=== PATIENT | female | born 1935 | race Caucasian/White ===

== ENCOUNTER 2017-01-15 15:54 | Inpatient (IN) | payer MEDICARE ==
[~2017-01-15] VITALS: Ht 152.4 cm; Wt 84.5 kg
[2017-01-15] MEDS: NS 1,000 ML IV SCH ×2 (00:45→21:10)
[~2017-01-15 15:54] MED LIST: /ESOM40CA PO; /MOXI40TA PO; ADV250INH INH; AMLO5TAB2 PO; ANAS1TAB PO; ARTH650T PO; BAYE81TA10 PO; CALC600T7 PO; CRES5TAB PO; DIOV320T PO; FLUO20CA8 PO; LOPR50TA PO; MULTTAB4 PO; PRED10PA PO; SPIRIVA INH; SYNT50TA PO; VENTAER INH; VITA500C24 PO
[2017-01-15] MEDS ORDERED: NS 500 ML IV ONE (16:30)
[2017-01-15] MEDS ORDERED: VALS320T3 PO (16:33)
[2017-01-15] MEDS ORDERED: TUDO1AER2 INH (16:33)
[2017-01-15] MEDS ORDERED: PRAV40TA2 PO (16:33)
[2017-01-15] MEDS ORDERED: LOMO2.5T PO (16:33)
--- NOTE | 2017-01-15 16:57 | REP ---
PORTABLE CHEST: AP portable view of the chest is performed. Patchy infiltrate is seen in the left upper lobe. There is cardiomegaly. Right lung demonstrates fibrotic scarring inferiorly appearing similar to the prior study. There is calcification of the thoracic aorta. There is a left dual lead pacemaker again noted. IMPRESSION: Cardiomegaly. Left upper lobe infiltrate. Signed by Fabian Sherwood MD 01/15/2017 04:58 P
[2017-01-15 17:12] LABS: BASO # 0.1 10^3/uL (0.0-0.2); BASO % 0.2 % (0.0-1.0); IMMATURE GRANULOCYTE % 0.6 % (0-0); LYMPH # 0.9 10^3/uL (1.5-4.5); LYMPH % 3.6 % (24.0-44.0); MEAN CORPUSCULAR HEMOGLOBIN 32.6 pg (27.0-33.0); MEAN CORPUSCULAR HGB CONC 31.9 g/dl (32.0-36.5); MONO # 0.9 10^3/uL (0.0-0.8); MONO % 3.4 % (0.0-5.0); NEUTROPHILS # 23.6 10^3/uL (1.8-7.7); NEUTROPHILS % 92.2 % (36.0-66.0); PLATELET COUNT, AUTOMATED 322 10^3/uL (150-450); RED CELL DISTRIBUTION WIDTH 13.9 % (11.5-14.5); WHITE BLOOD COUNT 25.6 10^3/uL (4.0-10.0)
[2017-01-15 17:17] LABS: INR 1.03
[2017-01-15 17:29] LABS: ANION GAP 8 MEQ/L (8-16); BLOOD UREA NITROGEN 27 MG/DL (7-18); CALCIUM LEVEL 9.3 MG/DL (8.8-10.2); CARBON DIOXIDE LEVEL 28 MEQ/L (21-32); CHLORIDE LEVEL 103 MEQ/L (98-107); CREATININE FOR GFR 1.66 MG/DL (0.55-1.02); GLOMERULAR FILTRATION RATE 31.7 (>39); GLUCOSE, FASTING 157 MG/DL (83-110); POTASSIUM SERUM 4.2 MEQ/L (3.5-5.1); SODIUM LEVEL 139 MEQ/L (136-145)
[2017-01-15] MEDS ORDERED: CEFEPIME HCL 2 GM in APPROPRIATE DILUENT 1 EA IV ONE (17:30)
[2017-01-15] MEDS ORDERED: LevoFLOXacin IV 750 MG in APPROPRIATE DILUENT 1 EA IV ONE (17:30)
[2017-01-15] MEDS ORDERED: NS 2,520 ML in APPROPRIATE DILUENT 1 EA IV ONE (17:30)
[2017-01-15 17:38] LABS: ALBUMIN 2.7 GM/DL (3.2-5.2); ALBUMIN/GLOBULIN RATIO 0.68 (1.00-1.93); BILIRUBIN,DIRECT 0.2 MG/DL (0.0-0.2); BILIRUBIN,TOTAL 0.6 MG/DL (0.2-1.0); TOTAL PROTEIN 6.7 GM/DL (6.4-8.2)
[2017-01-15] MEDS ORDERED: OMEP20CA3 PO (18:08)
[2017-01-15] MEDS ORDERED: AMLO10TA2 PO (18:08)
[2017-01-15] MEDS ORDERED: VITMTA PO (18:08)
[2017-01-15] MEDS ORDERED: LOMOTIL 2.5MG/0.025MG TABLET PO PRN (18:45)
--- NOTE | 2017-01-15 19:04 | HPE ---
DATE OF ADMISSION: 01/15/2017 PRIMARY CARE PROVIDER: None in [place]. HISTORY OF PRESENT ILLNESS The patient is a 81-year-old female with past medical history significant for chronic obstructive pulmonary disease, hypothyroidism, hyperlipidemia, hypertension, depression presented to [facility] on 01/15/2017 for generalized discomfort. Patient moved from [place] to [place]. She is looking at permanent residency in [place]. Per patient, patient was busy moving her belongings from [place] to [place] when she had extreme significant physical distress in the last few days and patient had progressive weakness and patient also noted to have increasing lightheadedness. Therefore, patient came to [facility] for further evaluation. During imaging study patient was found to have left upper lobe infiltrate. Denies any fever, chills. Denies any worsening cough. Denies any increased phlegm. Denied chest pain. Denies any recent sick contact. Denied any recent hospitalization. Presented due to hyper increased requirement of oxygen. PAST MEDICAL HISTORY: Chronic obstructive pulmonary disease. Hypothyroidism. Hyperlipidemia. Hypertension. History of breast cancer status post surgical repair. Depression. Pacemaker placement. PAST SURGICAL HISTORY: Abdominal aortic aneurysm repair in Summer 2015. Appendectomy. Cholecystectomy. Back surgery Tubal ligation. Patient had bilateral mastectomy in 2009 with breast augmentation and implant. SOCIAL HISTORY: Former smoker. Denied alcohol use. Denied recreational drug use. ALLERGIES: VICODIN (hallucination and confusion). REVIEW OF SYSTEMS: GENERAL: Denies any fever or chills. HEENT: Denied any vision change or auditory changes. CARDIOVASCULAR: Has a pacemaker placement. Denied any chest pain or palpitations. RESPIRATORY: Having increased oxygen requirements. No increased wheeze. No increased cough. No increased sputum production. GI: No nausea, no vomiting, no abdominal pain. MUSCULOSKELETAL: Denied any joint pain or muscle pain. OBJECTIVE: Vital signs temperature 97.4, pulse 85, respiration 20, blood pressure 102/53, pulse ox 94% with 2 liter nasal cannula. GENERAL: Fatigue. No sign of acute distress. Awake, alert, and oriented times three. HEENT: Normocephalic, atraumatic. Extraocular motor grossly intact. CARDIOVASCULAR: Positive S1, S2, regular rate. LUNGS: Some mild expiratory wheezes, decreased breath sound on the left upper lobe. ABDOMEN: Soft, non-tender, non-distended. Bowel sounds present. No rebound. No guarding. EXTREMITIES: No edema. No cyanosis. NEUROLOGIC: Sensation to fine touch grossly intact. Muscle strength 5/5. LABORATORY DATA: WBC 25.6, hemoglobin 14.4, hematocrit 45.1, platelet count is 322. Sodium 139, potassium 4.2, chloride 103, carbon dioxide 29, BUN 27, creatinine 1.66, Glomerular filtration rate (GFR) is 31.7, fasting glucose 157, lactic acid 2.3, calcium 9.3, total bilirubin 0.6, direct bilirubin is 0.2. AST 26, ALT 25, Alkaline phosphatase 60, troponin I is less than 0.02, total protein 6.9, albumin 2.7. PT is 13.6, INR is 1.03. Microbiology: Blood culture is pending. IMAGING STUDY: Chest x-ray shows left upper lobe infiltrate. ASSESSMENT AND PLAN: 1. Community acquired pneumonia. Patient admitted to progressive care unit (PCU) in inpatient status. Started on Rocephin and azithromycin. Initially patient systolic blood pressure maintained with IV fluid. Sputum culture ordered. Follow with respiratory panel. 2. Hypertension. Currently patient has sub blood pressure, blood pressure medication will be on hold. 3. Chronic obstructive pulmonary disease. Patient will maintain Oxygen sat between 88% to 92%. Patient will having breathing treatment as needed. 4. Hypothyroidism. Continue Synthroid. 5. Acute kidney injury. Will continue patient on gentle hydration. Cfhzdjqntdm-vmeepsfg-sievvqc (ARB) and diuretic will be on hold. 6. History of pacemaker placement. 7. Dyslipidemia. 8. Depression. Continue with fluoxetine. 9. History of breast cancer status post bilateral mastectomy in 2009 with breast augmentation and implants. 10. Abdominal aortic aneurysm repair in 2016. 11. Deep vein thrombosis prophylaxis on Heparin.
[2017-01-15 20:55] VITALS: BP 102/57
[2017-01-15] MEDS ORDERED: amLODIPine 10 MG TAB PO SCH (21:00)
[2017-01-15] MEDS: HEPARIN SOD (PORCINE) 5000 UNITS/ML VIAL SC SCH (21:10)
[2017-01-15] MEDS: ACETAMINOPHEN TAB 650MG DOSE (2X325MG) PO PRN (22:07)
[2017-01-16] VITALS (7 sets, daily range): BP systolic 124–159; BP diastolic 58–73
[2017-01-16] MEDS ORDERED: SLF 3 ML SYR IV PRN (02:15)
[2017-01-16] MEDS: ACETAMINOPHEN TAB 650MG DOSE (2X325MG) PO PRN ×3 (04:00→21:17)
[2017-01-16 05:29] LABS: MEAN CORPUSCULAR HGB CONC 31.7 g/dl (32.0-36.5); MEAN CORPUSCULAR VOLUME 103.9 fl (80.0-96.0); PLATELET COUNT, AUTOMATED 223 10^3/uL (150-450); RED CELL DISTRIBUTION WIDTH 13.9 % (11.5-14.5); WHITE BLOOD COUNT 18.2 10^3/uL (4.0-10.0)
[2017-01-16] MEDS: LEVOTHYROXINE 50MCG TABLET (0.05MG) PO SCH (05:49)
[2017-01-16] MEDS: SLF 3 ML SYR IV SCH ×3 (05:50→21:15)
[2017-01-16] MEDS: HEPARIN SOD (PORCINE) 5000 UNITS/ML VIAL SC SCH ×3 (05:50→21:11)
[2017-01-16 06:06] LABS: CREATININE FOR GFR 1.24 MG/DL (0.55-1.02); GLOMERULAR FILTRATION RATE 44.4 (>39); MAGNESIUM LEVEL 1.4 MG/DL (1.8-2.4); POTASSIUM SERUM 4.1 MEQ/L (3.5-5.1)
[2017-01-16] MEDS: ALBUTEROL SULFATE 2.5 MG/0.5 ML INH NEB SOLN NEB PRN ×3 (07:04→19:50)
--- NOTE | 2017-01-16 07:33 | ECGEPIP ---
Stationary ECG Study [facility] - ED Test Date: 2017-01-15 Pat Name: JONATHAN LIU Department: Room: - Gender: F Ssis Developer: sb : [id number] Requested By: Rivka Robert Order Number: [id number] Reading MD: Jono Garcia Measurements Intervals [place] Rate: 75 P: 97 UT: 193 QRS: -7 QRSD: 97 T: 79 QT: 422 QTc: 471 Interpretive Statements ELECTRONIC ATRIAL PACEMAKER INCOMPLETE RIGHT BUNDLE BRANCH BLOCK NSTTW ABNORMALITIES SIMILAR TO 10/15/12 Electronically Signed On 01-16-2017 7:33:25 EST by Jono Garcia
[2017-01-16] MEDS ORDERED: AZITHROMYCIN INJ 500 MG, VIAL MATE ADAPTER 1 EACH in D5W 250 ML IV SCH (08:00)
[2017-01-16] MEDS: ASPIRIN 81 MG ENTERIC TAB PO SCH (08:17)
[2017-01-16] MEDS: FLUoxetine 20 MG CAP PO SCH (08:18)
[2017-01-16] MEDS: PRAVASTATIN 20 MG TAB PO SCH (08:18)
[2017-01-16] MEDS: MULTIVITAMINS/MINERALS THERAP 1 TAB PO SCH (08:18)
[2017-01-16] MEDS: OMEPRAZOLE 20 MG CAP PO SCH (08:18)
[2017-01-16] MEDS: CEFTRIAXONE SOD 1 GM in APPROPRIATE DILUENT 1 EA IV SCH ×2 (09:37→21:14)
--- NOTE | 2017-01-16 10:06 | IPNPDOC ---
Subjective Date Seen The patient was seen on 01/16/17. Subjective Chief Complaint/HPI The patient is a 81-year-old female admitted with a reason for visit of Pneumonia. Events since last encounter patient feels better this morning. Less tired and feels stronger, denies any fever or chills, denies any chest pain or sob , says uses oxygen as required at home but does not have oxygen here. Objective Physical Examination General Exam: Positive: Alert, Cooperative, No Acute Distress Eye Exam: Positive: PERRLA, Conjunctiva & lids normal, EOMI, Negative: Sclera icteric ENT Exam: Positive: Atraumatic, Mucous membr. moist/pink, Pharynx Normal Neck Exam: Positive: Supple, Negative: JVD, thyromegaly Chest Exam: Positive: Clear to auscultation, Diminished Heart Exam: Positive: Rate Normal, Regular Rhythm, Normal S1, Normal S2, Negative: Murmurs, Rubs Abdomen Exam: Positive: Normal bowel sounds, Soft, Negative: Tenderness, Hepatospenomegaly Extremity Exam: Positive: Normal pulses, Negative: Clubbing, Cyanosis, Edema Assessment /Plan Problems (1) Pneumonia Status: Acute Problem Text: will continue with ceftriaxone and azithromycin. (2) DANIEL (acute kidney injury) Status: Acute Response to Treatment: Improving Problem Text: possibly prerenal . will continue to monitor. (3) Rhinovirus infection Status: Acute Problem Text: Human rhino/enterovirus infection. (4) COPD (chronic obstructive pulmonary disease) Status: Chronic Problem Text: uses oxygen prn at home will get nocturnal pulse oximetry and also resting and ambulatory pulse oximetry to see if she qualifies for home oxygen or not. (5) Hypothyroid Status: Chronic (6) Hyperlipidemia Status: Chronic (7) Hypertension Status: Chronic (8) Pacemaker Status: Chronic (9) CAD (coronary artery disease) Status: Chronic (10) CHF (congestive heart failure) Status: Chronic Problem Text: diastolic chf (11) GERD (gastroesophageal reflux disease) Status: Chronic (12) History of breast cancer Status: Chronic Problem Text: in 2010 treated (13) Depression Status: Chronic (14) Vertebral compression fracture Status: Chronic Problem Text: in the thoracic spine. (15) Degenerative disc disease Status: Chronic Problem Text: had lumber spinal surgery in the past Plan/VTE VTE Prophylaxis Ordered?: Yes VS, I&O, 24H, Fishbone Vital Signs/I&O Vital Signs Date Time Temp Pulse Resp B/P (MAP) Pulse Ox O2 Delivery O2 Flow Rate FiO2 01/16/17 04:00 98.6 69 20 132/63 (86) 88 Nasal Cannula 2.0 Laboratory Data 24H LABS Laboratory Tests 2 01/15/17 16:47: Immature Granulocyte % (Auto) 0.6H, White Blood Count 25.6H, Red Blood Count 4.42, Hemoglobin 14.4, Hematocrit 45.1, Mean Corpuscular Volume 102.0H, Mean Corpuscular Hemoglobin 32.6, Mean Corpuscular Hemoglobin Concent 31.9L, Red Cell Distribution Width 13.9, Platelet Count 322, Neutrophils (%) (Auto) 92.2H, Lymphocytes (%) (Auto) 3.6L, Monocytes (%) (Auto) 3.4, Eosinophils (%) (Auto) 0.0, Basophils (%) (Auto) 0.2, Neutrophils # (Auto) 23.6H, Lymphocytes # (Auto) 0.9L, Monocytes # (Auto) 0.9H, Eosinophils # (Auto) 0.0, Basophils # (Auto) 0.1 , Immature Granulocyte # (Auto) 0.2H, Nucleated Red Blood Cells % (auto) 0.0, Prothrombin Time 13.6, Prothromb Time International Ratio 1.03, Anion Gap 8, Glomerular Filtration Rate 31.7L, Lactic Acid Level 2.3*H, Blood Urea Nitrogen 27H, Creatinine 1.66H, Sodium Level 139, Potassium Level 4.2, Chloride Level 103 , Carbon Dioxide Level 28, Calcium Level 9.3, Total Creatine Kinase 65, Aspartate Amino Transf (AST/SGOT) 26, Alanine Aminotransferase (ALT/SGPT) 25, Alkaline Phosphatase 68, Total Bilirubin 0.6, Direct Bilirubin 0.2, Creatine Kinase MB 1.1, Creatine Kinase MB Relative Index 1.69, Troponin I < 0.02, Total Protein 6.7, Albumin 2.7L, Albumin/Globulin Ratio 0.68L, Thyroid Stimulating Hormone (TSH) 1.620 01/15/17 21:02: Lactic Acid Followup at 4 Hours 1.6 01/16/17 05:13: Nucleated Red Blood Cells % (auto) 0.0, Anion Gap 9, Glomerular Filtration Rate 44.4, Blood Urea Nitrogen 30H, Creatinine 1.24H, Sodium Level 144, Potassium Level 4.1, Chloride Level 111H, Carbon Dioxide Level 24, Calcium Level 8.0L, Thyroid Stimulating Hormone (TSH) 1.560, Magnesium Level 1.4L, C-Reactive Protein, Quantitative 13.90H CBC/BMP Laboratory Tests 01/15/17 16:47 Red Blood Count 4.42, Mean Corpuscular Volume 102.0 H, Mean Corpuscular Hemoglobin 32.6, Mean Corpuscular Hemoglobin Concent 31.9 L, Red Cell Distribution Width 13.9, Neutrophils (%) (Auto) 92.2 H, Lymphocytes (%) (Auto) 3.6 L, Monocytes (%) (Auto) 3.4, Eosinophils (%) (Auto) 0.0, Basophils (%) (Auto ) 0.2, Neutrophils # (Auto) 23.6 H, Lymphocytes # (Auto) 0.9 L, Monocytes # ( Auto) 0.9 H, Eosinophils # (Auto) 0.0, Basophils # (Auto) 0.1, Calcium Level 9.3 , Total Creatine Kinase 65 01/16/17 05:13 Red Blood Count 3.61 L, Mean Corpuscular Volume 103.9 H, Mean Corpuscular Hemoglobin 33.0, Mean Corpuscular Hemoglobin Concent 31.7 L, Red Cell Distribution Width 13.9, Calcium Level 8.0 L Microbiology Microbiology 01/15/17 Blood Culture, Received Pending 01/15/17 Blood Culture, Received Pending 01/16/17 Gram Stain, Received Pending 01/16/17 Sputum Culture, Received Pending 01/15/17 Respiratory Virus Panel (PCR) (IZABELA) - Final, Complete Human Rhinovirus/Enterovirus 01/15/17 Influenza Virus Type A Antigen - Final, Complete 01/15/17 Influenza Virus Type B Antigen - Final, Complete RICO DUMONT MD Jan 16, 2017 08:57
[2017-01-17 05:25] VITALS: BP 164/69
[2017-01-17] MEDS: HEPARIN SOD (PORCINE) 5000 UNITS/ML VIAL SC SCH ×3 (05:51→21:14)
[2017-01-17] MEDS: SLF 3 ML SYR IV SCH ×3 (05:51→21:15)
[2017-01-17] MEDS: LEVOTHYROXINE 50MCG TABLET (0.05MG) PO SCH (05:51)
[2017-01-17 05:52] LABS: MEAN CORPUSCULAR HEMOGLOBIN 32.8 pg (27.0-33.0); MEAN CORPUSCULAR HGB CONC 31.1 g/dl (32.0-36.5); MEAN CORPUSCULAR VOLUME 105.2 fl (80.0-96.0); PLATELET COUNT, AUTOMATED 219 10^3/uL (150-450); RED CELL DISTRIBUTION WIDTH 14.1 % (11.5-14.5); WHITE BLOOD COUNT 12.7 10^3/uL (4.0-10.0)
[2017-01-17] MEDS: ACETAMINOPHEN TAB 650MG DOSE (2X325MG) PO PRN ×2 (05:53→21:13)
[2017-01-17 06:07] LABS: ANION GAP 7 MEQ/L (8-16); BLOOD UREA NITROGEN 15 MG/DL (7-18); CALCIUM LEVEL 8.8 MG/DL (8.8-10.2); CARBON DIOXIDE LEVEL 27 MEQ/L (21-32); CHLORIDE LEVEL 105 MEQ/L (98-107); CREATININE FOR GFR 0.95 MG/DL (0.55-1.02); GLOMERULAR FILTRATION RATE > 60.0 (>39); GLUCOSE, FASTING 104 MG/DL (83-110); MAGNESIUM LEVEL 1.4 MG/DL (1.8-2.4); POTASSIUM SERUM 3.7 MEQ/L (3.5-5.1); SODIUM LEVEL 139 MEQ/L (136-145)
[2017-01-17] MEDS ORDERED: MAGNESIUM SULFATE 1 GM/100 ML D5W BAG (10MG/ML) (J3475) As Ordered ONE (06:36)
[2017-01-17] MEDS: MAG SULF 1GM/100ML (MAG RUN) 1 GM in APPROPRIATE DILUENT 1 EA IV SCH ×2 (07:06→09:20)
[2017-01-17] MEDS: hydroCHLOROthiazide 25 MG TAB PO SCH (09:00)
--- NOTE | 2017-01-17 09:14 | IPNPDOC ---
Subjective Date Seen The patient was seen on 01/17/17. Subjective Chief Complaint/HPI The patient is a 81-year-old female admitted with a reason for visit of Pneumonia. Events since last encounter feeling a little better this am , no fever or chills, no chest pain or sob . Objective Physical Examination General Exam: Positive: Alert, Cooperative, No Acute Distress Eye Exam: Positive: PERRLA, Conjunctiva & lids normal, EOMI, Negative: Sclera icteric ENT Exam: Positive: Atraumatic, Mucous membr. moist/pink, Pharynx Normal Neck Exam: Positive: Supple, Negative: JVD, thyromegaly Chest Exam: Positive: Clear to auscultation, Diminished Heart Exam: Positive: Rate Normal, Regular Rhythm, Normal S1, Normal S2, Negative: Murmurs, Rubs Abdomen Exam: Positive: Normal bowel sounds, Soft, Negative: Tenderness, Hepatospenomegaly Extremity Exam: Positive: Normal pulses, Negative: Clubbing, Cyanosis, Edema Assessment /Plan Problems (1) Pneumonia Status: Acute Problem Text: will continue with ceftriaxone and azithromycin. (2) DANIEL (acute kidney injury) Status: Acute Response to Treatment: Improving Problem Text: possibly prerenal . will continue to monitor. (3) Rhinovirus infection Status: Acute Problem Text: Human rhino/enterovirus infection. (4) COPD (chronic obstructive pulmonary disease) Status: Chronic Problem Text: uses oxygen prn at home will get nocturnal pulse oximetry and also resting and ambulatory pulse oximetry to see if she qualifies for home oxygen or not. (5) Hypothyroid Status: Chronic (6) Hyperlipidemia Status: Chronic (7) Hypertension Status: Chronic (8) Pacemaker Status: Chronic (9) CAD (coronary artery disease) Status: Chronic (10) CHF (congestive heart failure) Status: Chronic Problem Text: diastolic chf (11) GERD (gastroesophageal reflux disease) Status: Chronic (12) History of breast cancer Status: Chronic Problem Text: in 2010 treated (13) Depression Status: Chronic (14) Vertebral compression fracture Status: Chronic Problem Text: in the thoracic spine. (15) Degenerative disc disease Status: Chronic Problem Text: had lumber spinal surgery in the past Plan/VTE VTE Prophylaxis Ordered?: Yes VS, I&O, 24H, Fishbone Vital Signs/I&O Vital Signs Date Time Temp Pulse Resp B/P (MAP) Pulse Ox O2 Delivery O2 Flow Rate FiO2 01/17/17 05:25 97.4 69 20 164/69 (100) 69 Nasal Cannula 2.0 Laboratory Data 24H LABS Laboratory Tests 2 01/17/17 05:20: Nucleated Red Blood Cells % (auto) 0.0, Anion Gap 7L, Glomerular Filtration Rate > 60.0, Blood Urea Nitrogen 15, Creatinine 0.95, Sodium Level 139, Potassium Level 3.7, Chloride Level 105, Carbon Dioxide Level 27, Calcium Level 8.8, Magnesium Level 1.4L CBC/BMP Laboratory Tests 01/17/17 05:20 Red Blood Count 3.48 L, Mean Corpuscular Volume 105.2 H, Mean Corpuscular Hemoglobin 32.8, Mean Corpuscular Hemoglobin Concent 31.1 L, Red Cell Distribution Width 14.1, Calcium Level 8.8 Microbiology Microbiology 01/15/17 Blood Culture - Preliminary, Resulted No growth after 24 hours . All specim... 01/15/17 Blood Culture - Preliminary, Resulted No growth after 24 hours . All specim... 01/16/17 Gram Stain - Final, Resulted 01/16/17 Sputum Culture - Preliminary, Resulted Yeast Like Organism 01/15/17 Respiratory Virus Panel (PCR) (IZABELA) - Final, Complete Human Rhinovirus/Enterovirus 01/15/17 Influenza Virus Type A Antigen - Final, Complete 01/15/17 Influenza Virus Type B Antigen - Final, Complete RICO DUMONT MD Jan 17, 2017 09:14
[2017-01-17] MEDS: PRAVASTATIN 20 MG TAB PO SCH (09:19)
[2017-01-17] MEDS: AZITHROMYCIN 250 MG TAB PO SCH (09:19)
[2017-01-17] MEDS: OMEPRAZOLE 20 MG CAP PO SCH (09:19)
[2017-01-17] MEDS: ASPIRIN 81 MG ENTERIC TAB PO SCH (09:20)
[2017-01-17] MEDS: MULTIVITAMINS/MINERALS THERAP 1 TAB PO SCH (09:20)
[2017-01-17] MEDS: FLUoxetine 20 MG CAP PO SCH (09:21)
[2017-01-17] MEDS: MAGNESIUM OXIDE 400 MG TAB (MAG-OX) PO SCH ×2 (09:21→21:14)
[2017-01-17] MEDS: ALBUTEROL SULFATE 2.5 MG/0.5 ML INH NEB SOLN NEB PRN ×3 (09:30→21:13)
[2017-01-17] MEDS: CEFTRIAXONE SOD 1 GM in APPROPRIATE DILUENT 1 EA IV SCH ×2 (12:34→21:13)
[2017-01-17 14:00] VITALS: BP 146/67
[2017-01-17 22:00] VITALS: BP 166/67
[2017-01-18] MEDS: ALBUTEROL SULFATE 2.5 MG/0.5 ML INH NEB SOLN NEB PRN (05:38)
[2017-01-18 06:00] VITALS: BP 143/72
[2017-01-18] MEDS: LEVOTHYROXINE 50MCG TABLET (0.05MG) PO SCH (06:12)
[2017-01-18] MEDS: SLF 3 ML SYR IV SCH ×3 (06:13→21:24)
[2017-01-18] MEDS: HEPARIN SOD (PORCINE) 5000 UNITS/ML VIAL SC SCH ×3 (06:13→21:23)
[2017-01-18 06:56] LABS: MEAN CORPUSCULAR HEMOGLOBIN 32.8 pg (27.0-33.0); MEAN CORPUSCULAR HGB CONC 31.8 g/dl (32.0-36.5); MEAN CORPUSCULAR VOLUME 103.1 fl (80.0-96.0); PLATELET COUNT, AUTOMATED 247 10^3/uL (150-450); WHITE BLOOD COUNT 9.5 10^3/uL (4.0-10.0)
[2017-01-18 07:15] LABS: ANION GAP 6 MEQ/L (8-16); BLOOD UREA NITROGEN 12 MG/DL (7-18); CALCIUM LEVEL 9.3 MG/DL (8.8-10.2); CARBON DIOXIDE LEVEL 29 MEQ/L (21-32); CHLORIDE LEVEL 106 MEQ/L (98-107); CREATININE FOR GFR 0.81 MG/DL (0.55-1.02); GLOMERULAR FILTRATION RATE > 60.0 (>39); GLUCOSE, FASTING 102 MG/DL (83-110); MAGNESIUM LEVEL 1.9 MG/DL (1.8-2.4); POTASSIUM SERUM 3.9 MEQ/L (3.5-5.1); SODIUM LEVEL 141 MEQ/L (136-145)
[2017-01-18] MEDS: BUDESONIDE 0.5 MG/2 ML INHALATION SUSPENSION INH SCH ×2 (09:20→20:00)
[2017-01-18] MEDS: IPRATROPIUM 0.5MG/ALBUTEROL 2.5MG INH SOL UD 3ML (DUONEB)(J7620) NEB SCH ×4 (09:20→23:38)
[2017-01-18] MEDS: ASPIRIN 81 MG ENTERIC TAB PO SCH (09:50)
[2017-01-18] MEDS: PRAVASTATIN 20 MG TAB PO SCH (09:51)
[2017-01-18] MEDS: FLUoxetine 20 MG CAP PO SCH (09:52)
[2017-01-18] MEDS: OMEPRAZOLE 20 MG CAP PO SCH (09:52)
[2017-01-18] MEDS: MULTIVITAMINS/MINERALS THERAP 1 TAB PO SCH (09:52)
[2017-01-18] MEDS: AZITHROMYCIN 250 MG TAB PO SCH (09:52)
[2017-01-18] MEDS: MAGNESIUM OXIDE 400 MG TAB (MAG-OX) PO SCH ×2 (09:52→21:23)
[2017-01-18] MEDS: CEFTRIAXONE SOD 1 GM in APPROPRIATE DILUENT 1 EA IV SCH ×2 (09:53→21:24)
[2017-01-18] MEDS: hydroCHLOROthiazide 25 MG TAB PO SCH (09:53)
[2017-01-18] MEDS: methylPREDNISolone INJ 40 MG/1 ML VIAL (J2920) IV SCH ×2 (09:53→17:49)
--- NOTE | 2017-01-18 10:27 | IPNPDOC ---
Subjective Date Seen The patient was seen on 01/18/17. Subjective Chief Complaint/HPI The patient is a 81-year-old female admitted with a reason for visit of Pneumonia. Events since last encounter feels unwell today , continues to be very short of breath , continues to have some dry cough , generalized malaise. no vomiting or diarrhea. Denies any chest pain or abdominal pain. no leg swelling. Objective Physical Examination General Exam: Positive: Alert, Cooperative, No Acute Distress Eye Exam: Positive: PERRLA, Conjunctiva & lids normal, EOMI, Negative: Sclera icteric ENT Exam: Positive: Atraumatic, Mucous membr. moist/pink, Pharynx Normal Neck Exam: Positive: Supple, Negative: JVD, thyromegaly Chest Exam: Positive: Wheezing, Diminished Heart Exam: Positive: Rate Normal, Regular Rhythm, Normal S1, Normal S2, Negative: Murmurs, Rubs Abdomen Exam: Positive: Normal bowel sounds, Soft, Negative: Tenderness, Hepatospenomegaly Extremity Exam: Positive: Normal pulses, Negative: Clubbing, Cyanosis, Edema Assessment /Plan Problems (1) Pneumonia Status: Acute Problem Text: will continue with ceftriaxone and azithromycin. (2) DANIEL (acute kidney injury) Status: Resolved Response to Treatment: Improving Problem Text: possibly prerenal . will continue to monitor. (3) Rhinovirus infection Status: Acute Problem Text: Human rhino/enterovirus infection. (4) COPD (chronic obstructive pulmonary disease) Status: Chronic Response to Treatment: Worse Problem Text: seems to have some exacerbation going on possibly due to the pneumonia and viral respiratory infection will give duonebs, budesonide and formoterol . will also stat on methyl prednisone. used to use oxygen prn at home in [place]. will get nocturnal pulse oximetry and also resting and ambulatory pulse oximetry to see if she qualifies for home oxygen or not. (5) Hypothyroid Status: Chronic (6) Hyperlipidemia Status: Chronic (7) Hypertension Status: Chronic (8) Pacemaker Status: Chronic (9) CAD (coronary artery disease) Status: Chronic (10) CHF (congestive heart failure) Status: Chronic Problem Text: diastolic chf (11) GERD (gastroesophageal reflux disease) Status: Chronic (12) History of breast cancer Status: Chronic Problem Text: in 2010 treated (13) Depression Status: Chronic (14) Vertebral compression fracture Status: Chronic Problem Text: in the thoracic spine. (15) Degenerative disc disease Status: Chronic Problem Text: had lumber spinal surgery in the past Plan/VTE VTE Prophylaxis Ordered?: Yes VS, I&O, 24H, Fishbone Vital Signs/I&O Vital Signs Date Time Temp Pulse Resp B/P (MAP) Pulse Ox O2 Delivery O2 Flow Rate FiO2 01/18/17 06:00 97.4 68 18 143/72 (95) 90 Room Air 01/17/17 21:30 2.0 I&O- Last 24 Hours up to 6 AM 01/19/17 06:00 Intake Total 360 ml Balance 360 ml Laboratory Data 24H LABS Laboratory Tests 2 01/18/17 05:20: Nucleated Red Blood Cells % (auto) 0.0, Anion Gap 6L, Glomerular Filtration Rate > 60.0, Blood Urea Nitrogen 12, Creatinine 0.81, Sodium Level 141, Potassium Level 3.9, Chloride Level 106, Carbon Dioxide Level 29, Calcium Level 9.3, Magnesium Level 1.9 CBC/BMP Laboratory Tests 01/18/17 05:20 Red Blood Count 3.57 L, Mean Corpuscular Volume 103.1 H, Mean Corpuscular Hemoglobin 32.8, Mean Corpuscular Hemoglobin Concent 31.8 L, Red Cell Distribution Width 14.0, Calcium Level 9.3 Microbiology Microbiology 01/15/17 Blood Culture - Preliminary, Resulted No Growth after 48 hours. All Specime... 01/15/17 Blood Culture - Preliminary, Resulted No Growth after 48 hours. All Specime... 01/16/17 Gram Stain - Final, Resulted 01/16/17 Sputum Culture - Preliminary, Resulted Yeast Like Organism 01/15/17 Respiratory Virus Panel (PCR) (IZABELA) - Final, Complete Human Rhinovirus/Enterovirus 01/15/17 Influenza Virus Type A Antigen - Final, Complete 01/15/17 Influenza Virus Type B Antigen - Final, Complete RICO DUMONT MD Jan 18, 2017 10:27
[2017-01-18] MEDS: FORMOTEROL FUMARATE 20 MCG/2 ML INHALATION SOLUTION (PERFOROMIST) INH SCH ×2 (11:08→20:00)
[2017-01-18 14:00] VITALS: BP 151/66
[2017-01-18 22:00] VITALS: BP 134/65
[2017-01-19] MEDS: methylPREDNISolone INJ 40 MG/1 ML VIAL (J2920) IV SCH ×2 (00:54→08:34)
[2017-01-19] MEDS: HEPARIN SOD (PORCINE) 5000 UNITS/ML VIAL SC SCH ×3 (05:35→21:13)
[2017-01-19] MEDS: LEVOTHYROXINE 50MCG TABLET (0.05MG) PO SCH (05:35)
[2017-01-19] MEDS: SLF 3 ML SYR IV SCH ×3 (05:36→21:13)
[2017-01-19 06:00] VITALS: BP 152/72
[2017-01-19 06:01] LABS: MEAN CORPUSCULAR HEMOGLOBIN 32.8 pg (27.0-33.0); MEAN CORPUSCULAR HGB CONC 32.3 g/dl (32.0-36.5); MEAN CORPUSCULAR VOLUME 101.7 fl (80.0-96.0); PLATELET COUNT, AUTOMATED 253 10^3/uL (150-450); RED CELL DISTRIBUTION WIDTH 13.6 % (11.5-14.5); WHITE BLOOD COUNT 8.9 10^3/uL (4.0-10.0)
[2017-01-19 06:23] LABS: ANION GAP 5 MEQ/L (8-16); BLOOD UREA NITROGEN 14 MG/DL (7-18); CALCIUM LEVEL 9.4 MG/DL (8.8-10.2); CARBON DIOXIDE LEVEL 31 MEQ/L (21-32); CHLORIDE LEVEL 101 MEQ/L (98-107); CREATININE FOR GFR 0.82 MG/DL (0.55-1.02); GLOMERULAR FILTRATION RATE > 60.0 (>39); GLUCOSE, FASTING 175 MG/DL (83-110); MAGNESIUM LEVEL 1.8 MG/DL (1.8-2.4); POTASSIUM SERUM 3.9 MEQ/L (3.5-5.1); SODIUM LEVEL 137 MEQ/L (136-145)
--- NOTE | 2017-01-19 06:48 | NOCOX ---
DATE OF STUDY: 01/16/2017 TO 01/17/2017 ORDERED BY: Selene Marquez MD The study was performed on room air. Study of excellent technical quality. Mean oxygen saturation for the study 86.8% with the lowest reliable saturation of 49%. Areas of progressive desaturation suggesting primary alveolar hypoventilation are noted, but cyclic patterns of desaturation that certainly could be consistent obstructive sleep apnea (BARBIE) are noted. IMPRESSION: Abnormal nocturnal oximetry. Clinical correlation with the above will be necessary.
[2017-01-19] MEDS: IPRATROPIUM 0.5MG/ALBUTEROL 2.5MG INH SOL UD 3ML (DUONEB)(J7620) NEB SCH ×3 (08:00→19:51)
[2017-01-19] MEDS: BUDESONIDE 0.5 MG/2 ML INHALATION SUSPENSION INH SCH ×2 (08:02→19:51)
[2017-01-19] MEDS: FORMOTEROL FUMARATE 20 MCG/2 ML INHALATION SOLUTION (PERFOROMIST) INH SCH ×2 (08:02→19:51)
[2017-01-19 08:03] VITALS: O2SAT 90
[2017-01-19] MEDS: MAGNESIUM OXIDE 400 MG TAB (MAG-OX) PO SCH ×2 (08:34→21:13)
[2017-01-19] MEDS: OMEPRAZOLE 20 MG CAP PO SCH (08:34)
[2017-01-19] MEDS: ASPIRIN 81 MG ENTERIC TAB PO SCH (08:34)
[2017-01-19] MEDS: AZITHROMYCIN 250 MG TAB PO SCH (08:34)
[2017-01-19] MEDS: hydroCHLOROthiazide 25 MG TAB PO SCH (08:34)
[2017-01-19] MEDS: PRAVASTATIN 20 MG TAB PO SCH (08:35)
[2017-01-19] MEDS: MULTIVITAMINS/MINERALS THERAP 1 TAB PO SCH (08:35)
[2017-01-19] MEDS: FLUoxetine 20 MG CAP PO SCH (08:35)
[2017-01-19] MEDS: CEFTRIAXONE SOD 1 GM in APPROPRIATE DILUENT 1 EA IV SCH (08:35)
[2017-01-19] MEDS ORDERED: LevoFLOXacin 500 MG TABLET PO ONE (10:00)
--- NOTE | 2017-01-19 10:10 | IPNPDOC ---
Subjective Date Seen The patient was seen on 01/19/17. Subjective Chief Complaint/HPI The patient is a 81-year-old female admitted with a reason for visit of Pneumonia. Events since last encounter feeling much better today, sob better, denies any cough, no fever or chills Objective Physical Examination General Exam: Positive: Alert, Cooperative, No Acute Distress Eye Exam: Positive: PERRLA, Conjunctiva & lids normal, EOMI, Negative: Sclera icteric ENT Exam: Positive: Atraumatic, Mucous membr. moist/pink, Pharynx Normal Neck Exam: Positive: Supple, Negative: JVD, thyromegaly Chest Exam: Positive: Clear to auscultation, Diminished Heart Exam: Positive: Rate Normal, Regular Rhythm, Normal S1, Normal S2, Negative: Murmurs, Rubs Abdomen Exam: Positive: Normal bowel sounds, Soft, Negative: Tenderness, Hepatospenomegaly Extremity Exam: Positive: Normal pulses, Negative: Clubbing, Cyanosis, Edema Assessment /Plan Problems (1) Pneumonia Status: Acute Problem Text: will change to levofloxacin based on sputum culture. (2) DANIEL (acute kidney injury) Status: Resolved Problem Text: prerenal . (3) Rhinovirus infection Status: Acute Problem Text: Human rhino/enterovirus infection. (4) COPD (chronic obstructive pulmonary disease) Status: Chronic Response to Treatment: Worse Problem Text: seems to have some exacerbation going on possibly due to the pneumonia and viral respiratory infection will give duonebs, budesonide and formoterol . will also stat on methyl prednisone. used to use oxygen prn at home in [place]. will get nocturnal pulse oximetry and also resting and ambulatory pulse oximetry to see if she qualifies for home oxygen or not. (5) Hypothyroid Status: Chronic (6) Hyperlipidemia Status: Chronic (7) Hypertension Status: Chronic (8) Pacemaker Status: Chronic (9) CAD (coronary artery disease) Status: Chronic (10) CHF (congestive heart failure) Status: Chronic Problem Text: diastolic chf (11) GERD (gastroesophageal reflux disease) Status: Chronic (12) History of breast cancer Status: Chronic Problem Text: in 2010 treated (13) Depression Status: Chronic (14) Vertebral compression fracture Status: Chronic Problem Text: in the thoracic spine. (15) Degenerative disc disease Status: Chronic Problem Text: had lumber spinal surgery in the past Plan/VTE VTE Prophylaxis Ordered?: Yes VS, I&O, 24H, Fishbone Vital Signs/I&O Vital Signs Date Time Temp Pulse Resp B/P (MAP) Pulse Ox O2 Delivery O2 Flow Rate FiO2 01/19/17 08:03 90 Nasal Cannula 2.0 01/19/17 06:00 97.2 69 18 152/72 (98) I&O- Last 24 Hours up to 6 AM 01/20/17 06:00 Intake Total 60 ml Output Total 450 ml Balance -390 ml Laboratory Data 24H LABS Laboratory Tests 2 01/19/17 05:28: Nucleated Red Blood Cells % (auto) 0.0, Anion Gap 5L, Glomerular Filtration Rate > 60.0, Blood Urea Nitrogen 14, Creatinine 0.82, Sodium Level 137, Potassium Level 3.9, Chloride Level 101, Carbon Dioxide Level 31, Calcium Level 9.4, Magnesium Level 1.8 CBC/BMP Laboratory Tests 01/19/17 05:28 Red Blood Count 3.44 L, Mean Corpuscular Volume 101.7 H, Mean Corpuscular Hemoglobin 32.8, Mean Corpuscular Hemoglobin Concent 32.3, Red Cell Distribution Width 13.6, Calcium Level 9.4 Microbiology Microbiology 01/15/17 Blood Culture - Preliminary, Resulted No Growth after 72 hours. All specime... 01/15/17 Blood Culture - Preliminary, Resulted No Growth after 72 hours. All specime... 01/16/17 Gram Stain - Final, Complete 01/16/17 Sputum Culture - Final, Complete Yeast Like Organism Stenotrophomonas Maltophilia 01/15/17 Respiratory Virus Panel (PCR) (IZABELA) - Final, Complete Human Rhinovirus/Enterovirus 01/15/17 Influenza Virus Type A Antigen - Final, Complete 01/15/17 Influenza Virus Type B Antigen - Final, Complete RICO DUMONT MD Jan 19, 2017 10:10
[2017-01-19 14:00] VITALS: BP 177/74
[2017-01-19] MEDS ORDERED: methylPREDNISolone INJ 40 MG/1 ML VIAL (J2920) IV SCH (21:00)
[2017-01-19 22:00] VITALS: BP 158/69
[2017-01-20] MEDS: IPRATROPIUM 0.5MG/ALBUTEROL 2.5MG INH SOL UD 3ML (DUONEB)(J7620) NEB SCH ×2 (01:20→07:53)
[2017-01-20] MEDS: HEPARIN SOD (PORCINE) 5000 UNITS/ML VIAL SC SCH (05:35)
[2017-01-20] MEDS: SLF 3 ML SYR IV SCH (05:35)
[2017-01-20] MEDS: LEVOTHYROXINE 50MCG TABLET (0.05MG) PO SCH (05:35)
[2017-01-20 06:00] VITALS: BP 159/71
[2017-01-20] MEDS ORDERED: LevoFLOXacin 250 MG TABLET PO SCH (06:00)
[2017-01-20 06:38] LABS: MEAN CORPUSCULAR HEMOGLOBIN 32.4 pg (27.0-33.0); MEAN CORPUSCULAR HGB CONC 32.2 g/dl (32.0-36.5); MEAN CORPUSCULAR VOLUME 100.5 fl (80.0-96.0); PLATELET COUNT, AUTOMATED 297 10^3/uL (150-450); RED CELL DISTRIBUTION WIDTH 13.3 % (11.5-14.5); WHITE BLOOD COUNT 11.4 10^3/uL (4.0-10.0)
[2017-01-20 06:46] LABS: ANION GAP 4 MEQ/L (8-16); BLOOD UREA NITROGEN 19 MG/DL (7-18); CALCIUM LEVEL 9.6 MG/DL (8.8-10.2); CARBON DIOXIDE LEVEL 35 MEQ/L (21-32); CHLORIDE LEVEL 98 MEQ/L (98-107); CREATININE FOR GFR 0.87 MG/DL (0.55-1.02); GLOMERULAR FILTRATION RATE > 60.0 (>39); GLUCOSE, FASTING 146 MG/DL (83-110); MAGNESIUM LEVEL 1.9 MG/DL (1.8-2.4); POTASSIUM SERUM 3.9 MEQ/L (3.5-5.1); SODIUM LEVEL 137 MEQ/L (136-145)
[2017-01-20] MEDS ORDERED: PRED10TA2 PO (07:38)
[2017-01-20] MEDS ORDERED: LEVA1TAB PO (07:38)
[2017-01-20] MEDS ORDERED: IPRASOL4 NEB (07:38)
[2017-01-20] MEDS: BUDESONIDE 0.5 MG/2 ML INHALATION SUSPENSION INH SCH (07:53)
[2017-01-20] MEDS: FORMOTEROL FUMARATE 20 MCG/2 ML INHALATION SOLUTION (PERFOROMIST) INH SCH (07:53)
[2017-01-20] MEDS: FLUoxetine 20 MG CAP PO SCH (08:48)
[2017-01-20] MEDS: PRAVASTATIN 20 MG TAB PO SCH (08:48)
[2017-01-20] MEDS: OMEPRAZOLE 20 MG CAP PO SCH (08:48)
[2017-01-20] MEDS: ASPIRIN 81 MG ENTERIC TAB PO SCH (08:49)
[2017-01-20] MEDS: MAGNESIUM OXIDE 400 MG TAB (MAG-OX) PO SCH (08:49)
[2017-01-20] MEDS: hydroCHLOROthiazide 25 MG TAB PO SCH (08:49)
[2017-01-20] MEDS: MULTIVITAMINS/MINERALS THERAP 1 TAB PO SCH (08:49)
[2017-01-20] MEDS ORDERED: predniSONE 20 MG TAB PO SCH (09:00)
--- NOTE | 2017-01-20 12:41 | DSES ---
DATE OF ADMISSION: 01/15/2017 DATE OF DISCHARGE: PRIMARY CARE PROVIDER: Kaylene Alvarez MD DISCHARGE DIAGNOSES: 1. Chronic obstructive pulmonary disease (COPD) exacerbation. 2. Chronic hypoxic respiratory failure. 3. Upper respiratory tract viral infection with human rhino enterovirus. 4. Gram negative Pneumonia 5. Acute kidney injury. 6. Hypothyroidism. 7. Hyperlipidemia. 8. Hypertension. 9. Diastolic congestive heart failure. 10. Coronary artery disease. 11. Gastroesophageal reflux disease (GERD). 12. Chronic degenerative disc disease and chronic thoracic spinal vertebral compression fracture. 13. History of breast cancer treated in 2009. 14. Obesity. 15. Possible obstructive sleep apnea, needs to get a sleep study as an outpatient. 16. Pacemaker in place. 17. History of abdominal aortic aneurysm repair in 2016. DISCHARGE MEDICATIONS: - DuoNeb nebulizer solution one every 8 hours as needed for shortness of breath - Levofloxacin 250 mg by mouth daily - prednisone 10 mg tablet tapering course - Tylenol 650 mg by mouth daily - albuterol sulfate MDI two puff inhalation every 4 hours as needed for shortness of breath - amlodipine 10 mg by mouth twice a day - aspirin 81 mg by mouth daily - Lomotil one tablet every 8 hours as needed for diarrhea - duloxetine 20 mg by mouth daily - Synthroid 50 mcg by mouth daily - multivitamin one tablet by mouth daily - omeprazole 20 mg by mouth daily - Pravastatin 40 mg by mouth daily - Advair Diskus 250/50 one puff inhalation twice a day - Tudorza 400 mcg inhalation twice a day - valsartan/hydrochlorothiazide 320/25 one tablet by mouth daily HOSPITAL COURSE: This is a 81-year-old female who is in the process of moving from [place] to [place] and 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 Just moved to [place] 5 days ago and since then she has been feeling sick. She came to the emergency room complaining of increased shortness of breath, generalized weakness, malaise, lightheadedness. The patient was found to have chronic obstructive pulmonary disease (COPD) exacerbation, as well as upper respiratory tract viral infection and pneumonia, possibly post viral or community acquired pneumonia and was admitted for such. The patient responded well to treatment with steroids, nebulizers and antibiotics with improvement of her symptoms; however, the patient continued to be hypoxic on room air down to 87% at rest, so the patient was prescribed oxygen for home use with portability. The patient also had a nocturnal pulse oximetry done, which was suggestive of alveolar hypoventilation, as well as possible obstructive sleep apnea. The patient would benefit from a formal sleep study as an outpatient for evaluation of obstructive sleep apnea. On the day of discharge, the patient's symptoms are improved. The patient's vitals are stable. Functionally, the patient is close to baseline. The patient is going to be discharged home in stable condition. PHYSICAL EXAMINATION: VITAL SIGNS: Temperature 97.4, pulse 70, respiratory rate 18, blood pressure 159/71, pulse oximetry 87% on room air, 93% with 2 liters nasal cannula. GENERAL: The patient is awake, alert and oriented times three. Sitting up in bed and in no acute distress. HEENT: Normocephalic, atraumatic. Moist mucous membranes. Anicteric eyes. CHEST: Mostly clear to auscultation. There are a few scattered wheezes. CARDIOVASCULAR: S1, S2. Regular. No rub, murmur or gallop. ABDOMEN: Obese, soft, nontender. Bowel sounds present. EXTREMITIES: No edema. LABORATORY DATA: WBC 11.4, hemoglobin 11.8, platelets 297. Sodium 137, potassium 3.9, chloride 98, bicarbonate 35, BUN 19, creatinine 0.8, glucose 146, calcium 9.6, magnesium 1.9. Respiratory viral panel: Human rhinovirus and enterovirus. Gram sputum stain shows a few yeast-like organisms and Stenotrophomonas maltophilia few. Chest x-ray showed left upper lobe infiltrate and cardiomegaly. DISPOSITION: The patient is discharged home in stable condition. DISCHARGE INSTRUCTIONS: The patient is to followup with primary care provider in 1 week. Activity as tolerated. 2-gram sodium diet. The patient should be referred to teletype or varitype keyboard operator for outpatient sleep study for possible underlying obstructive sleep apnea. MTDD
== END 2017-01-20 14:42 | disposition home or self-care (01) | DRG 178 ==
LOC: M ED 15:54 → EDBD 15:54 → M ED INP 18:21 → M PCU 20:38 → M MSPAV 01-16 20:22
PROVIDERS: ADMIT Internal Medicine; ATTEND Internal Medicine Nephrology
DX: J15.6 Pneumonia due to other Gram-negative bacteria (principal); J44.0 Chronic obstructive pulmonary disease with (acute) lower respiratory infection; N17.9 Acute kidney failure, unspecified; I50.32 Chronic diastolic (congestive) heart failure; J96.11 Chronic respiratory failure with hypoxia; J44.1 Chronic obstructive pulmonary disease with (acute) exacerbation; I11.0 Hypertensive heart disease with heart failure; E03.9 Hypothyroidism, unspecified; F32.9 Major depressive disorder, single episode, unspecified; E78.5 Hyperlipidemia, unspecified; B97.89 Other viral agents as the cause of diseases classified elsewhere; M51.36 Other intervertebral disc degeneration, lumbar region; I25.10 Atherosclerotic heart disease of native coronary artery without angina pectoris; E66.9 Obesity, unspecified; G47.33 Obstructive sleep apnea (adult) (pediatric); K21.9 Gastro-esophageal reflux disease without esophagitis; Z95.0 Presence of cardiac pacemaker; Z68.36 Body mass index [BMI] 36.0-36.9, adult; Z85.3 Personal history of malignant neoplasm of breast; Z90.13 Acquired absence of bilateral breasts and nipples; Z87.891 Personal history of nicotine dependence; Z88.5 Allergy status to narcotic agent; Z99.81 Dependence on supplemental oxygen

== ENCOUNTER 2017-02-16 12:24 | Emergency (ER) | payer MEDICARE ==
[~2017-02-16] VITALS: Ht 152.4 cm; Wt 82.7 kg
[~2017-02-16 12:24] MED LIST changes: +AMLO10TA2 PO; +IPRASOL4 NEB; +LEVA1TAB PO; +LOMO2.5T PO; +OMEP20CA3 PO; +PRAV40TA2 PO; +PRED10TA2 PO; +TUDO1AER2 INH; +VALS320T3 PO; +VITMTA PO
--- NOTE | 2017-02-16 14:38 | REP ---
RIGHT SHOULDER: Four views of the right shoulder are performed. There is no acute fracture or dislocation. There is mild narrowing and spurring of at the acromioclavicular and glenohumeral joints. IMPRESSION: Mild degenerative changes. No fracture or dislocation. Signed by Fabian Sherwood MD 02/16/2017 05:58 P
[2017-02-16 15:01] VITALS: BP 151/67
== END 2017-02-16 15:35 | disposition home or self-care (01) ==
LOC: M ED 12:24
DX: M19.011 Primary osteoarthritis, right shoulder (principal); J44.9 Chronic obstructive pulmonary disease, unspecified; J45.909 Unspecified asthma, uncomplicated; G47.30 Sleep apnea, unspecified; F33.9 Major depressive disorder, recurrent, unspecified; Z79.51 Long term (current) use of inhaled steroids; Z79.899 Other long term (current) drug therapy; Z87.891 Personal history of nicotine dependence; J30.89 Other allergic rhinitis; Z88.5 Allergy status to narcotic agent; Z95.0 Presence of cardiac pacemaker; Z98.890 Other specified postprocedural states; I25.2 Old myocardial infarction

== ENCOUNTER → 2017-03-09 | Outpatient (CLI) | payer MEDICARE ==
[2017-03-09 12:06] LABS: BASO # 0.1 10^3/uL (0.0-0.2); BASO % 0.7 % (0.0-1.0); EOS # 0.3 10^3/uL (0.0-0.50); EOS % 3.9 % (0.0-3.0); HEMATOCRIT 36.4 % (36.0-47.0); HEMOGLOBIN 11.3 g/dl (12.0-16.0); IMMATURE GRANULOCYTE % 0.5 % (0-0); LYMPH # 1.7 10^3/uL (1.5-4.5); LYMPH % 20.2 % (24.0-44.0); MEAN CORPUSCULAR HEMOGLOBIN 32.1 pg (27.0-33.0); MEAN CORPUSCULAR VOLUME 103.4 fl (80.0-96.0); MONO # 0.8 10^3/uL (0.0-0.8); MONO % 8.9 % (0.0-5.0); NEUTROPHILS # 5.6 10^3/uL (1.8-7.7); NEUTROPHILS % 65.8 % (36.0-66.0); PLATELET COUNT, AUTOMATED 305 10^3/uL (150-450); RED BLOOD COUNT 3.52 10^6/uL (4.00-5.40); RED CELL DISTRIBUTION WIDTH 14.7 % (11.5-14.5); WHITE BLOOD COUNT 8.5 10^3/uL (4.0-10.0)
[2017-03-09 13:00] LABS: FOLATE 12.1 NG/ML; VITAMIN B12 LEVEL 363 PG/ML
== END ==
LOC: M LAB 11:29
DX: D75.89 Other specified diseases of blood and blood-forming organs (principal)
CPT/HCPCS: 82746

== ENCOUNTER 2017-04-04 02:39 | Inpatient (IN) | payer MEDICARE ==
[2017-04-04 03:20] LABS: BASO # 0.1 10^3/uL (0.0-0.2); BASO % 0.6 % (0.0-1.0); EOS # 0.2 10^3/uL (0.0-0.50); EOS % 2.6 % (0.0-3.0); HEMATOCRIT 35.7 % (36.0-47.0); HEMOGLOBIN 11.6 g/dl (12.0-16.0); IMMATURE GRANULOCYTE % 0.2 % (0-0); LYMPH # 1.6 10^3/uL (1.5-4.5); LYMPH % 18.1 % (24.0-44.0); MEAN CORPUSCULAR HEMOGLOBIN 33.5 pg (27.0-33.0); MEAN CORPUSCULAR HGB CONC 32.5 g/dl (32.0-36.5); MEAN CORPUSCULAR VOLUME 103.2 fl (80.0-96.0); MONO # 0.9 10^3/uL (0.0-0.8); MONO % 9.6 % (0.0-5.0); NEUTROPHILS # 6.1 10^3/uL (1.8-7.7); NEUTROPHILS % 68.9 % (36.0-66.0); PLATELET COUNT, AUTOMATED 264 10^3/uL (150-450); RED BLOOD COUNT 3.46 10^6/uL (4.00-5.40); RED CELL DISTRIBUTION WIDTH 14.4 % (11.5-14.5); WHITE BLOOD COUNT 8.8 10^3/uL (4.0-10.0)
[2017-04-04 03:41] LABS: INR 0.99; PROTHROMBIN TIME 13.2 SECONDS (12.4-14.5)
[2017-04-04 03:42] LABS: PARTIAL THROMBOPLASTIN TIME 32.6 SECONDS (26.8-37.9)
[2017-04-04 03:48] LABS: ALBUMIN 3.2 GM/DL (3.2-5.2); ALBUMIN/GLOBULIN RATIO 0.82 (1.00-1.93); ALKALINE PHOSPHATASE 86 U/L (45-117); ALT/SGPT 13 U/L (12-78); ANION GAP 9 MEQ/L (8-16); AST/SGOT 17 U/L (7-37); BILIRUBIN,DIRECT < 0.1 MG/DL (0.0-0.2); BILIRUBIN,TOTAL 0.3 MG/DL (0.2-1.0); BLOOD UREA NITROGEN 37 MG/DL (7-18); CALCIUM LEVEL 8.5 MG/DL (8.8-10.2); CARBON DIOXIDE LEVEL 31 MEQ/L (21-32); CHLORIDE LEVEL 101 MEQ/L (98-107); CK-MB VALUE MASS 1.8 NG/ML (0.0-3.6); CPK CREATINE PHOSPHOKINASE 82 U/L (26-192); CREATININE FOR GFR 1.73 MG/DL (0.55-1.30); GLOMERULAR FILTRATION RATE 30.2 (>32); GLUCOSE, FASTING 159 MG/DL (70-100); MB/CK RELATIVE INDEX 2.19 (< OR =4); POTASSIUM SERUM 3.9 MEQ/L (3.5-5.1); SODIUM LEVEL 141 MEQ/L (136-145); TOTAL PROTEIN 7.1 GM/DL (6.4-8.2); TROPONIN I < 0.02 NG/ML (< 0.10)
[2017-04-04] MEDS: GI COCKTAIL 50ML BTL(HYOSCYAMINE/MAALOX/LIDOCAINE VISCOUS)(1:3:1) PO ×3 (04:39→16:11)
[2017-04-04] MEDS ORDERED: ALBUTEROL 90 MCG/ACT 8GM HFA INHALER INH (06:30)
[2017-04-04] MEDS ORDERED: ACETAMINOPHEN TAB 650MG DOSE (2X325MG) PO (06:30)
[2017-04-04] MEDS ORDERED: IPRATROPIUM 0.5MG/ALBUTEROL 2.5MG INH SOL UD 3ML (DUONEB)(J7620) NEB (06:30)
[2017-04-04] MEDS ORDERED: ALBUTEROL SULFATE 2.5 MG/0.5 ML INH NEB SOLN NEB (06:45)
[2017-04-04] MEDS: NS 500 ML IV (06:47)
[2017-04-04] MEDS: HEPARIN SOD (PORCINE) 5000 UNITS/ML VIAL SC ×3 (06:47→21:20)
[2017-04-04 06:48] LABS: TROPONIN I < 0.02 NG/ML (< 0.10)
[2017-04-04] MEDS: IPRATROPIUM 0.5MG/ALBUTEROL 2.5MG INH SOL UD 3ML (DUONEB)(J7620) NEB ×3 (07:00→23:47)
[2017-04-04] MEDS: NS 1,000 ML IV ×2 (07:51→23:31)
[2017-04-04] MEDS: ASPIRIN 81 MG ENTERIC TAB PO (07:51)
[2017-04-04] MEDS: PRAVASTATIN 20 MG TAB PO (07:51)
[2017-04-04] MEDS: FLUoxetine 20 MG CAP PO (07:52)
[2017-04-04] MEDS: LEVOTHYROXINE 50MCG TABLET (0.05MG) PO (07:52)
[2017-04-04] MEDS: MULTIVITAMINS/MINERALS THERAP 1 TAB PO (07:52)
[2017-04-04] MEDS: FAMOTIDINE 20 MG TAB PO ×2 (07:52→21:19)
[2017-04-04] MEDS: SYMBICORT 160/4.5MCG INHALER 6GM INH ×2 (08:41→20:55)
[2017-04-04] MEDS: TIOTROPIUM INHALER/CAPSULE (SPIRIVA) INH (08:41)
[2017-04-04] MEDS ORDERED: SYMBICORT 160/4.5MCG INHALER 6GM INH (09:00)
[2017-04-04 12:25] LABS: CPK CREATINE PHOSPHOKINASE 72 U/L (26-192); TROPONIN I < 0.02 NG/ML (< 0.10)
[2017-04-04 12:26] LABS: CK-MB VALUE MASS 2.3 NG/ML (0.0-3.6); MB/CK RELATIVE INDEX 3.19 (< OR =4)
[2017-04-05 04:13] LABS: BASO % 0.3 % (0.0-1.0); EOS # 0.2 10^3/uL (0.0-0.50); EOS % 2.2 % (0.0-3.0); HEMATOCRIT 34.6 % (36.0-47.0); HEMOGLOBIN 10.8 g/dl (12.0-16.0); IMMATURE GRANULOCYTE % 0.4 % (0-0); LYMPH # 1.7 10^3/uL (1.5-4.5); LYMPH % 24.5 % (24.0-44.0); MEAN CORPUSCULAR HEMOGLOBIN 32.3 pg (27.0-33.0); MEAN CORPUSCULAR HGB CONC 31.2 g/dl (32.0-36.5); MEAN CORPUSCULAR VOLUME 103.6 fl (80.0-96.0); MONO # 0.6 10^3/uL (0.0-0.8); MONO % 8.2 % (0.0-5.0); NEUTROPHILS # 4.3 10^3/uL (1.8-7.7); NEUTROPHILS % 64.4 % (36.0-66.0); PLATELET COUNT, AUTOMATED 219 10^3/uL (150-450); RED BLOOD COUNT 3.34 10^6/uL (4.00-5.40); RED CELL DISTRIBUTION WIDTH 14.3 % (11.5-14.5); WHITE BLOOD COUNT 6.7 10^3/uL (4.0-10.0)
[2017-04-05 04:34] LABS: ANION GAP 6 MEQ/L (8-16); BLOOD UREA NITROGEN 19 MG/DL (7-18); CALCIUM LEVEL 8.5 MG/DL (8.8-10.2); CARBON DIOXIDE LEVEL 29 MEQ/L (21-32); CHLORIDE LEVEL 105 MEQ/L (98-107); GLOMERULAR FILTRATION RATE 56.8 (>32); GLUCOSE, FASTING 87 MG/DL (70-100); SODIUM LEVEL 140 MEQ/L (136-145)
[2017-04-05] MEDS: HEPARIN SOD (PORCINE) 5000 UNITS/ML VIAL SC ×3 (05:43→22:20)
[2017-04-05] MEDS: IPRATROPIUM 0.5MG/ALBUTEROL 2.5MG INH SOL UD 3ML (DUONEB)(J7620) NEB ×4 (07:00→23:00)
[2017-04-05] MEDS: SYMBICORT 160/4.5MCG INHALER 6GM INH ×2 (07:39→20:48)
[2017-04-05] MEDS: TIOTROPIUM INHALER/CAPSULE (SPIRIVA) INH (07:39)
[2017-04-05] MEDS: LEVOTHYROXINE 50MCG TABLET (0.05MG) PO (08:40)
[2017-04-05] MEDS: FLUoxetine 20 MG CAP PO (08:40)
[2017-04-05] MEDS: MULTIVITAMINS/MINERALS THERAP 1 TAB PO (08:40)
[2017-04-05] MEDS: ASPIRIN 81 MG ENTERIC TAB PO (08:40)
[2017-04-05] MEDS: PRAVASTATIN 20 MG TAB PO (08:41)
[2017-04-05] MEDS: FAMOTIDINE 20 MG TAB PO ×2 (08:41→20:55)
[2017-04-05] MEDS: NS 1,000 ML IV (16:17)
[2017-04-06] MEDS: HEPARIN SOD (PORCINE) 5000 UNITS/ML VIAL SC ×2 (05:19→14:00)
[2017-04-06] MEDS: IPRATROPIUM 0.5MG/ALBUTEROL 2.5MG INH SOL UD 3ML (DUONEB)(J7620) NEB (07:00)
[2017-04-06 07:58] LABS: BASO % 0.4 % (0.0-1.0); EOS # 0.2 10^3/uL (0.0-0.50); EOS % 3.7 % (0.0-3.0); HEMOGLOBIN 10.5 g/dl (12.0-16.0); IMMATURE GRANULOCYTE % 0.5 % (0-0); LYMPH # 1.3 10^3/uL (1.5-4.5); LYMPH % 23.8 % (24.0-44.0); MEAN CORPUSCULAR HEMOGLOBIN 33.1 pg (27.0-33.0); MEAN CORPUSCULAR HGB CONC 31.8 g/dl (32.0-36.5); MEAN CORPUSCULAR VOLUME 104.1 fl (80.0-96.0); MONO # 0.5 10^3/uL (0.0-0.8); MONO % 8.7 % (0.0-5.0); NEUTROPHILS # 3.5 10^3/uL (1.8-7.7); NEUTROPHILS % 62.9 % (36.0-66.0); PLATELET COUNT, AUTOMATED 193 10^3/uL (150-450); RED BLOOD COUNT 3.17 10^6/uL (4.00-5.40); WHITE BLOOD COUNT 5.6 10^3/uL (4.0-10.0)
[2017-04-06] MEDS: ASPIRIN 81 MG ENTERIC TAB PO (08:07)
[2017-04-06] MEDS: NS 1,000 ML IV (08:07)
[2017-04-06] MEDS: FAMOTIDINE 20 MG TAB PO (08:07)
[2017-04-06] MEDS: MULTIVITAMINS/MINERALS THERAP 1 TAB PO (08:07)
[2017-04-06] MEDS: FLUoxetine 20 MG CAP PO (08:07)
[2017-04-06] MEDS: LEVOTHYROXINE 50MCG TABLET (0.05MG) PO (08:07)
[2017-04-06] MEDS: PRAVASTATIN 20 MG TAB PO (08:07)
[2017-04-06] MEDS: TIOTROPIUM INHALER/CAPSULE (SPIRIVA) INH (08:14)
[2017-04-06] MEDS: SYMBICORT 160/4.5MCG INHALER 6GM INH (08:14)
[2017-04-06 08:38] LABS: ANION GAP 5 MEQ/L (8-16); BLOOD UREA NITROGEN 14 MG/DL (7-18); CALCIUM LEVEL 8.6 MG/DL (8.8-10.2); CARBON DIOXIDE LEVEL 30 MEQ/L (21-32); CHLORIDE LEVEL 108 MEQ/L (98-107); CREATININE FOR GFR 0.92 MG/DL (0.55-1.30); GLOMERULAR FILTRATION RATE > 60.0 (>32); GLUCOSE, FASTING 71 MG/DL (70-100); SODIUM LEVEL 143 MEQ/L (136-145)
== END 2017-04-06 14:00 | disposition home or self-care (01) | DRG 313 ==
LOC: M MS5PR 04-05 22:02 → M ED 02:39 → M ED INP 05:47 → M PCU 07:05
DX: R07.89 Other chest pain (principal); N17.9 Acute kidney failure, unspecified; J96.10 Chronic respiratory failure, unspecified whether with hypoxia or hypercapnia; J44.9 Chronic obstructive pulmonary disease, unspecified; J45.909 Unspecified asthma, uncomplicated; I10 Essential (primary) hypertension; F32.9 Major depressive disorder, single episode, unspecified; E03.9 Hypothyroidism, unspecified; E78.5 Hyperlipidemia, unspecified; I25.10 Atherosclerotic heart disease of native coronary artery without angina pectoris; E86.0 Dehydration; K21.9 Gastro-esophageal reflux disease without esophagitis; Z66 Do not resuscitate; Z85.3 Personal history of malignant neoplasm of breast; D53.9 Nutritional anemia, unspecified; Z95.0 Presence of cardiac pacemaker; Z79.82 Long term (current) use of aspirin; Z79.899 Other long term (current) drug therapy; Z90.13 Acquired absence of bilateral breasts and nipples; Z88.5 Allergy status to narcotic agent; Z87.891 Personal history of nicotine dependence; Z99.81 Dependence on supplemental oxygen

== ENCOUNTER → 2017-05-20 | Outpatient (CLI) | payer MEDICARE | LOC: M RAD 08:54 | DX: I71.4 Abdominal aortic aneurysm, without rupture (principal); Z95.9 Presence of cardiac and vascular implant and graft, unspecified | CPT/HCPCS: 76775 ==

== ENCOUNTER → 2017-05-26 | Outpatient (CLI) | payer MEDICARE ==
[2017-05-26 13:18] LABS: BASO % 0.6 % (0.0-1.0); EOS # 0.2 10^3/uL (0.0-0.50); EOS % 2.4 % (0.0-3.0); HEMATOCRIT 37.2 % (36.0-47.0); HEMOGLOBIN 11.8 g/dl (12.0-16.0); IMMATURE GRANULOCYTE % 0.4 % (0-3.0); LYMPH # 1.3 10^3/uL (1.5-4.5); LYMPH % 18.8 % (24.0-44.0); MEAN CORPUSCULAR HGB CONC 31.7 g/dl (32.0-36.5); MEAN CORPUSCULAR VOLUME 103.9 fl (80.0-96.0); MONO # 0.5 10^3/uL (0.0-0.8); MONO % 7.2 % (0.0-5.0); NEUTROPHILS % 70.6 % (36.0-66.0); PLATELET COUNT, AUTOMATED 247 10^3/uL (150-450); RED BLOOD COUNT 3.58 10^6/uL (4.00-5.40); RED CELL DISTRIBUTION WIDTH 13.2 % (11.5-14.5); WHITE BLOOD COUNT 7.1 10^3/uL (4.0-10.0)
[2017-05-26 13:37] LABS: ALBUMIN 3.1 GM/DL (3.2-5.2); ALBUMIN/GLOBULIN RATIO 0.82 (1.00-1.93); ALKALINE PHOSPHATASE 81 U/L (45-117); ALT/SGPT 12 U/L (12-78); ANION GAP 6 MEQ/L (8-16); AST/SGOT 16 U/L (7-37); BILIRUBIN,TOTAL 0.3 MG/DL (0.2-1.0); BLOOD UREA NITROGEN 16 MG/DL (7-18); CALCIUM LEVEL 8.5 MG/DL (8.8-10.2); CARBON DIOXIDE LEVEL 27 MEQ/L (21-32); CHLORIDE LEVEL 105 MEQ/L (98-107); CREATININE FOR GFR 1.09 MG/DL (0.55-1.30); GLOMERULAR FILTRATION RATE 51.4 (>32); GLUCOSE, FASTING 110 MG/DL (70-100); POTASSIUM SERUM 4.8 MEQ/L (3.5-5.1); SODIUM LEVEL 138 MEQ/L (136-145); TOTAL PROTEIN 6.9 GM/DL (6.4-8.2)
== END ==
LOC: M LAB 12:22
DX: R07.89 Other chest pain (principal); I11.9 Hypertensive heart disease without heart failure

== ENCOUNTER → 2017-05-26 | Outpatient (CLI) | payer MEDICARE ==
[2017-05-26 13:17] LABS: BASO % 0.6 % (0.0-1.0); EOS # 0.2 10^3/uL (0.0-0.50); EOS % 2.4 % (0.0-3.0); HEMATOCRIT 36.7 % (36.0-47.0); HEMOGLOBIN 11.7 g/dl (12.0-16.0); IMMATURE GRANULOCYTE % 0.3 % (0-3.0); LYMPH # 1.3 10^3/uL (1.5-4.5); LYMPH % 19.2 % (24.0-44.0); MEAN CORPUSCULAR HEMOGLOBIN 32.7 pg (27.0-33.0); MEAN CORPUSCULAR HGB CONC 31.9 g/dl (32.0-36.5); MEAN CORPUSCULAR VOLUME 102.5 fl (80.0-96.0); MONO # 0.5 10^3/uL (0.0-0.8); MONO % 7.9 % (0.0-5.0); NEUTROPHILS # 4.7 10^3/uL (1.8-7.7); NEUTROPHILS % 69.6 % (36.0-66.0); PLATELET COUNT, AUTOMATED 261 10^3/uL (150-450); RED BLOOD COUNT 3.58 10^6/uL (4.00-5.40); RED CELL DISTRIBUTION WIDTH 13.2 % (11.5-14.5); WHITE BLOOD COUNT 6.7 10^3/uL (4.0-10.0)
[2017-05-26 13:36] LABS: ALBUMIN 3.2 GM/DL (3.2-5.2); ALBUMIN/GLOBULIN RATIO 0.84 (1.00-1.93); ALKALINE PHOSPHATASE 88 U/L (45-117); ALT/SGPT 15 U/L (12-78); ANION GAP 6 MEQ/L (8-16); AST/SGOT 18 U/L (7-37); BILIRUBIN,TOTAL 0.3 MG/DL (0.2-1.0); BLOOD UREA NITROGEN 17 MG/DL (7-18); CALCIUM LEVEL 8.8 MG/DL (8.8-10.2); CARBON DIOXIDE LEVEL 28 MEQ/L (21-32); CHLORIDE LEVEL 106 MEQ/L (98-107); CREATININE FOR GFR 1.09 MG/DL (0.55-1.30); GLOMERULAR FILTRATION RATE 51.4 (>32); GLUCOSE, FASTING 87 MG/DL (70-100); SODIUM LEVEL 140 MEQ/L (136-145)
== END ==
LOC: M LAB 12:19
DX: D75.89 Other specified diseases of blood and blood-forming organs (principal); N28.9 Disorder of kidney and ureter, unspecified; R07.89 Other chest pain; I11.9 Hypertensive heart disease without heart failure
CPT/HCPCS: 80053

== ENCOUNTER → 2017-05-28 | Outpatient (REF) | payer MEDICARE | LOC: M SFHCLERA 14:35 | DX: E03.9 Hypothyroidism, unspecified (principal) | CPT/HCPCS: 84443 ==

== ENCOUNTER 2017-08-15 13:19 | Inpatient (IN) | payer MEDICARE, MEDICAID ==
[2017-08-15 14:41] LABS: BASO % 0.4 % (0.0-1.0); EOS # 0.1 10^3/uL (0.0-0.50); EOS % 1.4 % (0.0-3.0); HEMATOCRIT 37.6 % (36.0-47.0); HEMOGLOBIN 12.6 g/dl (12.0-15.5); IMMATURE GRANULOCYTE % 0.3 % (0-3.0); LYMPH # 1.6 10^3/uL (1.5-4.5); MEAN CORPUSCULAR HEMOGLOBIN 33.2 pg (27.0-33.0); MEAN CORPUSCULAR HGB CONC 33.5 g/dl (32.0-36.5); MEAN CORPUSCULAR VOLUME 99.2 fl (80.0-96.0); MONO # 0.7 10^3/uL (0.0-0.8); MONO % 8.4 % (0.0-5.0); NEUTROPHILS # 5.4 10^3/uL (1.8-7.7); NEUTROPHILS % 68.5 % (36.0-66.0); PLATELET COUNT, AUTOMATED 238 10^3/uL (150-450); RED BLOOD COUNT 3.79 10^6/uL (4.00-5.40); RED CELL DISTRIBUTION WIDTH 13.6 % (11.5-14.5); WHITE BLOOD COUNT 7.8 10^3/uL (4.0-10.0)
[2017-08-15 14:50] LABS: BEDSIDE GLUCOSE 117 MG/DL (83-110)
[2017-08-15 14:57] LABS: INR 1.05; PROTHROMBIN TIME 13.8 SECONDS (12.4-14.5)
[2017-08-15 14:58] LABS: PARTIAL THROMBOPLASTIN TIME 29.8 SECONDS (26.8-37.9)
[2017-08-15 15:08] LABS: ALBUMIN 2.9 GM/DL (3.2-5.2); ALBUMIN/GLOBULIN RATIO 0.71 (1.00-1.93); ALKALINE PHOSPHATASE 69 U/L (45-117); ALT/SGPT 14 U/L (12-78); ANION GAP 8 MEQ/L (8-16); AST/SGOT 16 U/L (7-37); BILIRUBIN,DIRECT 0.1 MG/DL (0.0-0.2); BILIRUBIN,TOTAL 0.5 MG/DL (0.2-1.0); BLOOD UREA NITROGEN 19 MG/DL (7-18); CALCIUM LEVEL 10.4 MG/DL (8.8-10.2); CARBON DIOXIDE LEVEL 35 MEQ/L (21-32); CHLORIDE LEVEL 96 MEQ/L (98-107); CPK CREATINE PHOSPHOKINASE 49 U/L (26-192); GLOMERULAR FILTRATION RATE 50.9 (>32); GLUCOSE, FASTING 126 MG/DL (70-100); MAGNESIUM LEVEL 1.3 MG/DL (1.8-2.4); POTASSIUM SERUM 3.3 MEQ/L (3.5-5.1); SODIUM LEVEL 139 MEQ/L (136-145); TROPONIN I < 0.02 NG/ML (< 0.10)
[2017-08-15 15:13] LABS: CK-MB VALUE MASS < 1.0 NG/ML (<3.6); MB/CK RELATIVE INDEX 2.04 (< OR =4)
[2017-08-15 15:17] LABS: LACTIC ACID SEPSIS PROTOCOL 1.3 MMOL/L (0.4-2.0)
[2017-08-15] MEDS: MAALOX 30 ML SUSP *UDC PO (15:47)
[2017-08-15] MEDS: ONDANSETRON 4MG/2ML VIAL (J2405) IV (15:47)
[2017-08-15] MEDS: PANTOPRAZOLE 40MG INJ (PROTONIX) (C9113) IV (15:47)
[2017-08-15] MEDS: MAG SULF 1GM/100ML (MAG RUN) 1 GM in APPROPRIATE DILUENT 1 EA IV (15:47)
[2017-08-15] MEDS: NS 1,000 ML IV (15:47)
[2017-08-15] MEDS: POTASSIUM CHLORIDE 10 MEQ SR TABLET PO (16:13)
[2017-08-15] MEDS ORDERED: ISOVUE-370 76% 100ML VIAL (Q9967) As Ordered (16:58)
[2017-08-15 17:08] LABS: LIPASE 75 U/L (73-393)
[2017-08-15] MEDS ORDERED: ONDANSETRON 4MG/2ML VIAL (J2405) IV (21:00)
[2017-08-15] MEDS ORDERED: ACETAMINOPHEN TAB 650MG DOSE (2X325MG) PO (21:00)
[2017-08-15] MEDS: KCL 20MEQ IN D5/0.45NS 1000ML 1,000 ML IV (21:00)
[2017-08-15] MEDS ORDERED: IPRATROPIUM 0.5MG/ALBUTEROL 2.5MG INH SOL UD 3ML (DUONEB)(J7620) NEB (21:45)
[2017-08-16] MEDS: MAG SULF 1GM/100ML (MAG RUN) 1 GM in APPROPRIATE DILUENT 1 EA IV
[2017-08-16] MEDS: PANTOPRAZOLE 40MG INJ (PROTONIX) (C9113) IV (01:00)
[2017-08-16] MEDS: LEVOTHYROXINE 50MCG TABLET (0.05MG) PO (06:05)
[2017-08-16 07:09] LABS: BASO % 0.3 % (0.0-1.0); EOS # 0.3 10^3/uL (0.0-0.50); EOS % 4.2 % (0.0-3.0); HEMATOCRIT 33.7 % (36.0-47.0); HEMOGLOBIN 10.7 g/dl (12.0-15.5); IMMATURE GRANULOCYTE % 0.3 % (0-3.0); LYMPH # 1.4 10^3/uL (1.5-4.5); LYMPH % 22.6 % (24.0-44.0); MEAN CORPUSCULAR HEMOGLOBIN 32.4 pg (27.0-33.0); MEAN CORPUSCULAR HGB CONC 31.8 g/dl (32.0-36.5); MEAN CORPUSCULAR VOLUME 102.1 fl (80.0-96.0); MONO # 0.6 10^3/uL (0.0-0.8); MONO % 9.9 % (0.0-5.0); NEUTROPHILS # 3.9 10^3/uL (1.8-7.7); NEUTROPHILS % 62.7 % (36.0-66.0); PLATELET COUNT, AUTOMATED 195 10^3/uL (150-450); RED CELL DISTRIBUTION WIDTH 13.7 % (11.5-14.5); WHITE BLOOD COUNT 6.3 10^3/uL (4.0-10.0)
[2017-08-16 07:32] LABS: ANION GAP 5 MEQ/L (8-16); BLOOD UREA NITROGEN 17 MG/DL (7-18); CALCIUM LEVEL 9.1 MG/DL (8.8-10.2); CARBON DIOXIDE LEVEL 34 MEQ/L (21-32); CHLORIDE LEVEL 102 MEQ/L (98-107); CREATININE FOR GFR 1.18 MG/DL (0.55-1.30); GLOMERULAR FILTRATION RATE 46.9 (>32); GLUCOSE, FASTING 104 MG/DL (70-100); MAGNESIUM LEVEL 2.1 MG/DL (1.8-2.4); SODIUM LEVEL 141 MEQ/L (136-145)
[2017-08-16] MEDS: TIOTROPIUM INHALER/CAPSULE (SPIRIVA) INH (07:36)
[2017-08-16] MEDS: FLUoxetine 20 MG CAP PO (08:08)
[2017-08-16] MEDS: ASPIRIN 81 MG ENTERIC TAB PO (08:08)
[2017-08-16] MEDS: POTASSIUM CHLORIDE 10 MEQ SR TABLET PO (08:09)
[2017-08-16] MEDS: ENOXAPARIN 40 MG/0.4 ML SYRINGE (J1650) SC (08:09)
[2017-08-16] MEDS: NS 1,000 ML IV (08:11)
[2017-08-16] MEDS: PRAVASTATIN 20 MG TAB PO (11:29)
== END 2017-08-16 15:39 | disposition home or self-care (01) | DRG 392 ==
LOC: M ED 13:19 → M ED INP 20:55
PROVIDERS: Internal Medicine
DX: K58.9 Irritable bowel syndrome, unspecified (principal); I50.32 Chronic diastolic (congestive) heart failure; E87.3 Alkalosis; K21.9 Gastro-esophageal reflux disease without esophagitis; I11.0 Hypertensive heart disease with heart failure; E78.5 Hyperlipidemia, unspecified; I25.10 Atherosclerotic heart disease of native coronary artery without angina pectoris; J45.909 Unspecified asthma, uncomplicated; E83.42 Hypomagnesemia; Z66 Do not resuscitate; J44.9 Chronic obstructive pulmonary disease, unspecified; E87.6 Hypokalemia; E03.9 Hypothyroidism, unspecified; E86.0 Dehydration; F32.9 Major depressive disorder, single episode, unspecified; Z79.82 Long term (current) use of aspirin; Z79.899 Other long term (current) drug therapy; Z88.5 Allergy status to narcotic agent; Z95.0 Presence of cardiac pacemaker; Z87.891 Personal history of nicotine dependence

== ENCOUNTER → 2017-08-20 | Outpatient (REF) | payer MEDICARE, MEDICAID ==
[2017-08-20 16:46] LABS: ANION GAP 8 MEQ/L (8-16); BLOOD UREA NITROGEN 17 MG/DL (7-18); CALCIUM LEVEL 8.3 MG/DL (8.8-10.2); CARBON DIOXIDE LEVEL 31 MEQ/L (21-32); CHLORIDE LEVEL 102 MEQ/L (98-107); CREATININE FOR GFR 1.09 MG/DL (0.55-1.30); GLOMERULAR FILTRATION RATE 51.4 (>32); GLUCOSE, FASTING 81 MG/DL (70-100); MAGNESIUM LEVEL 2.2 MG/DL (1.8-2.4); POTASSIUM SERUM 4.6 MEQ/L (3.5-5.1); SODIUM LEVEL 141 MEQ/L (136-145)
== END ==
LOC: M SFHCLERA 11:06
DX: E83.42 Hypomagnesemia (principal)
CPT/HCPCS: 83735

== ENCOUNTER → 2017-08-26 | Outpatient (REF) | payer MEDICARE, MEDICAID ==
[2017-08-29 00:07] LABS: H PYLORI STOOL ANTIGEN Negative (Negative)
== END ==
LOC: M SFHCLERA 17:05
DX: K21.9 Gastro-esophageal reflux disease without esophagitis (principal)
CPT/HCPCS: 87338

== ENCOUNTER → 2017-09-23 | Outpatient (CLI) | payer MEDICARE, MEDICAID ==
[~2017-09-23] MED LIST changes: -/ESOM40CA PO; -/MOXI40TA PO; -ADV250INH INH; -AMLO10TA2 PO; -AMLO5TAB2 PO; -ANAS1TAB PO; -ARTH650T PO; -BAYE81TA10 PO; -CALC600T7 PO; -CRES5TAB PO; -DIOV320T PO; +E-Z-GAS II EFFERVESCENT PACKET (SODIUM BICARB./CITRIC ACID/SIMETHICONE) As Ordered; +E-Z-HD 98% w/w 340GM SUSP BTL As Ordered; +E-Z-PAQUE 96% w/w SUSP 176GM BTL As Ordered; -FLUO20CA8 PO; -IPRASOL4 NEB; -LEVA1TAB PO; -LOMO2.5T PO; -LOPR50TA PO; -MULTTAB4 PO; -OMEP20CA3 PO; -PRAV40TA2 PO; -PRED10PA PO; -PRED10TA2 PO; -SPIRIVA INH; -SYNT50TA PO; -TUDO1AER2 INH; -VALS320T3 PO; -VENTAER INH; -VITA500C24 PO; -VITMTA PO
== END ==
LOC: M RAD 07:47
DX: K21.9 Gastro-esophageal reflux disease without esophagitis (principal)

== ENCOUNTER → 2017-09-25 | Outpatient (CLI) | payer MEDICARE, MEDICAID | LOC: M RAD 09:07 | DX: K21.9 Gastro-esophageal reflux disease without esophagitis (principal); K44.9 Diaphragmatic hernia without obstruction or gangrene | CPT/HCPCS: 74241 ==

== ENCOUNTER 2017-09-30 11:03 | Day surgery (SDC) | payer MEDICARE, MEDICAID ==
[~2017-09-30 11:03] MED LIST changes: -E-Z-GAS II EFFERVESCENT PACKET (SODIUM BICARB./CITRIC ACID/SIMETHICONE) As Ordered; -E-Z-HD 98% w/w 340GM SUSP BTL As Ordered; -E-Z-PAQUE 96% w/w SUSP 176GM BTL As Ordered; +LIDOCAINE 2% INJ 100 MG/5 ML SDV (FOR ANES.) As Ordered; +PROPOFOL 200 MG/20 ML VIAL As Ordered
[2017-09-30] MEDS ORDERED: NS 1,000 ML IV (11:15)
== END 2017-09-30 14:43 | disposition home or self-care (01) ==
LOC: M OPP 14:43
DX: K21.9 Gastro-esophageal reflux disease without esophagitis (principal); R12 Heartburn; R10.13 Epigastric pain; K22.8 Other specified diseases of esophagus; K44.9 Diaphragmatic hernia without obstruction or gangrene; K25.9 Gastric ulcer, unspecified as acute or chronic, without hemorrhage or perforation; R00.8 Other abnormalities of heart beat; I25.10 Atherosclerotic heart disease of native coronary artery without angina pectoris; I25.2 Old myocardial infarction; I10 Essential (primary) hypertension; E78.5 Hyperlipidemia, unspecified; Z95.0 Presence of cardiac pacemaker; E03.9 Hypothyroidism, unspecified; N28.1 Cyst of kidney, acquired; M19.90 Unspecified osteoarthritis, unspecified site; M51.9 Unspecified thoracic, thoracolumbar and lumbosacral intervertebral disc disorder; F32.9 Major depressive disorder, single episode, unspecified; F41.9 Anxiety disorder, unspecified; J45.909 Unspecified asthma, uncomplicated; J44.9 Chronic obstructive pulmonary disease, unspecified; Z99.81 Dependence on supplemental oxygen; G47.30 Sleep apnea, unspecified; Z85.3 Personal history of malignant neoplasm of breast; Z92.3 Personal history of irradiation; Z90.13 Acquired absence of bilateral breasts and nipples; Z87.891 Personal history of nicotine dependence; Z88.5 Allergy status to narcotic agent; Z79.82 Long term (current) use of aspirin; Z79.899 Other long term (current) drug therapy; Z80.3 Family history of malignant neoplasm of breast
CPT/HCPCS: 43239

== ENCOUNTER 2017-11-02 13:32 | Emergency (ER) | payer MEDICARE, MEDICAID ==
[2017-11-02] MEDS: MECLIZINE 25 MG TABLET PO (15:31)
[2017-11-02 15:41] LABS: ANION GAP 9 MEQ/L (8-16); BLOOD UREA NITROGEN 23 MG/DL (7-18); CALCIUM LEVEL 9.1 MG/DL (8.8-10.2); CARBON DIOXIDE LEVEL 25 MEQ/L (21-32); CHLORIDE LEVEL 107 MEQ/L (98-107); CREATININE FOR GFR 1.14 MG/DL (0.55-1.30); GLOMERULAR FILTRATION RATE 48.8 (>32); GLUCOSE, FASTING 82 MG/DL (70-100); MAGNESIUM LEVEL 1.7 MG/DL (1.8-2.4); POTASSIUM SERUM 3.8 MEQ/L (3.5-5.1); SODIUM LEVEL 141 MEQ/L (136-145)
== END 2017-11-02 18:06 | disposition home or self-care (01) ==
LOC: M ED 13:32
DX: H83.09 Labyrinthitis, unspecified ear (principal); R53.1 Weakness; R19.7 Diarrhea, unspecified; I11.0 Hypertensive heart disease with heart failure; I50.9 Heart failure, unspecified; I25.2 Old myocardial infarction; J45.909 Unspecified asthma, uncomplicated; J44.9 Chronic obstructive pulmonary disease, unspecified; Z99.81 Dependence on supplemental oxygen; E78.5 Hyperlipidemia, unspecified; K58.9 Irritable bowel syndrome, unspecified; E03.9 Hypothyroidism, unspecified; M19.90 Unspecified osteoarthritis, unspecified site; Z85.3 Personal history of malignant neoplasm of breast; Z90.11 Acquired absence of right breast and nipple; Z90.12 Acquired absence of left breast and nipple; Z95.0 Presence of cardiac pacemaker; Z82.49 Family history of ischemic heart disease and other diseases of the circulatory system; Z88.5 Allergy status to narcotic agent; Z79.899 Other long term (current) drug therapy; Z79.51 Long term (current) use of inhaled steroids
CPT/HCPCS: 83735

== ENCOUNTER → 2017-11-16 | Outpatient (REF) | payer MEDICARE, MEDICAID ==
[2017-11-16 17:03] LABS: BASO % 0.4 % (0.0-1.0); EOS # 0.2 10^3/uL (0.0-0.50); EOS % 3.1 % (0.0-3.0); HEMATOCRIT 37.6 % (36.0-47.0); HEMOGLOBIN 11.9 g/dl (12.0-15.5); IMMATURE GRANULOCYTE % 0.3 % (0-3.0); LYMPH # 1.2 10^3/uL (1.5-4.5); LYMPH % 16.5 % (24.0-44.0); MEAN CORPUSCULAR HGB CONC 31.6 g/dl (32.0-36.5); MEAN CORPUSCULAR VOLUME 104.2 fl (80.0-96.0); MONO # 0.6 10^3/uL (0.0-0.8); MONO % 8.8 % (0.0-5.0); NEUTROPHILS # 5.1 10^3/uL (1.8-7.7); NEUTROPHILS % 70.9 % (36.0-66.0); PLATELET COUNT, AUTOMATED 247 10^3/uL (150-450); RED BLOOD COUNT 3.61 10^6/uL (4.00-5.40); WHITE BLOOD COUNT 7.1 10^3/uL (4.0-10.0)
[2017-11-16 17:51] LABS: ALBUMIN 3.1 GM/DL (3.2-5.2); ALBUMIN/GLOBULIN RATIO 0.84 (1.00-1.93); ALKALINE PHOSPHATASE 69 U/L (45-117); ALT/SGPT 18 U/L (12-78); ANION GAP 10 MEQ/L (8-16); AST/SGOT 19 U/L (7-37); BILIRUBIN,TOTAL 0.5 MG/DL (0.2-1.0); BLOOD UREA NITROGEN 13 MG/DL (7-18); CALCIUM LEVEL 9.3 MG/DL (8.8-10.2); CARBON DIOXIDE LEVEL 28 MEQ/L (21-32); CHLORIDE LEVEL 105 MEQ/L (98-107); CREATININE FOR GFR 0.84 MG/DL (0.55-1.30); GLOMERULAR FILTRATION RATE > 60.0 (>32); GLUCOSE, FASTING 92 MG/DL (70-100); MAGNESIUM LEVEL 2.1 MG/DL (1.8-2.4); POTASSIUM SERUM 4.3 MEQ/L (3.5-5.1); SODIUM LEVEL 143 MEQ/L (136-145); TOTAL PROTEIN 6.8 GM/DL (6.4-8.2)
== END ==
LOC: M SFHCLERA 09:47
DX: R60.9 Edema, unspecified (principal)
CPT/HCPCS: 83735

== ENCOUNTER 2017-11-23 08:01 | Inpatient (IN) | payer MEDICARE, MEDICAID ==
[2017-11-23] MEDS: ALBUTEROL SULFATE 2.5 MG/0.5 ML INH NEB SOLN INH (08:42)
[2017-11-23] MEDS: IPRATROPIUM 0.5MG/ALBUTEROL 2.5MG INH SOL UD 3ML (DUONEB)(J7620) NEB ×3 (08:42→20:00)
[2017-11-23 09:04] LABS: ABG BASE EXCESS 8.2 (-2.0-2.0); ABG HCO3 34.2 MEQ/L (22.0-26.0); ABG O2 SATURATION 94.5 % (95.0-99.0); ABG PARTIAL PRESSURE CO2 53.9 mmHg (35.0-45.0); ABG PARTIAL PRESSURE O2 71.5 mmHg (75.0-100.0); ABG STANDARD HCO3 31.9 MEQ/L (22.0-26.0); ABG TOTAL CO2 35.8 MEQ/L (23.0-31.0)
[2017-11-23] MEDS: methylPREDNISolone INJ 125 MG/2 ML VIAL (J2930) IV (09:07)
[2017-11-23 09:11] LABS: BASO % 0.4 % (0.0-1.0); EOS # 0.2 10^3/uL (0.0-0.50); EOS % 2.5 % (0.0-3.0); HEMATOCRIT 35.8 % (36.0-47.0); HEMOGLOBIN 11.2 g/dl (12.0-15.5); IMMATURE GRANULOCYTE % 0.4 % (0-3.0); LYMPH # 1.2 10^3/uL (1.5-4.5); LYMPH % 18.4 % (24.0-44.0); MEAN CORPUSCULAR HEMOGLOBIN 33.2 pg (27.0-33.0); MEAN CORPUSCULAR HGB CONC 31.3 g/dl (32.0-36.5); MEAN CORPUSCULAR VOLUME 106.2 fl (80.0-96.0); MONO # 0.6 10^3/uL (0.0-0.8); MONO % 9.1 % (0.0-5.0); NEUTROPHILS # 4.7 10^3/uL (1.8-7.7); NEUTROPHILS % 69.2 % (36.0-66.0); PLATELET COUNT, AUTOMATED 225 10^3/uL (150-450); RED BLOOD COUNT 3.37 10^6/uL (4.00-5.40); RED CELL DISTRIBUTION WIDTH 14.1 % (11.5-14.5); WHITE BLOOD COUNT 6.7 10^3/uL (4.0-10.0)
[2017-11-23 09:39] LABS: LACTIC ACID SEPSIS PROTOCOL 0.7 MMOL/L (0.4-2.0)
[2017-11-23 09:55] LABS: ALBUMIN 2.7 GM/DL (3.2-5.2); ALBUMIN/GLOBULIN RATIO 0.69 (1.00-1.93); ALKALINE PHOSPHATASE 70 U/L (45-117); ALT/SGPT 17 U/L (12-78); ANION GAP 9 MEQ/L (8-16); AST/SGOT 24 U/L (7-37); BILIRUBIN,DIRECT 0.1 MG/DL (0.0-0.2); BILIRUBIN,TOTAL 0.4 MG/DL (0.2-1.0); BLOOD UREA NITROGEN 17 MG/DL (7-18); CALCIUM LEVEL 9.1 MG/DL (8.8-10.2); CARBON DIOXIDE LEVEL 29 MEQ/L (21-32); CHLORIDE LEVEL 105 MEQ/L (98-107); CPK CREATINE PHOSPHOKINASE 84 U/L (26-192); CREATININE FOR GFR 0.81 MG/DL (0.55-1.30); GLOMERULAR FILTRATION RATE > 60.0 (>32); GLUCOSE, FASTING 85 MG/DL (70-100); MB/CK RELATIVE INDEX 1.43 (< OR =4); NT-PRO BNP 3224 PG/ML (<450); POTASSIUM SERUM 4.2 MEQ/L (3.5-5.1); SODIUM LEVEL 143 MEQ/L (136-145); THYROXINE (T4) 7.5 UG/DL (4.5-12.0); TOTAL PROTEIN 6.6 GM/DL (6.4-8.2); TROPONIN I 0.02 NG/ML (< 0.10)
[2017-11-23] MEDS: FUROSEMIDE 100 MG/10 ML VIAL (J1940) IV (10:09)
[2017-11-23 10:18] LABS: INR 0.96; PROTHROMBIN TIME 12.9 SECONDS (12.1-14.4)
[2017-11-23] MEDS ORDERED: IPRATROPIUM 0.5MG/ALBUTEROL 2.5MG INH SOL UD 3ML (DUONEB)(J7620) NEB (12:00)
[2017-11-23] MEDS ORDERED: ONDANSETRON 4MG/2ML VIAL (J2405) IV (12:00)
[2017-11-23] MEDS ORDERED: ONDANSETRON 4 MG TAB (S0181) PO (12:00)
[2017-11-23] MEDS: ADVAIR HFA 230/21MCG INHALER INH ×2 (12:46→20:27)
[2017-11-23] MEDS: TIOTROPIUM INHALER/CAPSULE (SPIRIVA) INH (12:46)
[2017-11-23] MEDS: MULTIVITAMINS/MINERALS THERAP 1 TAB PO (13:33)
[2017-11-23] MEDS: ASPIRIN 81 MG ENTERIC TAB PO (13:33)
[2017-11-23] MEDS: MAGNESIUM OXIDE 400 MG TAB (MAG-OX) PO (13:33)
[2017-11-23] MEDS: PANTOPRAZOLE 40MG TAB (PROTONIX) PO (13:33)
[2017-11-23] MEDS: POTASSIUM CHL PWD 20 MEQ PACKET PO (13:34)
[2017-11-23] MEDS: PRAVASTATIN 20 MG TAB PO (13:34)
[2017-11-23] MEDS: ENOXAPARIN 40 MG/0.4 ML SYRINGE (J1650) SC (13:34)
[2017-11-23] MEDS: ACETAMINOPHEN TAB 650MG DOSE (2X325MG) PO ×2 (14:40→18:53)
[2017-11-23] MEDS: FUROSEMIDE 40 MG/4 ML VIAL (J1940) IV (18:04)
[2017-11-24] MEDS: IPRATROPIUM 0.5MG/ALBUTEROL 2.5MG INH SOL UD 3ML (DUONEB)(J7620) NEB ×4 (02:00→20:00)
[2017-11-24 05:56] LABS: BASO % 0.2 % (0.0-1.0); EOS % 0.1 % (0.0-3.0); HEMATOCRIT 36.7 % (36.0-47.0); HEMOGLOBIN 11.5 g/dl (12.0-15.5); IMMATURE GRANULOCYTE % 0.7 % (0-3.0); LYMPH # 0.9 10^3/uL (1.5-4.5); LYMPH % 10.7 % (24.0-44.0); MEAN CORPUSCULAR HEMOGLOBIN 32.8 pg (27.0-33.0); MEAN CORPUSCULAR HGB CONC 31.3 g/dl (32.0-36.5); MEAN CORPUSCULAR VOLUME 104.6 fl (80.0-96.0); MONO # 0.6 10^3/uL (0.0-0.8); NEUTROPHILS % 81.3 % (36.0-66.0); PLATELET COUNT, AUTOMATED 234 10^3/uL (150-450); RED BLOOD COUNT 3.51 10^6/uL (4.00-5.40); RED CELL DISTRIBUTION WIDTH 13.7 % (11.5-14.5); WHITE BLOOD COUNT 8.6 10^3/uL (4.0-10.0)
[2017-11-24 06:23] LABS: ANION GAP 5 MEQ/L (8-16); BLOOD UREA NITROGEN 24 MG/DL (7-18); CALCIUM LEVEL 8.8 MG/DL (8.8-10.2); CARBON DIOXIDE LEVEL 37 MEQ/L (21-32); CHLORIDE LEVEL 95 MEQ/L (98-107); CREATININE FOR GFR 1.08 MG/DL (0.55-1.30); GLUCOSE, FASTING 109 MG/DL (70-100); MAGNESIUM LEVEL 1.6 MG/DL (1.8-2.4); POTASSIUM SERUM 3.9 MEQ/L (3.5-5.1); SODIUM LEVEL 137 MEQ/L (136-145)
[2017-11-24] MEDS: MAG SULF 1GM/100ML (MAG RUN) 1 GM in APPROPRIATE DILUENT 1 EA IV (06:48)
[2017-11-24] MEDS: ACETAMINOPHEN TAB 650MG DOSE (2X325MG) PO ×3 (06:58→20:10)
[2017-11-24] MEDS: TIOTROPIUM INHALER/CAPSULE (SPIRIVA) INH (07:47)
[2017-11-24] MEDS: ADVAIR HFA 230/21MCG INHALER INH ×2 (07:48→20:20)
[2017-11-24] MEDS: MAGNESIUM OXIDE 400 MG TAB (MAG-OX) PO (08:36)
[2017-11-24] MEDS: MULTIVITAMINS/MINERALS THERAP 1 TAB PO (08:36)
[2017-11-24] MEDS: PANTOPRAZOLE 40MG TAB (PROTONIX) PO (08:36)
[2017-11-24] MEDS: ASPIRIN 81 MG ENTERIC TAB PO (08:36)
[2017-11-24] MEDS: PRAVASTATIN 20 MG TAB PO (08:36)
[2017-11-24] MEDS: POTASSIUM CHL PWD 20 MEQ PACKET PO (08:37)
[2017-11-24] MEDS: ENOXAPARIN 40 MG/0.4 ML SYRINGE (J1650) SC (08:37)
[2017-11-24] MEDS: VALSARTAN 80 MG TAB (DIOVAN) PO (08:37)
[2017-11-25] MEDS: IPRATROPIUM 0.5MG/ALBUTEROL 2.5MG INH SOL UD 3ML (DUONEB)(J7620) NEB ×2 (01:02→07:41)
[2017-11-25 05:57] LABS: BASO % 0.3 % (0.0-1.0); EOS # 0.1 10^3/uL (0.0-0.50); EOS % 1.3 % (0.0-3.0); HEMATOCRIT 36.9 % (36.0-47.0); HEMOGLOBIN 11.6 g/dl (12.0-15.5); IMMATURE GRANULOCYTE % 0.5 % (0-3.0); LYMPH # 1.6 10^3/uL (1.5-4.5); LYMPH % 20.3 % (24.0-44.0); MEAN CORPUSCULAR HGB CONC 31.4 g/dl (32.0-36.5); MEAN CORPUSCULAR VOLUME 104.8 fl (80.0-96.0); MONO # 0.6 10^3/uL (0.0-0.8); MONO % 8.3 % (0.0-5.0); NEUTROPHILS # 5.4 10^3/uL (1.8-7.7); NEUTROPHILS % 69.3 % (36.0-66.0); PLATELET COUNT, AUTOMATED 243 10^3/uL (150-450); RED BLOOD COUNT 3.52 10^6/uL (4.00-5.40); RED CELL DISTRIBUTION WIDTH 14.1 % (11.5-14.5); WHITE BLOOD COUNT 7.7 10^3/uL (4.0-10.0)
[2017-11-25 06:29] LABS: ANION GAP 10 MEQ/L (8-16); BLOOD UREA NITROGEN 32 MG/DL (7-18); CALCIUM LEVEL 8.6 MG/DL (8.8-10.2); CARBON DIOXIDE LEVEL 31 MEQ/L (21-32); CHLORIDE LEVEL 99 MEQ/L (98-107); CREATININE FOR GFR 0.99 MG/DL (0.55-1.30); GLOMERULAR FILTRATION RATE 57.5 (>32); GLUCOSE, FASTING 87 MG/DL (70-100); POTASSIUM SERUM 3.7 MEQ/L (3.5-5.1); SODIUM LEVEL 140 MEQ/L (136-145)
[2017-11-25] MEDS: TIOTROPIUM INHALER/CAPSULE (SPIRIVA) INH (07:40)
[2017-11-25] MEDS: ADVAIR HFA 230/21MCG INHALER INH (07:41)
[2017-11-25] MEDS ORDERED: SLF 3 ML SYR IV ×2 (09:00→14:00)
[2017-11-25] MEDS: INFLUENZA VIRUS VACCINE HIGH DOSE 0.5 ML SYRINGE (90662) IM (09:06)
[2017-11-25] MEDS: ENOXAPARIN 40 MG/0.4 ML SYRINGE (J1650) SC (09:07)
[2017-11-25] MEDS: PREVNAR 13 VACCINE SYRINGE (CPT CODE:90670) IM (09:07)
[2017-11-25] MEDS: MULTIVITAMINS/MINERALS THERAP 1 TAB PO (09:08)
[2017-11-25] MEDS: PANTOPRAZOLE 40MG TAB (PROTONIX) PO (09:08)
[2017-11-25] MEDS: FUROSEMIDE 20 MG TAB PO (09:08)
[2017-11-25] MEDS: ASPIRIN 81 MG ENTERIC TAB PO (09:08)
[2017-11-25] MEDS: POTASSIUM CHL PWD 20 MEQ PACKET PO (09:08)
[2017-11-25] MEDS: MAGNESIUM OXIDE 400 MG TAB (MAG-OX) PO (09:09)
[2017-11-25] MEDS: VALSARTAN 80 MG TAB (DIOVAN) PO (09:09)
[2017-11-25] MEDS: PRAVASTATIN 20 MG TAB PO (09:09)
[2017-11-25] MEDS: ACETAMINOPHEN TAB 650MG DOSE (2X325MG) PO (09:20)
[2017-11-26] MEDS ORDERED: CONRAY-60 60% 50ML VIAL (Q9961) As Ordered (08:21)
== END 2017-11-25 15:00 | disposition home or self-care (01) | DRG 293 ==
LOC: M ED 08:01 → M ED INP 11:55 → M PCU 14:50
DX: I11.0 Hypertensive heart disease with heart failure (principal); I50.33 Acute on chronic diastolic (congestive) heart failure; E78.5 Hyperlipidemia, unspecified; I25.10 Atherosclerotic heart disease of native coronary artery without angina pectoris; J44.9 Chronic obstructive pulmonary disease, unspecified; E03.9 Hypothyroidism, unspecified; F32.9 Major depressive disorder, single episode, unspecified; Z66 Do not resuscitate; Z95.0 Presence of cardiac pacemaker; Z85.3 Personal history of malignant neoplasm of breast; Z90.13 Acquired absence of bilateral breasts and nipples; Z87.891 Personal history of nicotine dependence; Z79.82 Long term (current) use of aspirin; Z88.5 Allergy status to narcotic agent; Z95.5 Presence of coronary angioplasty implant and graft

== ENCOUNTER 2017-12-23 17:59 | Emergency (ER) | payer MEDICARE, MEDICAID ==
[2017-12-23] MEDS: ASPIRIN 81 MG CHEW TABLET PO (19:15)
[2017-12-23 19:40] LABS: BASO % 0.5 % (0.0-1.0); EOS # 0.2 10^3/uL (0.0-0.50); EOS % 2.3 % (0.0-3.0); HEMATOCRIT 37.6 % (36.0-47.0); IMMATURE GRANULOCYTE % 0.3 % (0-3.0); LYMPH # 1.6 10^3/uL (1.5-4.5); MEAN CORPUSCULAR HEMOGLOBIN 33.9 pg (27.0-33.0); MEAN CORPUSCULAR HGB CONC 31.9 g/dl (32.0-36.5); MEAN CORPUSCULAR VOLUME 106.2 fl (80.0-96.0); MONO # 0.6 10^3/uL (0.0-0.8); MONO % 9.7 % (0.0-5.0); NEUTROPHILS # 4.2 10^3/uL (1.8-7.7); NEUTROPHILS % 63.2 % (36.0-66.0); PLATELET COUNT, AUTOMATED 205 10^3/uL (150-450); RED BLOOD COUNT 3.54 10^6/uL (4.00-5.40); RED CELL DISTRIBUTION WIDTH 13.4 % (11.5-14.5); WHITE BLOOD COUNT 6.6 10^3/uL (4.0-10.0)
[2017-12-23 20:06] LABS: INR 0.95; PROTHROMBIN TIME 12.7 SECONDS (12.1-14.4)
[2017-12-23 20:07] LABS: PARTIAL THROMBOPLASTIN TIME 28.1 SECONDS (25.4-37.6)
[2017-12-23 20:12] LABS: ANION GAP 7 MEQ/L (8-16); BLOOD UREA NITROGEN 23 MG/DL (7-18); CALCIUM LEVEL 8.6 MG/DL (8.8-10.2); CARBON DIOXIDE LEVEL 30 MEQ/L (21-32); CHLORIDE LEVEL 104 MEQ/L (98-107); CK-MB VALUE MASS < 1.0 NG/ML (<3.6); CPK CREATINE PHOSPHOKINASE 116 U/L (26-192); CREATININE FOR GFR 1.16 MG/DL (0.55-1.30); GLOMERULAR FILTRATION RATE 47.9 (>32); GLUCOSE, FASTING 107 MG/DL (70-100); MAGNESIUM LEVEL 1.7 MG/DL (1.8-2.4); MB/CK RELATIVE INDEX 0.86 (< OR =4); NT-PRO BNP 819 PG/ML (<450); POTASSIUM SERUM 4.6 MEQ/L (3.5-5.1); SODIUM LEVEL 141 MEQ/L (136-145); TROPONIN I < 0.02 NG/ML (< 0.10)
[2017-12-23] MEDS: MAG SULF 1GM/100ML (MAG RUN) 1 GM in APPROPRIATE DILUENT 1 EA IV (20:21)
[2017-12-23 23:42] LABS: CPK CREATINE PHOSPHOKINASE 104 U/L (26-192); MB/CK RELATIVE INDEX 1.15 (< OR =4); TROPONIN I < 0.02 NG/ML (< 0.10)
[2017-12-24 01:39] LABS: CPK CREATINE PHOSPHOKINASE 113 U/L (26-192); MB/CK RELATIVE INDEX 1.24 (< OR =4); TROPONIN I < 0.02 NG/ML (< 0.10)
== END 2017-12-24 02:07 | disposition home or self-care (01) ==
LOC: M ED 12-24 02:07
DX: R07.89 Other chest pain (principal); E83.42 Hypomagnesemia; Z95.0 Presence of cardiac pacemaker; I45.19 Other right bundle-branch block; I51.7 Cardiomegaly; I25.10 Atherosclerotic heart disease of native coronary artery without angina pectoris; I50.9 Heart failure, unspecified; I10 Essential (primary) hypertension; E78.5 Hyperlipidemia, unspecified; J44.9 Chronic obstructive pulmonary disease, unspecified; F32.9 Major depressive disorder, single episode, unspecified; J30.2 Other seasonal allergic rhinitis; Z98.61 Coronary angioplasty status; Z86.79 Personal history of other diseases of the circulatory system; Z85.3 Personal history of malignant neoplasm of breast; Z87.891 Personal history of nicotine dependence; Z79.82 Long term (current) use of aspirin; Z79.899 Other long term (current) drug therapy; Z88.5 Allergy status to narcotic agent
CPT/HCPCS: J3475

== ENCOUNTER 2018-02-04 00:49 | Inpatient (IN) | payer MEDICARE, MEDICAID ==
[2018-02-04] MEDS: ACETAMINOPHEN 325 MG TAB PO (01:30)
[2018-02-04 01:42] LABS: BASO % 0.3 % (0.0-1.0); EOS % 0.2 % (0.0-3.0); HEMATOCRIT 33.3 % (36.0-47.0); HEMOGLOBIN 10.6 g/dl (12.0-15.5); IMMATURE GRANULOCYTE % 0.6 % (0-3.0); LYMPH # 1.1 10^3/uL (1.5-4.5); LYMPH % 9.1 % (24.0-44.0); MEAN CORPUSCULAR HEMOGLOBIN 33.1 pg (27.0-33.0); MEAN CORPUSCULAR HGB CONC 31.8 g/dl (32.0-36.5); MEAN CORPUSCULAR VOLUME 104.1 fl (80.0-96.0); MONO # 1.2 10^3/uL (0.0-0.8); MONO % 10.3 % (0.0-5.0); NEUTROPHILS # 9.6 10^3/uL (1.8-7.7); NEUTROPHILS % 79.5 % (36.0-66.0); PLATELET COUNT, AUTOMATED 284 10^3/uL (150-450); RED CELL DISTRIBUTION WIDTH 13.4 % (11.5-14.5)
[2018-02-04] MEDS: cefTRIAXone SOD 1 GM in D5W MINI-BAG PLUS 50 ML IV (01:45)
[2018-02-04] MEDS: AZITHROMYCIN INJ 500 MG, VIAL MATE ADAPTER 1 EACH in D5W 250 ML IV (01:45)
[2018-02-04 01:53] LABS: ANION GAP 9 MEQ/L (8-16); BLOOD UREA NITROGEN 15 MG/DL (7-18); CALCIUM LEVEL 8.5 MG/DL (8.8-10.2); CARBON DIOXIDE LEVEL 28 MEQ/L (21-32); CHLORIDE LEVEL 100 MEQ/L (98-107); CREATININE FOR GFR 0.98 MG/DL (0.55-1.30); GLOMERULAR FILTRATION RATE 58.1 (>32); GLUCOSE, FASTING 106 MG/DL (70-100); POTASSIUM SERUM 3.8 MEQ/L (3.5-5.1); SODIUM LEVEL 137 MEQ/L (136-145)
[2018-02-04] MEDS: IPRATROPIUM 0.5MG/ALBUTEROL 2.5MG INH SOL UD 3ML (DUONEB)(J7620) NEB (01:55)
[2018-02-04 02:00] LABS: LACTIC ACID SEPSIS PROTOCOL 0.7 MMOL/L (0.4-2.0)
[2018-02-04 02:12] LABS: INFLUENZA A AMPLIFICATION NEGATIVE (NEGATIVE); INFLUENZA B AMPLIFICATION NEGATIVE (NEGATIVE)
[2018-02-04] MEDS ORDERED: IPRATROPIUM 0.5MG/ALBUTEROL 2.5MG INH SOL UD 3ML (DUONEB)(J7620) NEB (03:45)
[2018-02-04] MEDS ORDERED: ONDANSETRON 4 MG TAB (S0181) PO (03:45)
[2018-02-04] MEDS: LEVOTHYROXINE 50MCG TABLET (0.05MG) PO (06:09)
[2018-02-04] MEDS: ADVAIR HFA 230/21MCG INHALER INH (07:42)
[2018-02-04] MEDS: TIOTROPIUM INHALER/CAPSULE (SPIRIVA) INH (07:42)
[2018-02-04] MEDS: PRAVASTATIN 20 MG TAB PO (08:39)
[2018-02-04] MEDS: VALSARTAN 80 MG TAB (DIOVAN) PO (08:40)
[2018-02-04] MEDS: FUROSEMIDE 20 MG TAB PO (08:40)
[2018-02-04] MEDS: POTASSIUM CHL PWD 20 MEQ PACKET PO (08:41)
[2018-02-04] MEDS: ASPIRIN 81 MG ENTERIC TAB PO (08:42)
[2018-02-04] MEDS: PANTOPRAZOLE 40MG TAB (PROTONIX) PO (08:42)
[2018-02-04] MEDS: LOPERAMIDE 2 MG CAP PO (08:43)
[2018-02-04] MEDS: FLUoxetine 20 MG CAP PO (08:43)
[2018-02-04] MEDS: amLODIPine 5 MG TAB PO (08:43)
[2018-02-04] MEDS: ENOXAPARIN 40 MG/0.4 ML SYRINGE (J1650) SC (08:44)
[2018-02-04] MEDS: ACETAMINOPHEN TAB 650MG DOSE (2X325MG) PO ×2 (14:19→21:58)
[2018-02-05] MEDS: cefTRIAXone SOD 2 GM in D5W 50 ML IV (01:35)
[2018-02-05] MEDS: AZITHROMYCIN INJ 500 MG, VIAL MATE ADAPTER 1 EACH in D5W 250 ML IV (03:09)
[2018-02-05] MEDS: LEVOTHYROXINE 50MCG TABLET (0.05MG) PO (04:58)
[2018-02-05 06:33] LABS: HEMATOCRIT 30.4 % (36.0-47.0); HEMOGLOBIN 9.8 g/dl (12.0-15.5); MEAN CORPUSCULAR HEMOGLOBIN 33.2 pg (27.0-33.0); MEAN CORPUSCULAR HGB CONC 32.2 g/dl (32.0-36.5); MEAN CORPUSCULAR VOLUME 103.1 fl (80.0-96.0); PLATELET COUNT, AUTOMATED 260 10^3/uL (150-450); RED BLOOD COUNT 2.95 10^6/uL (4.00-5.40); RED CELL DISTRIBUTION WIDTH 13.2 % (11.5-14.5); WHITE BLOOD COUNT 9.5 10^3/uL (4.0-10.0)
[2018-02-05 07:13] LABS: ANION GAP 7 MEQ/L (8-16); BLOOD UREA NITROGEN 15 MG/DL (7-18); CALCIUM LEVEL 8.5 MG/DL (8.8-10.2); CARBON DIOXIDE LEVEL 31 MEQ/L (21-32); CHLORIDE LEVEL 100 MEQ/L (98-107); CREATININE FOR GFR 0.86 MG/DL (0.55-1.30); GLOMERULAR FILTRATION RATE > 60.0 (>32); GLUCOSE, FASTING 110 MG/DL (70-100); MAGNESIUM LEVEL 1.6 MG/DL (1.8-2.4); POTASSIUM SERUM 3.6 MEQ/L (3.5-5.1); SODIUM LEVEL 138 MEQ/L (136-145)
[2018-02-05] MEDS: ADVAIR HFA 230/21MCG INHALER INH ×2 (07:46→19:53)
[2018-02-05] MEDS: TIOTROPIUM INHALER/CAPSULE (SPIRIVA) INH (07:46)
[2018-02-05] MEDS: IPRATROPIUM 0.5MG/ALBUTEROL 2.5MG INH SOL UD 3ML (DUONEB)(J7620) NEB ×3 (08:00→19:53)
[2018-02-05] MEDS: ENOXAPARIN 40 MG/0.4 ML SYRINGE (J1650) SC (09:16)
[2018-02-05] MEDS: amLODIPine 5 MG TAB PO (09:17)
[2018-02-05] MEDS: POTASSIUM CHL PWD 20 MEQ PACKET PO (09:17)
[2018-02-05] MEDS: ASPIRIN 81 MG ENTERIC TAB PO (09:18)
[2018-02-05] MEDS: MAGNESIUM OXIDE 400 MG TAB (MAG-OX) PO ×2 (09:18→20:38)
[2018-02-05] MEDS: VALSARTAN 80 MG TAB (DIOVAN) PO (09:19)
[2018-02-05] MEDS: PRAVASTATIN 20 MG TAB PO (09:19)
[2018-02-05] MEDS: FUROSEMIDE 20 MG TAB PO (09:20)
[2018-02-05] MEDS: PANTOPRAZOLE 40MG TAB (PROTONIX) PO (09:20)
[2018-02-05] MEDS: FLUoxetine 20 MG CAP PO (09:20)
[2018-02-05] MEDS: LOPERAMIDE 2 MG CAP PO (09:20)
[2018-02-05] MEDS: ACETAMINOPHEN TAB 650MG DOSE (2X325MG) PO (20:38)
[2018-02-06] MEDS: cefTRIAXone SOD 2 GM in D5W 50 ML IV (01:08)
[2018-02-06] MEDS: IPRATROPIUM 0.5MG/ALBUTEROL 2.5MG INH SOL UD 3ML (DUONEB)(J7620) NEB ×4 (02:00→20:32)
[2018-02-06] MEDS: AZITHROMYCIN INJ 500 MG, VIAL MATE ADAPTER 1 EACH in D5W 250 ML IV (03:46)
[2018-02-06] MEDS: LEVOTHYROXINE 50MCG TABLET (0.05MG) PO (05:47)
[2018-02-06 06:16] LABS: HEMATOCRIT 31.2 % (36.0-47.0); HEMOGLOBIN 9.8 g/dl (12.0-15.5); MEAN CORPUSCULAR HEMOGLOBIN 32.2 pg (27.0-33.0); MEAN CORPUSCULAR HGB CONC 31.4 g/dl (32.0-36.5); MEAN CORPUSCULAR VOLUME 102.6 fl (80.0-96.0); PLATELET COUNT, AUTOMATED 303 10^3/uL (150-450); RED BLOOD COUNT 3.04 10^6/uL (4.00-5.40); RED CELL DISTRIBUTION WIDTH 13.3 % (11.5-14.5); WHITE BLOOD COUNT 7.4 10^3/uL (4.0-10.0)
[2018-02-06 06:40] LABS: ANION GAP 8 MEQ/L (8-16); BLOOD UREA NITROGEN 14 MG/DL (7-18); CALCIUM LEVEL 8.7 MG/DL (8.8-10.2); CARBON DIOXIDE LEVEL 32 MEQ/L (21-32); CHLORIDE LEVEL 99 MEQ/L (98-107); GLOMERULAR FILTRATION RATE > 60.0 (>32); GLUCOSE, FASTING 102 MG/DL (70-100); MAGNESIUM LEVEL 1.8 MG/DL (1.8-2.4); POTASSIUM SERUM 3.5 MEQ/L (3.5-5.1); SODIUM LEVEL 139 MEQ/L (136-145)
[2018-02-06] MEDS: TIOTROPIUM INHALER/CAPSULE (SPIRIVA) INH (08:56)
[2018-02-06] MEDS: FLUoxetine 20 MG CAP PO (09:03)
[2018-02-06] MEDS: LOPERAMIDE 2 MG CAP PO (09:03)
[2018-02-06] MEDS: PANTOPRAZOLE 40MG TAB (PROTONIX) PO (09:03)
[2018-02-06] MEDS: ENOXAPARIN 40 MG/0.4 ML SYRINGE (J1650) SC (09:03)
[2018-02-06] MEDS: FUROSEMIDE 20 MG TAB PO (09:04)
[2018-02-06] MEDS: POTASSIUM CHL PWD 20 MEQ PACKET PO (09:04)
[2018-02-06] MEDS: PRAVASTATIN 20 MG TAB PO (09:04)
[2018-02-06] MEDS: amLODIPine 5 MG TAB PO (09:04)
[2018-02-06] MEDS: ASPIRIN 81 MG ENTERIC TAB PO (09:04)
[2018-02-06] MEDS: MAGNESIUM OXIDE 400 MG TAB (MAG-OX) PO ×2 (09:05→20:33)
[2018-02-06] MEDS: VALSARTAN 80 MG TAB (DIOVAN) PO (09:06)
[2018-02-06] MEDS: CEFDINIR 300 MG CAP (OMNICEF) PO ×2 (10:25→20:33)
[2018-02-06] MEDS: CALCIUM CARBONATE 500 MG CHEW U/D PO (16:00)
[2018-02-06] MEDS: ACETAMINOPHEN TAB 650MG DOSE (2X325MG) PO (20:33)
[2018-02-07] MEDS: IPRATROPIUM 0.5MG/ALBUTEROL 2.5MG INH SOL UD 3ML (DUONEB)(J7620) NEB ×2 (01:53→08:00)
[2018-02-07] MEDS: LEVOTHYROXINE 50MCG TABLET (0.05MG) PO (05:29)
[2018-02-07 06:02] LABS: HEMATOCRIT 31.4 % (36.0-47.0); HEMOGLOBIN 9.8 g/dl (12.0-15.5); MEAN CORPUSCULAR HEMOGLOBIN 32.6 pg (27.0-33.0); MEAN CORPUSCULAR HGB CONC 31.2 g/dl (32.0-36.5); MEAN CORPUSCULAR VOLUME 104.3 fl (80.0-96.0); PLATELET COUNT, AUTOMATED 330 10^3/uL (150-450); RED BLOOD COUNT 3.01 10^6/uL (4.00-5.40); RED CELL DISTRIBUTION WIDTH 13.3 % (11.5-14.5); WHITE BLOOD COUNT 6.3 10^3/uL (4.0-10.0)
[2018-02-07 06:15] LABS: ANION GAP 5 MEQ/L (8-16); BLOOD UREA NITROGEN 16 MG/DL (7-18); CALCIUM LEVEL 9.2 MG/DL (8.8-10.2); CARBON DIOXIDE LEVEL 34 MEQ/L (21-32); CHLORIDE LEVEL 100 MEQ/L (98-107); CREATININE FOR GFR 0.89 MG/DL (0.55-1.30); GLOMERULAR FILTRATION RATE > 60.0 (>32); GLUCOSE, FASTING 96 MG/DL (70-100); MAGNESIUM LEVEL 1.9 MG/DL (1.8-2.4); POTASSIUM SERUM 3.8 MEQ/L (3.5-5.1); SODIUM LEVEL 139 MEQ/L (136-145)
[2018-02-07] MEDS: POTASSIUM CHL PWD 20 MEQ PACKET PO (08:59)
[2018-02-07] MEDS: FLUoxetine 20 MG CAP PO (08:59)
[2018-02-07] MEDS: LOPERAMIDE 2 MG CAP PO (09:00)
[2018-02-07] MEDS: PANTOPRAZOLE 40MG TAB (PROTONIX) PO (09:00)
[2018-02-07] MEDS: ASPIRIN 81 MG ENTERIC TAB PO (09:00)
[2018-02-07] MEDS: FUROSEMIDE 20 MG TAB PO (09:00)
[2018-02-07] MEDS: PRAVASTATIN 20 MG TAB PO (09:00)
[2018-02-07] MEDS: amLODIPine 5 MG TAB PO (09:00)
[2018-02-07] MEDS: CEFDINIR 300 MG CAP (OMNICEF) PO (09:00)
[2018-02-07] MEDS: ENOXAPARIN 40 MG/0.4 ML SYRINGE (J1650) SC (09:01)
[2018-02-07] MEDS: VALSARTAN 80 MG TAB (DIOVAN) PO (09:01)
[2018-02-07] MEDS: TIOTROPIUM INHALER/CAPSULE (SPIRIVA) INH (09:08)
[2018-02-07] MEDS: ADVAIR HFA 230/21MCG INHALER INH (09:08)
== END 2018-02-07 11:35 | disposition home or self-care (01) | DRG 190 ==
LOC: M ED 00:49 → M ED INP 03:54 → M MS5PR 05:42
PROVIDERS: Internal Medicine Nephrology
DX: J44.0 Chronic obstructive pulmonary disease with (acute) lower respiratory infection (principal); J18.9 Pneumonia, unspecified organism; I50.32 Chronic diastolic (congestive) heart failure; J96.11 Chronic respiratory failure with hypoxia; I11.0 Hypertensive heart disease with heart failure; R19.7 Diarrhea, unspecified; I25.10 Atherosclerotic heart disease of native coronary artery without angina pectoris; E03.9 Hypothyroidism, unspecified; J45.909 Unspecified asthma, uncomplicated; K21.9 Gastro-esophageal reflux disease without esophagitis; E78.5 Hyperlipidemia, unspecified; Z79.899 Other long term (current) drug therapy; Z90.13 Acquired absence of bilateral breasts and nipples; Z95.0 Presence of cardiac pacemaker; Z98.41 Cataract extraction status, right eye; Z98.42 Cataract extraction status, left eye; Z90.49 Acquired absence of other specified parts of digestive tract; Z85.3 Personal history of malignant neoplasm of breast; Z88.5 Allergy status to narcotic agent; Z87.891 Personal history of nicotine dependence; Z79.82 Long term (current) use of aspirin; Z99.81 Dependence on supplemental oxygen

== ENCOUNTER → 2018-02-18 | Outpatient (REF) | payer MEDICARE, MEDICAID ==
[2018-02-18 16:42] LABS: REASON FOR REVIEW RBC MORPHOLOGY; SLIDE REVIEW Report; SOURCE PERIPHERAL SMEAR
== END ==
LOC: M SFHCLERA 13:42
DX: D53.9 Nutritional anemia, unspecified (principal)

== ENCOUNTER → 2018-02-18 | Outpatient (CLI) | payer MEDICARE, MEDICAID ==
[~2018-02-18] MED LIST changes: +/ESOM40CA PO; +/MOXI40TA PO; +ADV250INH INH; +AMLO10TA5 PO; +AMLO5TAB2 PO; +AMLO5TAB6 PO; +ANAS1TAB PO; +ARTH650T PO; +ASPI1TAB15 PO; +ASPI81TAEC PO; +BAYE81TA10 PO; +BIOT50004 PO; +BREO1INH3 INH; +CALC600T7 PO; +CEFD300CAP PO; +CHLO125TA; +CRES5TAB PO; +DIOV320T PO; +FLUO20CA19 PO; +FLUO20CA8 PO; +FURO20TA2 PO; +IPRA0.00 INH; +IPRA0.00 NEB; +K-TA1TAB PO; +KLOR1CAP2 PO; +LEVA250T13 PO; +LEVO50TA5 PO; -LIDOCAINE 2% INJ 100 MG/5 ML SDV (FOR ANES.) As Ordered; +LOMO2.5T PO; +LOPE2CAP PO; +LOPE2TAB3 PO; +LOPR50TA PO; +MAGN1TAB25 PO; +MAGN200T PO; +MAGN400T5 PO; +MAGO400T PO; +MECL-68 PO; +MULTTAB4 PO; +OMEP20CA3 PO; +PANT40TA3 PO; +POTA10PO PO; +PRAV40TA2 PO; +PRED10PA PO; +PRED10TA2 PO; -PROPOFOL 200 MG/20 ML VIAL As Ordered; +RANI150T PO; +SPIR1CAP INH; +SPIRIVA INH; +SYNT50TA PO; +TUDO1AER2 INH; +TYLE650T35 PO; +VALS1TAB48 PO; +VALS320T3 PO; +VENTAER INH; +VITA500C24 PO; +VITMTA PO; +ZOFR4TAB16 PO
--- NOTE | 2018-02-19 02:00 | REP ---
Clinical: COPD . Comparison: 02/04/2018, 10/07/2017 . Technique: PA and lateral. Findings: Cardiac silhouette is within normal limits. Dual lead pacemaker in stable satisfactory position. Lung caldera demonstrate chronic interstitial changes similar to prior examinations. Superimposed elements of atelectasis cannot be excluded. No effusion. No pneumothorax. Skeletal structures demonstrate stable degenerative changes. Impression: Chronic stable changes. Cannot exclude subtle superimposed atelectasis. Electronically Signed by Demond Workman MD 02/19/2018 01:52 A
== END ==
LOC: M LRY 12:33
PROVIDERS: ATTEND Internal Medicine Pulmonary Disease
DX: J44.9 Chronic obstructive pulmonary disease, unspecified (principal); Z95.0 Presence of cardiac pacemaker
CPT/HCPCS: 71046; G0463

== ENCOUNTER → 2018-02-25 | Outpatient (CLI) | payer MEDICARE, MEDICAID ==
--- NOTE | 2018-02-25 10:07 | REP ---
Clinical: History of abdominal aortic aneurysm with endovascular repair. Technique: Real time epperson scale and color evaluation using curved array transducer. Comparison: 05/20/2017. Findings: As previously noted, examination is significantly limited due to interposed bowel gas and suspected scattered partially calcified atherosclerotic changes. Visualized portions of the aorta demonstrate no periaortic fluid to suggest leakage. Proximal aorta 2.6 x 2.4 cm. Mid aorta (renal artery level) 1.8 x 1.8 cm. Mid aorta 1.5 x 1.5 cm. Distal aorta limited (possibly 3.3 x 3.9 cm) Right common iliac artery 1.4 x 1.3 cm maximal diameter. Left common iliac artery 1.4 x 1.3 cm maximal diameter. Impression: Significantly limited examination due to interposed bowel gas and scattered calcifications. No obvious periaortic fluid to suggest leakage. Prior ultrasound demonstrated similar limitations and contrast enhanced CT using angiographic technique may be of value for more complete, definitive evaluation. Electronically Signed by Demond Workman MD 02/25/2018 09:59 A
== END ==
LOC: M RAD 09:11
PROVIDERS: ATTEND Surgery Vascular Surgery
DX: I71.4 Abdominal aortic aneurysm, without rupture (principal)

== ENCOUNTER → 2018-02-26 | Outpatient (CLI) | payer MEDICARE, MEDICAID ==
--- NOTE | 2018-02-26 16:29 | REP ---
Clinical: Night sweats with breast cancer. Technique: Axial noncontrast images from the thoracic inlet to the upper abdomen with coronal and sagittal re-formations. Comparison: 10/14/2012 Findings: Advanced COPD/emphysematous changes are appreciated throughout the bilateral lung caldera. There are ill-defined areas of nodular opacity in the left lower lobe with distinct areas measuring up to approximately 3.8 x 1.8 cm and 3.5 x 1.7 cm along with smaller similar areas of opacity. Few scattered bilateral soft tissue nodules are also appreciated which represent a change from prior examination. No effusion. No pneumothorax. Tracheobronchial tree is patent. Mediastinal lymph nodes measure up to 11 mm short axis diameter and are nonspecific. Atherosclerotic changes to the thoracic aorta and coronary arteries noted without aortic aneurysm. No pericardial effusion. Pacemaker identified. Evidence for bilateral mammoplasty. Surrounding musculoskeletal structures demonstrate degenerative changes without focal osseous abnormality. Low density right adrenal lesion measuring 1.6 cm unchanged compared to 2013 and consistent with adenoma. Impression: 1. Advanced COPD/emphysematous changes with scattered scarring and bronchiectasis. Few scattered calcified nodules consistent with prior granulomas disease. 2. New ill-defined areas of opacity in the left lower lobe with two discrete areas measuring approximately 3.8 x 1.8 cm and 3.5 x 1.7 cm along with smaller similar areas of opacity. Differential diagnosis includes pneumonia and metastasis. Reactive mediastinal lymph nodes measure up to 11 mm short axis diameter. Short-term follow-up warranted. 3. Further chronic changes as described above including stable right adrenal adenoma and extensive atherosclerotic disease. Electronically Signed by Demond Workman MD 02/26/2018 04:20 P
== END ==
LOC: M RAD 14:40
PROVIDERS: ATTEND Family Medicine
DX: R61 Generalized hyperhidrosis (principal); J44.9 Chronic obstructive pulmonary disease, unspecified; R92.8 Other abnormal and inconclusive findings on diagnostic imaging of breast

== ENCOUNTER 2018-04-02 16:16 | Emergency (ER) | payer MEDICARE, MEDICAID ==
[~2018-04-02] VITALS: Ht 152.4 cm; Wt 78.0 kg
--- NOTE | 2018-04-02 17:06 | REP ---
Clinical: Chest pain. Technique: AP and cross-table lateral views. Comparison: 02/18/2018. Findings: Mediastinum and cardiac silhouette are stable with mild cardiomegaly again suggested. The lung caldera demonstrate diffuse chronic interstitial changes. Superimposed bibasilar atelectasis/subtle infiltrates cannot be excluded. No effusion. No pneumothorax. Skeletal structures stable. Impression: Diffuse chronic interstitial changes. Cannot exclude superimposed basilar atelectasis/infiltrate. Electronically Signed by Demond Workman MD 04/02/2018 04:59 P
[2018-04-02 17:15] LABS: BASO % 0.6 % (0.0-1.0); EOS # 0.2 10^3/uL (0.0-0.50); EOS % 2.4 % (0.0-3.0); HEMATOCRIT 37.2 % (36.0-47.0); HEMOGLOBIN 11.7 g/dl (12.0-15.5); LYMPH # 1.2 10^3/uL (1.5-4.5); LYMPH % 19.7 % (24.0-44.0); MEAN CORPUSCULAR HEMOGLOBIN 33.1 pg (27.0-33.0); MEAN CORPUSCULAR HGB CONC 31.5 g/dl (32.0-36.5); MEAN CORPUSCULAR VOLUME 105.4 fl (80.0-96.0); MONO # 0.6 10^3/uL (0.0-0.8); MONO % 9.1 % (0.0-5.0); NEUTROPHILS # 4.3 10^3/uL (1.8-7.7); NEUTROPHILS % 67.7 % (36.0-66.0); PLATELET COUNT, AUTOMATED 206 10^3/uL (150-450); RED BLOOD COUNT 3.53 10^6/uL (4.00-5.40); WHITE BLOOD COUNT 6.3 10^3/uL (4.0-10.0)
[2018-04-02 17:27] LABS: INR 0.99; PROTHROMBIN TIME 13.2 SECONDS (12.1-14.4)
[2018-04-02 17:30] LABS: D-DIMER QUANT 1675.31 ng/ml (<500)
[2018-04-02 17:45] LABS: ALBUMIN 3.1 GM/DL (3.2-5.2); ALT/SGPT 16 U/L (12-78); BILIRUBIN,DIRECT 0.1 MG/DL (0.0-0.2); BILIRUBIN,TOTAL 0.4 MG/DL (0.2-1.0); BLOOD UREA NITROGEN 25 MG/DL (7-18); CALCIUM LEVEL 8.6 MG/DL (8.8-10.2); CARBON DIOXIDE LEVEL 28 MEQ/L (21-32); CHLORIDE LEVEL 106 MEQ/L (98-107); CPK CREATINE PHOSPHOKINASE 64 U/L (26-192); CREATININE FOR GFR 1.21 MG/DL (0.55-1.30); GLOMERULAR FILTRATION RATE 45.5 (>32); GLUCOSE, FASTING 147 MG/DL (70-100); LIPASE 73 U/L (73-393); MB/CK RELATIVE INDEX 2.03 (< OR =4); NT-PRO BNP 141 PG/ML (<450); POTASSIUM SERUM 3.9 MEQ/L (3.5-5.1); SODIUM LEVEL 141 MEQ/L (136-145); TOTAL PROTEIN 6.6 GM/DL (6.4-8.2); TROPONIN I < 0.02 NG/ML (< 0.10)
[2018-04-02] MEDS ORDERED: ISOVUE-370 76% 100ML VIAL (Q9967) As Ordered ONE (17:54)
[2018-04-02] MEDS ORDERED: ACETAMINOPHEN TAB 650MG DOSE (2X325MG) PO ONE (18:15)
--- NOTE | 2018-04-02 18:19 | REP ---
Clinical: Acute chest pain with elevated D-dimer levels. Technique: Axial contrast enhanced images from the lung bases to the pubic symphysis using pulmonary embolus technique. 100 ml Isovue 370 intravenous contrast material administered without complication. Comparison: 02/18/2018. Findings: Satisfactory enhancement of the pulmonary vasculature is achieved and no filling defects are identified to suggest pulmonary embolus. The lung caldera demonstrate chronic COPD and emphysematous changes with scattered scarring. Acute bibasilar atelectasis is appreciated (left greater than right). The previously identified area of consolidation in the left lower lobe has essentially resolved. No effusion. No pneumothorax. Tracheobronchial tree is patent. Mediastinal lymph nodes suggest reactive adenopathy. Atherosclerotic changes to the thoracic aorta and coronary arteries noted without aortic aneurysm, dissection or cardiomegaly. No pericardial effusion. Musculoskeletal structures demonstrate age-related changes without focal osseous abnormality. Dual lead pacemaker with tips in the right atrium and right ventricle. Prior bilateral mammoplasty. Impression: 1. No evidence for pulmonary embolus. 2. Acute bibasilar atelectasis (left greater than right). Previously noted left lower lobe consolidation has essentially resolved. Electronically Signed by Demond Workman MD 04/02/2018 06:10 P
[2018-04-02 18:46] VITALS: BP 127/59
--- NOTE | 2018-04-03 08:45 | ECGEPIP ---
Stationary ECG Study [facility] - ED Test Date: 2018-04-02 Pat Name: JONATHAN LIU Department: Room: - Gender: F Licensed Esthetician: sonali : 1935 Requested By: Rivka Robert Order Number: [id number] Reading MD: Rivka Robert Measurements Intervals [place] Rate: 69 P: 242 ID: [id number] QRS: 20 QRSD: 114 T: 93 QT: 425 QTc: 458 Interpretive Statements ELECTRONIC ATRIAL PACEMAKER INCOMPLETE RIGHT BUNDLE BRANCH BLOCK INFERIOR MYOCARDIAL INFARCTION, PROBABLY OLD SIMILAR 12/24/17 Electronically Signed On 04-03-2018 8:45:03 EST by Rivka Robert
== END 2018-04-02 19:16 | disposition home or self-care (01) ==
LOC: M ED 16:16
DX: R07.89 Other chest pain (principal); I50.9 Heart failure, unspecified; I25.10 Atherosclerotic heart disease of native coronary artery without angina pectoris; K21.9 Gastro-esophageal reflux disease without esophagitis; E78.5 Hyperlipidemia, unspecified; J44.9 Chronic obstructive pulmonary disease, unspecified; Z99.81 Dependence on supplemental oxygen; E07.9 Disorder of thyroid, unspecified; Z85.3 Personal history of malignant neoplasm of breast; Z90.13 Acquired absence of bilateral breasts and nipples; Z95.0 Presence of cardiac pacemaker; Z87.19 Personal history of other diseases of the digestive system; Z87.891 Personal history of nicotine dependence; Z88.5 Allergy status to narcotic agent; J30.1 Allergic rhinitis due to pollen; Z79.899 Other long term (current) drug therapy; Z79.82 Long term (current) use of aspirin
CPT/HCPCS: 71046; 71275; 80048; 80076; 82550; 82553; 83690; 83880; 84443; 84484; 85025; 85379; 85610; 87040; 93005; 93041; 94760; 99285; Q9967

== ENCOUNTER → 2018-04-09 | Outpatient (REF) | payer MEDICARE, MEDICAID ==
[2018-04-09 16:41] LABS: BASO % 0.5 % (0.0-1.0); EOS # 0.4 10^3/uL (0.0-0.50); HEMATOCRIT 39.9 % (36.0-47.0); HEMOGLOBIN 12.8 g/dl (12.0-15.5); LYMPH # 1.7 10^3/uL (1.5-4.5); MEAN CORPUSCULAR HEMOGLOBIN 33.2 pg (27.0-33.0); MEAN CORPUSCULAR HGB CONC 32.1 g/dl (32.0-36.5); MEAN CORPUSCULAR VOLUME 103.4 fl (80.0-96.0); MONO # 0.5 10^3/uL (0.0-0.8); MONO % 6.7 % (0.0-5.0); NEUTROPHILS % 65.4 % (36.0-66.0); PLATELET COUNT, AUTOMATED 240 10^3/uL (150-450); RED BLOOD COUNT 3.86 10^6/uL (4.00-5.40); WHITE BLOOD COUNT 7.6 10^3/uL (4.0-10.0)
[2018-04-09 16:59] LABS: PERCENT SATURATION 39.3 % (13.2-45.0)
== END ==
LOC: M SFHCLERA 12:09
PROVIDERS: ATTEND Family Medicine
DX: D75.89 Other specified diseases of blood and blood-forming organs (principal); R15.9 Full incontinence of feces

== ENCOUNTER → 2018-04-09 | Outpatient (CLI) | payer MEDICARE, MEDICAID ==
--- NOTE | 2018-04-09 15:08 | REP ---
Abdomen series: Four views. History: Incontinence of feces. Comparison chest x-ray is from April 02, 2018. Findings: A bipolar pacemaker is seen in the right heart. Mild cardiomegaly is observed. There is no evidence of infiltrate or free subdiaphragmatic air. Supine and erect views of the abdomen demonstrate a mild dextroconvex lumbar curvature. An aortobi-iliac stent graft is seen in place. Calcification in the central pelvis is seen consistent with calcified uterine leiomyoma. There is formed stool in the right colon. No large or small bowel dilation is seen. There are degenerative disc changes at L3-4 and L4-5. Impression: Uterine calcified leiomyoma. Status post aortobi-iliac stent graft. Unremarkable bowel gas pattern. No evidence of year or significant air fluid level. Mild cardiomegaly with pacemaker. Electronically Signed by Taurus Silveira MD 04/09/2018 03:47 P
== END ==
LOC: M LRY 12:28
PROVIDERS: ATTEND Family Medicine
DX: I51.7 Cardiomegaly (principal); R15.9 Full incontinence of feces; Z95.820 Peripheral vascular angioplasty status with implants and grafts; Z95.0 Presence of cardiac pacemaker
CPT/HCPCS: 74021; 82728; 83550; 85025; 85046; G0463

== ENCOUNTER 2018-05-08 22:40 | Emergency (ER) | payer MEDICARE, MEDICAID ==
[~2018-05-08] VITALS: Ht 157.5 cm; Wt 80.0 kg
[2018-05-08] MEDS ORDERED: ASPIRIN 81 MG CHEW TABLET PO ONE (23:15)
[2018-05-08 23:29] LABS: BASO % 0.4 % (0.0-1.0); EOS # 0.2 10^3/uL (0.0-0.50); EOS % 3.1 % (0.0-3.0); HEMOGLOBIN 12.1 g/dl (12.0-15.5); LYMPH # 1.5 10^3/uL (1.5-4.5); MEAN CORPUSCULAR HEMOGLOBIN 32.8 pg (27.0-33.0); MEAN CORPUSCULAR HGB CONC 31.8 g/dl (32.0-36.5); MONO # 0.6 10^3/uL (0.0-0.8); MONO % 8.2 % (0.0-5.0); NEUTROPHILS # 4.3 10^3/uL (1.8-7.7); PLATELET COUNT, AUTOMATED 227 10^3/uL (150-450); RED BLOOD COUNT 3.69 10^6/uL (4.00-5.40); WHITE BLOOD COUNT 6.7 10^3/uL (4.0-10.0)
[2018-05-08 23:58] LABS: ALBUMIN 3.1 GM/DL (3.2-5.2); ALT/SGPT 16 U/L (12-78); BILIRUBIN,DIRECT < 0.1 MG/DL (0.0-0.2); BILIRUBIN,TOTAL 0.2 MG/DL (0.2-1.0); BLOOD UREA NITROGEN 21 MG/DL (7-18); CALCIUM LEVEL 8.1 MG/DL (8.8-10.2); CARBON DIOXIDE LEVEL 28 MEQ/L (21-32); CHLORIDE LEVEL 106 MEQ/L (98-107); CPK CREATINE PHOSPHOKINASE 101 U/L (26-192); CREATININE FOR GFR 1.21 MG/DL (0.55-1.30); GLOMERULAR FILTRATION RATE 45.5 (>32); GLUCOSE, FASTING 105 MG/DL (70-100); MB/CK RELATIVE INDEX 1.09 (< OR =4); NT-PRO BNP 315 PG/ML (<450); POTASSIUM SERUM 3.6 MEQ/L (3.5-5.1); SODIUM LEVEL 141 MEQ/L (136-145); TOTAL PROTEIN 7.2 GM/DL (6.4-8.2); TROPONIN I < 0.02 NG/ML (< 0.10)
[2018-05-09 00:06] LABS: INFLUENZA A AMPLIFICATION NEGATIVE (NEGATIVE); INFLUENZA B AMPLIFICATION NEGATIVE (NEGATIVE)
[2018-05-09 03:30] VITALS: BP 134/75
--- NOTE | 2018-05-09 09:30 | REP ---
Portable chest, single AP sitting view, 11:17 p.m.: Comparison is 04/02/2018. The lung caldera are hyperinflated with crowding of the lung markings in the lower lung zones, unchanged, compatible COPD. There are no acute infiltrates or pleural effusions. There is a dual-chamber pacemaker, unchanged. Cardiac size is enlarged, unchanged. Impression: Chronic changes. No acute cardiopulmonary findings. Electronically Signed by Fabian Menjivar MD 05/09/2018 09:22 A
--- NOTE | 2018-05-09 21:02 | ECGEPIP ---
Stationary ECG Study [facility] - ED Test Date: 2018-05-08 Pat Name: JONATHAN LIU Department: Room: - Gender: F Baker Bread: gt : 1935 Requested By: OPAL URENA Order Number: [id number] Reading MD: Rivka Robert Measurements Intervals [place] Rate: 69 P: 118 UT: 261 QRS: 54 QRSD: 114 T: -16 QT: 384 QTc: 414 Interpretive Statements ELECTRONIC ATRIAL PACEMAKER INCOMPLETE RIGHT BUNDLE BRANCH BLOCK NSTTW ABNORMALITY BASELINE ARTIFACT LIMITS INTERPRETATION SIMILAR 04/02/18 Electronically Signed On 05-09-2018 21:02:36 EDT by Rivka Robert
[2018-05-20] MEDS ORDERED: CIPR-250 PO (21:12)
== END 2018-05-09 04:00 | disposition home or self-care (01) ==
LOC: M ED 22:40
DX: R06.00 Dyspnea, unspecified (principal); I12.9 Hypertensive chronic kidney disease with stage 1 through stage 4 chronic kidney disease, or unspecified chronic kidney disease; E03.9 Hypothyroidism, unspecified; Z79.890 Hormone replacement therapy; Z79.899 Other long term (current) drug therapy; Z79.82 Long term (current) use of aspirin; Z91.048 Other nonmedicinal substance allergy status; Z88.5 Allergy status to narcotic agent; Z95.0 Presence of cardiac pacemaker

== ENCOUNTER → 2018-06-02 | Outpatient (CLI) | payer MEDICARE, MEDICAID ==
[~2018-06-02] MED LIST changes: -/ESOM40CA PO; -/MOXI40TA PO; +AVEL1TAB2 PO; +CIPR-250 PO; -MAGN1TAB25 PO; +MAGN1TAB26 PO; +NEXI1CAP3 PO; -VALS1TAB48 PO; +VALS1TAB68 PO
--- NOTE | 2018-06-08 10:32 | REP ---
Clinical: Fecal incontinence. Technique: Single supine view of the abdomen and pelvis. Findings: Bowel gas pattern is nonspecific although mild fecal stasis cannot be excluded. A single residual Sitz marker is identified within the right sami pelvis overlying the sacrum. No organomegaly. Aorto-iliac stent graft identified. Calcifications in the pelvis suggest partially calcified fibroids as well as scattered phleboliths/vascular calcifications. Impression: 1. A single residual sitz marker identified. 2. Bowel gas pattern is nonspecific although mild fecal stasis cannot be excluded. Electronically Signed by Demond Workman MD 06/08/2018 10:23 A
== END ==
LOC: M RAD 11:57
PROVIDERS: ATTEND Internal Medicine Gastroenterology
DX: R93.5 Abnormal findings on diagnostic imaging of other abdominal regions, including retroperitoneum (principal); Z95.828 Presence of other vascular implants and grafts; R19.07 Generalized intra-abdominal and pelvic swelling, mass and lump

== ENCOUNTER → 2018-06-16 | Outpatient (CLI) | payer MEDICARE, MEDICAID ==
[~2018-06-16] MED LIST changes: +ISOVUE-370 76% 100ML VIAL (Q9967) As Ordered ONE
--- NOTE | 2018-06-16 12:25 | REP ---
CT ANGIOGRAPHY OF THE ABDOMINAL AORTA WITH IV CONTRAST: HISTORY: Abdominal aortic aneurysm without rupture. Comparison CT study is from August 15, 2017. CT CONTRAST DOSE: 100 mL of intravenous Isovue 370. CT FINDINGS: The patient is status post aortobi-iliac stent graft repair for abdominal aortic aneurysm. The aneurysm is unchanged in size from the prior study measuring 3.3 cm in greatest oblique transverse dimension, previously 3.4 cm by my measurement. There is no CT angiographic evidence of an Endoleak. The a right iliac graft limb is compressed slightly crossing under the left as before. No significant stenosis is seen. The external and internal iliac arteries are both patent and calcific bilaterally. No flow is visible in the inferior mesenteric artery but superior mesenteric and celiac axes origins above the aneurysm are patent although calcific. There is calcification at the origins of both renal arteries without high-grade stenosis. IMPRESSION: Abdominal aortic aneurysm of infrarenal status post aortobi-iliac stent graft repair as above. Electronically Signed by Taurus Silveira MD 06/16/2018 08:24 P
== END ==
LOC: M RAD 08:54
PROVIDERS: ATTEND Surgery Vascular Surgery
DX: I71.4 Abdominal aortic aneurysm, without rupture (principal)
CPT/HCPCS: 74175; Q9967

== ENCOUNTER 2018-07-03 12:00 | Emergency (ER) | payer MEDICARE, MEDICAID ==
[~2018-07-03] VITALS: Ht 152.4 cm; Wt 77.7 kg
[~2018-07-03 12:00] MED LIST changes: -ISOVUE-370 76% 100ML VIAL (Q9967) As Ordered ONE
[2018-07-03] MEDS ORDERED: NS 1,000 ML IV SCH (12:45)
[2018-07-03 12:52] LABS: BASO % 0.4 % (0.0-1.0); EOS # 0.1 10^3/uL (0.0-0.50); EOS % 1.7 % (0.0-3.0); HEMATOCRIT 36.6 % (36.0-47.0); LYMPH # 1.2 10^3/uL (1.5-4.5); LYMPH % 15.3 % (24.0-44.0); MEAN CORPUSCULAR HEMOGLOBIN 33.1 pg (27.0-33.0); MEAN CORPUSCULAR HGB CONC 32.8 g/dl (32.0-36.5); MEAN CORPUSCULAR VOLUME 101.1 fl (80.0-96.0); MONO # 0.6 10^3/uL (0.0-0.8); MONO % 7.3 % (0.0-5.0); NEUTROPHILS % 74.8 % (36.0-66.0); PLATELET COUNT, AUTOMATED 229 10^3/uL (150-450); RED BLOOD COUNT 3.62 10^6/uL (4.00-5.40)
[2018-07-03 13:20] LABS: ALBUMIN 3.1 GM/DL (3.2-5.2); ALT/SGPT 16 U/L (12-78); BILIRUBIN,DIRECT 0.1 MG/DL (0.0-0.2); BILIRUBIN,TOTAL 0.4 MG/DL (0.2-1.0); BLOOD UREA NITROGEN 32 MG/DL (7-18); CALCIUM LEVEL 8.3 MG/DL (8.8-10.2); CARBON DIOXIDE LEVEL 24 MEQ/L (21-32); CHLORIDE LEVEL 106 MEQ/L (98-107); CPK CREATINE PHOSPHOKINASE 72 U/L (26-192); CREATININE FOR GFR 1.44 MG/DL (0.55-1.30); GLOMERULAR FILTRATION RATE 37.2 (>32); GLUCOSE, FASTING 162 MG/DL (70-100); LIPASE 130 U/L (73-393); MB/CK RELATIVE INDEX 1.53 (< OR =4); POTASSIUM SERUM 4.4 MEQ/L (3.5-5.1); SODIUM LEVEL 137 MEQ/L (136-145); TOTAL PROTEIN 6.7 GM/DL (6.4-8.2); TROPONIN I < 0.02 NG/ML (< 0.10)
--- NOTE | 2018-07-03 14:36 | REP ---
ABDOMINAL SERIES: Supine and erect views of the abdomen demonstrate no evidence of free intraperitoneal air and no evidence of obstruction. No dilated small bowel loops are seen. Aortobiiliac stent is noted. There are degenerative changes of the spine. An accompanying view of the chest demonstrates bibasilar fibroatelectatic change without evidence of acute infiltrate. There is mild cardiomegaly and calcification of the thoracic aorta. Left dual lead pacemaker is noted. IMPRESSION: No evidence of free air or obstruction. Cardiomegaly without evidence of acute infiltrate in either lung. Electronically Signed by Fabian Sherwood MD 07/03/2018 03:57 P
[2018-07-03 17:08] VITALS: BP 144/63
--- NOTE | 2018-07-04 21:01 | ECGEPIP ---
Stationary ECG Study [facility] - ED Test Date: 2018-07-03 Pat Name: JONATHAN LIU Department: Room: - Gender: F Personal Banking Representative: JElliott : 1935 Requested By: ZAIRE Galvan Order Number: [id number] Reading MD: Rivka Robert Measurements Intervals [place] Rate: 69 P: -74 MO: 253 QRS: 28 QRSD: 113 T: 84 QT: 417 QTc: 450 Interpretive Statements ELECTRONIC ATRIAL PACEMAKER INCOMPLETE RIGHT BUNDLE BRANCH BLOCK INFERIOR MYOCARDIAL INFARCTION, OF INDETERMINATE AGE SIMILAR 05/08/18 Electronically Signed On 07-04-2018 21:01:03 EDT by Rivka Robert
== END 2018-07-03 17:10 | disposition home or self-care (01) ==
LOC: M ED 12:00
DX: N17.9 Acute kidney failure, unspecified (principal); E86.0 Dehydration; Z95.0 Presence of cardiac pacemaker; I45.10 Unspecified right bundle-branch block; I51.7 Cardiomegaly; G89.29 Other chronic pain; M54.5 Low back pain; I10 Essential (primary) hypertension; E78.5 Hyperlipidemia, unspecified; J44.9 Chronic obstructive pulmonary disease, unspecified; J30.9 Allergic rhinitis, unspecified; I25.10 Atherosclerotic heart disease of native coronary artery without angina pectoris; Z85.3 Personal history of malignant neoplasm of breast; Z87.891 Personal history of nicotine dependence; Z79.82 Long term (current) use of aspirin; Z79.899 Other long term (current) drug therapy; Z88.5 Allergy status to narcotic agent

== ENCOUNTER 2018-07-09 06:27 | Inpatient (IN) | payer MEDICARE, MEDICAID ==
[~2018-07-09] VITALS: Ht 152.4 cm; Wt 82.3 kg
[2018-07-09 07:00] LABS: BASO % 0.3 % (0.0-1.0); EOS # 0.2 10^3/uL (0.0-0.50); EOS % 2.3 % (0.0-3.0); HEMATOCRIT 37.6 % (36.0-47.0); HEMOGLOBIN 12.1 g/dl (12.0-15.5); LYMPH # 1.1 10^3/uL (1.5-4.5); LYMPH % 16.3 % (24.0-44.0); MEAN CORPUSCULAR HEMOGLOBIN 33.6 pg (27.0-33.0); MEAN CORPUSCULAR HGB CONC 32.2 g/dl (32.0-36.5); MEAN CORPUSCULAR VOLUME 104.4 fl (80.0-96.0); MONO # 0.7 10^3/uL (0.0-0.8); MONO % 10.4 % (0.0-5.0); NEUTROPHILS # 4.5 10^3/uL (1.8-7.7); NEUTROPHILS % 70.2 % (36.0-66.0); PLATELET COUNT, AUTOMATED 218 10^3/uL (150-450); WHITE BLOOD COUNT 6.4 10^3/uL (4.0-10.0)
[2018-07-09] MEDS ORDERED: methylPREDNISolone INJ 125 MG/2 ML VIAL (J2930) IV ONE (07:15)
[2018-07-09] MEDS: IPRATROPIUM 0.5MG/ALBUTEROL 2.5MG INH SOL UD 3ML (DUONEB)(J7620) NEB SCH ×3 (07:23→08:19)
[2018-07-09 07:27] LABS: BLOOD UREA NITROGEN 15 MG/DL (7-18); CALCIUM LEVEL 8.7 MG/DL (8.8-10.2); CARBON DIOXIDE LEVEL 28 MEQ/L (21-32); CHLORIDE LEVEL 104 MEQ/L (98-107); CK-MB VALUE MASS < 1.0 NG/ML (<3.6); CPK CREATINE PHOSPHOKINASE 60 U/L (26-192); CREATININE FOR GFR 1.08 MG/DL (0.55-1.30); GLOMERULAR FILTRATION RATE 51.8 (>32); GLUCOSE, FASTING 110 MG/DL (70-100); MB/CK RELATIVE INDEX 1.67 (< OR =4); NT-PRO BNP 296 PG/ML (<450); POTASSIUM SERUM 4.1 MEQ/L (3.5-5.1); SODIUM LEVEL 139 MEQ/L (136-145); TROPONIN I < 0.02 NG/ML (< 0.10)
--- NOTE | 2018-07-09 07:54 | REP ---
Clinical: Cough. Dyspnea. Comparison: 07/03/2018. Findings: Mediastinum and cardiac silhouette are within normal limits for portable technique. Dual lead pacemaker in satisfactory position. Lung caldera demonstrate chronic-appearing interstitial changes. No obvious focal consolidation, effusion, or pneumothorax. Skeletal structures intact. Impression: Chronic-appearing changes. If the patient remains symptomatic consider chest CT for further investigation. Electronically Signed by Demond Workman MD 07/09/2018 07:45 A
--- NOTE | 2018-07-09 07:57 | ECGEPIP ---
Stationary ECG Study [facility] - ED Test Date: 2018-07-09 Pat Name: JONATHAN LIU Department: Room: - Gender: F Unload Associate: : 1935 Requested By: TONIA Del Angel Order Number: [id number] Reading MD: Jono Garcia Measurements Intervals [place] Rate: 79 P: 58 CO: 194 QRS: 72 QRSD: 110 T: 94 QT: 394 QTc: 454 Interpretive Statements SINUS RHYTHM INCOMPLETE RIGHT BUNDLE BRANCH BLOCK INFERIOR MYOCARDIAL INFARCTION, OF INDETERMINATE AGE SIMILAR TO 07/03/18 Electronically Signed On 07-09-2018 7:57:31 EDT by Jono Garcia
[2018-07-09] MEDS: TIOTROPIUM INHALER/CAPSULE (SPIRIVA) INH SCH (08:00)
[2018-07-09] MEDS ORDERED: MAG-TAB PO (11:30)
--- NOTE | 2018-07-09 14:31 | HPE ---
DATE OF ADMISSION: 07/09/2018 PRIMARY CARE PROVIDER: Kaylene Alvarez HISTORY OF PRESENT ILLNESS: The patient is an 83-year-old female with a past medical history significant for chronic obstructive pulmonary disease (COPD), hypertension, diastolic dysfunction, breast cancer, status post mastectomy, who came to [facility] on 07/09/2018 with complaint of worsening shortness of breath. The patient stated that she is still having cough and sneezing since yesterday. The patient had an episode of shivering chills. This morning, the patient woke up with severe shortness of breath and she could not talk because of the respiratory distress. The patient was also noted to have greenish sputum production intermittently, which is not usual for her. The patient stated that she was in the doctor's office recently and the patient had a recent emergency department visit, those are the two possible sick contacts that she can recall. She denies any fever. Denies any chest pain. Denies any nausea or vomiting. According to the patient, the patient is being followed with Dr. Levin for some kind of abdominal obstruction, but she cannot recall exactly the type of obstruction. The patient was given Dulcolax for almost three weeks and last dose was 4 days ago. The patient does complain of frequent loose stools. ALLERGIES/ADVERSE REACTIONS: VICODIN (paranoid). PAST MEDICAL HISTORY: 1. Hypertension. 2. Dyslipidemia. 3. Coronary artery disease status post PCI and pacemaker. 4. Abdominal aortic aneurysm, status post repair. 5. Chronic obstructive pulmonary disease (COPD) on chronic 2 liters of oxygen. 6. Diastolic dysfunction. 7. Hypothyroidism. 8. Depression. 9. History of breast cancer, status post double mastectomy. PAST SURGICAL HISTORY: 1. Cardiac PCI. 2. Pacemaker placement. 3. Right total knee arthroplasty. 4. Back surgery. 5. Elbow surgery. 6. Double mastectomy. 7. Cholecystectomy. 8. Abdominal aortic aneurysm repair. 9. Fallopian tube removal. 10. Bilateral cataract surgery. 11. Bilateral eyelid surgery. SOCIAL HISTORY: The patient used to smoke one pack daily for more than 50 years. She quit in 2005. Denies alcohol use. Denied recreational drug use. REVIEW OF SYSTEMS: GENERAL: The patient had a brief episode of shivering chills. Denies any fevers. HEENT: Denies any vision changes or auditory changes. CARDIOVASCULAR: No chest pain. No palpitations. RESPIRATORY: Complains about increased shortness of breath. The patient is also noted to have increased cough with yellowish sputum. The patient has complaining about frequent loose stools. The patient was on Dulcolax for the past 3 weeks. MUSCULOSKELETAL: Denies any muscle pain or joint pain. GENITOURINARY: Denies any dysuria, frequency or urgency. NEUROLOGIC: Denies any numbness or tingling. PHYSICAL EXAMINATION: VITAL SIGNS: Temperature is 99.5, pulse is 78, respirations 18, blood pressure 129/85, pulse oximetry is 92% with 2 liters nasal cannula. GENERAL: Fatigued. No sign of acute distress. The patient is alert and awake. HEENT: Normocephalic, atraumatic. Extraocular motors are grossly intact. CARDIOVASCULAR: Distant heart sounds. Positive S1, S2. Regular rate. LUNGS: Positive expiratory wheezes bilaterally. No crackles. ABDOMEN: Soft, nontender. Bowel sounds present. EXTREMITIES: No edema. NEUROLOGIC: Sensation to fine touch is grossly intact. Muscle strength is 5/5. LABORATORY DATA: WBC 6.4, hemoglobin 12.1, hematocrit 37.6, platelet count is 218. Sodium is 139, potassium 4.1, chloride 104, carbon dioxide 28, BUN 15, creatinine is 1.08. GFR is 51.8, calcium 8.7, total CK is 16, troponin I is less than 0.02. BNP is 296. Microbiology: Blood culture is pending. Respiratory panel shows positive for parainfluenza. Chest x-ray demonstrates chronic appearing changes. ASSESSMENT AND PLAN: 1. Chronic obstructive pulmonary disease (COPD) exacerbation. The patient is admitted on the med/surg floor under inpatient status. Respiratory panel came back positive for parainfluenza. Chest x-ray only demonstrates chronic changes. We will maintain oxygen saturation between 88 to 92%. 2. Parainfluenza infection, possible cause for the patient's COPD exacerbation. Continue conservative medical management. 3. Diastolic dysfunction. No sign of fluid overload at this time. Continue Lasix home dose. 4. Hypothyroidism. On Synthroid. 5. Hypertension. On Norvasc, Lasix, and valsartan. 6. Depression. On Prozac. 7. Coronary artery disease, status post PCI and pacemaker. On aspirin, pravastatin. 8. Abdominal aneurysm. Status post repair. Continue to monitor. 9. History of breast cancer, status post double mastectomy. 10. Deep vein thrombosis (DVT) prophylaxis. The patient will be on heparin.
[2018-07-09 16:00] VITALS: BP 146/63
[2018-07-09] MEDS: IPRATROPIUM 0.5MG/ALBUTEROL 2.5MG INH SOL UD 3ML (DUONEB)(J7620) NEB PRN (16:02)
[2018-07-09] MEDS: PANTOPRAZOLE 40MG TAB (PROTONIX) PO SCH (16:06)
[2018-07-09] MEDS: LEVOTHYROXINE 50MCG TABLET (0.05MG) PO SCH (16:06)
[2018-07-09] MEDS: FUROSEMIDE 20 MG TAB PO SCH (16:06)
[2018-07-09] MEDS: VALSARTAN 80 MG TAB (DIOVAN) PO SCH (16:07)
[2018-07-09] MEDS: AZITHROMYCIN 250 MG TAB PO SCH (16:08)
[2018-07-09] MEDS: MULTIVITAMINS/MINERALS THERAP 1 TAB PO SCH (16:08)
[2018-07-09] MEDS: PRAVASTATIN 20 MG TAB PO SCH (16:08)
[2018-07-09] MEDS: amLODIPine 5 MG TAB PO SCH (16:08)
[2018-07-09] MEDS: FLUoxetine 20 MG CAP PO SCH (16:08)
[2018-07-09] MEDS: HEPARIN SOD (PORCINE) 5000 UNITS/ML VIAL SQ SCH ×2 (16:09→21:05)
[2018-07-09] MEDS: methylPREDNISolone INJ 125 MG/2 ML VIAL (J2930) IV SCH (16:09)
[2018-07-09] MEDS: ASPIRIN 81 MG ENTERIC TAB PO SCH (16:09)
[2018-07-09] MEDS: ONDANSETRON 4MG/2ML VIAL (J2405) IV PRN (18:42)
[2018-07-09] MEDS: POTASSIUM CHL PWD 20 MEQ PACKET PO SCH (18:42)
[2018-07-09] MEDS: ACETAMINOPHEN 650MG ER TAB (TYLENOL ARTHRITIS) PO SCH (18:42)
[2018-07-09 22:00] VITALS: BP 128/58
[2018-07-09] MEDS: BREO ELIPTA INH SCH (23:17)
[2018-07-10] MEDS: ONDANSETRON 4MG/2ML VIAL (J2405) IV PRN (00:55)
[2018-07-10] MEDS: methylPREDNISolone INJ 125 MG/2 ML VIAL (J2930) IV SCH ×4 (00:56→23:36)
[2018-07-10] MEDS: HEPARIN SOD (PORCINE) 5000 UNITS/ML VIAL SQ SCH ×3 (05:47→20:56)
[2018-07-10] MEDS: LEVOTHYROXINE 50MCG TABLET (0.05MG) PO SCH (05:47)
[2018-07-10 06:00] VITALS: BP 154/64
[2018-07-10] MEDS: TIOTROPIUM INHALER/CAPSULE (SPIRIVA) INH SCH (07:37)
[2018-07-10] MEDS: BREO ELIPTA INH SCH (07:38)
[2018-07-10] MEDS: IPRATROPIUM 0.5MG/ALBUTEROL 2.5MG INH SOL UD 3ML (DUONEB)(J7620) NEB PRN ×3 (07:38→21:31)
[2018-07-10] MEDS: AZITHROMYCIN 250 MG TAB PO SCH (08:09)
[2018-07-10] MEDS: MULTIVITAMINS/MINERALS THERAP 1 TAB PO SCH (08:09)
[2018-07-10] MEDS: amLODIPine 5 MG TAB PO SCH (08:09)
[2018-07-10] MEDS: FLUoxetine 20 MG CAP PO SCH (08:09)
[2018-07-10] MEDS: FUROSEMIDE 20 MG TAB PO SCH (08:09)
[2018-07-10] MEDS: ASPIRIN 81 MG ENTERIC TAB PO SCH (08:09)
[2018-07-10] MEDS: POTASSIUM CHL PWD 20 MEQ PACKET PO SCH (08:09)
[2018-07-10] MEDS: ACETAMINOPHEN 650MG ER TAB (TYLENOL ARTHRITIS) PO SCH (08:09)
[2018-07-10] MEDS: PRAVASTATIN 20 MG TAB PO SCH (08:09)
[2018-07-10] MEDS: PANTOPRAZOLE 40MG TAB (PROTONIX) PO SCH (08:10)
[2018-07-10] MEDS: VALSARTAN 80 MG TAB (DIOVAN) PO SCH (08:10)
[2018-07-10 09:05] LABS: HEMATOCRIT 39.8 % (36.0-47.0); HEMOGLOBIN 12.5 g/dl (12.0-15.5); MEAN CORPUSCULAR HEMOGLOBIN 33.2 pg (27.0-33.0); MEAN CORPUSCULAR HGB CONC 31.4 g/dl (32.0-36.5); MEAN CORPUSCULAR VOLUME 105.6 fl (80.0-96.0); PLATELET COUNT, AUTOMATED 210 10^3/uL (150-450); RED BLOOD COUNT 3.77 10^6/uL (4.00-5.40); WHITE BLOOD COUNT 14.1 10^3/uL (4.0-10.0)
[2018-07-10 09:23] LABS: ERYTHROCYTE SEDIMENTATION RATE 51 mm/hr (0-30)
[2018-07-10 09:31] LABS: C REACTIVE PROTEIN QUANTITATIV 1.48 MG/DL (0.00-0.30); CALCIUM LEVEL 8.6 MG/DL (8.8-10.2); CREATININE FOR GFR 1.32 MG/DL (0.55-1.30); GLOMERULAR FILTRATION RATE 41.1 (>32); MAGNESIUM LEVEL 1.7 MG/DL (1.8-2.4); POTASSIUM SERUM 4.6 MEQ/L (3.5-5.1)
[2018-07-10 14:00] VITALS: BP 105/52
--- NOTE | 2018-07-10 20:03 | IPN ---
DATE: 07/10/2018 SUBJECTIVE: Patient seen and examined in the room today. Patient stated her breathing continues to improve. Denied any fevers or chills. OBJECTIVE: VITAL SIGNS: Temperature is 97.7, pulse is 72, respirations 18, blood pressure 154/64, pulse oximetry 92% with 2 liters oxygen. GENERAL: No sign of acute distress. Alert and awake. HEENT: Normocephalic, atraumatic. Extraocular motor grossly intact. CARDIOVASCULAR: Positive S1, S2, regular rate. Distant heart sounds. LUNGS: Positive expiratory wheezes. No crackles. ABDOMEN: Soft, nontender, nondistended. Bowel sounds present. EXTREMITIES: No edema. LABORATORY DATA: WBC 14.1, hemoglobin 12.5, hematocrit 39.8, platelet count 210. Sodium 138, potassium 4.6, chloride 103, carbon dioxide 28, BUN 23, creatinine 1.32, GFR is 41.1, fasting glucose 159, calcium 8.6, and magnesium 1.7. C-reactive protein is 1.48. ASSESSMENT AND PLAN: 1. Parainfluenza infection. Continue conservative medical management. Patient is currently being treated for chronic obstructive pulmonary disease (COPD) exacerbation. 2. COPD exacerbation. Continue nebulizer treatment as needed. Patient is on steroids. Continue to maintain oxygen saturation between 88-92%. 3. Diastolic dysfunction. No sign of fluid overload. Continue on Lasix home dosage. 4. Hypothyroidism, on Synthroid. 5. Hypertension. Continue Norvasc, Lasix, and losartan. 6. Depression, on Prozac. 7. Coronary artery disease, status post percutaneous coronary intervention (PCI) and pacemaker, on aspirin and pravastatin. 8. Abdominal aortic aneurysm, status post surgical repair. Continue to monitor. 9. History of breast cancer, status post double mastectomy. 10. Deep vein thrombosis (DVT) prophylaxis, on heparin.
[2018-07-10 22:00] VITALS: BP 138/64
[2018-07-10] MEDS: MIRALAX *UNIT DOSE* 17GM PACKET PO PRN (23:41)
[2018-07-11 06:00] VITALS: BP 124/60
[2018-07-11] MEDS: HEPARIN SOD (PORCINE) 5000 UNITS/ML VIAL SQ SCH ×3 (06:07→21:15)
[2018-07-11] MEDS: LEVOTHYROXINE 50MCG TABLET (0.05MG) PO SCH (06:07)
[2018-07-11 06:25] LABS: HEMATOCRIT 35.7 % (36.0-47.0); HEMOGLOBIN 11.2 g/dl (12.0-15.5); MEAN CORPUSCULAR HEMOGLOBIN 33.1 pg (27.0-33.0); MEAN CORPUSCULAR HGB CONC 31.4 g/dl (32.0-36.5); MEAN CORPUSCULAR VOLUME 105.6 fl (80.0-96.0); PLATELET COUNT, AUTOMATED 221 10^3/uL (150-450); RED BLOOD COUNT 3.38 10^6/uL (4.00-5.40); WHITE BLOOD COUNT 17.9 10^3/uL (4.0-10.0)
[2018-07-11 06:48] LABS: CALCIUM LEVEL 8.7 MG/DL (8.8-10.2); CREATININE FOR GFR 1.29 MG/DL (0.55-1.30); GLOMERULAR FILTRATION RATE 42.2 (>32); MAGNESIUM LEVEL 1.7 MG/DL (1.8-2.4); POTASSIUM SERUM 5.1 MEQ/L (3.5-5.1)
[2018-07-11] MEDS: VALSARTAN 80 MG TAB (DIOVAN) PO SCH (08:34)
[2018-07-11] MEDS: ACETAMINOPHEN 650MG ER TAB (TYLENOL ARTHRITIS) PO SCH (08:34)
[2018-07-11] MEDS: PRAVASTATIN 20 MG TAB PO SCH (08:34)
[2018-07-11] MEDS: methylPREDNISolone INJ 125 MG/2 ML VIAL (J2930) IV SCH ×3 (08:34→23:07)
[2018-07-11] MEDS: PANTOPRAZOLE 40MG TAB (PROTONIX) PO SCH (08:35)
[2018-07-11] MEDS: AZITHROMYCIN 250 MG TAB PO SCH (08:35)
[2018-07-11] MEDS: amLODIPine 5 MG TAB PO SCH (08:35)
[2018-07-11] MEDS: FUROSEMIDE 20 MG TAB PO SCH (08:35)
[2018-07-11] MEDS: ASPIRIN 81 MG ENTERIC TAB PO SCH (08:35)
[2018-07-11] MEDS: MULTIVITAMINS/MINERALS THERAP 1 TAB PO SCH (08:35)
[2018-07-11] MEDS: FLUoxetine 20 MG CAP PO SCH (08:35)
[2018-07-11] MEDS: POTASSIUM CHL PWD 20 MEQ PACKET PO SCH (08:35)
[2018-07-11] MEDS: TIOTROPIUM INHALER/CAPSULE (SPIRIVA) INH SCH (08:42)
[2018-07-11] MEDS: BREO ELIPTA INH SCH (08:42)
[2018-07-11 14:00] VITALS: BP 145/65
--- NOTE | 2018-07-11 18:30 | IPNPDOC ---
Text Note Date of Service The patient was seen on 07/11/18. NOTE SUBJECTIVE: Patient is seen and examined in the room today. Patient states she can breath better now. Still has oxygen desaturation after ambulation. Denied any fevers or chills. OBJECTIVE: VITAL SIGNS: Listed below. GENERAL: No sign of acute distress. Alert and awake. HEENT: Normocephalic, atraumatic. Extraocular motor grossly intact. CARDIOVASCULAR: Positive S1, S2, regular rate. Distant heart sounds. LUNGS: Positive expiratory wheezes. No crackles. ABDOMEN: Soft, nontender, nondistended. Bowel sounds present. EXTREMITIES: No edema. LABORATORY DATA: Listed below. ASSESSMENT AND PLAN: #. Parainfluenza infection. - Continues conservative medical management. #. COPD exacerbation. - Secondary to parainfluenza infection. - Continue nebulizer treatment as needed. Patient is on steroids. Continue to maintain oxygen saturation between 88-92%. #. Diastolic dysfunction. - No sign of fluid overload. Continue on Lasix home dosage. #. Hypothyroidism, on Synthroid. #. Hypertension. Continue Norvasc, Lasix, and losartan. #. Depression, on Prozac. #. Coronary artery disease - status post percutaneous coronary intervention (PCI) and pacemaker, on aspirin and pravastatin. #. Abdominal aortic aneurysm, status post surgical repair. Continue to monitor. #. History of breast cancer, status post double mastectomy. # DVT prophylaxis. On heparin. A-FIB/CHADSVASC A-FIB History Current/History of A-Fib/PAF?: No VS,Fishbone, I+O VS, Fishbone, I+O Laboratory Tests 07/11/18 05:56 Red Blood Count 3.38 L, Mean Corpuscular Volume 105.6 H, Mean Corpuscular Hemoglobin 33.1 H, Mean Corpuscular Hemoglobin Concent 31.4 L, Red Cell Distribution Width 13.6, Calcium Level 8.7 L Vital Signs Date Time Temp Pulse Resp B/P (MAP) Pulse Ox O2 Delivery O2 Flow Rate FiO2 07/11/18 14:00 97.0 80 18 145/65 (91) 91 2.0 07/09/18 13:16 Nasal Cannula 07/09/18 10:52 100 I&O- Last 24 Hours up to 6 AM 07/11/18 06:00 Intake Total 600 ml Output Total 600 ml Balance 0 ml GREGORY MATA DO July 11, 2018 18:30
[2018-07-11] MEDS: MIRALAX *UNIT DOSE* 17GM PACKET PO PRN (21:15)
[2018-07-11 22:00] VITALS: BP 127/50
[2018-07-12] MEDS: LEVOTHYROXINE 50MCG TABLET (0.05MG) PO SCH (05:48)
[2018-07-12] MEDS: HEPARIN SOD (PORCINE) 5000 UNITS/ML VIAL SQ SCH (05:48)
[2018-07-12 06:00] VITALS: BP 125/63
[2018-07-12 06:00] LABS: HEMATOCRIT 35.9 % (36.0-47.0); HEMOGLOBIN 11.5 g/dl (12.0-15.5); MEAN CORPUSCULAR HEMOGLOBIN 32.9 pg (27.0-33.0); MEAN CORPUSCULAR VOLUME 102.6 fl (80.0-96.0); PLATELET COUNT, AUTOMATED 240 10^3/uL (150-450); WHITE BLOOD COUNT 13.8 10^3/uL (4.0-10.0)
[2018-07-12 06:25] LABS: CALCIUM LEVEL 8.8 MG/DL (8.8-10.2); CREATININE FOR GFR 1.3 MG/DL (0.55-1.30); GLOMERULAR FILTRATION RATE 41.9 (>32); MAGNESIUM LEVEL 1.8 MG/DL (1.8-2.4); POTASSIUM SERUM 4.5 MEQ/L (3.5-5.1)
[2018-07-12 08:59] VITALS: BP 142/71
[2018-07-12] MEDS: methylPREDNISolone INJ 125 MG/2 ML VIAL (J2930) IV SCH (09:00)
[2018-07-12] MEDS: ACETAMINOPHEN 650MG ER TAB (TYLENOL ARTHRITIS) PO SCH (09:00)
[2018-07-12] MEDS: FUROSEMIDE 20 MG TAB PO SCH (09:01)
[2018-07-12] MEDS: MULTIVITAMINS/MINERALS THERAP 1 TAB PO SCH (09:01)
[2018-07-12] MEDS: ASPIRIN 81 MG ENTERIC TAB PO SCH (09:01)
[2018-07-12] MEDS: AZITHROMYCIN 250 MG TAB PO SCH (09:01)
[2018-07-12] MEDS: FLUoxetine 20 MG CAP PO SCH (09:01)
[2018-07-12] MEDS: PANTOPRAZOLE 40MG TAB (PROTONIX) PO SCH (09:01)
[2018-07-12] MEDS: POTASSIUM CHL PWD 20 MEQ PACKET PO SCH (09:02)
[2018-07-12] MEDS: amLODIPine 5 MG TAB PO SCH (09:02)
[2018-07-12] MEDS: PRAVASTATIN 20 MG TAB PO SCH (09:02)
[2018-07-12 09:03] VITALS: BP 142/71
[2018-07-12] MEDS: VALSARTAN 80 MG TAB (DIOVAN) PO SCH (09:03)
[2018-07-12] MEDS: BREO ELIPTA INH SCH (09:11)
[2018-07-12] MEDS: TIOTROPIUM INHALER/CAPSULE (SPIRIVA) INH SCH (09:59)
[2018-07-12] MEDS: IPRATROPIUM 0.5MG/ALBUTEROL 2.5MG INH SOL UD 3ML (DUONEB)(J7620) NEB PRN (10:01)
[2018-07-12] MEDS ORDERED: SENOKOT S TAB PO PRN (11:30)
--- NOTE | 2018-07-12 12:59 | IPNPDOC ---
Subjective Date Seen The patient was seen on 07/12/18. Subjective Chief Complaint/HPI Pt is examined at bedside; denies any dyspnea, fever, chills. She reported productive cough with green sputum which she reported to be at baseline. Pt's ox sat recorded has been about 93-94% on 2L NC. Denies fever or chills. Patient reported constipation and reported no bowel movement since admission; denies abd pain General: Denies: Chills Constitutional: Denies: Chills, Fever Pulmonary: Reports: Cough; Denies: Dyspnea Cardiovascular: Denies: Chest Pain, Palpitations Gastrointestinal: Reports: Constipation; Denies: Nausea, Vomiting, Abdominal Pain Objective Physical Examination General Exam: Positive: Alert, Cooperative, No Acute Distress Eye Exam: Positive: Conjunctiva & lids normal; Negative: Sclera icteric ENT Exam: Positive: Atraumatic, Mucous membr. moist/pink Neck Exam: Positive: Supple Chest Exam: Positive: Normal air movement, Wheezing (pos mild expiratory wheezing aus b/l), Other (no accessory muscle use); Negative: Rales, Rhonchi, Diminished Heart Exam: Positive: Rate Normal, Regular Rhythm, Normal S1, Normal S2, Murmurs Abdomen Exam: Positive: BS Hypoactive, Soft Skin Exam: Positive: Nl turgor and temperature Neuro Exam: Positive: Normal Speech, Normal Tone Psych Exam: Positive: Mental status NL, Memory Intact, Oriented x 3 A-FIB/CHADSVASC A-FIB History Current/History of A-Fib/PAF?: No Assessment /Plan Problems (1) COPD exacerbation Problem Text: 2/2 to parainfluenza. Patient denies any dyspnea and reported green sputum which she has at baseline. Cont neb as needed. PMH of COPD on chronic 2L NC at home. Change IV solumedrol to PO prednisone 40mg QD. Cont PO Azithromycin. Goal to titrate O2 sat 88-92% as pt has COPD (2) Parainfluenza Problem Text: continues conservative medical management. Pt denies any dyspnea, fever, or chills. Reported green color sputum at baseline (3) Diastolic dysfunction Problem Text: PMH of diastolic dysfunction. No signs of fluid overload with no dyspnea or lung crackles. Cont home med Lasix (4) Constipation Problem Text: Patient reported PMH of stool incontinence requiring imodium at home. Reported no bowel movement since admission. Denies abd pain. KUB 07/03/18 showed no free air or signs of obstruction. On miralax as needed. Senokot S ordered (5) Hypertension Status: Chronic Problem Text: Pt's BP appears to be roughly stable. Cont home med Norvasc, Lasix, and Losartan. Cont to monitor the pt. (6) Depression Status: Chronic Problem Text: Pt's mood appeared to be stable. Cont home med Prozac. (7) Coronary artery disease Problem Text: s/p PCI and pacemaker. Cont home medication Aspirin and Pravastatin (8) Abdominal aortic aneurysm Problem Text: s/p surgical repair. Cont to monitor the pt (9) History of breast cancer Status: Chronic Problem Text: Hx of breast cancer, s/p double mastectomy Plan/VTE VTE Prophylaxis Ordered?: Yes (heparin sc) VS, I&O, 24H, Fishbone Vital Signs/I&O Vital Signs Date Time Temp Pulse Resp B/P (MAP) Pulse Ox O2 Delivery O2 Flow Rate FiO2 07/12/18 09:03 142/71 07/12/18 09:02 71 07/12/18 06:00 96.8 18 93 2.0 07/09/18 13:16 Nasal Cannula 07/09/18 10:52 100 I&O- Last 24 Hours up to 6 AM 07/12/18 06:00 Intake Total 1050 ml Output Total 1400 ml Balance -350 ml Laboratory Data 24H LABS Laboratory Tests 2 07/12/18 05:45: Nucleated Red Blood Cells % (auto) 0.0, Anion Gap 3L, Glomerular Filtration Rate 41.9, Blood Urea Nitrogen 38H, Creatinine 1.30, Sodium Level 138, Potassium Lev el 4.5, Chloride Level 101, Carbon Dioxide Level 34H, Calcium Level 8.8, Magnesium Level 1.8 CBC/BMP Laboratory Tests 07/12/18 05:45 Red Blood Count 3.50 L, Mean Corpuscular Volume 102.6 H, Mean Corpuscular Hemoglobin 32.9, Mean Corpuscular Hemoglobin Concent 32.0, Red Cell Distribution Width 13.5, Calcium Level 8.8 Microbiology Microbiology 07/09/18 Blood Culture - Preliminary, Resulted No Growth after 72 hours. All specime... 07/09/18 Respiratory Virus Panel (PCR) ([facility]) - Final, Complete Parainfluenza 3 (Piv3) GME ATTESTATION GME ATTESTATION My faculty preceptor for this patient encounter was physically present during the encounter and was fully available. All aspects of the patient interview, examination, medical decision making process, and medical care plan development were reviewed and approved by the faculty preceptor. The faculty preceptor is aware and concurs with the plan as stated in the body of this note and will attest to such by his/her cosignature. URIEL GONZALEZ DO July 12, 2018 12:59
[2018-07-12 14:00] VITALS: BP 140/71
[2018-07-12] MEDS ORDERED: PRED10TA2 PO (14:10)
--- NOTE | 2018-07-12 14:13 | DS.PDOC ---
Discharge Summary General Date of Admission July 09, 2018 at 12:34 Date of Discharge 07/12/18 Discharge Summary PROCEDURES PERFORMED DURING STAY: [None]. ADMITTING DIAGNOSES: 1. COPD exacerbation 2. Parainfluenza infection 3. Diastolic heart failure 4. Hypothyroidism 5. Hypertension 6. Depression 7. Coronary artery disease, s/p PCI and pacemaker 8. Abdominal aneurysm, s/p repair 9. History of breast cancer, s/p double mastectomy DISCHARGE DIAGNOSES: 1. COPD exacerbation 2. Parainfluenza infection 3. Diastolic heart failure 4. Hypothyroidism 5. Hypertension 6. Depression 7. Coronary artery disease, s/p PCI and pacemaker 8. Abdominal aneurysm, s/p repair 9. History of breast cancer, s/p double mastectomy 10. Constipation COMPLICATIONS/CHIEF COMPLAINT: COPD. HISTORY OF PRESENT ILLNESS: Pt is a 83 yo female with PMH of COPD, HTN, CAD, and diastolic dysfunction presented to [facility] with worsening shortness of breath. Also reported coughing with green sputum and sneezing starting 1 day prior to admission with an episode of shivering chills. On the day of admission, pt woke up with severe SOB and she could not talk because of the respiratory distress.Denies fever, chills, nausea or vomiting. Pt reported that she sees Dr. Levin outpt for some kind of abdominal obstruction, but she cannot recall exactly the type of obstruction. She reported that she usually takes imodium d/t stool leaking/diarrhea, but she had been given Dulcolax for almost three weeks prior to admission and still reported frequent loose stools at the time of the admission. HOSPITAL COURSE: Pt was given 1 dose of IV solumedrol with neb treatment in ER and was admitted to the hospital. She was also noted tested pos for parainfluenza. She received IV solumedrol, duoneb, and IV Azithromycin. Her home med Spiriva was continued. Pt's dyspnea gradually improve over time, and she reported no dyspnea 07/12/18 morning. She reported that she still has green-color sputum at this time, but denies any fever/chills. She reported that has not had any BM since admission, and was started on Senokot S. Pt was determined to be safe to d/c home 07/12/18, and was subsequently d/c home. DISCHARGE MEDICATIONS: Please see below. ALLERGIES: Please see below. PHYSICAL EXAMINATION ON DISCHARGE: VITAL SIGNS: Please see below. GENERAL: A&OX3, not in acute distress HEENT: Head normocephalic, atrumatic,conjunctiva and lids normals. Ears well set and formed NECK: Supple CARDIOVASCULAR EXAMINATION: RRR, no murmur, normal S1 and S2 RESPIRATORY EXAMINATION: CTA b/l, mild expiratory wheezing aus b/l; no rales, wheezing, or rhonchi ABDOMINAL EXAMINATION: Mild hypoactive bowel sound in all 4 quadratn, no guarding or tenderness to plapation. Non-distended EXTREMITIES: Radial pulse+2 b/l NEUROLOGICAL EXAMINATION: A&OX3, no obvious memory or cognitive fxn deficit LABORATORY DATA: Please see below. IMAGING: CXR Chronic appearing interstitial changes PROGNOSIS: Fair ACTIVITY: [As tolerated]. DIET: 2g Na diet DISCHARGE PLAN AND INSTRUCTIONS: 1. Complete steroid taper as instructed 2. F/u with PCP in 7 days ITEMS TO FOLLOWUP ON ON OUTPATIENT: 1. COPD exacerbation DISCHARGE CONDITION: [fair]. TIME SPENT ON DISCHARGE: Greater than 30 minutes. Vital Signs/I&Os Vital Signs Date Time Temp Pulse Resp B/P (MAP) Pulse Ox O2 Delivery O2 Flow Rate FiO2 07/12/18 09:03 142/71 07/12/18 09:02 71 07/12/18 06:00 96.8 18 93 2.0 07/09/18 13:16 Nasal Cannula 07/09/18 10:52 100 I&O- Last 24 Hours up to 6 AM 07/12/18 06:00 Intake Total 1050 ml Output Total 1400 ml Balance -350 ml Laboratory Data Labs 24H Laboratory Tests 2 07/12/18 05:45: Nucleated Red Blood Cells % (auto) 0.0, Anion Gap 3L, Glomerular Filtration Rate 41.9, Blood Urea Nitrogen 38H, Creatinine 1.30, Sodium Level 138, Potassium Level 4.5, Chloride Level 101, Carbon Dioxide Level 34H, Calcium Level 8.8, Magnesium Level 1.8 CBC/BMP Laboratory Tests 07/12/18 05:45 Red Blood Count 3.50 L, Mean Corpuscular Volume 102.6 H, Mean Corpuscular Hemoglobin 32.9, Mean Corpuscular Hemoglobin Concent 32.0, Red Cell Distribution Width 13.5, Calcium Level 8.8 Microbiology Microbiology 07/09/18 Blood Culture - Preliminary, Resulted No Growth after 72 hours. All specime... 07/09/18 Respiratory Virus Panel (PCR) (IZABELA) - Final, Complete Parainfluenza 3 (Piv3) Discharge Medications Scheduled Acetaminophen (Tylenol Arthritis) 650 Mg Tab, 650 MG PO DAILY, (Reported) Amlodipine Besylate (Amlodipine Besylate) 5 Mg Tab, 5 MG PO DAILY, (Reported) Aspirin (Aspirin EC) 81 Mg Tabec, 81 MG PO DAILY, (Reported) Fluoxetine Hcl (Fluoxetine HCl) 20 Mg Cap, 20 MG PO DAILY, (Reported) Fluticasone/Vilanterol (Breo Ellipta 200-25 Mcg INH) 1 Inh Inh, 1 PUFF INH DAILY, (Reported) Furosemide (Furosemide) 20 Mg Tab, 20 MG PO DAILY, (Reported) Furosemide (Furosemide) 20 Mg Tab, 40 MG PO DAILY, (Reported) TAKE ADDITIONAL DOSE IF WEIGHT GAIN IS GREATER THAN 2 LBS; USE SAME SCALE MEASUREMENTS ON AN EMPTY BLADDER. Levothyroxine Sodium (Levothyroxine Sodium) 50 Mcg Tab, 50 MCG PO DAILY, (Reported) Magnesium Chloride (Mag Delay) 70 Mg Tablet.dr, 70 MG PO DAILY, (Reported) Multivitamins (Thera M Plus Tablet) 1 Tab Tab, 1 TAB PO DAILY, (Reported) Pantoprazole Sodium (Pantoprazole Sodium) 40 Mg Tab, 40 MG PO DAILY, (Reported) Potassium Chloride (Potassium Chloride Powder) 20 Meq Pow, 20 MEQ PO DAILY, (Re ported) Pravastatin Sodium (Pravastatin Sodium) 40 Mg Tab, 40 MG PO DAILY, (Reported) Prednisone (Prednisone) 10 Mg Tablet, 10 MG PO TAPER Take 4 tabs daily x 3 days, then 3 tabs daily x 3 days, then 2 tabs daily x 3 days, then 1 tab daily x 3 days and stop Tiotropium Hudson (Spiriva) 18 Mcg Cap, 1 INHALATION INH DAILY, (Reported) Valsartan (Valsartan) 320 Mg Tab, 320 MG PO DAILY, (Reported) Scheduled PRN Albuterol Sulfate (Ventolin Hfa) 108 Mcg/Act Aer, 2 PUFFS INH Q4H PRN for SHORTNESS OF BREATH, (Reported) Ipratropium/Albuterol Sulfate (Iprat-Albut 0.5-3(2.5) mg/3 ml) 1 Mary Mary, 1 DOSE INH Q8H PRN for SHORTNESS OF BREATH, (Reported) Allergies Coded Allergies: ENVIROMENTAL (Verified Allergy, Unknown, 07/09/18) hydrocodone (Verified Adverse Reaction, Intermediate, hallucinations, confusion while on Vicodin, 07/09/18) GME ATTESTATION GME ATTESTATION My faculty preceptor for this patient encounter was physically present during the encounter and was fully available. All aspects of the patient interview, examination, medical decision making process, and medical care plan development were reviewed and approved by the faculty preceptor. The faculty preceptor is aware and concurs with the plan as stated in the body of this note and will attest to such by his/her cosignature. URIEL GONZALEZ DO July 12, 2018 14:13 GREGORY MATA DO July 12, 2018 22:13
[2018-07-13] MEDS ORDERED: predniSONE 20 MG TAB PO SCH (09:00)
== END 2018-07-12 15:18 | disposition home or self-care (01) | DRG 191 ==
LOC: M ED 06:27 → M ED INP 12:34 → M MSPAV 15:21
PROVIDERS: ADMIT Internal Medicine; ATTEND Internal Medicine
DX: J44.1 Chronic obstructive pulmonary disease with (acute) exacerbation (principal); I50.32 Chronic diastolic (congestive) heart failure; B97.89 Other viral agents as the cause of diseases classified elsewhere; K59.00 Constipation, unspecified; I11.0 Hypertensive heart disease with heart failure; F32.9 Major depressive disorder, single episode, unspecified; E03.9 Hypothyroidism, unspecified; I25.10 Atherosclerotic heart disease of native coronary artery without angina pectoris; Z95.0 Presence of cardiac pacemaker; Z85.3 Personal history of malignant neoplasm of breast; Z90.11 Acquired absence of right breast and nipple; Z90.12 Acquired absence of left breast and nipple; Z79.899 Other long term (current) drug therapy; Z88.5 Allergy status to narcotic agent; E78.5 Hyperlipidemia, unspecified; Z96.651 Presence of right artificial knee joint; Z87.891 Personal history of nicotine dependence

== ENCOUNTER 2018-07-14 09:41 | Inpatient (IN) | payer MEDICARE, MEDICAID ==
[~2018-07-14] VITALS: Ht 162.6 cm; Wt 81.4 kg
[~2018-07-14 09:41] MED LIST changes: +MAG-TAB PO
[2018-07-14] MEDS ORDERED: IPRATROPIUM 0.5MG/ALBUTEROL 2.5MG INH SOL UD 3ML (DUONEB)(J7620) NEB PRN ×2 (10:15→12:30)
[2018-07-14] MEDS ORDERED: dexameTHASONE 20 MG/5 ML VIAL (J1100) IV ONE (10:15)
[2018-07-14 10:30] LABS: BASO % 0.2 % (0.0-1.0); EOS % 0.1 % (0.0-3.0); HEMATOCRIT 38.6 % (36.0-47.0); HEMOGLOBIN 12.6 g/dl (12.0-15.5); LYMPH # 2.6 10^3/uL (1.5-4.5); MEAN CORPUSCULAR HEMOGLOBIN 33.1 pg (27.0-33.0); MEAN CORPUSCULAR HGB CONC 32.6 g/dl (32.0-36.5); MEAN CORPUSCULAR VOLUME 101.3 fl (80.0-96.0); MONO # 1.2 10^3/uL (0.0-0.8); MONO % 7.6 % (0.0-5.0); NEUTROPHILS # 12.1 10^3/uL (1.8-7.7); NEUTROPHILS % 74.3 % (36.0-66.0); PLATELET COUNT, AUTOMATED 292 10^3/uL (150-450); RED BLOOD COUNT 3.81 10^6/uL (4.00-5.40); WHITE BLOOD COUNT 16.3 10^3/uL (4.0-10.0)
[2018-07-14 10:31] LABS: ABG BASE EXCESS 6.8 (-2.0-2.0); ABG HCO3 31.6 MEQ/L (22.0-26.0); ABG O2 SATURATION 93.6 % (95.0-99.0); ABG PARTIAL PRESSURE CO2 45.5 mmHg (35.0-45.0); ABG STANDARD HCO3 30.5 MEQ/L (22.0-26.0); ABG pH (ARTERIAL) 7.459 UNITS (7.350-7.450)
[2018-07-14 10:55] LABS: BLOOD UREA NITROGEN 33 MG/DL (7-18); CALCIUM LEVEL 8.6 MG/DL (8.8-10.2); CARBON DIOXIDE LEVEL 33 MEQ/L (21-32); CHLORIDE LEVEL 99 MEQ/L (98-107); CK-MB VALUE MASS < 1.0 NG/ML (<3.6); CPK CREATINE PHOSPHOKINASE 38 U/L (26-192); CREATININE FOR GFR 1.25 MG/DL (0.55-1.30); GLOMERULAR FILTRATION RATE 43.8 (>32); GLUCOSE, FASTING 174 MG/DL (70-100); MB/CK RELATIVE INDEX 2.63 (< OR =4); POTASSIUM SERUM 4.1 MEQ/L (3.5-5.1); SODIUM LEVEL 137 MEQ/L (136-145); TROPONIN I < 0.02 NG/ML (< 0.10)
--- NOTE | 2018-07-14 11:35 | REP ---
Portable chest x-ray: Single view. History: Dyspnea and cough. Comparison study: July 09, 2018. Findings: EKG monitoring electrodes overlie the chest. A bipolar pacemaker is seen in the right heart via the left side. Oxygen delivery tubing is noted. The lungs are well inflated. There is increased density at the right base consistent with atelectasis and/or infiltrate. This is more prominent than the opacity seen in the right base on prior radiographs. No other new pulmonary parenchymal opacity is seen. No bony abnormality is seen. Impression: Increased density in the right base consistent with atelectasis and/or infiltrate. This is more prominent than on comparison radiographs. Pacemaker. Otherwise no acute disease. Electronically Signed by Taurus Silveira MD 07/14/2018 01:41 P
--- NOTE | 2018-07-14 12:42 | REP ---
CT of the chest without IV contrast: The study is correlated with the plain film portable chest performed earlier today. Comparison CT studies of the chest are dated 10/14/2012, 02/26/2018 and 04/02/2018. There is a focal parenchymal scar in the right middle lobe that is present on all prior studies. It have increased in size on 2018, but is unchanged in size from 04/02/2018. On the study today. There was a left lower lobe infiltrate and 02/26/2089 has resolved. There is a new focal ground-glass density in the right lower lobe measuring 9 mm on image 63. There is a new focal ground-glass density in the right lower lobe on image 72 measuring 10 mm. There is a stable nodule at the dome of the liver posteriorly on image 78 measuring 10 mm, unchanged from 10/14/2012. There are no pleural effusions. There is no mediastinal or axillary lymph node enlargement. The study is insensitive for hilar lymph node enlargement in the absence of IV contrast. Thoracic aorta is unremarkable except for calcified atheroma. Cardiac size is normal. There is no pericardial effusion. The visualized upper abdomen demonstrates a right renal upper pole cyst, not significantly changed. There is an abdominal aortic endovascular stent, unchanged from 02/26/2018. There is a dual-chamber pacemaker entering from left. There are bilateral breast implants, unchanged. Impression: There are two new focal ground-glass densities in the right lower lobe as described. There is chronic parenchymal scarring in the right middle lobe as described. There are a dual-chamber pacemaker entering from the right, bilateral breast implants, right renal cyst, and abdominal aortic endovascular stent. Electronically Signed by Fabian Menjivar MD 07/14/2018 12:33 P
[2018-07-14] MEDS ORDERED: POTA20PW PO (13:09)
[2018-07-14] MEDS ORDERED: MAGN1TAB39 PO (13:09)
[2018-07-14] MEDS ORDERED: PRED10TA2 PO (13:10)
[2018-07-14] MEDS ORDERED: BIOT1CAP2 PO (13:12)
[2018-07-14] MEDS ORDERED: MIRA3350 PO (13:12)
[2018-07-14] MEDS ORDERED: MIRALAX *UNIT DOSE* 17GM PACKET PO PRN (13:30)
--- NOTE | 2018-07-14 13:38 | ECGEPIP ---
Stationary ECG Study [facility] - ED Test Date: 2018-07-14 Pat Name: JONATHAN LIU Department: Room: - Gender: F Wire Strander: JElliott : 1935 Requested By: Jono Perales Order Number: [id number] Reading MD: Rivka Robert Measurements Intervals Labelle Rate: 77 P: 88 OK: 190 QRS: 62 QRSD: 105 T: 82 QT: 368 QTc: 418 Interpretive Statements ELECTRONIC ATRIAL PACEMAKER ABNORMAL RHYTHM ECG RIGHT VENTRICULAR CONDUCTION DELAY INFERIOR INFARCT, INDETERMINATE AGE SIMILAR 07/09/18 Electronically Signed On 07-14-2018 13:37:30 EDT by Rivka Robetr
[2018-07-14] MEDS: IPRATROPIUM 0.5MG/ALBUTEROL 2.5MG INH SOL UD 3ML (DUONEB)(J7620) NEB SCH ×2 (14:11→19:33)
--- NOTE | 2018-07-14 14:28 | HPE ---
DATE OF ADMISSION: 07/14/2018 CHIEF COMPLAINT: Chest heaviness. HISTORY OF PRESENT ILLNESS: This is an 83-year-old female with Gold Stage IV chronic obstructive pulmonary disease (COPD), chronic hypoxic respiratory failure on 2 liters home oxygen, congestive heart failure with preserved ejection fraction, hypertension, and breast cancer status post mastectomy, who was recently admitted to [facility] ([facility]) from 07/09/2018 to 07/12/2018 for COPD exacerbation secondary to parainfluenza infection who has been in her usual state of health until a day after she had been home when she started developing increasing chest heaviness, especially with ambulation. The patient denies any fever or chills, cough or sputum production. She denies any diaphoresis, palpitations, or lightheadedness, but did complain of some dizziness when she walks from bedroom to bathroom. At baseline, the patient is able to get her mail from her house to the mailbox twice to three times a week, but currently has been having increasing difficulty even going from bedroom to bathroom. She usually follows with jewel blocker and sawyer, Dr. Carson, as an outpatient. She has previously seen her about three months ago. She has had no recent PFTs. The patient has been having constipation treated with some MiraLAX which improved. Currently denies any nausea, vomiting, dysuria, urgency, frequency. No chills. No fever. The patient lives alone and has not been able to ambulate, prompting her daughter to bring her to the emergency room. Despite nebulizer treatment twice on Thursday and once this morning, the patient has had increasing shortness of breath prompting her to come to the emergency room (ER). In the ER, the white count was slightly increased at 16.3. She has been continually taking her prednisone. Lactic acid was 2.2. CT of the chest shows right lower lobe new focal ground glass densities. The hospitalist was called to admit. PAST MEDICAL HISTORY: 1. COPD. 2. Parainfluenza infection. 3. Congestive heart failure (CHF) with preserved ejection fraction. 4. Hypothyroidism. 5. Hypertension. 6. Depression. 7. Coronary artery disease (CAD), pacer and pecutaneous coronary intervention (PCI). 8. Abdominal aortic aneurysm status post repair. 9. History of breast cancer and double mastectomy. PAST SURGICAL HISTORY: 1. Cardiac PCI and pacer. 2. Right total knee arthroplasty. 3. Back surgery. 4. Elbow surgery. 5. Double mastectomy. 6. Cholecystectomy. 7. Abdominal aortic aneurysm repair. 8. Fallopian tube removal. 9. Bilateral cataract surgery. 10. Bilateral eyelid surgery. SOCIAL HISTORY: Smoked a pack a day for over 50 years, quit in 2005. No recreational drug use. Lives alone. Has chronic 2 liters of oxygen. Has a daughter that checks up on her and a son-in-law. FAMILY HISTORY: Noncontributory due to age. REVIEW OF SYSTEMS: Denies any chills, fevers, visual changes, auditory changes, rhinorrhea, diplopia, blurred vision, ear pain. No palpitations. Some lightheadedness, a little bit of dizziness. Complains of chest heaviness without pain. Shortness of breath not alleviated by nebulizers. No cough. No sputum production. The patient has chronic constipation, recently improved with MiraLAX, and has one to two bowel movements which are peanut butter in consistency. Musculoskeletal with no muscle or joint pains. : Denies dysuria, urgency or frequency. Denies fever, chills, or flank pain. Neurologic: Denies bilateral upper or lower extremity numbness or tingling, difficulty ambulating due to shortness of breath. All other systems are essentially negative. PHYSICAL EXAMINATION: Vital signs with temperature 98.1, pulse 79, respiratory rate 20, blood pressure 127/73, and 91% on 2 liters nasal cannula. General: The patient is awake, alert, oriented times three, able to speak in full sentences. She has no use of accessory respiratory muscles. Trachea is midline. Pupils are round and reactive. Extraocular muscles are intact. No jugular venous distention (JVD). No pharyngeal erythema nor tonsillar exudate. No thyromegaly. No cervical lymphadenopathy. Lungs are diminished. Prolonged expirations with faint expiratory wheezing bilaterally. Heart: S1 and S2. Sinus rhythm. Pacer in the anterior chest. Abdomen: Soft. Nontender. Nondistended. Positive bowel sounds. Extremities: No cyanosis, clubbing or pitting edema. EKG: Paced rhythm, ventricular rate 77. LABORATORY DATA: White count 16.3, hemoglobin 12, hematocrit 38, platelet count 292. Sodium 137, potassium 4.1, chloride 99, bicarbonate 33, BUN 33, creatinine 1.25, glucose 174, lactic acid 2.2, calcium 8.6. Blood cultures pending. Troponin less than 0.02. MB fraction less than 1. Total CK of 38. CHEST CT on 07/14/2018: Right middle lobe focal parenchymal scar present on all prior studies, increased in size on 04/02/2018, but is unchanged from 04/02/2018. Left lower lobe infiltrate on 02/26/2018 had resolved. New focal ground glass in the right lower lobe measuring 10 mm. Stable nodule in the liver measuring 10 mm. No pleural effusions, mediastinal or axillary lymphadenopathy. Study is insensitive for hilar lymphadenopathy enlargement in the absence of IV contrast. Right renal upper pole cyst not changed. Abdominal aortic endovascular stent not changed from 02/26/2018, though chamber pacer from the left. Bilateral breast implants which are unchanged. ASSESSMENT AND PLAN: This is an 83-year-old female who was recently discharged on Thursday after a three day stay at [facility] for COPD exacerbation who was brought home by her daughter's and was saturating at 89% on the day of discharge on her chronic 2 liters of oxygen. Since being home, the patient has been needing to use her nebulizers twice yesterday and once this morning due to increasing shortness of breath and dizziness which has worsened today, and unable to go to the bathroom. All of this started worsening last evening at 9:30 with complaints of chest heaviness, without any diaphoresis, accompanied with some lightheadedness. She has a followup appointment with her primary care physician this coming Thursday, but is unable to wait that long due to worsening distress. She is still currently on her tapering dose of prednisone and has had increased weight from 173 to 178 during the previous admission and currently back to her baseline of 173 pounds. She normally is able to get her mail, about 50-75 feet from her house to her mailbox every other day, but currently is unable to ambulate from her bedroom to the bathroom. The patient has been found to have new infiltrates on CT of the chest and worsening shortness of breath and wheezing on exam. She will be admitted as an inpatient for two midnights for the following acute issues. 1. Right lower lobe pneumonia. The patient denies any fever, chills or cough. Will check a methicillin-resistant Staphylococcus aureus (MRSA) screen, sputum and blood cultures. Empirically cover with Avelox for now until cultures return. The patient has not had any sputum production or worsening hypoxia, although according to her when she ambulates she complains of some shortness of breath. 2. Chronic hypoxic respiratory failure, usually on 2 liters of home oxygen. Will keep saturations at goal of 88-92% due to COPD and treatment for pneumonia with antibiotics and nebulizer treatments. May resume patient's Breo Ellipta. 3. Chronic obstructive pulmonary disease exacerbation. She continues to have mild wheezing on examination. Air entry is equal. She denies any fever, chills, or increasing cough production. We will continue on rapid tapering of steroids. Continue with antibiotics, nebulizers and supplemental oxygen. 4. History of congestive heart failure with preserved ejection fraction. Currently at her dry weight of 173 pounds. Monitor clinically. Continue on home dose of Lasix. 5. History of coronary artery disease. Continue on aspirin. 6. Hypothyroidism. Continue on Synthroid 50 mcg daily. 7. Electrolyte abnormalities and hypomagnesemia. Continue on magnesium chloride. 8. Chronic constipation. Continue on MiraLAX. 9. Hyperlipidemia. Continue on pravastatin. 10. Hypertension. Continue on Valsartan. 11. Deep vein thrombosis (DVT) prophylaxis. On Lovenox renally dosed.
[2018-07-14 15:03] LABS: CK-MB VALUE MASS < 1.0 NG/ML (<3.6); CPK CREATINE PHOSPHOKINASE 33 U/L (26-192); MB/CK RELATIVE INDEX 3.03 (< OR =4); TROPONIN I < 0.02 NG/ML (< 0.10)
[2018-07-14 15:44] VITALS: BP 145/65
[2018-07-14] MEDS: methylPREDNISolone INJ 125 MG/2 ML VIAL (J2930) IV SCH (18:07)
[2018-07-14] MEDS: ENOXAPARIN 40 MG/0.4 ML SYRINGE (J1650) SC SCH (20:05)
[2018-07-14 22:00] VITALS: BP 116/57
[2018-07-15] MEDS: IPRATROPIUM 0.5MG/ALBUTEROL 2.5MG INH SOL UD 3ML (DUONEB)(J7620) NEB SCH ×5 (01:10→20:07)
[2018-07-15] MEDS: methylPREDNISolone INJ 125 MG/2 ML VIAL (J2930) IV SCH ×3 (02:44→18:17)
[2018-07-15] MEDS: LEVOTHYROXINE 50MCG TABLET (0.05MG) PO SCH (05:53)
[2018-07-15] MEDS: MOXIFLOXACIN 400 MG TAB PO SCH (05:54)
[2018-07-15 06:00] VITALS: BP 161/76
[2018-07-15 06:32] LABS: HEMATOCRIT 37.6 % (36.0-47.0); HEMOGLOBIN 12.3 g/dl (12.0-15.5); MEAN CORPUSCULAR HEMOGLOBIN 33.7 pg (27.0-33.0); MEAN CORPUSCULAR HGB CONC 32.7 g/dl (32.0-36.5); PLATELET COUNT, AUTOMATED 250 10^3/uL (150-450); RED BLOOD COUNT 3.65 10^6/uL (4.00-5.40); WHITE BLOOD COUNT 15.5 10^3/uL (4.0-10.0)
[2018-07-15 07:01] LABS: CALCIUM LEVEL 9.1 MG/DL (8.8-10.2); CREATININE FOR GFR 1.24 MG/DL (0.55-1.30); GLOMERULAR FILTRATION RATE 44.2 (>32); POTASSIUM SERUM 4.3 MEQ/L (3.5-5.1)
[2018-07-15] MEDS: BREO ELLIPTA INH SCH (07:49)
[2018-07-15] MEDS: TIOTROPIUM INHALER/CAPSULE (SPIRIVA) INH SCH (07:49)
[2018-07-15] MEDS: PANTOPRAZOLE 40MG TAB (PROTONIX) PO SCH (09:38)
[2018-07-15] MEDS: ACETAMINOPHEN 650MG ER TAB (TYLENOL ARTHRITIS) PO SCH (09:39)
[2018-07-15] MEDS: PRAVASTATIN 20 MG TAB PO SCH (09:39)
[2018-07-15] MEDS: FUROSEMIDE 20 MG TAB PO SCH (09:39)
[2018-07-15] MEDS: amLODIPine 5 MG TAB PO SCH (09:40)
[2018-07-15] MEDS: MULTIVITAMINS/MINERALS THERAP 1 TAB PO SCH (09:40)
[2018-07-15] MEDS: FLUoxetine 20 MG CAP PO SCH (09:41)
[2018-07-15] MEDS: VALSARTAN 80 MG TAB (DIOVAN) PO SCH (09:41)
[2018-07-15] MEDS: ASPIRIN 81 MG ENTERIC TAB PO SCH (09:41)
[2018-07-15] MEDS: MAGNESIUM CHLORIDE 64 MG TABCR (SLO MAG) PO SCH (11:00)
[2018-07-15] MEDS: POTASSIUM CHL PWD 20 MEQ PACKET PO SCH (11:00)
--- NOTE | 2018-07-15 11:49 | IPNPDOC ---
Date Seen The patient was seen on 07/15/18. Progress Note SUBJECTIVE: overnight, pt's sob has improved. She still c/o GARCIA which is new for her in the past week. no fever or chills overnight. chest tightness still present but card sam negative. no productive cough or sputum production. c/o weakness when she ambulates. PHYSICAL EXAMINATION: PLS SEE BELOW General: The patient is awake, alert, oriented times three, able to speak in full sentences. She has no use of accessory respiratory muscles. Trachea is midline. Pupils are round and reactive. Extraocular muscles are intact. No jugular venous distention (JVD). No pharyngeal erythema nor tonsillar exudate. No thyromegaly. No cervical lymphadenopathy. Lungs are diminished. Prolonged expirations with faint expiratory wheezing bilaterally. Heart: S1 and S2. Sinus rhythm. Pacer in the anterior chest. Abdomen: Soft. Nontender. Nondistended. Positive bowel sounds. Extremities: No cyanosis, clubbing or pitting edema. EKG: Paced rhythm, ventricular rate 77. LABORATORY DATA: White count 16.3, hemoglobin 12, hematocrit 38, platelet count 292. Sodium 137, potassium 4.1, chloride 99, bicarbonate 33, BUN 33, creatinine 1.25, glucose 174, lactic acid 2.2, calcium 8.6. Blood cultures pending. Troponin less than 0.02. MB fraction less than 1. Total CK of 38. CHEST CT on 07/14/2018: Right middle lobe focal parenchymal scar present on all prior studies, increased in size on 04/02/2018, but is unchanged from 04/02/2018. Left lower lobe infiltrate on 02/26/2018 had resolved. New focal ground glass in the right lower lobe measuring 10 mm. Stable nodule in the liver measuring 10 mm. No pleural effusions, mediastinal or axillary lymphadenopathy. Study is insensitive for hilar lymphadenopathy enlargement in the absence of IV contrast. Right renal upper pole cyst not changed. Abdominal aortic endovascular stent not changed from 02/26/2018, though chamber pacer from the left. Bilateral breast implants which are unchanged. ASSESSMENT AND PLAN: This is an 83-year-old female who was recently discharged on Thursday after a three day stay at [facility] for COPD exacerbation who was brought home by her daughter's and was saturating at 89% on the day of discharge on her chronic 2 liters of oxygen. Since being home, the patient has been needing to use her nebulizers twice yesterday and once this morning due to increasing shortness of breath and dizziness which has worsened today, and unable to go to the bathroom. All of this started worsening last evening at 9:30 with complaints of chest heaviness, without any diaphoresis, accompanied with some lightheadedness. She has a followup appointment with her primary care physician this coming Thursday, but is unable to wait that long due to worsening distress. She is still currently on her tapering dose of prednisone and has had increased weight from 173 to 178 during the previous admission and currently back to her baseline of 173 pounds. She normally is able to get her mail, about 50-75 feet from her house to her mailbox every other day, but currently is unable to ambulate from her bedroom to the bathroom. The patient has been found to have new infiltrates on CT of the chest and worsening shortness of breath and wheezing on exam. She will be admitted as an inpatient for two midnights for the following acute issues. 1. Right lower lobe pneumonia. The patient denies any fever, chills or cough. Will check a methicillin-resistant Staphylococcus aureus (MRSA) screen, sputum and blood cultures. Empirically cover with Avelox for now until cultures return. The patient has not had any sputum production or worsening hypoxia, although according to her when she ambulates she complains of some shortness of breath. 2. Chronic hypoxic respiratory failure, usually on 2 liters of home oxygen. Will keep saturations at goal of 88-92% due to COPD and treatment for pneumonia with antibiotics and nebulizer treatments. May resume patient's Breo Ellipta. 3. Chronic obstructive pulmonary disease exacerbation. She continues to have mild wheezing on examination. Air entry is equal. She denies any fever, chills, or increasing cough production. We will continue on rapid tapering of steroids. Continue with antibiotics, nebulizers and supplemental oxygen. 4. History of congestive heart failure with preserved ejection fraction. Currently at her dry weight of 173 pounds. Monitor clinically. Continue on home dose of Lasix. 5. History of coronary artery disease. Continue on aspirin. 6. Hypothyroidism. Continue on Synthroid 50 mcg daily. 7. Electrolyte abnormalities and hypomagnesemia. Continue on magnesium chloride. 8. Chronic constipation. Continue on MiraLAX. 9. Hyperlipidemia. Continue on pravastatin. 10. Hypertension. Continue on Valsartan. 11. Deep vein thrombosis (DVT) prophylaxis. On Lovenox renally dosed. A-FIB/CHADSVASC A-FIB History Current/History of A-Fib/PAF?: No Current Oral Anticoagulant The: No VS, I&O, 24H, Fishbone Vital Signs/I&O Vital Signs Date Time Temp Pulse Resp B/P (MAP) Pulse Ox O2 Delivery O2 Flow Rate FiO2 07/15/18 09:41 124/64 07/15/18 09:40 78 07/15/18 06:00 98.1 18 92 2.0 07/14/18 15:24 Nasal Cannula I&O- Last 24 Hours up to 6 AM 07/15/18 06:00 Intake Total 1140 ml Output Total 675 ml Balance 465 ml Laboratory Data 24H LABS Laboratory Tests 2 07/14/18 14:14: Lactic Acid Level 1.4, Total Creatine Kinase 33, Creatine Kinase MB < 1.0, Creatine Kinase MB Relative Index 3.03, Troponin I < 0.02 07/14/18 16:10: 07/15/18 06:14: Nucleated Red Blood Cells % (auto) 0.1H, Anion Gap 7L, Glomerular Filtration Rate 44.2, Blood Urea Nitrogen 27H, Creatinine 1.24, Sodium Level 135L, Potassium Level 4.3, Chloride Level 97L, Carbon Dioxide Level 31, Calcium Level 9.1, Magnesium Level 2.0 CBC/BMP Laboratory Tests 07/15/18 06:14 Red Blood Count 3.65 L, Mean Corpuscular Volume 103.0 H, Mean Corpuscular Hemoglobin 33.7 H, Mean Corpuscular Hemoglobin Concent 32.7, Red Cell Distribution Width 13.3, Calcium Level 9.1 Microbiology Microbiology 07/14/18 Blood Culture, Received Pending 07/14/18 Blood Culture - Preliminary, Resulted No growth after 24 hours . All specim... 07/14/18 Blood Culture - Preliminary, Resulted No growth after 24 hours . All specim... LOUIS MENENDEZ MD July 15, 2018 11:49
[2018-07-15 14:00] VITALS: BP 140/58
[2018-07-15] MEDS: ENOXAPARIN 40 MG/0.4 ML SYRINGE (J1650) SC SCH (20:32)
[2018-07-15 22:00] VITALS: BP 160/73
[2018-07-16] MEDS: methylPREDNISolone INJ 125 MG/2 ML VIAL (J2930) IV SCH ×3 (01:45→18:32)
[2018-07-16] MEDS: IPRATROPIUM 0.5MG/ALBUTEROL 2.5MG INH SOL UD 3ML (DUONEB)(J7620) NEB SCH ×4 (02:49→20:03)
[2018-07-16] MEDS: MOXIFLOXACIN 400 MG TAB PO SCH (05:34)
[2018-07-16] MEDS: LEVOTHYROXINE 50MCG TABLET (0.05MG) PO SCH (05:34)
[2018-07-16 06:00] VITALS: BP 146/65
[2018-07-16] MEDS: BREO ELLIPTA INH SCH (08:16)
[2018-07-16] MEDS: TIOTROPIUM INHALER/CAPSULE (SPIRIVA) INH SCH (08:16)
[2018-07-16] MEDS: MAGNESIUM CHLORIDE 64 MG TABCR (SLO MAG) PO SCH (09:47)
[2018-07-16] MEDS: PRAVASTATIN 20 MG TAB PO SCH (09:47)
[2018-07-16] MEDS: PANTOPRAZOLE 40MG TAB (PROTONIX) PO SCH (09:47)
[2018-07-16] MEDS: ACETAMINOPHEN 650MG ER TAB (TYLENOL ARTHRITIS) PO SCH (09:47)
[2018-07-16] MEDS: FUROSEMIDE 20 MG TAB PO SCH (09:47)
[2018-07-16] MEDS: FLUoxetine 20 MG CAP PO SCH (09:47)
[2018-07-16] MEDS: MULTIVITAMINS/MINERALS THERAP 1 TAB PO SCH (09:47)
[2018-07-16] MEDS: POTASSIUM CHL PWD 20 MEQ PACKET PO SCH (09:47)
[2018-07-16] MEDS: ASPIRIN 81 MG ENTERIC TAB PO SCH (09:47)
[2018-07-16] MEDS: VALSARTAN 80 MG TAB (DIOVAN) PO SCH (09:48)
[2018-07-16] MEDS: amLODIPine 5 MG TAB PO SCH (09:49)
--- NOTE | 2018-07-16 13:51 | IPNPDOC ---
Date Seen The patient was seen on 07/16/18. Progress Note SUBJECTIVE: Pt appears to be much more jovial and conversant this morning. She says that her daughter is sick with bronchitis at home, and her son had to be in [place] because her granddaughter was transported to [facility] due to extensive blood clots. She appeared to be comfortable relating these events without conversational dyspnea. overnight, pt's sob has improved. She still c/o GARCIA which is new for her in the past week. no fever or chills overnight. chest tightness still present but card sam negative. no productive cough or sputum production. c/o weakness when she ambulates. PHYSICAL EXAMINATION: PLS SEE BELOW General: The patient is awake, alert, oriented times three, able to speak in full sentences. She has no use of accessory respiratory muscles. Trachea is midline. Pupils are round and reactive. Extraocular muscles are intact. No jugular venous distention (JVD). No pharyngeal erythema nor tonsillar exudate. No thyromegaly. No cervical lymphadenopathy. Lungs are diminished. Prolonged expirations with faint expiratory wheezing bilaterally. Heart: S1 and S2. Sinus rhythm. Pacer in the anterior chest. Abdomen: Soft. Nontender. Nondistended. Positive bowel sounds. Extremities: No cyanosis, clubbing or pitting edema. EKG: Paced rhythm, ventricular rate 77. LABORATORY DATA: White count 16.3, hemoglobin 12, hematocrit 38, platelet count 292. Sodium 137, potassium 4.1, chloride 99, bicarbonate 33, BUN 33, creatinine 1.25, glucose 174, lactic acid 2.2, calcium 8.6. Blood cultures pending. Troponin less than 0.02. MB fraction less than 1. Total CK of 38. CHEST CT on 07/14/2018: Right middle lobe focal parenchymal scar present on all prior studies, increased in size on 04/02/2018, but is unchanged from 04/02/2018. Left lower lobe infiltrate on 02/26/2018 had resolved. New focal ground glass in the right lower lobe measuring 10 mm. Stable nodule in the liver measuring 10 mm. No pleural effusions, mediastinal or axillary lymphadenopathy. Study is insensitive for hilar lymphadenopathy enlargement in the absence of IV contrast. Right renal upper pole cyst not changed. Abdominal aortic endovascular stent not changed from 02/26/2018, though chamber pacer from the left. Bilateral breast implants which are unchanged. ASSESSMENT AND PLAN: This is an 83-year-old female who was recently discharged on Thursday after a three day stay at [facility] for COPD exacerbation who was brought home by her daughter's and was saturating at 89% on the day of discharge on her chronic 2 liters of oxygen. Since being home, the patient has been needing to use her nebulizers twice yesterday and once this morning due to increasing shortness of breath and dizziness which has worsened today, and unable to go to the bathroom. All of this started worsening last evening at 9:30 with complaints of chest heaviness, without any diaphoresis, accompanied with some lightheadedness. She has a followup appointment with her primary care physician this coming Thursday, but is unable to wait that long due to worsening distress. She is still currently on her tapering dose of prednisone and has had increased weight from 173 to 178 during the previous admission and currently back to her baseline of 173 pounds. She normally is able to get her mail, about 50-75 feet from her house to her mailbox every other day, but currently is unable to ambulate from her bedroom to the bathroom. The patient has been found to have new infiltrates on CT of the chest and worsening shortness of breath and wheezing on exam. She will be admitted as an inpatient for two midnights for the following acute issues. 1. Right lower lobe pneumonia. The patient denies any fever, chills or cough. Will check a methicillin-resistant Staphylococcus aureus (MRSA) screen, sputum and blood cultures. Empirically cover with Avelox for now until cultures return. The patient has not had any sputum production or worsening hypoxia, although according to her when she ambulates she complains of some shortness of breath. 2. Chronic hypoxic respiratory failure, usually on 2 liters of home oxygen. Will keep saturations at goal of 88-92% due to COPD and treatment for pneumonia with antibiotics and nebulizer treatments. May resume patient's Breo Ellipta. 3. Chronic obstructive pulmonary disease exacerbation. She continues to have mild wheezing on examination. Air entry is equal. She denies any fever, chills, or increasing cough production. We will continue on rapid tapering of steroids. Continue with antibiotics, nebulizers and supplemental oxygen. 4. History of congestive heart failure with preserved ejection fraction. Currently at her dry weight of 173 pounds. Monitor clinically. Continue on home dose of Lasix. 5. History of coronary artery disease. Continue on aspirin. 6. Hypothyroidism. Continue on Synthroid 50 mcg daily. 7. Electrolyte abnormalities and hypomagnesemia. Continue on magnesium chloride. 8. Chronic constipation. Continue on MiraLAX. 9. Hyperlipidemia. Continue on pravastatin. 10. Hypertension. Continue on Valsartan. 11. Deep vein thrombosis (DVT) prophylaxis. On Lovenox renally dosed. A-FIB/CHADSVASC A-FIB History Current/History of A-Fib/PAF?: No Current Oral Anticoagulant The: No VS, I&O, 24H, Fishbone Vital Signs/I&O Vital Signs Date Time Temp Pulse Resp B/P (MAP) Pulse Ox O2 Delivery O2 Flow Rate FiO2 07/16/18 09:49 72 146/65 07/16/18 09:00 1.0 07/16/18 06:00 98.4 18 94 07/15/18 20:08 Nasal Cannula I&O- Last 24 Hours up to 6 AM 07/16/18 06:00 Intake Total 2040 ml Output Total 1500 ml Balance 540 ml Laboratory Data Microbiology Microbiology 07/14/18 Blood Culture - Preliminary, Resulted No growth after 24 hours . All specim... 07/14/18 Blood Culture - Preliminary, Resulted No Growth after 48 hours. All Specime... 07/14/18 Blood Culture - Preliminary, Resulted No Growth after 48 hours. All Specime... 07/14/18 Gram Stain - Final, Resulted 07/14/18 Sputum Culture, Resulted Pending LOUIS MENENDEZ MD July 16, 2018 13:51
[2018-07-16 14:00] VITALS: BP 142/68
[2018-07-16] MEDS: ENOXAPARIN 40 MG/0.4 ML SYRINGE (J1650) SC SCH (19:57)
[2018-07-16 22:00] VITALS: BP_SYST 127; BP_SYST 132; BP_DIAS 78; BP_DIAS 87
[2018-07-17] MEDS: methylPREDNISolone INJ 125 MG/2 ML VIAL (J2930) IV SCH ×3 (01:22→17:38)
[2018-07-17] MEDS: IPRATROPIUM 0.5MG/ALBUTEROL 2.5MG INH SOL UD 3ML (DUONEB)(J7620) NEB SCH ×4 (02:00→21:52)
[2018-07-17] MEDS: LEVOTHYROXINE 50MCG TABLET (0.05MG) PO SCH (05:14)
[2018-07-17] MEDS: MOXIFLOXACIN 400 MG TAB PO SCH (05:14)
[2018-07-17 06:00] VITALS: BP 158/86
[2018-07-17 06:01] LABS: HEMATOCRIT 35.6 % (36.0-47.0); HEMOGLOBIN 11.4 g/dl (12.0-15.5); MEAN CORPUSCULAR HEMOGLOBIN 32.7 pg (27.0-33.0); PLATELET COUNT, AUTOMATED 252 10^3/uL (150-450); RED BLOOD COUNT 3.49 10^6/uL (4.00-5.40); WHITE BLOOD COUNT 14.7 10^3/uL (4.0-10.0)
[2018-07-17] MEDS ORDERED: amLODIPine 10 MG TAB PO ONE (07:15)
[2018-07-17] MEDS: TIOTROPIUM INHALER/CAPSULE (SPIRIVA) INH SCH (07:54)
[2018-07-17] MEDS ORDERED: LOPERAMIDE 2 MG CAP PO ONE (08:00)
[2018-07-17] MEDS: BREO ELLIPTA INH SCH (08:04)
--- NOTE | 2018-07-17 08:17 | IPNPDOC ---
Date Seen The patient was seen on 07/17/18. Progress Note SUBJECTIVE: Pt is cooperative with PT, but still pursing her lips. Pt appears to be much more jovial and conversant this morning without conversational dyspnea. overnight, pt's sob has improved. She still c/o GARCIA which is new for her in the past week. no fever or chills overnight. chest tightness still present but card sam negative. no productive cough or sputum production. c/o weakness when she ambulates. She also c/o loose stools and had to change her diaper 3x yesterday, and requesting imodium which she takes at home. PHYSICAL EXAMINATION: PLS SEE BELOW General: The patient is awake, alert, oriented times three, able to speak in full sentences. She has no use of accessory respiratory muscles. Trachea is midline. Pupils are round and reactive. Extraocular muscles are intact. No jugular venous distention (JVD). No pharyngeal erythema nor tonsillar exudate. No thyromegaly. No cervical lymphadenopathy. Lungs are diminished. Prolonged expirations with faint expiratory wheezing bilaterally. Heart: S1 and S2. Sinus rhythm. Pacer in the anterior chest. Abdomen: Soft. Nontender. Nondistended. Positive bowel sounds. Extremities: No cyanosis, clubbing or pitting edema. EKG: Paced rhythm, ventricular rate 77. LABORATORY DATA: White count 16.3, hemoglobin 12, hematocrit 38, platelet count 292. Sodium 137, potassium 4.1, chloride 99, bicarbonate 33, BUN 33, creatinine 1.25, glucose 174, lactic acid 2.2, calcium 8.6. Blood cultures pending. Troponin less than 0.02. MB fraction less than 1. Total CK of 38. CHEST CT on 07/14/2018: Right middle lobe focal parenchymal scar present on all prior studies, increased in size on 04/02/2018, but is unchanged from 04/02/2018. Left lower lobe infiltrate on 02/26/2018 had resolved. New focal ground glass in the right lower lobe measuring 10 mm. Stable nodule in the liver measuring 10 mm. No pleural effusions, mediastinal or axillary lymphadenopathy. Study is insensitive for hilar lymphadenopathy enlargement in the absence of IV contrast. Right renal upper pole cyst not changed. Abdominal aortic endovascular stent not changed from 02/26/2018, though chamber pacer from the left. Bilateral breast implants which are unchanged. ASSESSMENT AND PLAN: This is an 83-year-old female who was recently discharged on Thursday after a three day stay at [facility] for COPD exacerbation who was brought home by her daughter's and was saturating at 89% on the day of discharge on her chronic 2 liters of oxygen. Since being home, the patient has been needing to use her nebulizers twice yesterday and once this morning due to increasing shortness of breath and dizziness which has worsened today, and unable to go to the bathroom. All of this started worsening last evening at 9:30 with complaints of chest heaviness, without any diaphoresis, accompanied with some lightheadedness. She has a followup appointment with her primary care physician this coming Thursday, but is unable to wait that long due to worsening distress. She is still currently on her tapering dose of prednisone and has had increased weight from 173 to 178 during the previous admission and currently back to her baseline of 173 pounds. She normally is able to get her mail, about 50-75 feet from her house to her mailbox every other day, but currently is unable to ambulate from her bedroom to the bathroom. The patient has been found to have new infiltrates on CT of the chest and worsening shortness of breath and wheezin g on exam. She will be admitted as an inpatient for two midnights for the following acute issues. 1. Right lower lobe pneumonia. The patient denies any fever, chills or cough. Will check a methicillin-resistant Staphylococcus aureus (MRSA) screen, sputum and blood cultures. Empirically cover with Avelox for now until cultures return. The patient has not had any sputum production or worsening hypoxia, although according to her when she ambulates she complains of some shortness of breath. 2. Chronic hypoxic respiratory failure, usually on 2 liters of home oxygen. Will keep saturations at goal of 88-92% due to COPD and treatment for pneumonia with antibiotics and nebulizer treatments. May resume patient's Breo Ellipta. 3. Chronic obstructive pulmonary disease exacerbation. She continues to have mild wheezing on examination. Air entry is equal. She denies any fever, chills, or increasing cough production. We will continue on rapid tapering of steroids. Continue with antibiotics, nebulizers and supplemental oxygen. 4. History of congestive heart failure with preserved ejection fraction. Currently at her dry weight of 173 pounds. Monitor clinically. Continue on home dose of Lasix. 5. History of coronary artery disease. Continue on aspirin. 6. Hypothyroidism. Continue on Synthroid 50 mcg daily. 7. Electrolyte abnormalities and hypomagnesemia. Continue on magnesium chloride. 8. Chronic constipation now with diarrhea. dc miralax. prn imodium 9. Hyperlipidemia. Continue on pravastatin. 10. Hypertension. Continue on Valsartan. 11. Deep vein thrombosis (DVT) prophylaxis. On Lovenox renally dosed. A-FIB/CHADSVASC A-FIB History Current/History of A-Fib/PAF?: No Current Oral Anticoagulant The: No VS, I&O, 24H, Fishbone Vital Signs/I&O Vital Signs Date Time Temp Pulse Resp B/P (MAP) Pulse Ox O2 Delivery O2 Flow Rate FiO2 07/17/18 06:00 97.6 70 18 158/86 (110) 94 2.0 07/15/18 20:08 Nasal Cannula I&O- Last 24 Hours up to 6 AM 07/17/18 06:00 Intake Total 1140 ml Output Total 2400 ml Balance -1260 ml Laboratory Data 24H LABS Laboratory Tests 2 07/17/18 05:27: Nucleated Red Blood Cells % (auto) 0.1H CBC/BMP Laboratory Tests 07/17/18 05:27 Red Blood Count 3.49 L, Mean Corpuscular Volume 102.0 H, Mean Corpuscular Hemoglobin 32.7, Mean Corpuscular Hemoglobin Concent 32.0, Red Cell Distribution Width 13.5 Microbiology Microbiology 07/14/18 Blood Culture - Preliminary, Resulted No Growth after 48 hours. All Specime... 07/14/18 Blood Culture - Preliminary, Resulted No Growth after 48 hours. All Specime... 07/14/18 Blood Culture - Preliminary, Resulted No Growth after 48 hours. All Specime... 07/16/18 Respiratory Virus Panel (PCR) (IZABELA) - Final, Complete 07/14/18 Gram Stain - Final, Resulted 07/14/18 Sputum Culture - Preliminary, Resulted Corynebacterium Species LOUIS MENENDEZ MD July 17, 2018 08:17
[2018-07-17] MEDS: MAGNESIUM CHLORIDE 64 MG TABCR (SLO MAG) PO SCH (10:11)
[2018-07-17] MEDS: VALSARTAN 80 MG TAB (DIOVAN) PO SCH (10:12)
[2018-07-17] MEDS: ACETAMINOPHEN 650MG ER TAB (TYLENOL ARTHRITIS) PO SCH (10:13)
[2018-07-17] MEDS: PANTOPRAZOLE 40MG TAB (PROTONIX) PO SCH (10:13)
[2018-07-17] MEDS: PRAVASTATIN 20 MG TAB PO SCH (10:13)
[2018-07-17] MEDS: FLUoxetine 20 MG CAP PO SCH (10:14)
[2018-07-17] MEDS: POTASSIUM CHL PWD 20 MEQ PACKET PO SCH (10:14)
[2018-07-17] MEDS: MULTIVITAMINS/MINERALS THERAP 1 TAB PO SCH (10:14)
[2018-07-17] MEDS: FUROSEMIDE 20 MG TAB PO SCH (10:15)
[2018-07-17] MEDS: ASPIRIN 81 MG ENTERIC TAB PO SCH (10:15)
[2018-07-17 14:00] VITALS: BP 136/68
[2018-07-17 14:30] LABS: BODY FLUID CULTURE Not Indicated (.); LEGIONELLA ANTIGEN URINE Negative (Negative); ORGANISM ID Not indicated. (.); SPECIMEN SOURCE Urine (.)
[2018-07-17] MEDS: ENOXAPARIN 40 MG/0.4 ML SYRINGE (J1650) SC SCH (20:45)
[2018-07-17 22:00] VITALS: BP 152/65
[2018-07-18] MEDS: methylPREDNISolone INJ 125 MG/2 ML VIAL (J2930) IV SCH ×3 (01:25→17:19)
[2018-07-18] MEDS: IPRATROPIUM 0.5MG/ALBUTEROL 2.5MG INH SOL UD 3ML (DUONEB)(J7620) NEB SCH ×4 (02:00→20:04)
[2018-07-18] MEDS: LEVOTHYROXINE 50MCG TABLET (0.05MG) PO SCH (05:20)
[2018-07-18] MEDS: MOXIFLOXACIN 400 MG TAB PO SCH (05:20)
[2018-07-18 06:00] VITALS: BP 154/72
[2018-07-18] MEDS: TIOTROPIUM INHALER/CAPSULE (SPIRIVA) INH SCH (07:25)
[2018-07-18] MEDS: BREO ELLIPTA INH SCH (07:25)
[2018-07-18] MEDS: PANTOPRAZOLE 40MG TAB (PROTONIX) PO SCH (08:18)
[2018-07-18] MEDS: POTASSIUM CHL PWD 20 MEQ PACKET PO SCH (08:18)
[2018-07-18] MEDS: ACETAMINOPHEN 650MG ER TAB (TYLENOL ARTHRITIS) PO SCH (08:18)
[2018-07-18] MEDS: VALSARTAN 80 MG TAB (DIOVAN) PO SCH (08:18)
[2018-07-18] MEDS: FUROSEMIDE 20 MG TAB PO SCH (08:18)
[2018-07-18] MEDS: FLUoxetine 20 MG CAP PO SCH (08:18)
[2018-07-18] MEDS: amLODIPine 10 MG TAB PO SCH (08:19)
[2018-07-18] MEDS: MAGNESIUM CHLORIDE 64 MG TABCR (SLO MAG) PO SCH (08:19)
[2018-07-18] MEDS: MULTIVITAMINS/MINERALS THERAP 1 TAB PO SCH (08:19)
[2018-07-18] MEDS: PRAVASTATIN 20 MG TAB PO SCH (08:19)
[2018-07-18] MEDS: ASPIRIN 81 MG ENTERIC TAB PO SCH (08:19)
--- NOTE | 2018-07-18 10:27 | IPNPDOC ---
Date Seen The patient was seen on 07/18/18. Progress Note SUBJECTIVE: Pt is veryconcerned about being discharged too soon. Her daughter is recuperating from URI symptoms this weekend. No new c/o and no significant improvement in her GARCIA. Pt is cooperative with PT, but still pursing her lips. Pt appears to be much more jovial and conversant this morning without conversational dyspnea. overnight, pt's sob has improved. She still c/o GARCIA which is new for her in the past week. no fever or chills overnight. chest tightness still present but card sam negative. no productive cough or sputum production. c/o weakness when she ambulates. She also c/o loose stools and had to change her diaper 3x yesterday, and requesting imodium which she takes at home. PHYSICAL EXAMINATION: PLS SEE BELOW General: The patient is awake, alert, oriented times three, able to speak in full sentences. She has no use of accessory respiratory muscles. Trachea is midline. Pupils are round and reactive. Extraocular muscles are intact. No jugular venous distention (JVD). No pharyngeal erythema nor tonsillar exudate. No thyromegaly. No cervical lymphadenopathy. Lungs are diminished. Prolonged expirations with faint expiratory wheezing bilaterally. Heart: S1 and S2. Sinus rhythm. Pacer in the anterior chest. Abdomen: Soft. Nontender. Nondistended. Positive bowel sounds. Extremities: No cyanosis, clubbing or pitting edema. EKG: Paced rhythm, ventricular rate 77. LABORATORY DATA: White count 16.3, hemoglobin 12, hematocrit 38, platelet count 292. Sodium 137, potassium 4.1, chloride 99, bicarbonate 33, BUN 33, creatinine 1.25, glucose 174, lactic acid 2.2, calcium 8.6. Blood cultures pending. Troponin less than 0.02. MB fraction less than 1. Total CK of 38. CHEST CT on 07/14/2018: Right middle lobe focal parenchymal scar present on all prior studies, increased in size on 04/02/2018, but is unchanged from 04/02/2018. Left lower lobe infiltrate on 02/26/2018 had resolved. New focal ground glass in the right lower lobe measuring 10 mm. Stable nodule in the liver measuring 10 mm. No pleural effusions, mediastinal or axillary lymphadenopathy. Study is insensitive for hilar lymphadenopathy enlargement in the absence of IV contrast. Right renal upper pole cyst not changed. Abdominal aortic endovascular stent not changed from 02/26/2018, though chamber pacer from the left. Bilateral breast implants which are unchanged. ASSESSMENT AND PLAN: This is an 83-year-old female who was recently discharged on Thursday after a three day stay at [facility] for COPD exacerbation who was brought home by her daughter's and was saturating at 89% on the day of discharge on her chronic 2 liters of oxygen. Since being home, the patient has been needing to use her nebulizers twice yesterday and once this morning due to increasing shortness of breath and dizziness which has worsened today, and unable to go to the bathroom. All of this started worsening last evening at 9:30 with complaints of chest heaviness, without any diaphoresis, accompanied with some lightheadedness. She has a followup appointment with her primary care physician this coming Thursday, but is unable to wait that long due to worsening distress. She is still currently on her tapering dose of prednisone and has had increased weight from 173 to 178 during the previous admission and currently back to her baseline of 173 pounds. She normally is able to get her mail, about 50-75 feet from her house to her mailbox every other day, but currently is unable to ambulate from her bedroom to the bathroom. The patient has been found to have new infiltrates on CT of the chest and worsening shortness of breath and wheezing on exam. She will be admitted as an inpatient for two midnights for the following acute issues. 1. Right lower lobe pneumonia. The patient denies any fever, chills or cough. Will check a methicillin-resistant Staphylococcus aureus (MRSA) screen, sputum and blood cultures. Empirically cover with Avelox for now until cultures return. The patient has not had any sputum production or worsening hypoxia, although according to her when she ambulates she complains of some shortness of breath. 2. Chronic hypoxic respiratory failure, usually on 2 liters of home oxygen. Will keep saturations at goal of 88-92% due to COPD and treatment for pneumonia with antibiotics and nebulizer treatments. May resume patient's Breo Ellipta. 3. Chronic obstructive pulmonary disease exacerbation. She continues to have mild wheezing on examination. Air entry is equal. She denies any fever, chills, or increasing cough production. We will continue on rapid tapering of steroids. Continue with antibiotics, nebulizers and supplemental oxygen. 4. History of congestive heart failure with preserved ejection fraction. Currently at her dry weight of 173 pounds. Monitor clinically. Continue on home dose of Lasix. 5. History of coronary artery disease. Continue on aspirin. 6. Hypothyroidism. Continue on Synthroid 50 mcg daily. 7. Electrolyte abnormalities and hypomagnesemia. Continue on magnesium chloride. 8. Chronic constipation now with diarrhea. dc miralax. prn imodium 9. Hyperlipidemia. Continue on pravastatin. 10. Hypertension. Continue on Valsartan. 11. Deep vein thrombosis (DVT) prophylaxis. On Lovenox renally dosed. A-FIB/CHADSVASC A-FIB History Current/History of A-Fib/PAF?: No Current Oral Anticoagulant The: No VS, I&O, 24H, Fishbone Vital Signs/I&O Vital Signs Date Time Temp Pulse Resp B/P (MAP) Pulse Ox O2 Delivery O2 Flow Rate FiO2 07/18/18 09:00 2.0 07/18/18 08:19 75 119/57 07/18/18 07:29 20 07/18/18 06:00 97.9 94 07/15/18 20:08 Nasal Cannula I&O- Last 24 Hours up to 6 AM 07/18/18 06:00 Intake Total 2220 ml Output Total 1600 ml Balance 620 ml Laboratory Data Microbiology Microbiology 07/14/18 Blood Culture - Preliminary, Resulted No Growth after 72 hours. All specime... 07/14/18 Blood Culture - Preliminary, Resulted No Growth after 72 hours. All specime... 07/14/18 Blood Culture - Preliminary, Resulted No Growth after 72 hours. All specime... 07/16/18 Respiratory Virus Panel (PCR) (IZABELA) - Final, Complete 07/14/18 Gram Stain - Final, Complete 07/14/18 Sputum Culture - Final, Complete Corynebacterium Species Yeast Like Org W/ LOUIS Child MD July 18, 2018 10:27
[2018-07-18] MEDS: LOPERAMIDE 2 MG CAP PO PRN ×2 (10:40→17:58)
[2018-07-18 14:00] VITALS: BP 120/58
[2018-07-18] MEDS: ENOXAPARIN 40 MG/0.4 ML SYRINGE (J1650) SC SCH (21:06)
[2018-07-18 22:00] VITALS: BP 146/89
[2018-07-19] MEDS: IPRATROPIUM 0.5MG/ALBUTEROL 2.5MG INH SOL UD 3ML (DUONEB)(J7620) NEB SCH ×4 (01:13→19:48)
[2018-07-19] MEDS: methylPREDNISolone INJ 125 MG/2 ML VIAL (J2930) IV SCH (02:08)
[2018-07-19 06:00] VITALS: BP 148/76
--- NOTE | 2018-07-19 06:47 | IPNPDOC ---
Date Seen The patient was seen on 07/19/18. Progress Note SUBJECTIVE:Pt was seen and examined at the bedside. She is still concerned about being discharged too soon. Her daughter is recuperating from URI symptoms this past weekend. No new c/o and no significant improvement in her GARCIA. Pt is cooperative with PT, but still pursing her lips. Pt appears to be much more jovial and conversant this morning without conversational dyspnea. over the past few days, pt's sob has improved. She still c/o GARCIA which is new for her in the past week. no fever or chills overnight. chest tightness still present but card sam negative. no productive cough or sputum production. c/o weakness when she ambulates. She also c/o loose stools and had to change her diaper frequently and has prn imodium which she takes at home. She agrees to slow tapering of steroids, due to concerns that she may rebound again. still awaiting physical therapy clearance for hospital discharge, and waiting to hear if her only caregiver, her daughter, is ready to take her once she clears physical therapy. PHYSICAL EXAMINATION: PLS SEE BELOW General: The patient is awake, alert, oriented times three, able to speak in full sentences. She has no use of accessory respiratory muscles. Trachea is midline. Pupils are round and reactive. Extraocular muscles are intact. No jugular venous distention (JVD). No pharyngeal erythema nor tonsillar exudate. No thyromegaly. No cervical lymphadenopathy. Lungs are diminished. Prolonged expirations with faint expiratory wheezing bilaterally. Heart: S1 and S2. Sinus rhythm. Pacer in the anterior chest. Abdomen: Soft. Nontender. Nondistended. Positive bowel sounds. Extremities: No cyanosis, clubbing or pitting edema. EKG: Paced rhythm, ventricular rate 77. LABORATORY DATA: White count 16.3, hemoglobin 12, hematocrit 38, platelet count 292. Sodium 137, potassium 4.1, chloride 99, bicarbonate 33, BUN 33, creatinine 1.25, glucose 174, lactic acid 2.2, calcium 8.6. Blood cultures pending. Troponin less than 0.02. MB fraction less than 1. Total CK of 38. CHEST CT on 07/14/2018: Right middle lobe focal parenchymal scar present on all prior studies, increased in size on 04/02/2018, but is unchanged from 04/02/2018. Left lower lobe infiltrate on 02/26/2018 had resolved. New focal ground glass in the right lower lobe measuring 10 mm. Stable nodule in the liver measuring 10 mm. No pleural effusions, mediastinal or axillary lymphadenopathy. Study is insensitive for hilar lymphadenopathy enlargement in the absence of IV contrast. Right renal upper pole cyst not changed. Abdominal aortic endovascular stent not changed from 02/26/2018, though chamber pacer from the left. Bilateral breast implants which are unchanged. ASSESSMENT AND PLAN: This is an 83-year-old female who was recently discharged on Thursday after a three day stay at [facility] for COPD exacerbation who was brought home by her daughter's and was saturating at 89% on the day of discharge on her chronic 2 liters of oxygen. Since being home, the patient has been needing to use her nebulizers twice yesterday and once this morning due to increasing shortness of breath and dizziness which has worsened today, and unable to go to the bathroom. All of this started worsening last evening at 9:30 with complaints of chest heaviness, without any diaphoresis, accompanied with some lightheadedness. She has a followup appointment with her primary care physician this coming Thursday, but is unable to wait that long due to worsening distress. She is still currently on her tapering dose of prednisone and has had increased weight from 173 to 178 during the previous admission and currently back to her baseline of 173 pounds. She normally is able to get her mail, about 50-75 feet from her house to her mailbox every other day, but currently is unable to ambulate from her bedroom to the bathroom. The patient has been found to have new infiltrates on CT of the chest and worsening shortness of breath and wheezing on exam. She will be admitted as an inpatient for two midnights for the following acute issues. 1. Right lower lobe pneumonia. The patient denies any fever, chills or cough. Will check a methicillin-resistant Staphylococcus aureus (MRSA) screen, sputum and blood cultures. Empirically cover with Avelox for now until cultures return. The patient has not had any sputum production or worsening hypoxia, although according to her when she ambulates she complains of some shortness of breath. 2. Chronic hypoxic respiratory failure, usually on 2 liters of home oxygen. Will keep saturations at goal of 88-92% due to COPD and treatment for pneumonia with antibiotics and nebulizer treatments. May resume patient's Breo Ellipta. 3. Chronic obstructive pulmonary disease exacerbation. She continues to have mild wheezing on examination. Air entry is equal. She denies any fever, chills, or increasing cough production. We will continue on rapid tapering of steroids. Continue with antibiotics, nebulizers and supplemental oxygen. 4. History of congestive heart failure with preserved ejection fraction. Currently at her dry weight of 173 pounds. Monitor clinically. Continue on home dose of Lasix. 5. History of coronary artery disease. Continue on aspirin. 6. Hypothyroidism. Continue on Synthroid 50 mcg daily. 7. Electrolyte abnormalities and hypomagnesemia. Continue on magnesium chloride. 8. Chronic constipation now with diarrhea. dc miralax. prn imodium 9. Hyperlipidemia. Continue on pravastatin. 10. Hypertension. Continue on Valsartan. 11. Deep vein thrombosis (DVT) prophylaxis. On Lovenox renally dosed. A-FIB/CHADSVASC SCREEN A-FIB/CHADSVASC A-FIB History Current/History of A-Fib/PAF?: No Current Oral Anticoagulant The: No VS, I&O, 24H, Fishbone A-FIB/CHADSVASC A-FIB History Current/History of A-Fib/PAF?: No Current Oral Anticoagulant The: No VS, I&O, 24H, Fishbone Vital Signs/I&O Vital Signs Date Time Temp Pulse Resp B/P (MAP) Pulse Ox O2 Delivery O2 Flow Rate FiO2 07/19/18 06:00 97.4 78 20 148/76 (100) 88 1.0 07/15/18 20:08 Nasal Cannula I&O- Last 24 Hours up to 6 AM 07/19/18 06:00 Intake Total 2110 ml Output Total 1700 ml Balance 410 ml Laboratory Data Microbiology Microbiology 07/14/18 Blood Culture - Preliminary, Resulted No Growth after 72 hours. All specime... 07/14/18 Blood Culture - Preliminary, Resulted No Growth after 72 hours. All specime... 07/14/18 Blood Culture - Preliminary, Resulted No Growth after 72 hours. All specime... 07/16/18 Respiratory Virus Panel (PCR) (IZABELA) - Final, Complete 07/14/18 Gram Stain - Final, Complete 07/14/18 Sputum Culture - Final, Complete Corynebacterium Species Yeast Like Org W/ LOUIS Child MD July 19, 2018 06:46
[2018-07-19] MEDS: TIOTROPIUM INHALER/CAPSULE (SPIRIVA) INH SCH (07:30)
[2018-07-19] MEDS: MOXIFLOXACIN 400 MG TAB PO SCH (07:31)
[2018-07-19] MEDS: LEVOTHYROXINE 50MCG TABLET (0.05MG) PO SCH (07:32)
[2018-07-19] MEDS: BREO ELLIPTA INH SCH (07:35)
[2018-07-19] MEDS ORDERED: predniSONE 20 MG TAB PO ONE (08:00)
[2018-07-19] MEDS: POTASSIUM CHL PWD 20 MEQ PACKET PO SCH (09:04)
[2018-07-19] MEDS: FLUoxetine 20 MG CAP PO SCH (09:04)
[2018-07-19] MEDS: MULTIVITAMINS/MINERALS THERAP 1 TAB PO SCH (09:04)
[2018-07-19] MEDS: PRAVASTATIN 20 MG TAB PO SCH (09:04)
[2018-07-19] MEDS: FUROSEMIDE 20 MG TAB PO SCH (09:05)
[2018-07-19] MEDS: VALSARTAN 80 MG TAB (DIOVAN) PO SCH (09:05)
[2018-07-19] MEDS: PANTOPRAZOLE 40MG TAB (PROTONIX) PO SCH (09:05)
[2018-07-19] MEDS: LOPERAMIDE 2 MG CAP PO PRN ×2 (09:06→13:58)
[2018-07-19] MEDS: MAGNESIUM CHLORIDE 64 MG TABCR (SLO MAG) PO SCH (09:06)
[2018-07-19] MEDS: amLODIPine 10 MG TAB PO SCH (09:06)
[2018-07-19] MEDS: ACETAMINOPHEN 650MG ER TAB (TYLENOL ARTHRITIS) PO SCH (09:06)
[2018-07-19] MEDS: ASPIRIN 81 MG ENTERIC TAB PO SCH (09:06)
[2018-07-19 14:00] VITALS: BP 127/53
[2018-07-19] MEDS: ENOXAPARIN 40 MG/0.4 ML SYRINGE (J1650) SC SCH (20:14)
[2018-07-19 22:00] VITALS: BP 130/58
[2018-07-20 00:06] LABS: URINE STREP PNEUMONIAE ANTIGEN Positive (Negative)
[2018-07-20] MEDS: IPRATROPIUM 0.5MG/ALBUTEROL 2.5MG INH SOL UD 3ML (DUONEB)(J7620) NEB SCH ×4 (01:22→19:53)
[2018-07-20 02:00] VITALS: BP 138/58
[2018-07-20 05:50] LABS: HEMATOCRIT 35.6 % (36.0-47.0); HEMOGLOBIN 11.4 g/dl (12.0-15.5); MEAN CORPUSCULAR HEMOGLOBIN 32.9 pg (27.0-33.0); MEAN CORPUSCULAR VOLUME 102.9 fl (80.0-96.0); PLATELET COUNT, AUTOMATED 227 10^3/uL (150-450); RED BLOOD COUNT 3.46 10^6/uL (4.00-5.40); WHITE BLOOD COUNT 16.2 10^3/uL (4.0-10.0)
[2018-07-20] MEDS: MOXIFLOXACIN 400 MG TAB PO SCH (05:54)
[2018-07-20] MEDS: LEVOTHYROXINE 50MCG TABLET (0.05MG) PO SCH (05:54)
[2018-07-20 06:00] VITALS: BP 124/60
[2018-07-20] MEDS: BREO ELLIPTA INH SCH (07:38)
[2018-07-20] MEDS: TIOTROPIUM INHALER/CAPSULE (SPIRIVA) INH SCH (07:39)
[2018-07-20] MEDS: ACETAMINOPHEN 650MG ER TAB (TYLENOL ARTHRITIS) PO SCH (07:43)
[2018-07-20] MEDS: predniSONE 20 MG TAB PO SCH (09:25)
[2018-07-20] MEDS: PRAVASTATIN 20 MG TAB PO SCH (09:25)
[2018-07-20] MEDS: FLUoxetine 20 MG CAP PO SCH (09:26)
[2018-07-20] MEDS: FUROSEMIDE 20 MG TAB PO SCH (09:27)
[2018-07-20] MEDS: VALSARTAN 80 MG TAB (DIOVAN) PO SCH (09:27)
[2018-07-20] MEDS: PANTOPRAZOLE 40MG TAB (PROTONIX) PO SCH (09:27)
[2018-07-20] MEDS: MULTIVITAMINS/MINERALS THERAP 1 TAB PO SCH (09:27)
[2018-07-20] MEDS: ASPIRIN 81 MG ENTERIC TAB PO SCH (09:27)
[2018-07-20] MEDS: amLODIPine 10 MG TAB PO SCH (09:27)
[2018-07-20] MEDS: POTASSIUM CHL PWD 20 MEQ PACKET PO SCH (09:28)
[2018-07-20] MEDS: MAGNESIUM CHLORIDE 64 MG TABCR (SLO MAG) PO SCH (09:28)
--- NOTE | 2018-07-20 11:47 | IPN ---
DATE: 07/20/2018 Candi is on the hospitalist service, apparently plans were for discharge today but she does not feel ready. She says that she is wheezy and feels she needs another day in the hospital. She was admitted with a right lower lobe pneumonia, chronic hypoxic respiratory failure, exacerbation of chronic obstructive pulmonary disease (COPD) secondary to pneumonia, and history of heart failure with preserved ejection fraction. Denies hemoptysis or sputum production. Says, "I am just not over my pneumonia yet." PHYSICAL EXAMINATION: 124/60, pulse 60, respiratory rate 18, 92% oxygen saturation on 1 liter. GENERAL APPEARANCE: She is resting comfortably in no distress. HEENT: Unremarkable. LUNGS: Few scattered wheezes, good air movement. HEART: Regular rhythm. ABDOMEN: Soft, nontender. EXTREMITIES: No peripheral edema. LABORATORIES: White count 6.2, which is stable, hemoglobin 11, platelets 227. Sodium 135, potassium 4.3, BUN 27, creatinine 1.2, glucose 197. IMPRESSION: 1. Hospital associated pneumonia. She has Streptococcus pneumoniae on her urine screen. She is on Avelox, which should cover this. We will continue this for now. 2. Chronic respiratory failure. Continue nebulized bronchodilator. She is on oxygen at 2 liters nasal cannula at home. On prednisone 40 mg daily, which she will be discharged on for a 5 day course. 3. Hypertensive heart disease. Blood pressure is well controlled on her current regimen. 4. History of heart failure with preserved ejection fraction. Compensated on current dose of furosemide. 5. Chronic anxiety/depression. Stable on her current dose of fluoxetine. 6. Hypothyroidism. Stable on current dose of levothyroxine. The patient agrees to work towards discharge tomorrow.
[2018-07-20 14:00] VITALS: BP 138/53
[2018-07-20] MEDS: LOPERAMIDE 2 MG CAP PO PRN (16:16)
[2018-07-20] MEDS: ENOXAPARIN 40 MG/0.4 ML SYRINGE (J1650) SC SCH (20:12)
[2018-07-20 22:00] VITALS: BP 140/64
[2018-07-21] MEDS: IPRATROPIUM 0.5MG/ALBUTEROL 2.5MG INH SOL UD 3ML (DUONEB)(J7620) NEB SCH ×3 (01:18→13:14)
[2018-07-21] MEDS: MOXIFLOXACIN 400 MG TAB PO SCH (05:32)
[2018-07-21] MEDS: LEVOTHYROXINE 50MCG TABLET (0.05MG) PO SCH (05:32)
[2018-07-21 06:00] VITALS: BP 138/69
[2018-07-21] MEDS: BREO ELLIPTA INH SCH (07:42)
[2018-07-21] MEDS: TIOTROPIUM INHALER/CAPSULE (SPIRIVA) INH SCH (07:42)
[2018-07-21] MEDS: POTASSIUM CHL PWD 20 MEQ PACKET PO SCH (09:54)
[2018-07-21] MEDS: FLUoxetine 20 MG CAP PO SCH (09:54)
[2018-07-21] MEDS: MAGNESIUM CHLORIDE 64 MG TABCR (SLO MAG) PO SCH (09:54)
[2018-07-21] MEDS: ACETAMINOPHEN 650MG ER TAB (TYLENOL ARTHRITIS) PO SCH (09:54)
[2018-07-21] MEDS: predniSONE 20 MG TAB PO SCH (09:54)
[2018-07-21] MEDS: FUROSEMIDE 20 MG TAB PO SCH (09:55)
[2018-07-21] MEDS: PANTOPRAZOLE 40MG TAB (PROTONIX) PO SCH (09:56)
[2018-07-21] MEDS: MULTIVITAMINS/MINERALS THERAP 1 TAB PO SCH (09:56)
[2018-07-21] MEDS: ASPIRIN 81 MG ENTERIC TAB PO SCH (09:56)
[2018-07-21] MEDS: PRAVASTATIN 20 MG TAB PO SCH (09:56)
[2018-07-21 09:58] VITALS: BP 121/59
[2018-07-21] MEDS: amLODIPine 10 MG TAB PO SCH (09:58)
[2018-07-21] MEDS: VALSARTAN 80 MG TAB (DIOVAN) PO SCH (09:58)
[2018-07-21] MEDS ORDERED: MOXI400T11 PO (11:52)
[2018-07-21] MEDS ORDERED: methylPREDNISolone 80MG/ML SUSP 1ML VIAL (J1040) IM ONE (12:00)
--- NOTE | 2018-07-21 12:21 | DSES ---
DATE OF ADMISSION: 07/14/2018 DATE OF DISCHARGE: PRIMARY CARE PROVIDER: Dr. Kaylene Bennett at the [facility]. DISCHARGE DIAGNOSES: 1. Hospital associated pneumonia with Streptococcus pneumococcus suggested based on urine screen. 2. Chronic respiratory failure. 3. Chronic obstructive pulmonary disease (COPD). 4. History of heart failure with preserved ejection fraction. 5. Hypertensive heart disease. 6. Anxiety and depression. 7. History of hypothyroidism. HISTORY: Candi Wu was admitted with pneumonia. She has a history of severe COPD, GOLD stage IV, on chronic supplemental oxygen of 2 liters at home. She was hospitalized on 07/09/2018 to 07/12/2018 at [facility] for COPD exacerbation for parainfluenza infection and returned with shortness of breath. CT scan of the chest showed right lower lobe pneumonia. She was admitted for further treatment. HOSPITAL COURSE: The patient was admitted to a medical bed. She was treated with Avelox. She responded well to this. She was on intravenous and oral steroids, as well as nebulized bronchodilators. She had good response to this. On the day of discharge, she feels that she is ready to go home. She is afebrile. Vital signs are stable. Oxygen saturation is between 91 and 98% on 2 liters. LABORATORIES: Today, white count is 16.2 on steroids, hemoglobin 11.4, platelets 277. Sodium 135, potassium 4.3, BUN 27, creatinine 1.2, glucose 127. Urine screen was positive for Streptococcus pneumo antigen. CT of the chest is summarized above. DISPOSITION: The patient is discharged home in improved and stable condition. She will followup with Dr. Bennett. MEDICATIONS: On discharge: - moxifloxacin 400 mg daily for 5 more days - prednisone taper at home that she did not really understand. I will give her Depo Medrol 80 mg intramuscular before discharge, which will provide a taper of steroids over the next 5 to 7 days Otherwise, her medications are unchanged from admission. - albuterol inhaler every 4 hours as needed - amlodipine 5 mg daily - aspirin 81 mg daily - fluoxetine 20 mg daily - Breo Ellipta one inhalation daily - furosemide 20 to 40 mg daily - DuoNeb as needed - Levothyroxine 50 mcg daily - magnesium chloride 64 mg daily - Protonix 40 mg daily - MiraLAX as needed - potassium chloride 20 mEq daily - pravastatin 40 mg daily - Spiriva one inhalation daily - valsartan 320 mg daily Activity as tolerated. No added salt diet. Continue oxygen 2 liters nasal cannula.
[2018-07-21] MEDS ORDERED: methylPREDNISolone SUSP 40 MG/ML (DEPO-medrol) VIAL (J1030) IM ONE (13:00)
== END 2018-07-21 13:58 | disposition home health service (06) | DRG 194 ==
LOC: M ED 09:41 → M ED INP 14:14 → M MSPAV 15:29
PROVIDERS: ADMIT General Practice; ATTEND Family Medicine
DX: J13 Pneumonia due to Streptococcus pneumoniae (principal); J96.11 Chronic respiratory failure with hypoxia; J44.1 Chronic obstructive pulmonary disease with (acute) exacerbation; I50.32 Chronic diastolic (congestive) heart failure; E03.9 Hypothyroidism, unspecified; F41.9 Anxiety disorder, unspecified; F32.9 Major depressive disorder, single episode, unspecified; I11.0 Hypertensive heart disease with heart failure; Z79.899 Other long term (current) drug therapy; Z79.82 Long term (current) use of aspirin; I25.10 Atherosclerotic heart disease of native coronary artery without angina pectoris; Z95.0 Presence of cardiac pacemaker; Z85.3 Personal history of malignant neoplasm of breast; Z90.11 Acquired absence of right breast and nipple; Z90.12 Acquired absence of left breast and nipple; Z96.651 Presence of right artificial knee joint; Z87.891 Personal history of nicotine dependence; E83.42 Hypomagnesemia; K59.00 Constipation, unspecified; E78.5 Hyperlipidemia, unspecified

== ENCOUNTER → 2018-07-21 | Outpatient (REF) | payer MEDICARE, MEDICAID ==
[~2018-07-21] MED LIST changes: +BIOT1CAP2 PO; +MAGN1TAB39 PO; +MIRA3350 PO; +MOXI400T11 PO; +POTA20PW PO; +SLOW160T12 PO; +VITA-113 SL
[2018-07-21 16:23] LABS: CLOSTRIDIUM DIFFICILE PCR NEGATIVE (NEGATIVE)
== END ==
LOC: M LAB REF 14:37
PROVIDERS: ATTEND Internal Medicine Gastroenterology
DX: R15.9 Full incontinence of feces (principal)

== ENCOUNTER → 2018-07-27 | Outpatient (CLI) | payer MEDICARE, MEDICAID ==
--- NOTE | 2018-07-27 12:05 | REP ---
Chest two views HISTORY: Right lower lobe pneumonia Comparison: 07/14/2018 Patchy density is present in the right lower lobe consistent with an infiltrate that is slightly decreased compared to the previous study. The left lung is clear. The cardiac silhouette is enlarged. The pulmonary vasculature is normal in appearance. The bony structure is intact. A cardiac pacemaker is present. IMPRESSION: 1. Right lower lobe infiltrate decreased compared to the study. 2. Cardiomegaly. Electronically Signed by Philipp Kincaid MD 07/27/2018 11:57 A
== END ==
LOC: M LRY 11:30
PROVIDERS: ATTEND Family Medicine
DX: R91.8 Other nonspecific abnormal finding of lung field (principal); I51.7 Cardiomegaly; J18.1 Lobar pneumonia, unspecified organism; Z95.0 Presence of cardiac pacemaker
CPT/HCPCS: 36415; 71046; 86256; 86340; G0463

== ENCOUNTER → 2018-07-30 | Outpatient (REF) | payer MEDICARE, MEDICAID ==
[2018-07-30 14:33] LABS: TOTAL PROTEIN,RANDOM URINE 12.3 MG/DL (0.0-12.0); URINE TOTAL PROTEIN 12.3 MG/DL (0-12)
[2018-08-05 10:33] LABS: UPEP INTERPRETATION NO M-SPIKE NOTED; URINE VOLUME 925 ML
== END ==
LOC: M LAB REF 12:49
PROVIDERS: ATTEND Internal Medicine Hematology & Oncology
DX: D51.9 Vitamin B12 deficiency anemia, unspecified (principal)

== ENCOUNTER 2018-09-23 09:23 | Day surgery (SDC) | payer MEDICARE, MEDICAID ==
[~2018-09-23] VITALS: Ht 152.4 cm; Wt 80.6 kg
[~2018-09-23 09:23] MED LIST changes: +NS 1,000 ML IV ONE; -OMEP20CA3 PO; +OMEP20CA4 PO; +PURE500C5 PO; -TUDO1AER2 INH; +TUDO1AER3 INH
--- NOTE | 2018-09-23 11:12 | ROOR ---
Patient Name: Candi Wu Procedure Date: 09/23/2018 10:26 AM Date of : 1935 Age: 83 Room: [facility] Gender: Female Note Status: Finalized Procedure: Colonoscopy Indications: Clinically significant diarrhea of unexplained origin, Fecal incontinence Providers: Thuan LEVIN MD Referring MD: Kaylene Bennett Md Requesting Provider: Medicines: Monitored Anesthesia Care Complications: No immediate complications. Procedure: Pre-Anesthesia Assessment: - The heart rate, respiratory rate, oxygen saturations, blood pressure, adequacy of pulmonary ventilation, and response to care were monitored throughout the procedure. The Colonoscope was introduced through the anus and advanced to the terminal ileum, with identification of the appendiceal orifice and IC valve. The colonoscopy was performed without difficulty. The patient tolerated the procedure well. The quality of the bowel preparation was adequate. Findings: The digital rectal exam findings include decreased sphincter tone. Two sessile polyps were found in the ascending colon. The polyps were 3 to 5 mm in size. These polyps were removed with a cold snare. Resection and retrieval were complete. Three sessile polyps were found in the splenic flexure. The polyps were 5 to 10 mm in size. These polyps were removed with a piecemeal technique using a cold snare. Resection and retrieval were complete. Multiple medium-mouthed diverticula were found in the sigmoid colon and descending colon. The colon (entire examined portion) revealed mildly excessive looping. The exam was otherwise without abnormality on direct and retroflexion views. Biopsies for histology were taken with a cold forceps from the entire colon for evaluation of microscopic colitis. Impression: - Decreased sphincter tone found on digital rectal exam. - Two 3 to 5 mm polyps in the ascending colon, removed with a cold snare. Resected and retrieved. - Three 5 to 10 mm polyps at the splenic flexure, removed piecemeal using a cold snare. Resected and retrieved. - Moderate diverticulosis in the sigmoid colon and in the descending colon. - There was significant looping of the colon. - The examination was otherwise normal on direct and retroflexion views. - Biopsies were taken with a cold forceps from the entire colon for evaluation of microscopic colitis. Recommendation: - Imodium 1 tablet twice a day. (May increase to 2 tablets twice a day if necessary) - Telephone endoscopist for pathology results in 2 weeks. Thuan Levin MD Thuan LEVIN MD 09/23/2018 11:12:07 AM Electronically signed by Thuan LEVIN MD Number of Addenda: 0 Note Initiated On: 09/23/2018 10:26 AM Estimated Blood Loss: Estimated blood loss: none.
[2018-09-23 11:31] VITALS: BP 179/81
== END 2018-09-23 11:49 | disposition home or self-care (01) ==
LOC: M OPP 09:23
PROVIDERS: ATTEND Internal Medicine Gastroenterology
DX: K62.89 Other specified diseases of anus and rectum (principal); D12.2 Benign neoplasm of ascending colon; D12.3 Benign neoplasm of transverse colon; K57.30 Diverticulosis of large intestine without perforation or abscess without bleeding; R19.7 Diarrhea, unspecified; R15.9 Full incontinence of feces; Z79.899 Other long term (current) drug therapy; Z88.5 Allergy status to narcotic agent

== ENCOUNTER 2018-09-25 17:41 | Emergency (ER) | payer MEDICARE, MEDICAID ==
[~2018-09-25] VITALS: Ht 152.4 cm; Wt 81.6 kg
[~2018-09-25 17:41] MED LIST changes: -MECL-68 PO; +MECL1TAB31 PO; -NS 1,000 ML IV ONE; +OMEP1CAP73 PO; -OMEP20CA4 PO
[2018-09-25 19:07] LABS: VENOUS HCO3 31.7 MEQ/L (23.0-27.0); VENOUS O2 SATURATION 94.5 % (60.0-80.0); VENOUS PARTIAL PRESSURE CO2 57.1 mmHg (38.0-50.0); VENOUS PARTIAL PRESSURE O2 76.7 mmHg (30.0-50.0); VENOUS PH 7.362 UNITS (7.330-7.430); VENOUS STANDARD HCO3 28.9 MEQ/L; VENOUS TOTAL CO2 33.4 MEQ/L (24.0-28.0)
[2018-09-25 19:10] LABS: BASO # 0.1 10^3/uL (0.0-0.2); BASO % 0.7 % (0.0-1.0); EOS # 0.2 10^3/uL (0.0-0.50); EOS % 2.5 % (0.0-3.0); HEMATOCRIT 33.8 % (36.0-47.0); HEMOGLOBIN 10.7 g/dl (12.0-15.5); LYMPH # 1.6 10^3/uL (1.5-4.5); LYMPH % 22.4 % (24.0-44.0); MEAN CORPUSCULAR HEMOGLOBIN 34.5 pg (27.0-33.0); MEAN CORPUSCULAR HGB CONC 31.7 g/dl (32.0-36.5); MONO # 0.6 10^3/uL (0.0-0.8); MONO % 8.4 % (0.0-5.0); NEUTROPHILS # 4.6 10^3/uL (1.8-7.7); NEUTROPHILS % 65.6 % (36.0-66.0); PLATELET COUNT, AUTOMATED 234 10^3/uL (150-450); WHITE BLOOD COUNT 6.9 10^3/uL (4.0-10.0)
[2018-09-25 19:32] LABS: ALBUMIN 2.8 GM/DL (3.2-5.2); ALT/SGPT 16 U/L (12-78); BILIRUBIN,DIRECT < 0.1 MG/DL (0.0-0.2); BILIRUBIN,TOTAL 0.2 MG/DL (0.2-1.0); BLOOD UREA NITROGEN 13 MG/DL (7-18); CALCIUM LEVEL 8.3 MG/DL (8.8-10.2); CARBON DIOXIDE LEVEL 31 MEQ/L (21-32); CHLORIDE LEVEL 105 MEQ/L (98-107); CK-MB VALUE MASS < 1.0 NG/ML (<3.6); CPK CREATINE PHOSPHOKINASE 55 U/L (26-192); CREATININE FOR GFR 1.08 MG/DL (0.55-1.30); GLOMERULAR FILTRATION RATE 51.8 (>32); GLUCOSE, FASTING 129 MG/DL (70-100); MB/CK RELATIVE INDEX 1.82 (< OR =4); NT-PRO BNP 888 PG/ML (<450); POTASSIUM SERUM 3.8 MEQ/L (3.5-5.1); SODIUM LEVEL 143 MEQ/L (136-145); TOTAL PROTEIN 6.3 GM/DL (6.4-8.2); TROPONIN I 0.02 NG/ML (< 0.10)
[2018-09-25 20:01] VITALS: O2SAT 94
[2018-09-25 20:32] VITALS: BP 121/60
--- NOTE | 2018-09-26 21:16 | ECGEPIP ---
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
--- NOTE | 2018-09-27 07:51 | REP ---
PA and lateral chest: Comparison is 07/27/2018. There is chronic parenchymal scarring inferiorly in the right lung, unchanged. Cardiomegaly and dual chamber pacemaker are unchanged. The lung caldera otherwise clear. The ramonita, mediastinum, skeletal structures are unremarkable. Impression: There are no acute cardiopulmonary findings. There is chronic cardiomegaly. There is chronic parenchymal scarring inferiorly in the right lung. Pacemaker, unchanged. Electronically Signed by Fabian Menjivar MD 09/26/2018 08:09 A
[2019-01-07] MEDS ORDERED: CALC600T66 PO (12:43)
[2019-01-07] MEDS ORDERED: ZANT150T40 PO (12:43)
[2019-01-07] MEDS ORDERED: VITA500C24 PO (12:43)
[2019-01-07] MEDS ORDERED: LOPE1CAP5 PO (12:43)
[2019-01-07] MEDS ORDERED: SYNT50TA PO (12:43)
[2019-02-20] MEDS ORDERED: IPRA0.00 INH (21:53)
== END 2018-09-25 20:59 | disposition home or self-care (01) ==
LOC: M ED 17:41
DX: J44.9 Chronic obstructive pulmonary disease, unspecified (principal); I50.32 Chronic diastolic (congestive) heart failure; I45.19 Other right bundle-branch block; I11.0 Hypertensive heart disease with heart failure; N18.9 Chronic kidney disease, unspecified; E78.5 Hyperlipidemia, unspecified; E03.9 Hypothyroidism, unspecified; G89.29 Other chronic pain; M54.5 Low back pain; I25.2 Old myocardial infarction; Z95.0 Presence of cardiac pacemaker; Z99.81 Dependence on supplemental oxygen; Z79.899 Other long term (current) drug therapy; Z79.890 Hormone replacement therapy; Z79.82 Long term (current) use of aspirin; Z88.5 Allergy status to narcotic agent; J30.89 Other allergic rhinitis; Z87.891 Personal history of nicotine dependence

== ENCOUNTER 2018-09-30 11:05 | Observation (INO) | payer MEDICARE, MEDICAID ==
[~2018-09-30] VITALS: Ht 152.4 cm; Wt 79.9 kg
[2018-09-30] MEDS: BREO ELLIPTA INH SCH (09:00)
[~2018-09-30 11:05] MED LIST changes: +MECL-68 PO; -MECL1TAB31 PO; -OMEP1CAP73 PO; +OMEP20CA4 PO
[2018-09-30] MEDS ORDERED: PANTOPRAZOLE 40MG INJ (PROTONIX) (C9113) IV SCH (13:00)
[2018-09-30] MEDS ORDERED: CYAN100050 PO (13:16)
[2018-09-30] MEDS ORDERED: SLOW160T12 PO (13:16)
[2018-09-30] MEDS ORDERED: ASCO500T PO (13:16)
[2018-09-30] MEDS ORDERED: ALBUTEROL 90 MCG/ACT 8GM HFA INHALER INH PRN (18:45)
[2018-09-30] MEDS ORDERED: IPRATROPIUM 0.5MG/ALBUTEROL 2.5MG INH SOL UD 3ML (DUONEB)(J7620) INH PRN (18:45)
--- NOTE | 2018-09-30 19:11 | HPEPDOC ---
General Date of Admission 09/30/18 Date of Service: Sep 30, 2018 Primary Care Physician: RAINER RODRIGUEZ MD Other Providers Dr Valenzuela, Dr Vásquez Chief Complaint The patient is a 83-year-old female admitted with a reason for visit of Gi Bleed. Source: Patient, Family Exam Limitations: No limitations Timing/Duration: Day(s) (8) Severity: Mild Associated Symptoms: Other (black stools) History of Present Illness 83 yo female who had colonscopy performed 8 days ago due to diarrhea and poor rectal tone presents with continued episode fo melena. She states she has anemia and is followed by Dr Valenzuela but didn't get RX filled for iron. States she has had prior gastritis and ulcers but no recent EGD for over 3 years. Patient had colonsocopy with biopsy performed but denies any abdomen pain. States chronic stool incontinence due to "poor rectal tone". States no recent steroids, uses ASA daily, 1 cup coffee daily, no NSAIDS, no EtOH . States occasional episodes of lightheaded/dizzy feeling. ER spoke with GI and requ raul hospitalist admit for observation to monitor H/H. GI has been consulted thru the ED Home Medications Scheduled Acetaminophen (Tylenol Arthritis) 650 Mg Tab, 650 MG PO DAILY, (Reported) Amlodipine Besylate (Amlodipine Besylate) 5 Mg Tab, 5 MG PO DAILY, (Reported) Ascorbic Acid (Ascorbic Acid) 500 Mg Tablet, 500 MG PO DAILY, (Reported) NEW MED, NOT STARTED Aspirin (Aspirin EC) 81 Mg Tabec, 81 MG PO DAILY, (Reported) Cyanocobalamin (Vitamin B-12) (Vitamin B-12) 1,000 Mcg Tablet, 1,000 MCG PO DAILY, (Reported) Ferrous Sulfate, Dried (Slow Release Iron) 160 Mg Tablet.er, 160 MG PO BID, (Reported) NEW MED, NOT STARTED Fluoxetine Hcl (Fluoxetine HCl) 20 Mg Cap, 20 MG PO DAILY, (Reported) Fluticasone/Vilanterol (Breo Ellipta 200-25 Mcg INH) 1 Inh Inh, 1 PUFF INH DAILY, (Reported) Furosemide (Furosemide) 20 Mg Tab, 20 MG PO DAILY, (Reported) Levothyroxine Sodium (Levothyroxine Sodium) 50 Mcg Tab, 50 MCG PO DAILY, (Rep orted) Magnesium Chloride (Magnesium Chloride) 64 Mg Tablet.dr, 64 MG PO DAILY, (Reported) Multivitamins (Thera M Plus Tablet) 1 Tab Tab, 1 TAB PO DAILY, (Reported) Pantoprazole Sodium (Pantoprazole Sodium) 40 Mg Tab, 40 MG PO DAILY, (Reported) Potassium Chloride (Potassium Chloride) 20 Meq Packet, 20 MEQ PO DAILY, (Reported) Pravastatin Sodium (Pravastatin Sodium) 40 Mg Tab, 40 MG PO DAILY, (Reported) Tiotropium [place] (Spiriva) 18 Mcg Cap, 1 INHALATION INH DAILY, (Reported) Valsartan (Valsartan) 320 Mg Tab, 320 MG PO DAILY, (Reported) Scheduled PRN Albuterol Sulfate (Ventolin Hfa) 108 Mcg/Act Aer, 2 PUFFS INH Q4H PRN for SHORTNESS OF BREATH, (Reported) Furosemide (Furosemide) 20 Mg Tab, 20 MG PO DAILY PRN for HYPERTENSION, (Reported) PATIENT TAKES THIS IN ADDITION TO 20MG TABLET TO EQUAL 40MG TOTAL IF BLOOD PRESSURE IS OVER 150/90 Ipratropium/Albuterol Sulfate (Iprat-Albut 0.5-3(2.5) mg/3 ml) 1 Mary Mary, 1 DOSE INH Q8H PRN for SHORTNESS OF BREATH, (Reported) Allergies Coded Allergies: ENVIROMENTAL (Verified Allergy, Unknown, 09/09/18) hydrocodone (Verified Adverse Reaction, Intermediate, hallucinations, confusion while on Vicodin, 09/09/18) Past Medical History Medical History 1. COPD - oxygen dependent 2 liter 2. Congestive heart failure (CHF) with preserved ejection fraction. 3. Hypothyroidism. 4 Hypertension. 5. Depression. 6. Coronary artery disease (CAD), pacer and pecutaneous coronary intervention (PCI). 7 Abdominal aortic aneurysm status post repair. 8. History of breast cancer and double mastectomy. PAST SURGICAL HISTORY: 1. Cardiac PCI and pacer. 2. Right total knee arthroplasty. 3. Back surgery. 4. Elbow surgery. 5. Double mastectomy. 6. Cholecystectomy. 7. Abdominal aortic aneurysm repair. 8. Fallopian tube removal. 9. Bilateral cataract surgery. 10. Bilateral eyelid surgery. SOCIAL HISTORY: Smoked a pack a day for over 50 years, quit in 2005. No recreational drug use. Lives alone. Has chronic 2 liters of oxygen. Has a daughter that checks up on her and a son-in-law. FAMILY HISTORY: reviewed and non contributory A-FIB/CHADSVASC A-FIB History Current/History of A-Fib/PAF?: No Review of Systems Other systems 10 systems reviewed and negative except per HPI Physical Examination General Exam: Positive: Alert, Cooperative, No Acute Distress Eye Exam: Positive: PERRLA, Conjunctiva & lids normal (no palor), EOMI ENT Exam: Positive: Atraumatic, Mucous membr. moist/pink, Pharynx Normal Neck Exam: Positive: Supple, +2 carotid pulse wo bruit Chest Exam: Positive: Clear to auscultation, Normal air movement; Negative: Rales, Rhonchi, Wheezing Heart Exam: Positive: Rate Normal, Regular Rhythm, Normal S1, Normal S2 Telemetry: Positive: Other Telemetry: (paced) Abdomen Exam: Positive: Normal bowel sounds, Soft (NT ND NABS) Extremity Exam: Positive: Normal pulses; Negative: Clubbing, Cyanosis, Edema Skin Exam: Positive: Nl turgor and temperature Neuro Exam: Positive: Normal Gait, Strength at 5/5 X4 ext, Normal Tone, Sensation Intact, Cranial Nerves 3-12 NL Psych Exam: Positive: Mental status NL, Mood NL, Oriented x 3 Vital Signs Vital Signs Date Time Temp Pulse Resp B/P (MAP) Pulse Ox O2 Delivery O2 Flow Rate FiO2 09/30/18 12:20 70 95 Nasal Cannula 2.0 09/30/18 12:07 105/51 (69) 113/53 (73) 106/53 (70) 09/30/18 11:06 98.4 22 Laboratory Data Labs 24H Laboratory Tests 2 09/30/18 11:54: POC Glucose (Misc Panel) 171H, POC Sodium (Misc Panel) 139, POC Potassium (Misc Panel) 4.0, POC Chloride (Misc Panel) 99, POC Total CO2 (Misc Panel) 31.0H, POC Blood Urea Nitrogen (Misc Panel 20, POC Ionized Calcium (Misc Panel) 4.4L, POC Creatinine (Misc Panel) 1.3, POC Hematocrit (Misc Panel) 32.0L Item Value Date Time POC Glucose (Misc Panel) 171 MG/DL H 09/30/18 1154 POC Sodium (Misc Panel) 139 MEQ/L 09/30/18 1154 POC Potassium (Misc Panel) 4.0 MEQ/L 09/30/18 1154 POC Blood Urea Nitrogen (Misc Panel 20 MG/DL 09/30/18 1154 POC Creatinine (Misc Panel) 1.3 MG/DL 09/30/18 1154 POC Hematocrit (Misc Panel) 32.0 % L 09/30/18 1154 Hemoglobin over past 6 months ranging 13.4 to 11.4 Assessment/Plan 1) melena post colonoscopy Observation - Med Surg Gi Consulted. Clear liquid diet. serial H/H Possibly UGI. If H/H stable, will d/c in AM for further outpatient workup If H/H decreases, may need EGD. 2) COPD oxygen dependent - stable continue nebs 3) HTN - continue home regimen 4) dizziness - intermittent - check orthostatic BP DVT prophylaxis: SCD CODE STATUS: 15 minute discussion with patient, son and daughter regarding code status. Daughter states MOLST from filled out at home recently but not sure what it indicates. Patient states she would like to be a full code including a trial of CPR and intubation unless it looks futile or if prolonged ventilator/intubation. States if prolonged intubation or futility of medical care, then DNR. Daughter will bring in current MOLST form that was filled out at her PCP office. Plan / VTE VTE Prophylaxis Ordered?: Yes CECILIA PINA DO Sep 30, 2018 12:42
[2018-09-30 22:00] VITALS: BP 135/74
[2018-09-30 22:15] LABS: HEMATOCRIT 31.7 % (36.0-47.0); HEMOGLOBIN 9.9 g/dl (12.0-15.5); MEAN CORPUSCULAR HEMOGLOBIN 33.1 pg (27.0-33.0); MEAN CORPUSCULAR HGB CONC 31.2 g/dl (32.0-36.5); PLATELET COUNT, AUTOMATED 226 10^3/uL (150-450); RED BLOOD COUNT 2.99 10^6/uL (4.00-5.40); WHITE BLOOD COUNT 6.5 10^3/uL (4.0-10.0)
[2018-09-30 22:30] VITALS: BP_SYST 136; BP_SYST 138; BP_SYST 141; BP_DIAS 72; BP_DIAS 73; BP_DIAS 76
[2018-10-01 00:30] LABS: HEMOGLOBIN 10.4 g/dl (12.0-15.5); MEAN CORPUSCULAR HEMOGLOBIN 34.1 pg (27.0-33.0); MEAN CORPUSCULAR HGB CONC 31.5 g/dl (32.0-36.5); MEAN CORPUSCULAR VOLUME 108.2 fl (80.0-96.0); PLATELET COUNT, AUTOMATED 216 10^3/uL (150-450); RED BLOOD COUNT 3.05 10^6/uL (4.00-5.40); WHITE BLOOD COUNT 5.7 10^3/uL (4.0-10.0)
[2018-10-01 05:26] VITALS: BP_SYST 116; BP_SYST 138; BP_SYST 153; BP_DIAS 49; BP_DIAS 69; BP_DIAS 78
[2018-10-01 05:48] LABS: HEMATOCRIT 32.3 % (36.0-47.0); HEMOGLOBIN 10.2 g/dl (12.0-15.5); MEAN CORPUSCULAR HEMOGLOBIN 33.2 pg (27.0-33.0); MEAN CORPUSCULAR HGB CONC 31.6 g/dl (32.0-36.5); MEAN CORPUSCULAR VOLUME 105.2 fl (80.0-96.0); PLATELET COUNT, AUTOMATED 229 10^3/uL (150-450); RED BLOOD COUNT 3.07 10^6/uL (4.00-5.40); WHITE BLOOD COUNT 6.3 10^3/uL (4.0-10.0)
[2018-10-01 06:00] VITALS: BP 137/64
[2018-10-01] MEDS ORDERED: LEVOTHYROXINE 50MCG TABLET (0.05MG) PO SCH (06:00)
[2018-10-01 06:12] LABS: CALCIUM LEVEL 8.5 MG/DL (8.8-10.2); CREATININE FOR GFR 1.03 MG/DL (0.55-1.30); GLOMERULAR FILTRATION RATE 54.7 (>32); POTASSIUM SERUM 3.7 MEQ/L (3.5-5.1)
[2018-10-01] MEDS: BREO ELLIPTA INH SCH (07:32)
[2018-10-01 08:37] VITALS: BP 106/67
[2018-10-01] MEDS ORDERED: FUROSEMIDE 20 MG TAB PO SCH (09:00)
[2018-10-01] MEDS ORDERED: VALSARTAN 80 MG TAB (DIOVAN) PO SCH (09:00)
[2018-10-01] MEDS ORDERED: MAGNESIUM CHLORIDE 64 MG TABCR (SLO MAG) PO SCH (09:00)
[2018-10-01] MEDS ORDERED: POTASSIUM CHL PWD 20 MEQ PACKET PO SCH (09:00)
[2018-10-01] MEDS ORDERED: PRAVASTATIN 20 MG TAB PO SCH (09:00)
[2018-10-01] MEDS ORDERED: CYANOCOBALAMIN 500 MCG TAB PO SCH (09:00)
[2018-10-01] MEDS ORDERED: MULTIVITAMINS/MINERALS THERAP 1 TAB PO SCH (09:00)
[2018-10-01] MEDS ORDERED: TIOTROPIUM INHALER/CAPSULE (SPIRIVA) INH SCH (09:00)
[2018-10-01] MEDS ORDERED: amLODIPine 5 MG TAB PO SCH (09:00)
[2018-10-01] MEDS ORDERED: FLUoxetine 20 MG CAP PO SCH (09:00)
[2018-10-01] MEDS ORDERED: ASPIRIN 81 MG ENTERIC TAB PO SCH (09:00)
[2018-10-01] MEDS ORDERED: PANTOPRAZOLE 40MG INJ (PROTONIX) (C9113) IV SCH (09:00)
[2018-10-01] MEDS ORDERED: ASCORBIC ACID 500 MG TAB PO SCH (09:00)
[2018-10-01] MEDS ORDERED: ACETAMINOPHEN 650MG ER TAB (TYLENOL ARTHRITIS) PO SCH (09:00)
--- NOTE | 2018-10-01 10:21 | DS.PDOC ---
Discharge Summary General Date of Admission Sep 30, 2018 at 11:06 Date of Discharge 10/01/18 Primary Care Physician: RAINER RODRIGUEZ MD Attending Physician: CECILIA PINA DO Specialist/Consultants Involve: JES LEVIN MD Discharge Summary PROCEDURES PERFORMED DURING STAY:NONE ADMITTING DIAGNOSES: 1) melena post colonoscopy 2) COPD oxygen dependent 3) HTN 4) dizziness DISCHARGE DIAGNOSES: 1) melena post colonoscopy- no signs of acute GI bleed 2) chronic hypoxic respiratory failure in the setting of COPD oxygen dependent 3) HTN 4) dizziness secondary to orthostatic hypotension from blood pressure medication s 5) Chronic iron deficiency anemia of unclear etiology COMPLICATIONS/CHIEF COMPLAINT: Melena. HISTORY OF PRESENT ILLNESS: 83 yo female who had colonscopy performed 8 days ago due to diarrhea and poor rectal tone presents with continued episode fo melena. She states she has anemia and is followed by Dr Valenzuela but didn't get RX filled for iron. States she has had prior gastritis and ulcers but no recent EGD for over 3 years. Patient had colonsocopy with biopsy performed but denies any abdomen pain. States chronic stool incontinence due to "poor rectal tone". States no recent steroids, uses ASA daily, 1 cup coffee daily, no NSAIDS, no EtOH . States occasional episodes of lightheaded/dizzy feeling. ER spoke with GI and requested hospitalist admit for observation to monitor H/H. GI has been consulted thru the ED- see H&P for details HOSPITAL COURSE: patient placed under observation. H/H remained stable. she had no further melenotic stools. She had mild orthostatic changes and dizziness which resolved and due to blood pressure medications. Case discussed with Dr Levin and no further GI interventions needed at this time. She is being discharge home in stable condition. DISCHARGE MEDICATIONS: Please see below. ALLERGIES: Please see below. PHYSICAL EXAMINATION ON DISCHARGE: VITAL SIGNS: Please see below. GENERAL:pleasant NAD AAOx3 HRRR LCTA Abdomen soft NT ND NABS LABORATORY DATA: Please see below. PROGNOSIS:good ACTIVITY: as tolerated DIET:regular as tolerated DISCHARGE PLAN: discharge home DISCHARGE INSTRUCTIONS: 1. follow up with PCP in 5-7 days for recheck of blood pressure and orthostatic hypotension 2. follow up with Dr Levin as previously scheduled to review biopsy results 3. follow up with hematology as previously scheduled and start iron supplements. DISCHARGE CONDITION: stable TIME SPENT ON DISCHARGE: 15 minutes Vital Signs/I&Os Vital Signs Date Time Temp Pulse Resp B/P (MAP) Pulse Ox O2 Delivery O2 Flow Rate FiO2 10/01/18 09:00 2.0 10/01/18 08:37 74 106/67 10/01/18 06:00 96.5 18 96 09/30/18 14:58 Nasal Cannula I&O- Last 24 Hours up to 6 AM 10/01/18 06:00 Intake Total 850 ml Output Total 1050 ml Balance -200 ml Laboratory Data Labs 24H Laboratory Tests 2 09/30/18 11:54: POC Glucose (Misc Panel) 171H, POC Sodium (Misc Panel) 139, POC Potassium (Misc Panel) 4.0, POC Chloride (Misc Panel) 99, POC Total CO2 (Misc Panel) 31.0H, POC Blood Urea Nitrogen (Misc Panel 20, POC Ionized Calcium (Misc Panel) 4.4L, POC Creatinine (Misc Panel) 1.3, POC Hematocrit (Misc Panel) 32.0L 09/30/18 18:10: Nucleated Red Blood Cells % (auto) 0.0 10/01/18 00:16: Nucleated Red Blood Cells % (auto) 0.0 10/01/18 05:18: Anion Gap 4L, Glomerular Filtration Rate 54.7, Blood Urea Nitrogen 14, Cre atinine 1.03, Sodium Level 142, Potassium Level 3.7, Chloride Level 103, Carbon Dioxide Level 35H, Calcium Level 8.5L 10/01/18 05:19: Nucleated Red Blood Cells % (auto) 0.0 CBC/BMP Laboratory Tests 09/30/18 18:10 Red Blood Count 2.99 L, Mean Corpuscular Volume 106.0 H, Mean Corpuscular Hemoglobin 33.1 H, Mean Corpuscular Hemoglobin Concent 31.2 L, Red Cell D istribution Width 14.0 10/01/18 00:16 Red Blood Count 3.05 L, Mean Corpuscular Volume 108.2 H, Mean Corpuscular Hemoglobin 34.1 H, Mean Corpuscular Hemoglobin Concent 31.5 L, Red Cell Distribution Width 14.1 10/01/18 05:18 Calcium Level 8.5 L 10/01/18 05:19 Red Blood Count 3.07 L, Mean Corpuscular Volume 105.2 H, Mean Corpuscular He moglobin 33.2 H, Mean Corpuscular Hemoglobin Concent 31.6 L, Red Cell Distribution Width 13.9 Discharge Medications Scheduled Acetaminophen (Tylenol Arthritis) 650 Mg Tab, 650 MG PO DAILY, (Reported) Amlodipine Besylate (Amlodipine Besylate) 5 Mg Tab, 5 MG PO DAILY, (Reported) Ascorbic Acid (Ascorbic Acid) 500 Mg Tablet, 500 MG PO DAILY, (Reported) NEW MED, NOT STARTED Aspirin (Aspirin EC) 81 Mg Tabec, 81 MG PO DAILY, (Reported) Cyanocobalamin (Vitamin B-12) (Vitamin B-12) 1,000 Mcg Tablet, 1,000 MCG PO DAILY, (Reported) Ferrous Sulfate, Dried (Slow Release Iron) 160 Mg Tablet.er, 160 MG PO BID, (Reported) NEW MED, NOT STARTED Fluoxetine Hcl (Fluoxetine HCl) 20 Mg Cap, 20 MG PO DAILY, (Reported) Fluticasone/Vilanterol (Breo Ellipta 200-25 Mcg INH) 1 Inh Inh, 1 PUFF INH DAILY, (Reported) Furosemide (Furosemide) 20 Mg Tab, 20 MG PO DAILY, (Reported) Levothyroxine Sodium (Levothyroxine Sodium) 50 Mcg Tab, 50 MCG PO DAILY, (Reported) Magnesium Chloride (Magnesium Chloride) 64 Mg Tablet.dr, 64 MG PO DAILY, (Reported) Multivitamins (Thera M Plus Tablet) 1 Tab Tab, 1 TAB PO DAILY, (Reported) Pantoprazole Sodium (Pantoprazole Sodium) 40 Mg Tab, 40 MG PO DAILY, (Reported) Potassium Chloride (Potassium Chloride) 20 Meq Packet, 20 MEQ PO DAILY, (Reported) Pravastatin Sodium (Pravastatin Sodium) 40 Mg Tab, 40 MG PO DAILY, (Reported) Tiotropium [place] (Spiriva) 18 Mcg Cap, 1 INHALATION INH DAILY, (Reported) Valsartan (Valsartan) 320 Mg Tab, 320 MG PO DAILY, (Reported) Scheduled PRN Albuterol Sulfate (Ventolin Hfa) 108 Mcg/Act Aer, 2 PUFFS INH Q4H PRN for SHORTNESS OF BREATH, (Reported) Furosemide (Furosemide) 20 Mg Tab, 20 MG PO DAILY PRN for HYPERTENSION, (Reported) PATIENT TAKES THIS IN ADDITION TO 20MG TABLET TO EQUAL 40MG TOTAL IF BLOOD PRESSURE IS OVER 150/90 Ipratropium/Albuterol Sulfate (Iprat-Albut 0.5-3(2.5) mg/3 ml) 1 Mary Mary, 1 DOSE INH Q8H PRN for SHORTNESS OF BREATH, (Reported) Allergies Coded Allergies: ENVIROMENTAL (Verified Allergy, Unknown, 09/09/18) hydrocodone (Verified Adverse Reaction, Intermediate, hallucinations, confusion while on Vicodin, 09/09/18) CECILIA PINA DO Oct 01, 2018 10:21
== END 2018-10-01 11:41 | disposition home or self-care (01) ==
LOC: M ED 11:05 → M ED INP 11:06 → M MSPAV 15:02
PROVIDERS: ADMIT Family Medicine; ATTEND Family Medicine
DX: K92.1 Melena (principal); J96.11 Chronic respiratory failure with hypoxia; Z99.81 Dependence on supplemental oxygen; I10 Essential (primary) hypertension; R42 Dizziness and giddiness; D50.9 Iron deficiency anemia, unspecified; F32.9 Major depressive disorder, single episode, unspecified; Z85.3 Personal history of malignant neoplasm of breast; Z87.891 Personal history of nicotine dependence; Z79.82 Long term (current) use of aspirin; Z79.899 Other long term (current) drug therapy; Z88.5 Allergy status to narcotic agent
CPT/HCPCS: 36415; 80047; 80048; 85027; 94640; 96374; 99285; C9113; G0378

== ENCOUNTER → 2018-10-05 | Outpatient (REF) | payer MEDICARE, MEDICAID ==
[~2018-10-05] MED LIST changes: +ASCO500T PO; +CYAN100050 PO; +K-TA10TA PO; +MOXI1TAB PO; +POTA10TA17 PO; +PRED20TA PO
[2018-10-05 16:26] LABS: BASO # 0.1 10^3/uL (0.0-0.2); BASO % 0.7 % (0.0-1.0); EOS # 0.2 10^3/uL (0.0-0.50); HEMATOCRIT 37.7 % (36.0-47.0); HEMOGLOBIN 11.8 g/dl (12.0-15.5); LYMPH # 1.8 10^3/uL (1.5-4.5); LYMPH % 22.3 % (24.0-44.0); MEAN CORPUSCULAR HEMOGLOBIN 34.5 pg (27.0-33.0); MEAN CORPUSCULAR HGB CONC 31.3 g/dl (32.0-36.5); MEAN CORPUSCULAR VOLUME 110.2 fl (80.0-96.0); MONO # 0.7 10^3/uL (0.0-0.8); MONO % 8.4 % (0.0-5.0); NEUTROPHILS # 5.4 10^3/uL (1.8-7.7); NEUTROPHILS % 66.1 % (36.0-66.0); PLATELET COUNT, AUTOMATED 244 10^3/uL (150-450); RED BLOOD COUNT 3.42 10^6/uL (4.00-5.40); WHITE BLOOD COUNT 8.2 10^3/uL (4.0-10.0)
== END ==
LOC: M SFHCLERA 13:36
PROVIDERS: ATTEND Nurse Practitioner Family
DX: Z09 Encounter for follow-up examination after completed treatment for conditions other than malignant neoplasm (principal)

== ENCOUNTER 2018-10-22 15:28 | Emergency (ER) | payer MEDICARE, MEDICAID ==
[~2018-10-22] VITALS: Ht 152.4 cm; Wt 80.7 kg
[~2018-10-22 15:28] MED LIST changes: -K-TA10TA PO; -MOXI1TAB PO; -POTA10TA17 PO; -PRED20TA PO
[2018-10-22] MEDS ORDERED: ALBUTEROL SULFATE 2.5 MG/0.5 ML INH NEB SOLN INH ONE (16:00)
[2018-10-22] MEDS ORDERED: methylPREDNISolone INJ 125 MG/2 ML VIAL (J2930) IV ONE (16:00)
[2018-10-22] MEDS ORDERED: IPRATROPIUM 0.5MG/ALBUTEROL 2.5MG INH SOL UD 3ML (DUONEB)(J7620) NEB ONE (16:00)
[2018-10-22 16:11] LABS: BASO % 0.4 % (0.0-1.0); EOS # 0.2 10^3/uL (0.0-0.50); EOS % 2.3 % (0.0-3.0); HEMATOCRIT 37.1 % (36.0-47.0); HEMOGLOBIN 11.7 g/dl (12.0-15.5); LYMPH # 1.4 10^3/uL (1.5-4.5); LYMPH % 16.8 % (24.0-44.0); MEAN CORPUSCULAR HEMOGLOBIN 34.1 pg (27.0-33.0); MEAN CORPUSCULAR HGB CONC 31.5 g/dl (32.0-36.5); MEAN CORPUSCULAR VOLUME 108.2 fl (80.0-96.0); MONO # 0.8 10^3/uL (0.0-0.8); NEUTROPHILS # 5.9 10^3/uL (1.8-7.7); PLATELET COUNT, AUTOMATED 237 10^3/uL (150-450); RED BLOOD COUNT 3.43 10^6/uL (4.00-5.40); WHITE BLOOD COUNT 8.3 10^3/uL (4.0-10.0)
[2018-10-22 16:49] LABS: ALBUMIN 3.2 GM/DL (3.2-5.2); ALT/SGPT 19 U/L (12-78); BILIRUBIN,DIRECT 0.1 MG/DL (0.0-0.2); BILIRUBIN,TOTAL 0.4 MG/DL (0.2-1.0); BLOOD UREA NITROGEN 22 MG/DL (7-18); CALCIUM LEVEL 9.8 MG/DL (8.8-10.2); CARBON DIOXIDE LEVEL 30 MEQ/L (21-32); CHLORIDE LEVEL 107 MEQ/L (98-107); CK-MB VALUE MASS < 1.0 NG/ML (<3.6); CPK CREATINE PHOSPHOKINASE 84 U/L (26-192); CREATININE FOR GFR 1.15 MG/DL (0.55-1.30); FREE T4 0.99 NG/DL (0.76-1.46); GLOMERULAR FILTRATION RATE 48.2 (>32); GLUCOSE, FASTING 84 MG/DL (70-100); MB/CK RELATIVE INDEX 1.19 (< OR =4); NT-PRO BNP 416 PG/ML (<450); POTASSIUM SERUM 4.4 MEQ/L (3.5-5.1); SODIUM LEVEL 141 MEQ/L (136-145); TROPONIN I < 0.02 NG/ML (< 0.10)
[2018-10-22] MEDS ORDERED: MOXI1TAB PO (17:04)
[2018-10-22] MEDS ORDERED: PRED20TA PO (17:04)
[2018-10-22 17:05] VITALS: BP 127/58
[2018-10-22] MEDS ORDERED: MOXIFLOXACIN 400 MG TAB PO ONE (17:15)
--- NOTE | 2018-10-22 23:50 | ECGEPIP ---
[facility] - ED Test Date: 2018-10-22 Pat Name: JONATHAN LIU Department: Room: - Gender: Female Division Chair: JUMANA : 1935 Requested By: Chon Talbot Order Number: [id number] Reading MD: Thuan Blanton Measurements Intervals [place] Rate: 69 P: -63 NM: 243 QRS: 21 QRSD: 108 T: 72 QT: 397 QTc: 428 Interpretive Statements ELECTRONIC ATRIAL PACEMAKER LOW QRS VOLTAGE IN PRECORDIAL LEADS Incomplete right bundle branch block INFERIOR MYOCARDIAL INFARCTION, OF INDETERMINATE AGE Nonspecific ST-T wave abnormalities Similar to tracing done 09-25-18 Electronically Signed on 10-22-2018 23:50:12 EDT by Thuan Blanton
[2018-10-23] MEDS ORDERED: PRED20TA PO (23:57)
[2018-10-23] MEDS ORDERED: MOXI1TAB PO (23:57)
--- NOTE | 2018-10-26 13:52 | REP ---
Portable chest, 04:17 p.m., single AP view with the patient upright: Comparison is the PA and lateral chest of 09/25/2018. Chronic cardiomegaly and chronic parenchymal scarring inferiorly in the right lung are unchanged. The pacemaker is unchanged. Lung caldera otherwise clear. The ramonita, mediastinum, skeletal structures are unremarkable. Impression: Chronic findings as described. No acute cardiopulmonary findings. Electronically Signed by Fabian Menjivar MD 10/22/2018 04:29 P
== END 2018-10-22 17:32 | disposition home or self-care (01) ==
LOC: M ED 15:28
DX: J44.1 Chronic obstructive pulmonary disease with (acute) exacerbation (principal); J20.9 Acute bronchitis, unspecified; R07.9 Chest pain, unspecified; Z95.0 Presence of cardiac pacemaker; I45.19 Other right bundle-branch block; I51.7 Cardiomegaly; J30.2 Other seasonal allergic rhinitis; Z99.81 Dependence on supplemental oxygen; Z87.891 Personal history of nicotine dependence; Z79.899 Other long term (current) drug therapy; Z79.82 Long term (current) use of aspirin; Z88.5 Allergy status to narcotic agent

== ENCOUNTER 2018-10-23 20:57 | Inpatient (IN) | payer MEDICARE, MEDICAID ==
[~2018-10-23] VITALS: Ht 152.4 cm; Wt 82.0 kg
[~2018-10-23 20:57] MED LIST changes: +MOXI1TAB PO; +PRED20TA PO
[2018-10-23 21:42] LABS: BASO % 0.1 % (0.0-1.0); HEMATOCRIT 34.7 % (36.0-47.0); HEMOGLOBIN 10.9 g/dl (12.0-15.5); LYMPH # 0.6 10^3/uL (1.5-4.5); MEAN CORPUSCULAR HEMOGLOBIN 33.4 pg (27.0-33.0); MEAN CORPUSCULAR HGB CONC 31.4 g/dl (32.0-36.5); MEAN CORPUSCULAR VOLUME 106.4 fl (80.0-96.0); MONO # 0.2 10^3/uL (0.0-0.8); MONO % 1.9 % (0.0-5.0); NEUTROPHILS # 11.6 10^3/uL (1.8-7.7); NEUTROPHILS % 92.1 % (36.0-66.0); PLATELET COUNT, AUTOMATED 234 10^3/uL (150-450); RED BLOOD COUNT 3.26 10^6/uL (4.00-5.40); VENOUS BASE EXCESS -2.9 (-2.0-2.0); VENOUS HCO3 21.7 MEQ/L (23.0-27.0); VENOUS O2 SATURATION 99.1 % (60.0-80.0); VENOUS PARTIAL PRESSURE CO2 37.1 mmHg (38.0-50.0); VENOUS PARTIAL PRESSURE O2 155.8 mmHg (30.0-50.0); VENOUS PH 7.385 UNITS (7.330-7.430); VENOUS STANDARD HCO3 22.1 MEQ/L; VENOUS TOTAL CO2 22.8 MEQ/L (24.0-28.0); WHITE BLOOD COUNT 12.6 10^3/uL (4.0-10.0)
[2018-10-23] MEDS ORDERED: ALBUTEROL SULFATE 2.5 MG/0.5 ML INH NEB SOLN INH ONE (22:15)
[2018-10-23] MEDS ORDERED: IPRATROPIUM 0.5MG/ALBUTEROL 2.5MG INH SOL UD 3ML (DUONEB)(J7620) NEB ONE (22:15)
[2018-10-23 22:19] LABS: ALBUMIN 3.2 GM/DL (3.2-5.2); ALT/SGPT 16 U/L (12-78); BILIRUBIN,DIRECT < 0.1 MG/DL (0.0-0.2); BILIRUBIN,TOTAL 0.2 MG/DL (0.2-1.0); BLOOD UREA NITROGEN 22 MG/DL (7-18); CALCIUM LEVEL 9.1 MG/DL (8.8-10.2); CARBON DIOXIDE LEVEL 26 MEQ/L (21-32); CHLORIDE LEVEL 104 MEQ/L (98-107); CK-MB VALUE MASS 1.3 NG/ML (<3.6); CPK CREATINE PHOSPHOKINASE 70 U/L (26-192); CREATININE FOR GFR 1.53 MG/DL (0.55-1.30); GLOMERULAR FILTRATION RATE 34.7 (>32); GLUCOSE, FASTING 187 MG/DL (70-100); MB/CK RELATIVE INDEX 1.86 (< OR =4); NT-PRO BNP 526 PG/ML (<450); POTASSIUM SERUM 4.6 MEQ/L (3.5-5.1); SODIUM LEVEL 137 MEQ/L (136-145); THYROID STIMULATING HORMONE 0.647 uIU/ML (0.358-3.740); THYROXINE (T4) 9.9 UG/DL (4.5-12.0); TOTAL PROTEIN 6.7 GM/DL (6.4-8.2); TROPONIN I < 0.02 NG/ML (< 0.10)
[2018-10-23] MEDS ORDERED: ISOVUE-370 76% 100ML VIAL (Q9967) As Ordered ONE (22:20)
--- NOTE | 2018-10-23 22:56 | REPVR ---
EXAM: CT Angiography Chest With Contrast EXAM DATE/TIME: 10/23/2018 10:26 PM CLINICAL HISTORY: 83 years old, female; Shortness of breath TECHNIQUE: Imaging protocol: Computed tomographic angiography images of the chest with intravenous contrast using CT angiography protocol. 3D rendering: MIP reconstructed images were created and reviewed. Radiation optimization: All CT scans at this facility use at least one of these dose optimization techniques: automated exposure control; mA and/or kV adjustment per patient size (includes targeted exams where dose is matched to clinical indication); or iterative reconstruction. Contrast material: ISOVUE 370; Contrast volume: 75 ml; Contrast route: IV; COMPARISON: CT ANGIO CHEST 04/02/2018 5:51 PM FINDINGS: Tubes, catheters and devices: Pacemaker in position from the left. Pulmonary arteries: The main pulmonary artery measures 32 mm. No pulmonary embolism is identified. Aorta: The ascending thoracic aorta measures 35 mm. Lungs: Slightly increased interstitial markings with mild bibasilar fibro-atelectatic change. Pleural space: Unremarkable. No pneumothorax. No pleural effusion. Heart: Coronary artery calcifications are present. Lymph nodes: Unremarkable. No enlarged lymph nodes. Bones/joints: Slight anterior wedge configuration and superior endplate depression of T7 and T8 and slight anterior wedge configuration T6. Soft tissues: Bilateral breast implants. IMPRESSION: 1. There has been little change from 04/02/2018. No acute interval pulmonary embolism is identified. 2. Slightly increased interstitial markings with mild bibasilar fibro-atelectatic change which is similar. Electronically signed by: Morales Fontaine On 10/23/2018 22:56:10 PM
[2018-10-23] MEDS ORDERED: methylPREDNISolone INJ 125 MG/2 ML VIAL (J2930) IV ONE (23:15)
[2018-10-23] MEDS ORDERED: MOXI1TAB PO (23:57)
[2018-10-23] MEDS ORDERED: PRED20TA PO (23:57)
[2018-10-24] MEDS ORDERED: MOM 30ML SUSPENSION UDC PO PRN
[2018-10-24] MEDS ORDERED: ALBUTEROL SULFATE 2.5 MG/0.5 ML INH NEB SOLN NEB PRN (00:15)
--- NOTE | 2018-10-24 00:36 | HPEPDOC ---
General Date of Admission 10/23/18 Date of Service: Oct 23, 2018 Chief Complaint The patient is a 83-year-old female admitted with a reason for visit of SOB. Source: Patient, Family, Old records Exam Limitations: No limitations Severity: Moderate History of Present Illness 83 year old Female with COPD , chronic respiratory failure with hypoxia, CAD s/p PCI, Diastolic CHF, moderate pulmonary hypertension, Pacemaker due to sick sinus syndrome, H/o breast cancer s/p bilateral mastectomy and bilateral breast implants, hypertension, hyperlipidemia, hypothyroid, h/o GIB and chronic iron deficiency anemia presented to the ED with SOB and cough for 5 days. She was here in the ED yesterday and was treated for copd exacerbation and discahrged form D with Prednisone and moxifloxacin. This morning she noticed swelling around her ankles so took extra dose of lasix. This afternoon she again had bouts of coughing with whitish phlegm production and felt increased SOB . SHe used her nebs and her rescue inhalor without any relief and so came back to the ED. She also complained to 2 episodes of Chest pain one 5 days ago and one 3 da ys ago all across the lower chest. She did not have any chest pain today. She had a CT angio of the chest which was negative for PE , negative for any pneumonia or pleural effusion, or pneumothorax of any dissection. She is admitted for Acute bronchitis with COPD exacerbation. Home Medications Scheduled Acetaminophen (Tylenol Arthritis) 650 Mg Tab, 650 MG PO DAILY, (Reported) Amlodipine Besylate (Amlodipine Besylate) 5 Mg Tab, 5 MG PO DAILY, (Reported) Ascorbic Acid (Ascorbic Acid) 500 Mg Tablet, 500 MG PO Q2D, (Reported) Aspirin (Aspirin EC) 81 Mg Tabec, 81 MG PO DAILY, (Reported) Cyanocobalamin (Vitamin B-12) (Vitamin B-12) 1,000 Mcg Tablet, 1,000 MCG PO DAILY, (Reported) Ferrous Sulfate, Dried (Slow Release Iron) 160 Mg Tablet.er, 160 MG PO Q2D, (Reported) NEW MED, NOT STARTED Fluoxetine Hcl (Fluoxetine HCl) 20 Mg Cap, 20 MG PO DAILY, (Reported) Fluticasone/Vilanterol (Breo Ellipta 200-25 Mcg INH) 1 Inh Inh, 1 PUFF INH DAILY, (Reported) Furosemide (Furosemide) 20 Mg Tab, 20 MG PO DAILY, (Reported) Levothyroxine Sodium (Levothyroxine Sodium) 50 Mcg Tab, 50 MCG PO DAILY, (Reported) Magnesium Chloride (Magnesium Chloride) 64 Mg Tablet.dr, 64 MG PO DAILY, (Reported) Moxifloxacin HCl (Moxifloxacin HCl) 400 Mg Tablet, 400 MG PO DAILY, (Reported) Multivitamins (Thera M Plus Tablet) 1 Tab Tab, 1 TAB PO DAILY, (Reported) Pantoprazole Sodium (Pantoprazole Sodium) 40 Mg Tab, 40 MG PO DAILY, (Reported) Potassium Chloride (Potassium Chloride) 20 Meq Packet, 20 MEQ PO DAILY, (Rep orted) Pravastatin Sodium (Pravastatin Sodium) 40 Mg Tab, 40 MG PO DAILY, (Reported) Prednisone (Prednisone) 20 Mg Tablet, 20 MG PO TAPER, (Reported) STARTED 10/23/2018 TAKE 3 TABS DAILY FOR 3 DAYS, THEN 2 TABS DAILY FOR 4 DAYS, THEN 1 TAB DAILY FOR 3 DAYS Tiotropium Pyatt (Spiriva) 18 Mcg Cap, 1 INHALATION INH DAILY, (Reported) Valsartan (Valsartan) 320 Mg Tab, 320 MG PO DAILY, (Reported) Scheduled PRN Albuterol Sulfate (Ventolin Hfa) 108 Mcg/Act Aer, 2 PUFFS INH Q4H PRN for SHORTNESS OF BREATH, (Reported) Furosemide (Furosemide) 20 Mg Tab, 20 MG PO DAILY PRN for HYPERTENSION, (Repo rted) PATIENT TAKES THIS IN ADDITION TO 20MG TABLET TO EQUAL 40MG TOTAL IF BLOOD PRESSURE IS OVER 150/90 Ipratropium/Albuterol Sulfate (Iprat-Albut 0.5-3(2.5) mg/3 ml) 1 Mary Mary, 1 DOSE INH Q8H PRN for SHORTNESS OF BREATH, (Reported) Allergies Coded Allergies: ENVIROMENTAL (Verified Allergy, Unknown, 09/09/18) hydrocodone (Verified Adverse Reaction, Intermediate, hallucinations, confusion while on Vicodin, 09/09/18) Past Medical History Medical History COPD WITH CHRONIC RESPIRATORY FAILURE WITH HYPOXIA HYPERTENSION ARTHRITIS ELEVATED CHOL CHFPEF MODERATE PULMONARY HYPERTENSION OBESITY CAD GERD HX OF BREAST CA PACE MAKER DUE TO SICK SINUS SYNDROME BREAST IMPLANTS DEPRESSION HYPOTHYROIDISM DIVERTICULOSIS, POLYPS, DECREASED ANAL SPHINCTER TONE CHRONIC ANEMIA Surgical History KEV MASECTOMY 2010 AAA REPAIR 08/2015 BACK SURGERY L ELBOW SURGERY FALLOPIAN TUBE REMOVAL R KNEE SURGERY KEV CATARACT REMOVAL PACEMAKER GALLBLADDER REMOVAL COLONOSCOPY PACEMAKER CHANGE 2018 Family History FATHER: , EMPHYSEMA MOTHER: SIBLINGS: , BROTHER WITH CHF SISTER CAR ACCIDENT SON(S): ALIVE DAUGHTER(S): ALIVE 2 BROTHER(S) , 7 SISTER(S) . 4 SON(S) , 1 DAUGHTER(S) - HEALTHY. Social History * Smoker: former Smoker Alcohol: Denies Drugs: denies A-FIB/CHADSVASC A-FIB History Current/History of A-Fib/PAF?: No Review of Systems Constitutional: Reports: Night Sweats, Fatigue Eyes: Denies: Pain, Vision change ENT: Denies: Head Aches, Ear Pain, Dysphagia Skin: Denies: Rash, Lesions, Breakdown Pulmonary: Reports: Dyspnea, Cough Cardiovascular: Reports: Chest Pain, Edema Gastrointestinal: Reports: Diarrhea, Other Symptoms (stool incontinence); Denies: Nausea, Vomiting, Abdominal Pain Genitourinary: Denies: Dysuria, Frequency, Incontinence, Retention Hematologic: Denies: Bruising, Bleeding Excessively Musculoskeletal: Reports: Back Pain; Denies: Neck Pain, Joint Pain, Muscle Pain, Spasms Physical Examination General Exam: Positive: Alert, Cooperative, No Acute Distress Eye Exam: Positive: Conjunctiva & lids normal, EOMI; Negative: Sclera icteric ENT Exam: Positive: Atraumatic, Mucous membr. moist/pink, Pharynx Normal Neck Exam: Positive: Supple; Negative: JVD, thyromegaly Chest Exam: Positive: Clear to auscultation, Diminished, Other (some basal crackles on the right); Negative: Rhonchi, Wheezing Heart Exam: Positive: Rate Normal, Regular Rhythm, Normal S1, Normal S2; Negative: Murmurs, Rubs Abdomen Exam: Positive: Normal bowel sounds, Soft; Negative: Tenderness, Hepatospenomegaly Extremity Exam: Negative: Clubbing, Cyanosis, Edema Skin Exam: Positive: Nl turgor and temperature; Negative: Breakdown, Lesion Neuro Exam: Positive: Normal Speech, Strength at 5/5 X4 ext, Normal Tone Vital Signs Vital Signs Date Time Temp Pulse Resp B/P (MAP) Pulse Ox O2 Delivery O2 Flow Rate FiO2 10/23/18 22:45 76 110/52 (71) 92 Nasal Cannula 2.0 10/23/18 20:58 97.4 12 Laboratory Data Labs 24H Laboratory Tests 2 10/23/18 21:25: Immature Granulocyte % (Auto) 0.9, White Blood Count 12.6H, Red Blood Count 3.26L, Hemoglobin 10.9L, Hematocrit 34.7L, Mean Corpuscular Volume 106.4H, Mean Corpuscular Hemoglobin 33.4H, Mean Corpuscular Hemoglobin Concent 31.4L, Red Cell Distribution Width 13.6, Platelet Count 234, Neutrophils (%) (Auto) 92.1H, Lymphocytes (%) (Auto) 5.0L, Monocytes (%) (Auto) 1.9, Eosinophils (%) (Auto) 0.0, Basophils (%) (Auto) 0.1, Neutrophils # (Auto) 11.6H, Lymphocytes # (Auto) 0.6L, Monocytes # (Auto) 0.2, Eosinophils # (Auto) 0.0, Basophils # (Auto) 0.0, Nucleated Red Blood Cells % (auto) 0.0, Blood Gas Bicarbonate Standard 22.1, Venous Blood pH 7.385, Venous Blood Partial Pressure CO2 37.1L, Venous Blood Partial Pressure O2 155.8H, Venous Blood Total Carbon Dioxide 22.8L, Venous Blood HCO3 21.7L, Venous Blood Oxygen Saturation 99.1H, Venous Blood Base Excess -2.9L, Anion Gap 7L, Glomerular Filtration Rate 34.7, Lactic Acid Level 3.1*H, Calcium Level 9.1, Aspartate Amino Transf (AST/SGOT) 14, Alanine Aminotransfe rase (ALT/SGPT) 16, Alkaline Phosphatase 78, Total Bilirubin 0.2, Direct Bilirubin < 0.1, Total Creatine Kinase 70, Creatine Kinase MB 1.3, Creatine Kinase MB Relative Index 1.86, Troponin I < 0.02, SN-Hvy-Q-Type Natriuretic Peptide 526H, Total Protein 6.7, Albumin 3.2, Albumin/Globulin Ratio 0.91L, Thyroid Stimulating Hormone (TSH) 0.647, Thyroxine (T4) 9.9 CBC/BMP Laboratory Tests 10/23/18 21:25 Red Blood Count 3.26 L, Mean Corpuscular Volume 106.4 H, Mean Corpuscular Hem oglobin 33.4 H, Mean Corpuscular Hemoglobin Concent 31.4 L, Red Cell Distribution Width 13.6, Neutrophils (%) (Auto) 92.1 H, Lymphocytes (%) (Auto) 5.0 L, Monocytes (%) (Auto) 1.9, Eosinophils (%) (Auto) 0.0, Basophils (%) (Auto) 0.1, Neutrophils # (Auto) 11.6 H, Lymphocytes # (Auto) 0.6 L, Monocytes # (Auto) 0.2, Eosinophils # (Auto) 0.0, Basophils # (Auto) 0.0 Microbiology Microbiology 10/23/18 Blood Culture, Received Pending 10/23/18 Blood Culture, Received Pending Assessment/Plan 83 year old Female with COPD , chronic respiratory failure with hypoxia, CAD s/p PCI, Diastolic CHF, moderate pulmonary hypertension, Pacemaker due to sick sinus syndrome, H/o breast cancer s/p bilateral mastectomy and bilateral breast implants, hypertension, hyperlipidemia, hypothyroid, h/o GIB and chronic iron deficiency anemia presented to the ED with SOB and cough for 5 days. She had a CT angio of the chest which was negative for PE , negative for any pneumonia or pleural effusion, or pneumothorax of any dissection. She is admitted for Acute bronchitis with COPD exacerbation. COPD exacerbation with acute bronchitis will continue with duonebs, symbicort, methyl prenisolone, moxifloxacin Lacticacidosis due to incresed work of breathing will get 4 hour follow up lactate DANIEL will hold off on ny extra lasix at present will continue to monitor. Chronic respiratory failure with hypoxia continue oxygen supplementation Diastolic CHF looks euvolemic at this time will continue with home lasix dose Hypertension bp lowish now will continue with amlodipine and valsartan with hold CAD s/p angioplasty in the remote past continue ASA, statin EKG to acute changes hypothyroid continue synthroid. Hyperlipidemia continue statin GERD continue pantoprazole. H/O sick sinus syndrome has pacemaker in place H/o breast cancer with bilateral mastectomies and bilateral breast implants. Plan / VTE VTE Prophylaxis Ordered?: Yes RICO DUMONT MD Oct 23, 2018 23:47
[2018-10-24 02:30] VITALS: BP 134/72
[2018-10-24] MEDS ORDERED: NS 1,000 ML IV SCH (03:00)
[2018-10-24] MEDS: LEVOTHYROXINE 50MCG TABLET (0.05MG) PO SCH (05:29)
[2018-10-24 05:57] LABS: CALCIUM LEVEL 8.5 MG/DL (8.8-10.2); CREATININE FOR GFR 1.32 MG/DL (0.55-1.30); GLOMERULAR FILTRATION RATE 41.1 (>32); POTASSIUM SERUM 4.4 MEQ/L (3.5-5.1)
[2018-10-24 06:00] VITALS: BP 122/60
--- NOTE | 2018-10-24 07:18 | ECGEPIP ---
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
[2018-10-24] MEDS: IPRATROPIUM 0.5MG/ALBUTEROL 2.5MG INH SOL UD 3ML (DUONEB)(J7620) NEB SCH ×3 (07:34→23:08)
[2018-10-24] MEDS: SYMBICORT 80/4.5MCG INHALER 6GM INH SCH ×2 (07:35→20:29)
[2018-10-24] MEDS: ENOXAPARIN 30 MG/0.3 ML SYR (J1650) SC SCH (08:16)
[2018-10-24] MEDS: methylPREDNISolone INJ 40 MG/1 ML VIAL (J2920) IV SCH ×2 (08:16→15:53)
[2018-10-24] MEDS: ASPIRIN 81 MG ENTERIC TAB PO SCH (08:16)
[2018-10-24] MEDS: MOXIFLOXACIN 400 MG TAB PO SCH (08:17)
[2018-10-24] MEDS: DOCUSATE SODIUM 100 MG CAP PO SCH ×2 (08:17→20:40)
[2018-10-24] MEDS: FLUoxetine 20 MG CAP PO SCH (08:17)
[2018-10-24] MEDS: PRAVASTATIN 20 MG TAB PO SCH (08:17)
[2018-10-24] MEDS: PANTOPRAZOLE 40MG TAB (PROTONIX) PO SCH (08:17)
[2018-10-24] MEDS: VALSARTAN 80 MG TAB (DIOVAN) PO SCH (08:18)
[2018-10-24] MEDS: amLODIPine 5 MG TAB PO SCH (08:18)
[2018-10-24] MEDS ORDERED: FUROSEMIDE 20 MG TAB PO SCH (09:00)
[2018-10-24 10:12] LABS: BASO % 0.1 % (0.0-1.0); LYMPH # 0.4 10^3/uL (1.5-4.5); LYMPH % 3.5 % (24.0-44.0); MEAN CORPUSCULAR HEMOGLOBIN 33.1 pg (27.0-33.0); MEAN CORPUSCULAR HGB CONC 31.3 g/dl (32.0-36.5); MONO # 0.1 10^3/uL (0.0-0.8); MONO % 1.2 % (0.0-5.0); NEUTROPHILS # 11.2 10^3/uL (1.8-7.7); NEUTROPHILS % 94.4 % (36.0-66.0); PLATELET COUNT, AUTOMATED 236 10^3/uL (150-450); RED BLOOD COUNT 3.02 10^6/uL (4.00-5.40); WHITE BLOOD COUNT 11.8 10^3/uL (4.0-10.0)
--- NOTE | 2018-10-24 10:51 | REP ---
Portable chest, 09:44 p.m., single AP view with the patient sitting: Comparison is 10/22/2018. Chronic cardiomegaly is unchanged. Chronic parenchymal scarring inferiorly in the right lung is unchanged. Pacemaker is unchanged. Lung caldera otherwise clear and unchanged. The ramonita, mediastinum, skeletal structures are unremarkable and unchanged. Impression: No acute cardiopulmonary findings. There are chronic changes as described. Electronically Signed by Fabian Menjivar MD 10/24/2018 07:50 A
[2018-10-24] MEDS: MAALOX 30 ML SUSP *UDC PO PRN (11:09)
[2018-10-24] MEDS: FUROSEMIDE 40 MG/4 ML VIAL (J1940) IV SCH ×2 (11:53→17:43)
--- NOTE | 2018-10-24 13:05 | IPN ---
DATE OF SERVICE: 10/24/2018 PRIMARY CARE PROVIDER: Dr. Kaylene Bennett, [facility]. ATTENDING PHYSICIAN: Hospitalist group. HISTORY: Candi Wu was admitted with exacerbation of chronic obstructive pulmonary disease (COPD). She has a history of pulmonary hypertension, probable cor pulmonale, diastolic congestive heart failure, coronary disease, chronic respiratory failure with hypoxia. She was having increasing shortness of breath, no extreme edema despite augmenting doses of diuretic and frequent nebulized bronchodilator at home. She feels better today than yesterday. The edema is already better. PHYSICAL EXAMINATION: Vital signs stable, afebrile. General appearance: Alert, conversant. Smiling, no distress. No JVD. Lungs: Expiratory wheezes both bases. Heart: Regular rhythm. Abdomen soft, nontender. 1+ peripheral edema. LABS: White count 11.8, hemoglobin 10, platelets 236. Sodium 137, potassium 4.4, BUN 23, creatinine 1,3 glucose 182. Lactate were high for what it is worth. Respiratory panel is negative. IMPRESSION: 1. Exacerbation of chronic obstructive pulmonary disease (COPD) secondary to presumed bronchitis. Continue nebulized bronchodilator, steroid, empiric antibiotics. 2. History of diastolic congestive heart failure, we are going to augment her home Lasix dose, put her on some IV Lasix with a net negative of 1 liter per day. 3. Lactic acidosis probably from work of breathing. She actually looks quite well, I am not following these lactates. 4. Acute kidney injury. I think she would benefit from some diuresis. Daily labs have been ordered. She is hoping she can go home tomorrow but I think that might be a little early. It will take a few more days than that to get her fully stabilized.
[2018-10-24 14:00] VITALS: BP 151/67
[2018-10-24 22:00] VITALS: BP 141/62
[2018-10-25] MEDS: FUROSEMIDE 40 MG/4 ML VIAL (J1940) IV SCH ×4 (00:24→18:00)
[2018-10-25] MEDS: methylPREDNISolone INJ 40 MG/1 ML VIAL (J2920) IV SCH ×3 (00:24→16:11)
[2018-10-25] MEDS: LEVOTHYROXINE 50MCG TABLET (0.05MG) PO SCH (05:33)
[2018-10-25 06:00] VITALS: BP 139/79
[2018-10-25 06:07] LABS: BASO % 0.2 % (0.0-1.0); HEMOGLOBIN 11.1 g/dl (12.0-15.5); LYMPH # 0.5 10^3/uL (1.5-4.5); LYMPH % 4.8 % (24.0-44.0); MEAN CORPUSCULAR HEMOGLOBIN 33.8 pg (27.0-33.0); MEAN CORPUSCULAR HGB CONC 31.7 g/dl (32.0-36.5); MEAN CORPUSCULAR VOLUME 106.7 fl (80.0-96.0); MONO # 0.2 10^3/uL (0.0-0.8); MONO % 2.2 % (0.0-5.0); NEUTROPHILS # 10.1 10^3/uL (1.8-7.7); NEUTROPHILS % 91.7 % (36.0-66.0); PLATELET COUNT, AUTOMATED 240 10^3/uL (150-450); RED BLOOD COUNT 3.28 10^6/uL (4.00-5.40)
[2018-10-25 06:23] LABS: CALCIUM LEVEL 8.7 MG/DL (8.8-10.2); CREATININE FOR GFR 1.21 MG/DL (0.55-1.30); GLOMERULAR FILTRATION RATE 45.5 (>32); POTASSIUM SERUM 3.7 MEQ/L (3.5-5.1)
[2018-10-25] MEDS: IPRATROPIUM 0.5MG/ALBUTEROL 2.5MG INH SOL UD 3ML (DUONEB)(J7620) NEB SCH ×3 (08:00→23:01)
[2018-10-25] MEDS: SYMBICORT 80/4.5MCG INHALER 6GM INH SCH ×2 (08:07→21:01)
[2018-10-25] MEDS: ASPIRIN 81 MG ENTERIC TAB PO SCH (08:27)
[2018-10-25] MEDS: DOCUSATE SODIUM 100 MG CAP PO SCH ×2 (08:27→20:25)
[2018-10-25] MEDS: PANTOPRAZOLE 40MG TAB (PROTONIX) PO SCH (08:27)
[2018-10-25] MEDS: ENOXAPARIN 30 MG/0.3 ML SYR (J1650) SC SCH (08:27)
[2018-10-25] MEDS: FLUoxetine 20 MG CAP PO SCH (08:27)
[2018-10-25] MEDS: PRAVASTATIN 20 MG TAB PO SCH (08:27)
[2018-10-25] MEDS: MOXIFLOXACIN 400 MG TAB PO SCH (08:28)
[2018-10-25] MEDS: amLODIPine 5 MG TAB PO SCH (08:30)
[2018-10-25] MEDS: VALSARTAN 80 MG TAB (DIOVAN) PO SCH (08:30)
[2018-10-25 14:00] VITALS: BP 129/46
[2018-10-25 22:00] VITALS: BP 150/71
--- NOTE | 2018-10-25 22:04 | IPNPDOC ---
Text Note Date of Service The patient was seen on 10/25/18. NOTE SUBJECTIVE: States she is feeling better however not back to baseline, still having significant GARCIA when ambulating to restroom. Back to her home oxygen requirements. Vitals signs reviewed PE GEN: Obese female, sitting in bed, NAD HEENT: EOMI, MMM, nasal cannula in place. Cardio: S1/S2 present, RRR, no m/r/g Lungs: CTA b/l, mildly decreased air entry, scattered wheezing. Abd: s, nt, nd, bs present Ext: no focal weakness, no LE edema A/P Acute exacerbation of COPD: continue nebulizers, steroids and empiric antibiotics. Oxygen titrated back down to home dose, doing well. Encourage ambulation as tolerated. CHF: continue IV Lasix for today, change back to PO tomorrow. Continue other chronic meds. DANIEL: likely due to altered hemodynamics from COPD exacerbation, improved. Patient gradually improving, can hopefully be discharged tomorrow with home services reinstated. Vital Signs Date Time Temp Pulse Resp B/P (MAP) Pulse Ox O2 Delivery O2 Flow Rate FiO2 10/25/18 20:30 2.0 10/25/18 15:20 2.0 10/25/18 14:00 98.7 70 18 129/46 (73) 92 2.0 10/25/18 08:30 160/76 10/25/18 08:30 71 160/76 10/25/18 06:00 97.2 73 17 139/79 (99) 95 2.0 Intake & Output 10/25/18 06:00 Intake Total 1865 ml Output Total 5150 ml Balance -3285 ml Laboratory Tests 10/25/18 05:48: White Blood Count 11.0H, Red Blood Count 3.28L, Hemoglobin 11.1L, Hematocrit 35.0L, Mean Corpuscular Volume 106.7H, Mean Corpuscular Hemoglobin 33.8H, Mean Corpuscular Hemoglobin Concent 31.7L, Red Cell Distribution Width 13.7, Platelet Count 240, Neutrophils (%) (Auto) 91.7H, Lymphocytes (%) (Auto) 4.8L, Monocytes (%) (Auto) 2.2, Eosinophils (%) (Auto) 0.0, Basophils (%) (Auto) 0.2, Neutr ophils # (Auto) 10.1H, Lymphocytes # (Auto) 0.5L, Monocytes # (Auto) 0.2, Eosinophils # (Auto) 0.0, Basophils # (Auto) 0.0, Immature Granulocyte % (Auto) 1.1, Nucleated Red Blood Cells % (auto) 0.0, Blood Urea Nitrogen 25H, Creatinine 1.21, Sodium Level 139, Potassium Level 3.7, Chloride Level 98, Carbon Dioxide Level 35H, Calcium Level 8.7L, Anion Gap 6L, Glomerular Filtration Rate 45.5, Fasting Glucose 176H Microbiology 10/23/18 Respiratory Virus Panel (PCR) (IZABELA) - Final, Complete Current Medications Medications (Trade) Dose Ordered Sig/Danielito Route PRN Reason Start Time Stop Time Status Last Admin Dose Admin Al Hydrox/Mg Hydrox/Simethicone (Mylanta) 30 ml DAILY PRN PO DYSPEPSIA 10/24/18 00:00 10/24/18 11:09 30 ML Albuterol Sulfate (Proventil Neb) 2.5 mg Q2HP PRN NEB SOB/WHEEZING 10/24/18 00:15 10/24/18 03:28 2.5 MG Albuterol/ Ipratropium (Duoneb (Ipr 0.5mg/Alb 2.5mg)) 3 ml RQ8H NEB 10/24/18 08:00 10/25/18 17:00 3 ML Amlodipine Besylate (Norvasc) 5 mg DAILY PO 10/24/18 09:00 10/25/18 08:30 5 MG Aspirin (Ecotrin) 81 mg DAILY PO 10/24/18 09:00 10/25/18 08:27 81 MG Budesonide/ Formoterol Fumarate (Symbicort 80/ 4.5mcg) 2 puff RBID INH 10/24/18 08:00 10/25/18 21:01 2 PUFF Docusate Sodium (Colace) 100 mg BID PO 10/24/18 09:00 10/25/18 20:25 100 MG Enoxaparin Sodium (Lovenox) 30 mg DAILY SC 10/24/18 09:00 10/25/18 08:27 30 MG Fluoxetine HCl (PROzac) 20 mg DAILY PO 10/24/18 09:00 10/25/18 08:27 20 MG Furosemide (LASIX injection) 40 mg Q6H IV 10/24/18 12:00 10/25/18 00:24 40 MG Levothyroxine Sodium (Synthroid) 50 mcg DAILY@0600 PO 10/24/18 06:00 10/25/18 05:33 50 MCG Methylprednisolone (SOLU medrol) 40 mg Q8H IV 10/24/18 08:00 10/25/18 16:11 40 MG Moxifloxacin HCl (Avelox) 400 mg DAILY PO 10/24/18 09:00 10/25/18 08:28 400 MG Pantoprazole Sodium (Protonix) 40 mg DAILY PO 10/24/18 09:00 10/25/18 08:27 40 MG Pravastatin Sodium (Pravachol) 40 mg DAILY PO 10/24/18 09:00 10/25/18 08:27 40 MG Valsartan (Diovan) 320 mg DAILY PO 10/24/18 09:00 10/25/18 08:30 320 MG VS,Fishbone, I+O VS, Fishbone, I+O Laboratory Tests 10/25/18 05:48 Red Blood Count 3.28 L, Mean Corpuscular Volume 106.7 H, Mean Corpuscular Hemoglobin 33.8 H, Mean Corpuscular Hemoglobin Concent 31.7 L, Red Cell Distribution Width 13.7, Neutrophils (%) (Auto) 91.7 H, Lymphocytes (%) (Auto) 4.8 L, Monocytes (%) (Auto) 2.2, Eosinophils (%) (Auto) 0.0, Basophils (%) (Auto) 0.2, Neutrophils # (Auto) 10.1 H, Lymphocytes # (Auto) 0.5 L, Monocytes # (Auto) 0.2, Eosinophils # (Auto) 0.0, Basophils # (Auto) 0.0, Calcium Level 8.7 L Vital Signs Date Time Temp Pulse Resp B/P (MAP) Pulse Ox O2 Delivery O2 Flow Rate FiO2 10/25/18 20:30 2.0 10/25/18 14:00 98.7 70 18 129/46 (73) 92 10/24/18 02:00 Nasal Cannula I&O- Last 24 Hours up to 6 AM 10/25/18 06:00 Intake Total 1865 ml Output Total 5150 ml Balance -3285 ml RHODA LA MD Oct 25, 2018 22:04
[2018-10-26] MEDS: methylPREDNISolone INJ 40 MG/1 ML VIAL (J2920) IV SCH ×2 (00:25→08:52)
[2018-10-26] MEDS: FUROSEMIDE 40 MG/4 ML VIAL (J1940) IV SCH ×3 (00:26→11:48)
[2018-10-26] MEDS: LEVOTHYROXINE 50MCG TABLET (0.05MG) PO SCH (05:58)
[2018-10-26 06:00] VITALS: BP 150/71
[2018-10-26 06:46] LABS: BASO % 0.2 % (0.0-1.0); HEMATOCRIT 35.2 % (36.0-47.0); HEMOGLOBIN 11.3 g/dl (12.0-15.5); LYMPH # 0.5 10^3/uL (1.5-4.5); LYMPH % 5.5 % (24.0-44.0); MEAN CORPUSCULAR HEMOGLOBIN 34.3 pg (27.0-33.0); MEAN CORPUSCULAR HGB CONC 32.1 g/dl (32.0-36.5); MONO # 0.4 10^3/uL (0.0-0.8); MONO % 3.7 % (0.0-5.0); NEUTROPHILS # 8.4 10^3/uL (1.8-7.7); NEUTROPHILS % 88.9 % (36.0-66.0); PLATELET COUNT, AUTOMATED 244 10^3/uL (150-450); RED BLOOD COUNT 3.29 10^6/uL (4.00-5.40); WHITE BLOOD COUNT 9.5 10^3/uL (4.0-10.0)
[2018-10-26 07:11] LABS: CALCIUM LEVEL 8.5 MG/DL (8.8-10.2); CREATININE FOR GFR 1.31 MG/DL (0.55-1.30); GLOMERULAR FILTRATION RATE 41.5 (>32); POTASSIUM SERUM 3.4 MEQ/L (3.5-5.1)
[2018-10-26] MEDS: SYMBICORT 80/4.5MCG INHALER 6GM INH SCH ×2 (07:31→19:43)
[2018-10-26] MEDS: IPRATROPIUM 0.5MG/ALBUTEROL 2.5MG INH SOL UD 3ML (DUONEB)(J7620) NEB SCH ×3 (07:32→23:21)
[2018-10-26] MEDS: amLODIPine 5 MG TAB PO SCH (08:52)
[2018-10-26] MEDS: ENOXAPARIN 30 MG/0.3 ML SYR (J1650) SC SCH (08:52)
[2018-10-26] MEDS: FLUoxetine 20 MG CAP PO SCH (08:53)
[2018-10-26] MEDS: PANTOPRAZOLE 40MG TAB (PROTONIX) PO SCH (08:53)
[2018-10-26] MEDS: VALSARTAN 80 MG TAB (DIOVAN) PO SCH (08:53)
[2018-10-26] MEDS: MOXIFLOXACIN 400 MG TAB PO SCH (08:53)
[2018-10-26] MEDS: DOCUSATE SODIUM 100 MG CAP PO SCH ×3 (08:53→19:59)
[2018-10-26] MEDS: PRAVASTATIN 20 MG TAB PO SCH (08:53)
[2018-10-26] MEDS: ASPIRIN 81 MG ENTERIC TAB PO SCH (08:53)
[2018-10-26] MEDS: MAALOX 30 ML SUSP *UDC PO PRN (09:31)
[2018-10-26 14:00] VITALS: BP 140/70
[2018-10-26 14:23] VITALS: BP_SYST 106; BP_SYST 122; BP_SYST 131; BP_DIAS 58; BP_DIAS 62
--- NOTE | 2018-10-26 19:02 | IPNPDOC ---
Text Note Date of Service The patient was seen on 10/26/18. NOTE S: patient states her breathing is better. on baseline chronic oxygen 2 liter. still gets winded and light headed with ambulating or going from sit to stand position (Positive orthostatic BP). no cough, no CP. States occasional chronic memory problems but will follow up with PCP - Dr Bennett O: Vitals as below General: pleasant NAD AAOx3 HRRR LCTA - no W/R/R Ext: no edema Vital Signs Label Value Date Time Blood Pressure Assessment 131/62 (85) 10/26/18 1423 Location Right Arm Source Automatic Cuff (NIBP) Position Supine Blood Pressure Assessment 122/62 (82) 10/26/18 1423 Location Right Arm Source Automatic Cuff (NIBP) Position Sitting Blood Pressure Assessment 106/58 (74) 10/26/18 1423 Location Right Arm Source Automatic Cuff (NIBP) Position Standing Pulse 75 10/26/18 1423 Pulse 79 10/26/18 1423 Pulse 87 10/26/18 1423 A/P Acute exacerbation of COPD: continue nebulizers, change IV to po steroids . Acute diastolic CHF: RESOLVED. dc lasix as patient only uses PRN at home for leg edema. Orthostatic hypotension due to overdiuresis. - encourage oral intake. d/c lasix. DANIEL: likely due to altered hemodynamics from COPD exacerbation, improved. Disposition - possible d/c tomorrow with home services. VS,Fishbone, I+O VS, Fishbone, I+O Laboratory Tests 10/26/18 06:16 Red Blood Count 3.29 L, Mean Corpuscular Volume 107.0 H, Mean Corpuscular Hemoglobin 34.3 H, Mean Corpuscular Hemoglobin Concent 32.1, Red Cell Distributi on Width 13.6, Neutrophils (%) (Auto) 88.9 H, Lymphocytes (%) (Auto) 5.5 L, Monocytes (%) (Auto) 3.7, Eosinophils (%) (Auto) 0.0, Basophils (%) (Auto) 0.2, Neutrophils # (Auto) 8.4 H, Lymphocytes # (Auto) 0.5 L, Monocytes # (Auto) 0.4, Eosinophils # (Auto) 0.0, Basophils # (Auto) 0.0, Calcium Level 8.5 L Vital Signs Date Time Temp Pulse Resp B/P (MAP) Pulse Ox O2 Delivery O2 Flow Rate FiO2 10/26/18 09:00 2.0 10/26/18 08:53 132/57 10/26/18 08:52 75 10/26/18 06:00 98.0 18 94 10/24/18 02:00 Nasal Cannula I&O- Last 24 Hours up to 6 AM 10/26/18 06:00 Intake Total 1260 ml Output Total 1980 ml Balance -720 ml CECILIA PINA DO Oct 26, 2018 13:44
[2018-10-26 22:00] VITALS: BP 151/67
[2018-10-27] MEDS: LEVOTHYROXINE 50MCG TABLET (0.05MG) PO SCH (05:56)
[2018-10-27 06:00] VITALS: BP 153/70
[2018-10-27 06:13] LABS: BASO % 0.1 % (0.0-1.0); EOS % 0.2 % (0.0-3.0); HEMATOCRIT 33.8 % (36.0-47.0); HEMOGLOBIN 10.7 g/dl (12.0-15.5); LYMPH # 1.6 10^3/uL (1.5-4.5); LYMPH % 18.6 % (24.0-44.0); MEAN CORPUSCULAR HEMOGLOBIN 33.1 pg (27.0-33.0); MEAN CORPUSCULAR HGB CONC 31.7 g/dl (32.0-36.5); MEAN CORPUSCULAR VOLUME 104.6 fl (80.0-96.0); MONO # 0.9 10^3/uL (0.0-0.8); MONO % 10.6 % (0.0-5.0); NEUTROPHILS # 5.8 10^3/uL (1.8-7.7); NEUTROPHILS % 68.6 % (36.0-66.0); PLATELET COUNT, AUTOMATED 226 10^3/uL (150-450); RED BLOOD COUNT 3.23 10^6/uL (4.00-5.40); WHITE BLOOD COUNT 8.5 10^3/uL (4.0-10.0)
[2018-10-27 06:33] LABS: CALCIUM LEVEL 8.5 MG/DL (8.8-10.2); CREATININE FOR GFR 1.19 MG/DL (0.55-1.30); GLOMERULAR FILTRATION RATE 46.3 (>32); POTASSIUM SERUM 3.2 MEQ/L (3.5-5.1)
[2018-10-27] MEDS: SYMBICORT 80/4.5MCG INHALER 6GM INH SCH (07:19)
[2018-10-27] MEDS: IPRATROPIUM 0.5MG/ALBUTEROL 2.5MG INH SOL UD 3ML (DUONEB)(J7620) NEB SCH (07:22)
[2018-10-27] MEDS: ENOXAPARIN 30 MG/0.3 ML SYR (J1650) SC SCH (08:27)
[2018-10-27 08:29] VITALS: BP 168/83
[2018-10-27] MEDS: amLODIPine 5 MG TAB PO SCH (08:29)
[2018-10-27] MEDS: ASPIRIN 81 MG ENTERIC TAB PO SCH (08:29)
[2018-10-27] MEDS: FLUoxetine 20 MG CAP PO SCH (08:29)
[2018-10-27] MEDS: DOCUSATE SODIUM 100 MG CAP PO SCH (08:29)
[2018-10-27] MEDS: PANTOPRAZOLE 40MG TAB (PROTONIX) PO SCH (08:29)
[2018-10-27] MEDS: VALSARTAN 80 MG TAB (DIOVAN) PO SCH (08:29)
[2018-10-27] MEDS: PRAVASTATIN 20 MG TAB PO SCH (08:30)
[2018-10-27] MEDS: MOXIFLOXACIN 400 MG TAB PO SCH (08:30)
[2018-10-27 09:00] VITALS: BP_SYST 117; BP_SYST 121; BP_SYST 126; BP_DIAS 61; BP_DIAS 65; BP_DIAS 66
[2018-10-27] MEDS ORDERED: predniSONE 20 MG TAB PO SCH (09:00)
[2018-10-27] MEDS ORDERED: POTASSIUM CHLORIDE 10 MEQ SR TABLET PO ONE (12:15)
[2018-10-27] MEDS ORDERED: K-TA10TA PO (13:22)
--- NOTE | 2018-10-27 17:49 | DS.PDOC ---
Discharge Summary General Date of Admission Oct 23, 2018 at 23:50 Date of Discharge 10/27/18 Primary Care Physician: RAINER RODRIGUEZ MD Attending Physician: CECILIA PINA DO Discharge Summary PROCEDURES PERFORMED DURING STAY: none ADMITTING DIAGNOSES: COPD exacerbation with acute bronchitis Lacticacidosis DANEIL Chronic respiratory failure with hypoxia Diastolic CHF Hypertension CAD s/p angioplasty in the remote past hypothyroid Hyperlipidemia DISCHARGE DIAGNOSES: Acute exacerbation of COPD with acute bronchitis Chronic hypoxic respiratory failure Acute diastolic CHF: Orthostatic hypotension due to overdiuresis DANIEL Hypokalemia due to diuretics COMPLICATIONS/CHIEF COMPLAINT: Copd Exacerbation. HISTORY OF PRESENT ILLNESS: 83 year old Female with COPD , chronic respiratory failure with hypoxia, CAD s/p PCI, Diastolic CHF, moderate pulmonary hypertension, Pacemaker due to sick sinus syndrome, H/o breast cancer s/p bilateral mastectomy and bilateral breast implants, hypertension, hyperlipidemia, hypothyroid, h/o GIB and chronic iron deficiency anemia presented to the ED with SOB and cough for 5 days. She was here in the ED yesterday and was treated for copd exacerbation and discahrged form D with Prednisone and moxifloxacin. This morning she noticed swelling around her ankles so took extra dose of lasix. This afternoon she again had bouts of coughing with whitish phlegm production and felt increased SOB . SHe used her nebs and her rescue inhalor without any relief and so came back to the ED. She also complained to 2 episodes of Chest pain one 5 days ago and one 3 days ago all across the lower chest. She did not have any chest pain today. She had a CT angio of the chest which was negative for PE , negative for any pn eumonia or pleural effusion, or pneumothorax of any dissection. She is admitted for Acute bronchitis with COPD exacerbation. See H&P for details HOSPITAL COURSE: Patient admitted, placed on IV steroids, IV moxifloxacin, nebs, oxygen and IV diuresis. She continued to improve and 24 hours prior to discharge, IV steroids, IV moxiflox were changed to orals and pateint tolerated well with no rebound wheezing or SOB. As for her diuresis, the iV lasix was stopped and pateint was able to show improvement to DANIEL and iatrogenic orthostatic hypotension with oral rehydration . Patient is being discharged in stable and improved condition. DISCHARGE MEDICATIONS: Please see below. ALLERGIES: Please see below. PHYSICAL EXAMINATION ON DISCHARGE: VITAL SIGNS: Please see below. Orthostatic Vital Signs Label Value Date Time Blood Pressure Assessment 121/61 (81) 10/27/18 0900 Location Right Arm Source Automatic Cuff (NIBP) Position Supine Blood Pressure Assessment 117/65 (82) 10/27/18 0900 Location Right Arm Source Automatic Cuff (NIBP) Position Sitting Blood Pressure Assessment 126/66 (86) 10/27/18 0900 Location Right Arm Source Automatic Cuff (NIBP) Position Standing Vital Signs Label Value Date Time Blood Pressure Assessment 106/58 (74) 10/26/18 1423 Location Right Arm Source Automatic Cuff (NIBP) Position Standing Blood Pressure Assessment 122/62 (82) 10/26/18 1423 Location Right Arm Source Automatic Cuff (NIBP) Position Sitting Blood Pressure Assessment 131/62 (85) 10/26/18 1423 Location Right Arm Source Automatic Cuff (NIBP) Position Supine General: pleasant NAD AAOx3 HRRR LCTA - no W/R/R Ext: no edema LABORATORY DATA: Please see below. ACTIVITY: as tolerated DIET: low salt DISCHARGE PLAN: discharge home DISCHARGE INSTRUCTIONS: Continue with lasix prn as prior to admission Take extra potassium in AM (40meq) Continue with prednisone taper and moxifloxin as prescribed by ED prior to admission Follow up with Dr Mo in 5-7 days to recheck lungs, potassium, etc DISCHARGE CONDITION: stable TIME SPENT ON DISCHARGE: 42 minutes. Vital Signs/I&Os Vital Signs Date Time Temp Pulse Resp B/P (MAP) Pulse Ox O2 Delivery O2 Flow Rate FiO2 10/27/18 09:00 70 121/61 (81) 68 117/65 (82) 86 126/66 (86) 10/27/18 09:00 2.0 10/27/18 06:00 98.4 18 98 10/24/18 02:00 Nasal Cannula I&O- Last 24 Hours up to 6 AM 10/27/18 06:00 Intake Total 880 ml Output Total 500 ml Balance 380 ml Laboratory Data Labs 24H Laboratory Tests 2 10/27/18 05:45: Immature Granulocyte % (Auto) 1.9, White Blood Count 8.5, Red Blood Count 3.23L, Hemoglobin 10.7L, Hematocrit 33.8L, Mean Corpuscular Volume 104.6H, Mean Corpuscular Hemoglobin 33.1H, Mean Corpuscular Hemoglobin Concent 31.7L, Red Cell Distribution Width 13.4, Platelet Count 226, Neutrophils (%) (Auto) 68.6H, Lymphocytes (%) (Auto) 18.6L, Monocytes (%) (Auto) 10.6H, Eosinophils (%) (Auto) 0.2, Basophils (%) (Auto) 0.1, Neutrophils # (Auto) 5.8, Lymphocytes # (Auto) 1.6, Monocytes # (Auto) 0.9H, Eosinophils # (Auto) 0.0, Basophils # (Auto) 0.0, Nucleated Red Blood Cells % (auto) 0.2H, Anion Gap 6L, Glomerular Filtration Rate 46.3, Blood Urea Nitrogen 32H, Creatinine 1.19, Sodium Level 141, Potassium Level 3.2L, Chloride Level 99, Carbon Dioxide Level 36H, Calcium Level 8.5L CBC/BMP Laboratory Tests 10/27/18 05:45 Red Blood Count 3.23 L, Mean Corpuscular Volume 104.6 H, Mean Corpuscular Hemoglobin 33.1 H, Mean Corpuscular Hemoglobin Concent 31.7 L, Red Cell Distribution Width 13.4, Neutrophils (%) (Auto) 68.6 H, Lymphocytes (%) (Auto) 18.6 L, Monocytes (%) (Auto) 10.6 H, Eosinophils (%) (Auto) 0.2, Basophils (%) (Auto) 0.1, Neutrophils # (Auto) 5.8, Lymphocytes # (Auto) 1.6, Monocytes # (Auto) 0.9 H, Eosinophils # (Auto) 0.0, Basophils # (Auto) 0.0, Calcium Level 8.5 L Microbiology Microbiology 10/23/18 Blood Culture - Preliminary, Resulted No Growth after 72 hours. All specime... 10/23/18 Blood Culture - Preliminary, Resulted No Growth after 72 hours. All specime... 10/23/18 Respiratory Virus Panel (PCR) (IZABELA) - Final, Complete Discharge Medications Scheduled Acetaminophen (Tylenol Arthritis) 650 Mg Tab, 650 MG PO DAILY, (Reported) Amlodipine Besylate (Amlodipine Besylate) 5 Mg Tab, 5 MG PO DAILY, (Reported) Ascorbic Acid (Ascorbic Acid) 500 Mg Tablet, 500 MG PO Q2D, (Reported) Aspirin (Aspirin EC) 81 Mg Tabec, 81 MG PO DAILY, (Reported) Cyanocobalamin (Vitamin B-12) (Vitamin B-12) 1,000 Mcg Tablet, 1,000 MCG PO DAILY, (Reported) Ferrous Sulfate, Dried (Slow Release Iron) 160 Mg Tablet.er, 160 MG PO Q2D, (Reported) NEW MED, NOT STARTED Fluoxetine Hcl (Fluoxetine HCl) 20 Mg Cap, 20 MG PO DAILY, (Reported) Fluticasone/Vilanterol (Breo Ellipta 200-25 Mcg INH) 1 Inh Inh, 1 PUFF INH DAILY, (Reported) Furosemide (Furosemide) 20 Mg Tab, 20 MG PO DAILY, (Reported) Levothyroxine Sodium (Levothyroxine Sodium) 50 Mcg Tab, 50 MCG PO DAILY, (Reported) Magnesium Chloride (Magnesium Chloride) 64 Mg Tablet.dr, 64 MG PO DAILY, (Reported) Moxifloxacin HCl (Moxifloxacin HCl) 400 Mg Tablet, 400 MG PO DAILY, (Reported) Multivitamins (Thera M Plus Tablet) 1 Tab Tab, 1 TAB PO DAILY, (Reported) Pantoprazole Sodium (Pantoprazole Sodium) 40 Mg Tab, 40 MG PO DAILY, (Reported) Potassium Chloride (Potassium Chloride) 20 Meq Packet, 20 MEQ PO DAILY, (Reported) Potassium Chloride (K-Tab ER) 10 Meq Tablet.er, 40 MEQ PO DAILY Pravastatin Sodium (Pravastatin Sodium) 40 Mg Tab, 40 MG PO DAILY, (Reported) Prednisone (Prednisone) 20 Mg Tablet, 20 MG PO TAPER, (Reported) STARTED 10/23/2018 TAKE 3 TABS DAILY FOR 3 DAYS, THEN 2 TABS DAILY FOR 4 DAYS, THEN 1 TAB DAILY FOR 3 DAYS Tiotropium [place] (Spiriva) 18 Mcg Cap, 1 INHALATION INH DAILY, (Reported) Valsartan (Valsartan) 320 Mg Tab, 320 MG PO DAILY, (Reported) Scheduled PRN Albuterol Sulfate (Ventolin Hfa) 108 Mcg/Act Aer, 2 PUFFS INH Q4H PRN for SHORTNESS OF BREATH, (Reported) Furosemide (Furosemide) 20 Mg Tab, 20 MG PO DAILY PRN for HYPERTENSION, (Reported) PATIENT TAKES THIS IN ADDITION TO 20MG TABLET TO EQUAL 40MG TOTAL IF BLOOD PRESSURE IS OVER 150/90 Ipratropium/Albuterol Sulfate (Iprat-Albut 0.5-3(2.5) mg/3 ml) 1 Mary Mary, 1 DOSE INH Q8H PRN for SHORTNESS OF BREATH, (Reported) Allergies Coded Allergies: ENVIROMENTAL (Verified Allergy, Unknown, 09/09/18) hydrocodone (Verified Adverse Reaction, Intermediate, hallucinations, confusion while on Vicodin, 09/09/18) CECILIA PINA DO Oct 27, 2018 13:27
[2018-10-28] MEDS ORDERED: POTA10TA17 PO (20:43)
== END 2018-10-27 14:32 | disposition home health service (06) | DRG 190 ==
LOC: M ED 20:57 → M ED INP 23:50 → M MSPAV 10-24 02:22
PROVIDERS: ADMIT Internal Medicine Nephrology; ATTEND Family Medicine
DX: J44.0 Chronic obstructive pulmonary disease with (acute) lower respiratory infection (principal); I50.33 Acute on chronic diastolic (congestive) heart failure; J96.11 Chronic respiratory failure with hypoxia; E87.2 Acidosis; N17.9 Acute kidney failure, unspecified; I25.10 Atherosclerotic heart disease of native coronary artery without angina pectoris; D50.9 Iron deficiency anemia, unspecified; I27.20 Pulmonary hypertension, unspecified; I11.0 Hypertensive heart disease with heart failure; K21.9 Gastro-esophageal reflux disease without esophagitis; E03.9 Hypothyroidism, unspecified; E78.5 Hyperlipidemia, unspecified; E66.9 Obesity, unspecified; K57.90 Diverticulosis of intestine, part unspecified, without perforation or abscess without bleeding; F32.9 Major depressive disorder, single episode, unspecified; J30.9 Allergic rhinitis, unspecified; Z95.0 Presence of cardiac pacemaker; Z99.81 Dependence on supplemental oxygen; Z85.3 Personal history of malignant neoplasm of breast; Z90.13 Acquired absence of bilateral breasts and nipples; Z98.82 Breast implant status; Z79.52 Long term (current) use of systemic steroids; Z79.82 Long term (current) use of aspirin; Z79.899 Other long term (current) drug therapy; Z88.5 Allergy status to narcotic agent; Z86.010 Personal history of colon polyps; Z98.41 Cataract extraction status, right eye; Z98.42 Cataract extraction status, left eye; Z90.49 Acquired absence of other specified parts of digestive tract; Z87.891 Personal history of nicotine dependence; Z95.1 Presence of aortocoronary bypass graft

== ENCOUNTER 2018-10-28 16:36 | Inpatient (IN) | payer MEDICARE, MEDICAID ==
[~2018-10-28] VITALS: Ht 152.4 cm; Wt 83.4 kg
[~2018-10-28 16:36] MED LIST changes: +K-TA10TA PO
[2018-10-28] MEDS ORDERED: IPRATROPIUM 0.5MG/ALBUTEROL 2.5MG INH SOL UD 3ML (DUONEB)(J7620) NEB ONE (17:15)
[2018-10-28 17:19] LABS: BASO % 0.3 % (0.0-1.0); EOS % 0.1 % (0.0-3.0); HEMATOCRIT 36.8 % (36.0-47.0); HEMOGLOBIN 11.8 g/dl (12.0-15.5); LYMPH # 0.7 10^3/uL (1.5-4.5); LYMPH % 5.8 % (24.0-44.0); MEAN CORPUSCULAR HEMOGLOBIN 34.3 pg (27.0-33.0); MEAN CORPUSCULAR HGB CONC 32.1 g/dl (32.0-36.5); MONO # 0.3 10^3/uL (0.0-0.8); MONO % 2.9 % (0.0-5.0); NEUTROPHILS # 10.4 10^3/uL (1.8-7.7); NEUTROPHILS % 88.5 % (36.0-66.0); PLATELET COUNT, AUTOMATED 246 10^3/uL (150-450); RED BLOOD COUNT 3.44 10^6/uL (4.00-5.40); WHITE BLOOD COUNT 11.8 10^3/uL (4.0-10.0)
[2018-10-28 17:45] LABS: ALT/SGPT 40 U/L (12-78); BILIRUBIN,DIRECT 0.1 MG/DL (0.0-0.2); BILIRUBIN,TOTAL 0.3 MG/DL (0.2-1.0); BLOOD UREA NITROGEN 28 MG/DL (7-18); CALCIUM LEVEL 8.6 MG/DL (8.8-10.2); CARBON DIOXIDE LEVEL 30 MEQ/L (21-32); CHLORIDE LEVEL 102 MEQ/L (98-107); CK-MB VALUE MASS < 1.0 NG/ML (<3.6); CPK CREATINE PHOSPHOKINASE 38 U/L (26-192); GLOMERULAR FILTRATION RATE 41.9 (>32); GLUCOSE, FASTING 249 MG/DL (70-100); MB/CK RELATIVE INDEX 2.63 (< OR =4); NT-PRO BNP 763 PG/ML (<450); POTASSIUM SERUM 4.7 MEQ/L (3.5-5.1); SODIUM LEVEL 139 MEQ/L (136-145); TOTAL PROTEIN 6.4 GM/DL (6.4-8.2); TROPONIN I < 0.02 NG/ML (< 0.10)
--- NOTE | 2018-10-28 17:58 | REP ---
PA and lateral chest: Comparison is the portable chest dated 06/19/2018. There is cardiomegaly, unchanged. There is a dual-chamber pacemaker, unchanged. Lung caldera otherwise clear. The ramonita, mediastinum, skeletal structures are unremarkable. Impression: Cardiomegaly. Lung caldera are clear. Electronically Signed by Fabian Menjivar MD 10/28/2018 05:49 P
[2018-10-28 18:21] LABS: VENOUS BASE EXCESS 2.4 (-2.0-2.0); VENOUS HCO3 27.5 MEQ/L (23.0-27.0); VENOUS O2 SATURATION 98.9 % (60.0-80.0); VENOUS PARTIAL PRESSURE CO2 44.2 mmHg (38.0-50.0); VENOUS PARTIAL PRESSURE O2 151.2 mmHg (30.0-50.0); VENOUS PH 7.411 UNITS (7.330-7.430); VENOUS STANDARD HCO3 26.7 MEQ/L; VENOUS TOTAL CO2 28.8 MEQ/L (24.0-28.0)
[2018-10-28] MEDS ORDERED: MAALOX 30 ML SUSP *UDC PO PRN (19:45)
[2018-10-28] MEDS ORDERED: MOM 30ML SUSPENSION UDC PO PRN (19:45)
[2018-10-28] MEDS ORDERED: POTA10TA17 PO (20:43)
--- NOTE | 2018-10-28 20:56 | HPEPDOC ---
General Date of Admission 10/28/18 Date of Service: Oct 28, 2018 Primary Care Physician: RAINER RODRIGUEZ MD Attending Physician: RICO DUMONT MD Chief Complaint The patient is a 83-year-old female admitted with a reason for visit of Sob/Dizziness. Source: Patient, Family Exam Limitations: No limitations Timing/Duration: Day(s) Severity: Moderate Associated Symptoms: Cough, Shortness of breath, Dizziness, Other (Wheezing, Abdominal bloating, Weight gain) History of Present Illness 83 year old elderly female presents with her family at bedside with complaints of weight gain in her abdomen, abdominal bloating, worsening shortness of breath with wheezing that started this evening after she was discharged from [facility] for COPD exacerbation, Acute kidney injury, CHF exacerbation. She was discharged with oral antibiotics and steroids which she is still talking as well as Furosemide 20 mg daily with instructions to take an additional 20 mg if she notices weight gain which she did today. She has significant medical history of COPD with Asthma on supplemental O2 at home 2L per N/C no Cpap or Bipap, Sleep Apnea, Lactacidosis, GERD, Hypothyroidism, Breast Cancer, DANIEL, Chronic Respiratory Failure with Hypoxia, Diastolic CHF, Essential Hypertension, CAD s/p angiogram-AAA, Pacemaker, Depression, and Hyperlipidemia. In reviewing patients chart I will admit patient to Med-Surg Observation unit for further evaluation and monitoring of her symptoms as her health could deteriorate rapidly due to her co-morbidities and her age. Home Medications Scheduled Acetaminophen (Tylenol Arthritis) 650 Mg Tab, 650 MG PO DAILY, (Reported) Amlodipine Besylate (Amlodipine Besylate) 5 Mg Tab, 5 MG PO DAILY, (Reported) Ascorbic Acid (Ascorbic Acid) 500 Mg Tablet, 500 MG PO Q2D, (Reported) Aspirin (Aspirin EC) 81 Mg Tabec, 81 MG PO DAILY, (Reported) Cyanocobalamin (Vitamin B-12) (Vitamin B-12) 1,000 Mcg Tablet, 1,000 MCG PO DAILY, (Reported) Ferrous Sulfate, Dried (Slow Release Iron) 160 Mg Tablet.er, 160 MG PO Q2D, (Reported) NEW MED, NOT STARTED Fluoxetine Hcl (Fluoxetine HCl) 20 Mg Cap, 20 MG PO DAILY, (Reported) Fluticasone/Vilanterol (Breo Ellipta 200-25 Mcg INH) 1 Inh Inh, 1 PUFF INH DAILY, (Reported) Furosemide (Furosemide) 20 Mg Tab, 20 MG PO DAILY, (Reported) Levothyroxine Sodium (Levothyroxine Sodium) 50 Mcg Tab, 50 MCG PO DAILY, (Reported) Magnesium Chloride (Magnesium Chloride) 64 Mg Tablet.dr, 64 MG PO DAILY, (Reported) Moxifloxacin HCl (Moxifloxacin HCl) 400 Mg Tablet, 400 MG PO DAILY, (Reported) STARTED 10/22 FOR 7 DAYS Multivitamins (Thera M Plus Tablet) 1 Tab Tab, 1 TAB PO DAILY, (Reported) Pantoprazole Sodium (Pantoprazole Sodium) 40 Mg Tab, 40 MG PO DAILY, (Reported) Potassium Chloride (Potassium Chloride) 20 Meq Packet, 20 MEQ PO DAILY, (Reported) Potassium Chloride (Potassium Chloride) 10 Meq Tab.er.prt, 40 MEQ PO DAILY, (Reported) TAKE ONE DOSE ON 10/28 THEN GO BACK TO 20 MEQ PACKET Pravastatin Sodium (Pravastatin Sodium) 40 Mg Tab, 40 MG PO DAILY, (Reported) Prednisone (Prednisone) 20 Mg Tablet, 20 MG PO TAPER, (Reported) 2 DAYS OF THREE TABLETS LEFT. THEN 2 TABLETS FOR 4 DAYS THEN 1 TABLET FOR 3 DAYS. Tiotropium [place] (Spiriva) 18 Mcg Cap, 1 INHALATION INH DAILY, (Reported) Valsartan (Valsartan) 320 Mg Tab, 320 MG PO DAILY, (Reported) Scheduled PRN Albuterol Sulfate (Ventolin Hfa) 108 Mcg/Act Aer, 2 PUFFS INH Q4H PRN for SHORTNESS OF BREATH, (Reported) Furosemide (Furosemide) 20 Mg Tab, 20 MG PO DAILY PRN for HYPERTENSION, (Reported) PATIENT TAKES THIS IN ADDITION TO 20MG TABLET TO EQUAL 40MG TOTAL IF BLOOD PRESSURE IS OVER 150/90 Ipratropium/Albuterol Sulfate (Iprat-Albut 0.5-3(2.5) mg/3 ml) 1 Mary Mary, 1 DOSE INH Q8H PRN for SHORTNESS OF BREATH, (Reported) Allergies Coded Allergies: ENVIROMENTAL (Verified Allergy, Unknown, 09/09/18) hydrocodone (Verified Adverse Reaction, Intermediate, hallucinations, confusion while on Vicodin, 09/09/18) Past Medical History Medical History COPD with Asthma on supplemental O2 at home 2L per N/C no Cpap or Bipap, Sleep Apnea, Lactacidosis, GERD, Hypothyroidism, Breast Cancer, DANIEL, Chronic Respiratory Failure with Hypoxia, Diastolic CHF, Essential Hypertension, CAD s/p angiogram-AAA, Pacemaker, Depression, and Hyperlipidemia Surgical History Pacemaker Appendectomy Cholecystectomy Fractured Left leg Bilateral mastectomy with implants Tubal ligation later followed by hysterectomy AAA REPAIR 08/2015 BACK SURGERY L ELBOW SURGERY R KNEE SURGERY KEV CATARACT REMOVAL PACEMAKER CHANGE 2019 Family History FATHER: , EMPHYSEMA MOTHER: SIBLINGS: , BROTHER WITH CHF SISTER CAR ACCIDENT SON(S): ALIVE DAUGHTER(S): ALIVE 2 BROTHER(S) , 7 SISTER(S) . 4 SON(S) , 1 DAUGHTER(S) - HEALTHY. Social History * Smoker: Denies Alcohol: Denies Drugs: denies Recent Travel/Sick Contacts: Denies: Recent travel, Recent sick contacts Psychosocial History: Depression A-FIB/CHADSVASC A-FIB History Current/History of A-Fib/PAF?: No Age/Risk Factor Scoring CHADSVASC: CHADSVASC Response (Comments) Value Age Risk Factor Age >/= 75 years old 2 Gender Risk Factor Female 1 Hx of CHF Yes 1 Hx of HTN Yes 1 Total 5 Review of Systems Constitutional: Reports: Fatigue Eyes: Denies: Pain, Vision change ENT: Denies: Head Aches, Ear Pain, Dysphagia Skin: Denies: Rash, Lesions, Breakdown Pulmonary: Reports: Dyspnea, Cough Cardiovascular: Reports: Orthopnea, Edema, Lt Headedness Gastrointestinal: Reports: Abdominal Pain, Diarrhea, Other Symptoms (bloating) Genitourinary: Reports: Incontinence (stools) Hematologic: Denies: Bruising, Bleeding Excessively Endocrine: Denies: Polydipsia, Polyphagia, Polyuria, Heat Intolerance, Cold Intolerance, Other Endocrine Sx Musculoskeletal: Denies: Neck Pain, Back Pain, Joint Pain, Muscle Pain, Spasms Neurological: Denies: Weakness, Numbness, Change in speech, Confusion Psych: Reports: Mood Normal Physical Examination General Exam: Positive: Alert, Cooperative, No Acute Distress Eye Exam: Positive: PERRLA, Conjunctiva & lids normal, Sclera icteric ENT Exam: Positive: Atraumatic, Mucous membr. moist/pink, Pharynx Normal, Tongue Midline, Nares Patent Neck Exam: Positive: Supple, JVD, +2 carotid pulse wo bruit Chest Exam: Positive: Clear to auscultation, Normal air movement Heart Exam: Positive: Rate Normal, Normal S1, Normal S2 Abdomen Exam: Positive: Normal bowel sounds, Soft Extremity Exam: Positive: Normal pulses; Negative: Clubbing, Cyanosis, Edema Skin Exam: Positive: Nl turgor and temperature Neuro Exam: Positive: Normal Speech Psych Exam: Positive: Mental status NL, Mood NL, Oriented x 3 Vital Signs Vital Signs Date Time Temp Pulse Resp B/P (MAP) Pulse Ox O2 Delivery O2 Flow Rate FiO2 10/28/18 19:36 89 20 124/75 (91) 96 Nasal Cannula 2.0 10/28/18 16:36 98.1 Laboratory Data Labs 24H Laboratory Tests 2 10/28/18 17:01: Immature Granulocyte % (Auto) 2.4, White Blood Count 11.8H, Red Blood Count 3.44L, Hemoglobin 11.8L, Hematocrit 36.8, Mean Corpuscular Volume 107.0H, Mean Corpuscular Hemoglobin 34.3H, Mean Corpuscular Hemoglobin Concent 32.1, Red Cell Distribution Width 13.5, Platelet Count 246, Neutrophils (%) (Auto) 88.5H, Lymphocytes (%) (Auto) 5.8L, Monocytes (%) (Auto) 2.9, Eosinophils (%) (Auto) 0.1, Basophils (%) (Auto) 0.3, Neutrophils # (Auto) 10.4H, Lymphocytes # (Auto) 0.7L, Monocytes # (Auto) 0.3, Eosinophils # (Auto) 0.0, Basophils # (Auto) 0.0, Nucleated Red Blood Cells % (auto) 0.0, Anion Gap 7L, Glomerular Filtration Rate 41.9, Calcium Level 8.6L, Aspartate Amino Transf (AST/SGOT) 16, Alanine Aminotransferase (ALT/SGPT) 40, Alkaline Phosphatase 87, Total Bilirubin 0.3, Direct Bilirubin 0.1, Total Creatine Kinase 38, Creatine Kinase MB < 1.0, Creatine Kinase MB Relative Index 2.63, Troponin I < 0.02, [id number]-[id number]-Type Natriuretic Peptide 763H, Total Protein 6.4, Albumin 3.0L, Albumin/Globulin Ratio 0.88L, Thyroid Stimulating Hormone (TSH) 0.530 10/28/18 18:12: Blood Gas Bicarbonate Standard 26.7, Venous Blood pH 7.411, Venous Blood Partial Pressure CO2 44.2, Venous Blood Partial Pressure O2 151.2H, Venous Blood Total Carbon Dioxide 28.8H, Venous Blood HCO3 27.5H, Venous Blood Oxygen Saturation 98.9H, Venous Blood Base Excess 2.4H CBC/BMP Laboratory Tests 10/28/18 17:01 Red Blood Count 3.44 L, Mean Corpuscular Volume 107.0 H, Mean Corpuscular Hemoglobin 34.3 H, Mean Corpuscular Hemoglobin Concent 32.1, Red Cell Distribution Width 13.5, Neutrophils (%) (Auto) 88.5 H, Lymphocytes (%) (Auto) 5.8 L, Monocytes (%) (Auto) 2.9, Eosinophils (%) (Auto) 0.1, Basophils (%) (Auto) 0.3, Neutrophils # (Auto) 10.4 H, Lymphocytes # (Auto) 0.7 L, Monocytes # (Auto) 0.3, Eosinophils # (Auto) 0.0, Basophils # (Auto) 0.0 Assessment/Plan 83 year old elderly female presents with her family at bedside with complaints of weight gain in her abdomen, abdominal bloating, worsening shortness of breath with wheezing that started this evening after she was discharged from [facility] for COPD exacerbation, Acute kidney injury, CHF exacerbation. She was discharged with oral antibiotics and steroids which she is still talking as well as Furosemide 20 mg daily with instructions to take an additional 20 mg if she notices weight gain which she did today. She has significant medical history of COPD with Asthma on supplemental O2 at home 2L per N/C no Cpap or Bipap, Sleep Apnea, Lactacidosis, GERD, Hypothyroidism, Breast Cancer, DANIEL, Chronic Respiratory Failure with Hypoxia, Diastolic CHF, Essential Hypertension, CAD s/p angiogram-AAA, Pacemaker, Depression, and Hyperlipidemia. In reviewing patients chart I will admit patient to Med-Surg Observation unit for further evaluation and monitoring of her symptoms as her health could deteriorate rapidly due to her co-morbidities and her age. I personally reviewed patients EKG which shows bundle branch block (right)- incomplete; anterior NJ possibly recent due to the leads. Vent rate 69; SC interval 223; QRS duration 112; QT/QTc 418/438; PRT axis -74 14 71. Dizziness due to Orthostatic hypotension-Acute -probably from self medicating with extra doses of lasix. -Admit to Observation Unit Med-Surg with telemetry remote with continuos pulse oximetry under Hospitalist [facility] -IVF Normal Saline at 80 cc/hr as needed if become dehydrated -Continue home antibiotics oral was discharged with Moxifloxacin and prednisone steroids -Monitor weight daily, Strict I & O's -Monitor Blood pressure laying, standing, sitting (manual bps if systolic is 180/90) -PT/OT evaluate and treat Dyspnea-Acute on Chronic Secondary to chronic CHF possibly acute on chronic COPD -Continue supplemental oxygen at 2L per N/C -Duoneb nebulizer treatment q 4 hours as needed for shortness of breath, wheezing, coughing COPD with chronic respiratory failure with hypoxia continue steroid taper, cont oxygen, continue moxifloxacin continue nebs, will give symbicort in place of breo Diastolic CHF-Chronic -Monitor CMP (electrolytes) -Administer Furosemide 20 mg every other day until stable or tolerated, monitor blood pressure and for dizziness, monitor K+ -Fluid restriction 1500cc per day Essential Hypertension-Chronic -Continue home medications- Pharmacy to reconcile -No salt diet, Standard, Regular Fluids -Repeat EKG -Follow up with PCP Outpatient in 3-5 days upon Discharge Hyperlipidemia-Chronic Continue home medications- Pharmacy to reconcile -Follow up with PCP Outpatient in 3-5 days upon Discharge CAD s/p angioplasty in the remote past continue ASA, statin EKG to acute changes Hypothyroid continue synthroid. GERD continue PPI H/O sick sinus syndrome has pacemaker in place H/o breast cancer with bilateral mastectomies and bilateral breast implants. Prognosis: Fair DVT Prophylaxis: Heparin 5000 SC TID SC, SCD's bilateral LE Discharge: Pending Plan / VTE VTE Prophylaxis Ordered?: Yes Plan IVF: Initiate Therapy: PT, OT Medications: Start Antibiotics, Start Steroids Respiratory: Pulse Ox on Room Air, Other Respiratory (Keep on 2L per N/C) Diagnostics: Check Labs, Repeat Labs in AM, Repeat EKG Anticipated Discharge: Home With Services Advanced Directives: MOLST Form is available, Do Not Resuscitate (DNR), Trial form of Intubation ARABELLA TAVAREZ Oct 28, 2018 20:16 RICO DUMONT MD Oct 28, 2018 22:26
[2018-10-28] MEDS ORDERED: IPRATROPIUM 0.5MG/ALBUTEROL 2.5MG INH SOL UD 3ML (DUONEB)(J7620) INH PRN ×2 (21:00→22:45)
--- NOTE | 2018-10-28 21:31 | ECGEPIP ---
[facility] - ED Test Date: 2018-10-28 Pat Name: JONATHAN LIU Department: Room: - Gender: Female Chute Tapper: CJ : 1935 Requested By: WILLIE Gil Order Number: [id number] Reading MD: Rivka Robert Measurements Intervals [place] Rate: 69 P: -74 MI: 223 QRS: 14 QRSD: 112 T: 77 QT: 418 QTc: 451 Interpretive Statements ELECTRONIC ATRIAL PACEMAKER INCOMPLETE RIGHT BUNDLE BRANCH BLOCK ANTERIOR MYOCARDIAL INFARCTION, OF INDETERMINATE AGE INFERIOR MYOCARDIAL INFARCTION, OF INDETERMINATE AGE SIMILAR 10/23/18 Electronically Signed on 10-28-2018 21:31:28 EDT by Rivka Robert
[2018-10-28 22:05] VITALS: BP 157/73
[2018-10-28 22:15] VITALS: BP 157/72
[2018-10-28 22:16] VITALS: BP_SYST 158; BP_SYST 191; BP_DIAS 70; BP_DIAS 90
[2018-10-28] MEDS: HEPARIN SOD (PORCINE) 5000 UNITS/ML VIAL SC SCH (23:44)
[2018-10-28] MEDS: DOCUSATE SODIUM 100 MG CAP PO SCH (23:45)
[2018-10-29 06:00] VITALS: BP 139/73
[2018-10-29 06:13] LABS: HEMOGLOBIN 11.4 g/dl (12.0-15.5); MEAN CORPUSCULAR HEMOGLOBIN 33.6 pg (27.0-33.0); MEAN CORPUSCULAR HGB CONC 31.7 g/dl (32.0-36.5); MEAN CORPUSCULAR VOLUME 106.2 fl (80.0-96.0); PLATELET COUNT, AUTOMATED 216 10^3/uL (150-450); RED BLOOD COUNT 3.39 10^6/uL (4.00-5.40); WHITE BLOOD COUNT 10.1 10^3/uL (4.0-10.0)
--- NOTE | 2018-10-29 06:25 | ECGEPIP ---
[facility] Test Date: 2018-10-28 Pat Name: JONATHAN LUI Department: Room: - Gender: Female Dental Hygienist: FABRIZIO : 1935 Requested By: ARABELLA TAVAREZ [facility] Order Number: [id number] Reading MD: Norma Al Measurements Intervals [place] Rate: 69 P: -87 MS: 225 QRS: 21 QRSD: 113 T: 73 QT: 435 QTc: 469 Interpretive Statements ELECTRONIC ATRIAL PACEMAKER FIRST DEGREE BLOCK INCOMPLETE RIGHT BUNDLE BRANCH BLOCK INFERIOR MYOCARDIAL INFARCTION, OF INDETERMINATE AGE SIMILAR TO 10/28/18 18:20 EXCEPT SLIGHTLY PROLONGED QTC Electronically Signed on 10-29-2018 6:25:32 EDT by Norma Al
[2018-10-29 06:28] LABS: ABG BASE EXCESS 4.4 (-2.0-2.0); ABG HCO3 29.1 MEQ/L (22.0-26.0); ABG O2 SATURATION 96.2 % (95.0-99.0); ABG PARTIAL PRESSURE O2 82.5 mmHg (75.0-100.0); ABG STANDARD HCO3 28.4 MEQ/L (22.0-26.0); ABG TOTAL CO2 30.4 MEQ/L (23.0-31.0); ABG pH (ARTERIAL) 7.438 UNITS (7.350-7.450)
[2018-10-29 06:46] LABS: ALBUMIN 2.8 GM/DL (3.2-5.2); BILIRUBIN,TOTAL 0.3 MG/DL (0.2-1.0); CALCIUM LEVEL 8.4 MG/DL (8.8-10.2); CREATININE FOR GFR 1.03 MG/DL (0.55-1.30); GLOMERULAR FILTRATION RATE 54.7 (>32); TOTAL PROTEIN 6.2 GM/DL (6.4-8.2)
[2018-10-29] MEDS: HEPARIN SOD (PORCINE) 5000 UNITS/ML VIAL SC SCH ×3 (06:49→21:52)
[2018-10-29] MEDS: FUROSEMIDE 20 MG TAB PO SCH (08:09)
[2018-10-29] MEDS: PRAVASTATIN 20 MG TAB PO SCH (08:09)
[2018-10-29] MEDS: DOCUSATE SODIUM 100 MG CAP PO SCH ×2 (08:09→21:00)
[2018-10-29] MEDS: MULTIVITAMINS/MINERALS THERAP 1 TAB PO SCH (08:09)
[2018-10-29] MEDS: predniSONE 20 MG TAB PO SCH (08:09)
[2018-10-29] MEDS: PANTOPRAZOLE 40MG TAB (PROTONIX) PO SCH (08:09)
[2018-10-29] MEDS: FLUoxetine 20 MG CAP PO SCH (08:09)
[2018-10-29] MEDS: VALSARTAN 80 MG TAB (DIOVAN) PO SCH (08:10)
[2018-10-29] MEDS: ASPIRIN 81 MG ENTERIC TAB PO SCH (08:10)
[2018-10-29] MEDS: LEVOTHYROXINE 50MCG TABLET (0.05MG) PO SCH (08:10)
[2018-10-29] MEDS: amLODIPine 5 MG TAB PO SCH (08:10)
[2018-10-29] MEDS: MOXIFLOXACIN 400 MG TAB PO SCH (08:11)
[2018-10-29] MEDS: ACETAMINOPHEN TAB 650MG DOSE (2X325MG) PO PRN (08:11)
[2018-10-29] MEDS: SYMBICORT 160/4.5MCG INHALER 6GM INH SCH (08:33)
[2018-10-29] MEDS: TIOTROPIUM INHALER/CAPSULE (SPIRIVA) INH SCH (08:33)
[2018-10-29] MEDS ORDERED: POTASSIUM CHLORIDE 10 MEQ SR TABLET PO SCH (09:00)
[2018-10-29 10:31] VITALS: BP_SYST 157; BP_SYST 163; BP_SYST 164; BP_DIAS 91; BP_DIAS 93
[2018-10-29] MEDS: MAGNESIUM CHLORIDE 64 MG TABCR (SLO MAG) PO SCH (11:47)
--- NOTE | 2018-10-29 12:52 | IPNPDOC ---
Text Note Date of Service The patient was seen on 10/29/18. NOTE S: patient recently discharged on 10/27/18. she returned on 10/28 with orthost atic hypotension. She states no current GARCIA, no orthopnea. no CP, no N, no V; She is on chronic oxygen for underlying COPD. She was given 36 hour trial on oral medications prior to discharge and had no documented orthostatic changes at discharge. Patient states "I took my medications yesterday" but is unable to tell me if it included lasix,what medications, etc. She states she followed her medication regimen from her PCP last office visit and not the discharge medication list from the hospital. O: Vitals as below Vital Signs Label Value Date Time Blood Pressure Assessment 157/91 (113) 10/29/18 1031 Location Left Arm Source Automatic Cuff (NIBP) Position Supine Blood Pressure Assessment 163/93 (116) 10/29/18 1031 Location Left Arm Source Automatic Cuff (NIBP) Position Sitting Blood Pressure Assessment 164/93 (116) 10/29/18 1031 Location Left Arm Source Automatic Cuff (NIBP) Position Standing General: laying supine in bed, playing video game on phone, NAD, AAOx3 HRRR no murmur; pace maker in upper chest wall; Mastectomy bilaterally with prothesis intact LCTA no W/R/R abd: soft obese, NT ND NABS Ext: no ankle edema A/P: Readmission due to medication compliance issues Orthostatic hypotension- resolved this AM. PT/OT consulted to assist patient in getting up slower, etc -probably from self medicating with extra doses of lasix. -Admit to Observation Unit Med-Surg with telemetry remote with continuos pulse oximetry under Hospitalist Huy -IVF Normal Saline at 80 cc/hr as needed if become dehydrated -Continue home antibiotics oral was discharged with Moxifloxacin and prednisone steroids -Monitor weight daily, Strict I & O's Debility - PT/OT consulted and although she left hospital 10/27 with PT clearance and set up for home health, she has been re-evaluated by PT today and recommend further inpatient PT treatments. Chronic hypoxic respiratory failure - no signs of COPD exacerbation or CHF exacerbation -Continue supplemental oxygen at 2L per N/C -Duoneb nebulizer treatment q 4 hours as needed for shortness of breath, wheezing, coughing COPD with chronic respiratory failure with hypoxia continue steroid taper, cont oxygen, continue moxifloxacin continue nebs, will give symbicort in place of breo Diastolic CHF-Chronic ( no acute exacerbation) -Monitor CMP (electrolytes) - Hang M,W,F -Fluid restriction 1500cc per day Essential Hypertension-Chronic -Continue home medications- Hypothyroid -continue synthroid. GERD - continue PPI Disposition: PFS consulted , PT/OT consulted for discharge disposition. Patient is medically optimized when compliant with regimen VS,Fishbone, I+O VS, Fishbone, I+O Laboratory Tests 10/28/18 17:01 Red Blood Count 3.44 L, Mean Corpuscular Volume 107.0 H, Mean Corpuscular Hemoglobin 34.3 H, Mean Corpuscular Hemoglobin Concent 32.1, Red Cell Distribution Width 13.5, Neutrophils (%) (Auto) 88.5 H, Lymphocytes (%) (Auto) 5.8 L, Monocytes (%) (Auto) 2.9, Eosinophils (%) (Auto) 0.1, Basophils (%) (Auto) 0.3, Neutrophils # (Auto) 10.4 H, Lymphocytes # (Auto) 0.7 L, Monocytes # (Auto) 0.3, Eosinophils # (Auto) 0.0, Basophils # (Auto) 0.0 10/29/18 05:56 Red Blood Count 3.39 L, Mean Corpuscular Volume 106.2 H, Mean Corpuscular Hemoglobin 33.6 H, Mean Corpuscular Hemoglobin Concent 31.7 L, Red Cell Distribution Width 13.2, Calcium Level 8.4 L, Aspartate Amino Transf (AST/SGOT) 13, Alanine Aminotransferase (ALT/SGPT) 33, Alkaline Phosphatase 76, Total Bilirubin 0.3, Total Protein 6.2 L, Albumin 2.8 L Vital Signs Date Time Temp Pulse Resp B/P (MAP) Pulse Ox O2 Delivery O2 Flow Rate FiO2 10/29/18 10:31 72 157/91 (113) 72 163/93 (116) 72 164/93 (116) 10/29/18 09:00 2.0 10/29/18 06:00 97.5 20 97 10/28/18 21:29 Room Air I&O- Last 24 Hours up to 6 AM 10/29/18 06:00 Intake Total 660 ml Output Total 500 ml Balance 160 ml CECILIA PINA DO Oct 29, 2018 10:35
[2018-10-29 14:00] VITALS: BP 130/66
[2018-10-29 22:00] VITALS: BP 131/67
[2018-10-30 06:00] VITALS: BP 168/79
[2018-10-30] MEDS: HEPARIN SOD (PORCINE) 5000 UNITS/ML VIAL SC SCH ×3 (06:08→22:05)
[2018-10-30] MEDS: PANTOPRAZOLE 40MG TAB (PROTONIX) PO SCH (08:25)
[2018-10-30] MEDS: PRAVASTATIN 20 MG TAB PO SCH (08:25)
[2018-10-30] MEDS: FLUoxetine 20 MG CAP PO SCH (08:25)
[2018-10-30] MEDS: ASCORBIC ACID 500 MG TAB PO SCH (08:25)
[2018-10-30] MEDS: MOXIFLOXACIN 400 MG TAB PO SCH (08:25)
[2018-10-30] MEDS: LEVOTHYROXINE 50MCG TABLET (0.05MG) PO SCH (08:25)
[2018-10-30] MEDS: DOCUSATE SODIUM 100 MG CAP PO SCH ×2 (08:25→21:00)
[2018-10-30] MEDS: MULTIVITAMINS/MINERALS THERAP 1 TAB PO SCH (08:25)
[2018-10-30] MEDS: predniSONE 20 MG TAB PO SCH (08:25)
[2018-10-30] MEDS: ASPIRIN 81 MG ENTERIC TAB PO SCH (08:25)
[2018-10-30] MEDS: MAGNESIUM CHLORIDE 64 MG TABCR (SLO MAG) PO SCH (08:25)
[2018-10-30] MEDS: VALSARTAN 80 MG TAB (DIOVAN) PO SCH (08:26)
[2018-10-30] MEDS: amLODIPine 5 MG TAB PO SCH (08:26)
[2018-10-30] MEDS: SYMBICORT 160/4.5MCG INHALER 6GM INH SCH ×2 (08:33→19:36)
[2018-10-30] MEDS: TIOTROPIUM INHALER/CAPSULE (SPIRIVA) INH SCH (08:34)
[2018-10-30 09:00] VITALS: O2SAT 90
--- NOTE | 2018-10-30 12:27 | IPNPDOC ---
Text Note Date of Service The patient was seen on 10/30/18. NOTE S: Patient states feels tired today . staff state that patient had desat oxygenation while on 2 liter with walking but oxygenation recovered at rest. She had negative CTA imaging during last admission (10/23/18). She states chronic non productive cough, no N, no V, no fever. Patient states she was not following fluid restriction at home. Readmission due to medication compliance issues O: Vitals as below General:pleasant NAD AAOx3 HRRR no murmur LCTA with no W/R/R, slightly diminished breath sounds. Ext: no edema A/P: Chronic hypoxic respiratory failure - no signs of COPD exacerbation or CHF exacerbation -Continue supplemental oxygen at 2L per N/C -Duoneb nebulizer treatment q 4 hours scheduled (NOT PRN) Nursing staff report patient desaturates to 83% on 2 liter oxygen when walking. Ambulatory oximetry testing ordered. COPD without exacerbation, with underlying bronchitis and with chronic respiratory failure with hypoxia Keep steroid at 40mg and slower taper (desturation with ambulation on chronic oxygen) , cont oxygen, continue moxifloxacin continue scheduled nebs, will give symbicort in place of breo Diastolic CHF-Chronic ( no acute exacerbation) - Lasix M,W,F -Fluid restriction 1500cc per day Essential Hypertension-Chronic -Continue home medications- Hypothyroid -continue synthroid. GERD - continue PPI Orthostatic hypotension- RESOLVED. -probably from self medicating with extra doses of lasix. - saline lock IVF Debility - PT/OT consulted and although she left hospital 10/27 with PT clearance and set up for home health, PT/OT have signed off stating patient safe for home discharge. Disposition: PFS consulted , PT/OT consulted and patient is safe for discharge. check ambulatory oximetry for oxygenation and possible d/c tomorrow. Has wily ointment this coming week with Pulmonary (Dr Carson) per patient VS,Jeffbone, I+O VS, Fishbone, I+O Vital Signs Date Time Temp Pulse Resp B/P (MAP) Pulse Ox O2 Delivery O2 Flow Rate FiO2 10/30/18 09:00 2.0 10/30/18 08:26 128/69 10/30/18 08:26 72 10/30/18 06:00 98.7 18 92 10/28/18 21:29 Room Air I&O- Last 24 Hours up to 6 AM 10/30/18 06:00 Intake Total 1950 ml Output Total 1375 ml Balance 575 ml CECILIA PINA DO Oct 30, 2018 12:15
[2018-10-30] MEDS: guaiFENesin ER 600 MG TAB PO SCH ×2 (12:51→22:05)
[2018-10-30] MEDS ORDERED: predniSONE 20 MG TAB PO ONE (13:00)
[2018-10-30] MEDS: IPRATROPIUM 0.5MG/ALBUTEROL 2.5MG INH SOL UD 3ML (DUONEB)(J7620) INH SCH ×3 (13:01→19:36)
[2018-10-30 14:00] VITALS: BP 139/20
[2018-10-30 21:00] VITALS: O2SAT 98
[2018-10-30 22:00] VITALS: BP 121/68
[2018-10-30] MEDS: ACETAMINOPHEN TAB 650MG DOSE (2X325MG) PO PRN (22:10)
[2018-10-31] MEDS: IPRATROPIUM 0.5MG/ALBUTEROL 2.5MG INH SOL UD 3ML (DUONEB)(J7620) INH SCH ×7 (02:38→22:50)
[2018-10-31 06:00] VITALS: BP 118/65
[2018-10-31] MEDS: HEPARIN SOD (PORCINE) 5000 UNITS/ML VIAL SC SCH ×3 (06:29→22:44)
[2018-10-31] MEDS: TIOTROPIUM INHALER/CAPSULE (SPIRIVA) INH SCH (08:04)
[2018-10-31] MEDS: SYMBICORT 160/4.5MCG INHALER 6GM INH SCH ×2 (08:04→19:54)
[2018-10-31] MEDS: DOCUSATE SODIUM 100 MG CAP PO SCH ×2 (09:00→20:09)
[2018-10-31] MEDS: VALSARTAN 80 MG TAB (DIOVAN) PO SCH (09:00)
[2018-10-31] MEDS: ASPIRIN 81 MG ENTERIC TAB PO SCH (09:46)
[2018-10-31] MEDS: guaiFENesin ER 600 MG TAB PO SCH ×2 (09:46→20:40)
[2018-10-31] MEDS: MAGNESIUM CHLORIDE 64 MG TABCR (SLO MAG) PO SCH (09:46)
[2018-10-31] MEDS: PRAVASTATIN 20 MG TAB PO SCH (09:46)
[2018-10-31] MEDS: predniSONE 20 MG TAB PO SCH (09:46)
[2018-10-31] MEDS: MULTIVITAMINS/MINERALS THERAP 1 TAB PO SCH (09:47)
[2018-10-31] MEDS: LEVOTHYROXINE 50MCG TABLET (0.05MG) PO SCH (09:47)
[2018-10-31] MEDS: FLUoxetine 20 MG CAP PO SCH (09:47)
[2018-10-31] MEDS: MOXIFLOXACIN 400 MG TAB PO SCH (09:47)
[2018-10-31] MEDS: PANTOPRAZOLE 40MG TAB (PROTONIX) PO SCH (09:47)
[2018-10-31 09:48] VITALS: O2SAT 96
[2018-10-31] MEDS: amLODIPine 5 MG TAB PO SCH (09:48)
--- NOTE | 2018-10-31 10:58 | IPNPDOC ---
Text Note Date of Service The patient was seen on 10/31/18. NOTE Subjective: Patient was seen and examined at the bedside. Currently she reports that she feels better. Denies any CP, SOB or palpitations. Has been ambulating, but has been reported to drop her saturations while on 2L. Has maintained saturations on 3L. At the patient's request, I have called her [id number], Kari and provided her an update. Objective: Vitals (See below) General: Lying in bed, no acute distress, comfortable, AAOx3 HEENT: NC, AT CVS: +S1S2 Lungs: Fair air entry b/l, -w/r/r Abdomen: Soft, ND, NT Extremities: - Edema, - Calf tenderness Assessment and plan: Shortness of breath - likely 2/2 deconditioning, unlikely 2/2 COPD, Chronic - Does not appear to have any active COPD exacerbation - Clinically appears to be improving without any adventitious lung sounds - CXR 10/28: Cardiomegaly. Lung caldera are clear. - c/w Prednisone with taper - c/w DuoNeb - c/w Moxifloxacin (Day #3) Chronic hypoxic respiratory failure - c/w Supplemental oxygen at 2 liters at rest and 3 liters with exertion Diastolic CHF, Chronic - No evidence of exacerbation - c/w Fluid restriction of 1500 cc daily - c/w Furosemide (MWF) s/p Orthostatic hypotension - likely 2/2 over diuresis - s/p IV fluid hydration - c/w Adjusted dose of Furosemide HTN - c/w Valsartan, Amlodipine, DLP - c/w Pravastatin and ASA Hypothyroid - c/w Levothyroxine Mood disorder - c/w Fluoxetine GI prophylaxis - c/w Protonix DVT prophylaxis - c/w Heparin Disposition: - Will reconsult PT to determine need for additional oxygen - Patient's family has reported that her tank is "on demand" and that it is difficult to adjust from 2 to 3 Liters easily - Will await PFS / Case management for support - Will need outpatient follow up with Dr. Carson (Pulmonology) VS,Fishbone, I+O VS, Fishbone, I+O Vital Signs Date Time Temp Pulse Resp B/P (MAP) Pulse Ox O2 Delivery O2 Flow Rate FiO2 10/31/18 09:48 96 Nasal Cannula 2.0 10/31/18 09:48 71 129/47 10/31/18 06:00 98.8 18 I&O- Last 24 Hours up to 6 AM 10/31/18 06:00 Intake Total 1268 ml Output Total 900 ml Balance 368 ml PREMA MENARD MD Oct 31, 2018 10:58
[2018-10-31 14:00] VITALS: BP 139/54
[2018-10-31 22:00] VITALS: BP 141/54; O2SAT 94
[2018-11-01] MEDS: IPRATROPIUM 0.5MG/ALBUTEROL 2.5MG INH SOL UD 3ML (DUONEB)(J7620) INH SCH ×5 (03:55→20:00)
[2018-11-01 06:00] VITALS: BP 140/57
[2018-11-01] MEDS: HEPARIN SOD (PORCINE) 5000 UNITS/ML VIAL SC SCH ×3 (06:23→22:45)
[2018-11-01] MEDS: TIOTROPIUM INHALER/CAPSULE (SPIRIVA) INH SCH (07:16)
[2018-11-01] MEDS: SYMBICORT 160/4.5MCG INHALER 6GM INH SCH ×2 (07:17→20:33)
[2018-11-01] MEDS: MAGNESIUM CHLORIDE 64 MG TABCR (SLO MAG) PO SCH (07:44)
[2018-11-01] MEDS: PANTOPRAZOLE 40MG TAB (PROTONIX) PO SCH (07:44)
[2018-11-01] MEDS: VALSARTAN 80 MG TAB (DIOVAN) PO SCH (07:45)
[2018-11-01] MEDS: LEVOTHYROXINE 50MCG TABLET (0.05MG) PO SCH (07:45)
[2018-11-01] MEDS: predniSONE 20 MG TAB PO SCH (07:45)
[2018-11-01] MEDS: FUROSEMIDE 20 MG TAB PO SCH (07:45)
[2018-11-01] MEDS: FLUoxetine 20 MG CAP PO SCH (07:45)
[2018-11-01] MEDS: PRAVASTATIN 20 MG TAB PO SCH (07:46)
[2018-11-01] MEDS: ASPIRIN 81 MG ENTERIC TAB PO SCH (07:46)
[2018-11-01] MEDS: guaiFENesin ER 600 MG TAB PO SCH ×2 (07:46→20:45)
[2018-11-01] MEDS: amLODIPine 5 MG TAB PO SCH (07:46)
[2018-11-01] MEDS: ASCORBIC ACID 500 MG TAB PO SCH (07:46)
[2018-11-01] MEDS: DOCUSATE SODIUM 100 MG CAP PO SCH ×2 (07:46→20:45)
[2018-11-01] MEDS: MULTIVITAMINS/MINERALS THERAP 1 TAB PO SCH (07:46)
[2018-11-01] MEDS: ACETAMINOPHEN TAB 650MG DOSE (2X325MG) PO PRN (07:52)
--- NOTE | 2018-11-01 10:01 | IPNPDOC ---
Text Note Date of Service The patient was seen on 11/01/18. NOTE Subjective: Patient is seen and examined well sitting on the edge of the bed. Patient has no complaints today is that she's feeling better. The biggest issue that the patient is having is when she ambulates her oxygen requirement increases. She is currently on 2 L via nasal cannula which is her baseline oxygen at home. When the patient ambulates she is requiring 3 L of oxygen. This is a problem because when she is at home, she has her tank in one room and long tubing that allows her to move about her house freely but this makes it difficult to increase her oxygen flow rate when she was ambulating. Patient is working with physical therapy and family in order to figure out a plan going forward. Review of systems General: Patient denies fevers HEENT: Patient denies headaches Cardiovascular: Patient denies chest pain Respiratory: Patient denies shortness of breath, cough GI: Patient denies abdominal pain, nausea, vomiting, diarrhea : Patient denies pain or difficulty with urination Neurological: Patient denies numbness or tingling in extremities Extremities: Patient denies swelling or pain in extremities Objective: Vitals: (see below) General: No acute distress, laying comfortably in bed. HEENT: Normocephalic, atraumatic, moist mucous membranes. Neck: No JVD or lymphadenopathy Cardiac: RRR, No murmurs Pulm: Fine crackles in the bases bilaterally. Other lung caldera are clear to auscultation bilaterally. Abd: NT/ND + BS Ext: No edema or cyanosis. Radial, posterior tibial, and dorsalis pedis pulses equal bilaterally. Labs (see below) Images: New imaging has been performed. Assessment/Plan 1. Shortness of breath. This is likely secondary to deconditioning. This does not appear to be a COPD exacerbation. Patient is clinically improving. We'll continue with prednisone taper duo nebs and moxifloxacin. This is day 4 of moxifloxacin. 2. Chronic hypoxic respiratory failure. Patient is currently on 2 L of oxygen at rest and 3 L with exertion. We're working with physical therapy and patient's family in order to clear out a plan for when patient goes home. 3. Diastolic congestive heart failure, chronic. She does not appear to be in exacerbation. Patient has a 1500 mL fluid restriction. Continue furosemide Thursday and Thursday. 4. Status post orthostatic hypotension. Patient says that she would weigh herself daily and if she her weight increases by more than 2 pounds overnight she will take extra furosemide. This is most likely the cause of her orthostatic hypotension. This is resolved at this point. 5. Hypertension. Continue with valsartan and amlodipine. 6. Hyperlipidemia. Continue pravastatin and aspirin. 7. Hypothyroidism. Continue with levothyroxine. 8. Mood disorder. Continue with fluoxetine. 9. GI prophylaxis continue with Protonix. DVT prophy: Heparin 5000 units twice a day. Dispo: Pending consultation from physical therapy and plan to work with family in order to manage oxygen needs. VS,Fishbone, I+O VS, Fishbone, I+O Vital Signs Date Time Temp Pulse Resp B/P (MAP) Pulse Ox O2 Delivery O2 Flow Rate FiO2 11/01/18 09:26 2.0 11/01/18 07:46 71 11/01/18 07:45 148/60 11/01/18 06:00 97.3 18 96 10/31/18 22:00 Nasal Cannula I&O- Last 24 Hours up to 6 AM 11/01/18 06:00 Intake Total 1630 ml Output Total 1175 ml Balance 455 ml GME ATTESTATION GME ATTESTATION My faculty preceptor for this patient encounter was physically present during the encounter and was fully available. All aspects of the patient interview, examination, medical decision making process, and medical care plan development were reviewed and approved by the faculty preceptor. The faculty preceptor is aware and concurs with the plan as stated in the body of this note and will attest to such by his/her cosignature. ATTENDING NOTE I, Bernice Menard, have independently examined this patient and performed my own physical exam, as well as reviewed the documentation and edited where necessary. I have discussed in detail with the resident / student the findings and plan of treatment as documented by the resident / student and edited their note. I agree with their findings and treatment plan and have edited their documentation. I will continue to follow the patient during this hospital stay. GUNNAR TURCIOS DO Nov 01, 2018 10:01 BERNICE MENARD MD Nov 01, 2018 14:46
[2018-11-01 14:00] VITALS: BP 107/83
[2018-11-01 14:08] VITALS: O2SAT 94
[2018-11-01] MEDS ORDERED: LOPERAMIDE 2 MG CAP PO PRN (21:15)
[2018-11-01 22:00] VITALS: BP 119/70
[2018-11-02] MEDS: IPRATROPIUM 0.5MG/ALBUTEROL 2.5MG INH SOL UD 3ML (DUONEB)(J7620) INH SCH ×4 (01:19→12:00)
[2018-11-02 06:00] VITALS: BP 151/48
[2018-11-02] MEDS: HEPARIN SOD (PORCINE) 5000 UNITS/ML VIAL SC SCH (06:26)
[2018-11-02] MEDS: TIOTROPIUM INHALER/CAPSULE (SPIRIVA) INH SCH (08:00)
[2018-11-02] MEDS: SYMBICORT 160/4.5MCG INHALER 6GM INH SCH (09:00)
[2018-11-02] MEDS: predniSONE 20 MG TAB PO SCH (09:07)
[2018-11-02] MEDS: MULTIVITAMINS/MINERALS THERAP 1 TAB PO SCH (09:07)
[2018-11-02] MEDS: PANTOPRAZOLE 40MG TAB (PROTONIX) PO SCH (09:07)
[2018-11-02] MEDS: MAGNESIUM CHLORIDE 64 MG TABCR (SLO MAG) PO SCH (09:07)
[2018-11-02] MEDS: DOCUSATE SODIUM 100 MG CAP PO SCH (09:07)
[2018-11-02] MEDS: guaiFENesin ER 600 MG TAB PO SCH (09:07)
[2018-11-02 09:08] VITALS: BP 148/48
[2018-11-02] MEDS: LEVOTHYROXINE 50MCG TABLET (0.05MG) PO SCH (09:08)
[2018-11-02] MEDS: ASPIRIN 81 MG ENTERIC TAB PO SCH (09:08)
[2018-11-02] MEDS: amLODIPine 5 MG TAB PO SCH (09:08)
[2018-11-02] MEDS: VALSARTAN 80 MG TAB (DIOVAN) PO SCH (09:08)
[2018-11-02] MEDS: FLUoxetine 20 MG CAP PO SCH (09:08)
[2018-11-02] MEDS: PRAVASTATIN 20 MG TAB PO SCH (09:08)
[2018-11-02] MEDS ORDERED: PRED10TA2 PO (10:58)
--- NOTE | 2018-11-02 11:58 | DS.PDOC ---
Discharge Summary General Date of Admission Nov 01, 2018 at 10:19 Date of Discharge 11/02/18 Primary Care Physician: RAINER RODRIGUEZ MD Attending Physician: LEDY FITZGERALD MD Discharge Summary PROCEDURES PERFORMED DURING STAY: None. ADMITTING/DISCHARGE DIAGNOSES: 1. Dizziness secondary to orthostatic hypotension 2. Shortness of breath 3. Chronic hypoxic respiratory failure 4. Diastolic congestive heart, chronic 5. Hypertension 6. Hyperlipidemia 7. Hypothyroidism. 8. Mood disorder. COMPLICATIONS/CHIEF COMPLAINT: Dizziness and shortness of breath HISTORY OF PRESENT ILLNESS/HOSPITAL COURSE: Patient is an 83-year-old female who presented to the hospital shortly after being discharged with new onset dizziness and shortness of breath. Patient states that she had as needed Lasix to take if she started noticing weight gain. Patient noticed that her weight had increased 2 pounds overnight so she took an extra 20 mg of Lasix as she was instructed. Patient became dizzy and had more difficulty with breathing. While in the hospital, patient was found to have orthostatic hypotension. She required more oxygen than her normal baseline of 2 L. Patient was already on a prednisone taper when the patient arrived to this hospitalization and this was continued from her prior COPD exacerbation. During the hospitalization the patient's orthostatic hypotension began to resolve. While working with physical therapy, it was noted that the patient's oxygen saturation would decrease and the patient will require 3 L of oxygen which is more than her baseline of 2 L. In talking with the patient's family, they had devised a tubing system which would allow the patient to move freely about her home however, the oxygen compressor was in a separate room. Although the oxygen was able to be titrated up to 3 L, it was difficult for the patient as the tank was not where she would be moving from. We attempted to work with the patient with physical therapy to see if her oxygen requirements with activity would decrease however, we are unable to successfully get her to be active on 2 L. Patient was instructed that when she is to do activity she should increase her oxygen to 3 L/m of flow. While at rest she should continue on 2 L/m as this is been able to maintain her oxygen saturations within the normal range. I also did have a discussion with the patient's to hold her as needed Lasix until she is seen by her primary care provider in order to make sure that she is stable on her current regimen so she does not have any orthostatic hypotension issues in the future. At this time, patient was deemed ready for discharge and was discharged home. DISCHARGE MEDICATIONS: Please see below. ALLERGIES: Please see below. PHYSICAL EXAMINATION ON DISCHARGE: Vitals: (see below) General: No acute distress, sitting up on the edge of the bed comfortably. HEENT: Moist mucous membranes. Neck: No JVD or lymphadenopathy Cardiac: RRR, No murmurs Pulm: Fine crackles heard at the bilateral bases. Upper lung caldera clear to auscultation bilaterally. Abd: NT/ND + BS Ext: No edema noted in the lower extremities bilaterally. LABORATORY DATA: Please see below. IMAGING: A chest x-ray performed on 10/28/2018 showed cardiomegaly with clear lung caldera. A dual chamber pacemaker is present. PROGNOSIS: Fair ACTIVITY: As tolerated. DIET: 2 g sodium diet DISCHARGE PLAN/DISPOSITION: Discharge to home DISCHARGE INSTRUCTIONS: 1. Follow-up with PCP within 3-7 days. 2. Continue with 2 L of oxygen via nasal cannula while at rest. Increase to 3 L of oxygen via nasal cannula during periods of activity. Decrease back to 2 L of oxygen when going back to rest. 3. Hold off on as needed Lasix until you have a discussion with your primary care provider to avoid episodes of orthostatic hypotension. 4. Return to the emergency room if symptoms worsen. DISCHARGE CONDITION: Stable. TIME SPENT ON DISCHARGE: Greater than 30 minutes. Vital Signs/I&Os Vital Signs Date Time Temp Pulse Resp B/P (MAP) Pulse Ox O2 Delivery O2 Flow Rate FiO2 11/02/18 09:18 2.0 11/02/18 09:08 148/48 11/02/18 09:08 73 11/02/18 06:00 98.3 18 99 11/01/18 20:33 Nasal Cannula I&O- Last 24 Hours up to 6 AM 11/02/18 06:00 Intake Total 1410 ml Output Total 950 ml Balance 460 ml Discharge Medications Scheduled Acetaminophen (Tylenol Arthritis) 650 Mg Tab, 650 MG PO DAILY, (Reported) Amlodipine Besylate (Amlodipine Besylate) 5 Mg Tab, 5 MG PO DAILY, (Reported) Ascorbic Acid (Ascorbic Acid) 500 Mg Tablet, 500 MG PO Q2D, (Reported) Aspirin (Aspirin EC) 81 Mg Tabec, 81 MG PO DAILY, (Reported) Cyanocobalamin (Vitamin B-12) (Vitamin B-12) 1,000 Mcg Tablet, 1,000 MCG PO DAILY, (Reported) Ferrous Sulfate, Dried (Slow Release Iron) 160 Mg Tablet.er, 160 MG PO Q2D, (Reported) NEW MED, NOT STARTED Fluoxetine Hcl (Fluoxetine HCl) 20 Mg Cap, 20 MG PO DAILY, (Reported) Fluticasone/Vilanterol (Breo Ellipta 200-25 Mcg INH) 1 Inh Inh, 1 PUFF INH DAILY, (Reported) Furosemide (Furosemide) 20 Mg Tab, 20 MG PO DAILY, (Reported) Levothyroxine Sodium (Levothyroxine Sodium) 50 Mcg Tab, 50 MCG PO DAILY, (Reported) Magnesium Chloride (Magnesium Chloride) 64 Mg Tablet.dr, 64 MG PO DAILY, (Reported) Multivitamins (Thera M Plus Tablet) 1 Tab Tab, 1 TAB PO DAILY, (Reported) Pantoprazole Sodium (Pantoprazole Sodium) 40 Mg Tab, 40 MG PO DAILY, (Reported) Potassium Chloride (Potassium Chloride) 20 Meq Packet, 20 MEQ PO DAILY, (Reported) Potassium Chloride (Potassium Chloride) 10 Meq Tab.er.prt, 40 MEQ PO DAILY, (Reported) TAKE ONE DOSE ON 10/28 THEN GO BACK TO 20 MEQ PACKET Pravastatin Sodium (Pravastatin Sodium) 40 Mg Tab, 40 MG PO DAILY, (Reported) Prednisone (Prednisone) 10 Mg Tablet, 10 MG PO TAPER Take 3 tabs daily x 3 days, then 2 tabs daily x 3 days, then 1 tab daily x 3 days and stop Tiotropium [place] (Spiriva) 18 Mcg Cap, 1 INHALATION INH DAILY, (Reported) Valsartan (Valsartan) 320 Mg Tab, 320 MG PO DAILY, (Reported) Scheduled PRN Albuterol Sulfate (Ventolin Hfa) 108 Mcg/Act Aer, 2 PUFFS INH Q4H PRN for SHORTNESS OF BREATH, (Reported) Ipratropium/Albuterol Sulfate (Iprat-Albut 0.5-3(2.5) mg/3 ml) 1 Mary Mary, 1 DOSE INH Q8H PRN for SHORTNESS OF BREATH, (Reported) Allergies Coded Allergies: ENVIROMENTAL (Verified Allergy, Unknown, 09/09/18) hydrocodone (Verified Adverse Reaction, Intermediate, hallucinations, confusion while on Vicodin, 09/09/18) GUNNAR TURCIOS 3, 2019 11:58
== END 2018-11-02 13:07 | disposition home or self-care (01) | DRG 312 ==
LOC: M ED 16:36 → M ED INP 16:37 → M MSPAV 22:02 → OBSVTOIN 11-01 10:19
PROVIDERS: ADMIT Internal Medicine Nephrology; ATTEND Internal Medicine
DX: I95.1 Orthostatic hypotension (principal); J96.11 Chronic respiratory failure with hypoxia; I50.32 Chronic diastolic (congestive) heart failure; R42 Dizziness and giddiness; F39 Unspecified mood [affective] disorder; I11.0 Hypertensive heart disease with heart failure; E78.5 Hyperlipidemia, unspecified; E03.9 Hypothyroidism, unspecified; Z79.899 Other long term (current) drug therapy; Z79.82 Long term (current) use of aspirin; Z88.5 Allergy status to narcotic agent; Z95.0 Presence of cardiac pacemaker; J44.9 Chronic obstructive pulmonary disease, unspecified; K21.9 Gastro-esophageal reflux disease without esophagitis; Z85.3 Personal history of malignant neoplasm of breast; I25.10 Atherosclerotic heart disease of native coronary artery without angina pectoris; Z91.14 Patient's other noncompliance with medication regimen

== ENCOUNTER → 2018-12-08 | Outpatient (CLI) | payer MEDICARE, MEDICAID ==
[~2018-12-08] MED LIST changes: +POTA10TA17 PO
--- NOTE | 2018-12-08 11:56 | REP ---
ULTRASOUND ABDOMINAL AORTA: Real-time sonographic evaluation of the abdominal aorta performed and compared to a prior study of 02/25/2018. 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 This is not well visualized due to body habitus and bowel gas. There is an aortobi-iliac stent within the negative distal abdominal aorta. Proximally, just below the diaphragm the maximum AP diameter of the abdominal aorta is 2.2 cm. It is not seen at the level of the renal arteries. Just distal to that AP diameter is 2.9 cm. Distally, AP diameter is 3.8 cm proximally. Common iliac arteries are mildly ectatic, right measuring 1.5 cm and left 1.7 cm in AP dimension. There is no gross leak. The aneurysm itself has a maximum AP dimension of 4.2 cm and transverse 3.4 cm extending for a length of approximately 9 cm. IMPRESSION: Suboptimal evaluation of the distal abdominal aorta due to bowel gas and body habitus. Aortobi-iliac stent is visualized. Maximum AP diameter of the distal abdominal aortic aneurysm is approximately 4.2 cm. I cannot exclude increase in size of the aneurysm compared to the prior study of 02/25/2018, at which time the AP diameter of the aneurysm was reported as 3.3 cm. Recommend further evaluation with CT angiography. Electronically Signed by Fabian Sherwood MD 12/08/2018 06:27 P
== END ==
LOC: M RAD 09:12
PROVIDERS: ATTEND Physician Assistant
DX: I71.4 Abdominal aortic aneurysm, without rupture (principal); E07.9 Disorder of thyroid, unspecified

== ENCOUNTER → 2018-12-08 | Outpatient (CLI) | payer MEDICARE, MEDICAID | LOC: M LAB 10:07 | PROVIDERS: ATTEND Family Medicine | DX: E07.9 Disorder of thyroid, unspecified (principal) ==

== ENCOUNTER → 2018-12-15 | Outpatient (CLI) | payer MEDICARE, MEDICAID ==
--- NOTE | 2018-12-15 13:34 | REP ---
Two-view chest: 12/15/2018. Indication: Dyspnea. Comparison: 10/28/2018. Findings: Left-sided dual lead pacing device is unchanged in configuration. Leads are intact. Cardiomegaly persists. Plate-like atelectasis of the lung bases is present. There is no significant pleural fluid or pneumothorax. The remaining lungs are clear. Impression: There is no evidence of acute cardiopulmonary process. Electronically Signed by Chip Macedo DO 12/15/2018 01:26 P
== END ==
LOC: M LRY 12:58
PROVIDERS: ATTEND Nurse Practitioner Family
DX: R91.8 Other nonspecific abnormal finding of lung field (principal); I51.7 Cardiomegaly; R06.09 Other forms of dyspnea
CPT/HCPCS: 71046; 93005; G0463

== ENCOUNTER → 2018-12-16 | Outpatient (CLI) | payer MEDICARE, MEDICAID ==
[~2018-12-16] MED LIST changes: +CALC600T66 PO; +LOPE1CAP5 PO; +ZANT150T40 PO
[2018-12-16 11:29] LABS: CALCIUM LEVEL 8.7 MG/DL (8.8-10.2); CREATININE FOR GFR 1.15 MG/DL (0.55-1.30); GLOMERULAR FILTRATION RATE 48.2 (>32); POTASSIUM SERUM 4.6 MEQ/L (3.5-5.1)
== END ==
LOC: M LAB 10:20
PROVIDERS: ATTEND Physician Assistant
DX: I71.4 Abdominal aortic aneurysm, without rupture (principal); Z95.828 Presence of other vascular implants and grafts
CPT/HCPCS: 36415; 80048; 90682; G0008; G0463

== ENCOUNTER → 2018-12-21 | Outpatient (REF) | payer MEDICARE, MEDICAID ==
[~2018-12-21] MED LIST changes: -CALC600T66 PO; -LOPE1CAP5 PO; -ZANT150T40 PO
== END ==
PROVIDERS: ATTEND Family Medicine
DX: E07.9 Disorder of thyroid, unspecified (principal)

== ENCOUNTER 2019-01-17 14:29 | Outpatient (RCR) | payer MEDICARE, MEDICAID ==
[~2019-01-17 14:29] MED LIST changes: +CALC600T66 PO; +LOPE1CAP5 PO; +ZANT150T40 PO
== END 2019-01-29 ==
LOC: M PR 14:29
PROVIDERS: ATTEND Family Medicine
DX: J44.9 Chronic obstructive pulmonary disease, unspecified (principal)

== ENCOUNTER → 2019-01-18 | Outpatient (CLI) | payer MEDICARE, MEDICAID ==
[~2019-01-18] MED LIST changes: +OMEP-172 PO; -OMEP20CA4 PO
--- NOTE | 2019-01-18 13:53 | REP ---
Three views right shoulder: 01/18/2019. Indication: Left shoulder pain. Comparison: 12/15/2018. Findings: There is no evidence of acute fracture, subluxation or dislocation. 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 Humeral head is high-riding possibly indicative of rotator cuff injury. The visualized lung is clear. Impression: Degenerative sequelae of the right glenohumeral joint. No fracture. Electronically Signed by Chip Macedo DO 01/18/2019 01:45 P
== END ==
LOC: M LRY 12:07
PROVIDERS: ATTEND Family Medicine
DX: M19.011 Primary osteoarthritis, right shoulder (principal); M75.91 Shoulder lesion, unspecified, right shoulder
CPT/HCPCS: 73030; G0463

== ENCOUNTER → 2019-01-19 | Outpatient (CLI) | payer MEDICARE, MEDICAID ==
--- NOTE | 2019-01-19 19:46 | REP ---
Two-view chest: 01/19/2019. Indication: Dyspnea. Comparison: 12/15/2018. Findings: Bibasilar atelectasis is redemonstrated. There is no significant pleural effusion or pneumothorax. Left-sided dual lead pacer is present with the leads intact. No air space consolidation is present. Mildly enlarged cardiac silhouette and aortic atherosclerotic disease are redemonstrated. Impression: There is no evidence of acute cardiopulmonary process. Electronically Signed by Chip Macedo DO 01/19/2019 07:38 P
== END ==
LOC: M LRY 19:22
PROVIDERS: ATTEND Nurse Practitioner Family
DX: J98.11 Atelectasis (principal); R06.02 Shortness of breath; Z95.0 Presence of cardiac pacemaker
CPT/HCPCS: 71046; G0463

== ENCOUNTER 2019-02-20 19:29 | Inpatient (IN) | payer MEDICARE, MEDICAID ==
[~2019-02-20] VITALS: Ht 152.4 cm; Wt 88.5 kg
[2019-02-20] MEDS ORDERED: methylPREDNISolone INJ 125 MG/2 ML VIAL (J2930) IV ONE (20:15)
--- NOTE | 2019-02-20 20:45 | REPVR ---
PROCEDURE INFORMATION: Exam: XR Chest, 1 View Exam date and time: 02/20/2019 8:12 PM Age: 83 years old Clinical indication: Cough and dyspnea; Additional info: Dyspnea/cough TECHNIQUE: Imaging protocol: XR of the chest Views: 1 view. COMPARISON: CR CHEST 2 VIEW 01/19/2019 7:25 PM FINDINGS: Tubes, catheters and devices: Dual-lead cardiac pacer, unchanged. Lungs: Patchy opacities within the right lower lobe consistent with atelectasis versus pneumonia. Followup imaging to confirm resolution of this abnormality is recommended as clinically warranted. The left lung is clear. The pulmonary vasculature is unremarkable. Pleural space: Unremarkable. No pleural effusion. No pneumothorax. Heart/Mediastinum: Mild cardiomegaly, unchanged. Bones/joints: No acute bone or joint abnormality. IMPRESSION: 1. Mild cardiomegaly. 2. Right lower lobe opacities. Differential diagnosis includes atelectasis and/or pneumonia. Followup imaging to confirm resolution of this abnormality is recommended as clinically warranted. Electronically signed by: Johan King On 02/20/2019 20:45:30 PM
[2019-02-20] MEDS: IPRATROPIUM 0.5MG/ALBUTEROL 2.5MG INH SOL UD 3ML (DUONEB)(J7620) NEB PRN ×3 (20:50→21:31)
[2019-02-20 20:58] LABS: BASO % 0.3 % (0.0-1.0); EOS # 0.1 10^3/uL (0.0-0.5); EOS % 1.8 % (0.0-3.0); HEMATOCRIT 33.6 % (36.0-47.0); HEMOGLOBIN 10.1 g/dl (12.0-15.5); LYMPH # 1.2 10^3/uL (1.5-5.0); MEAN CORPUSCULAR HEMOGLOBIN 32.7 pg (27.0-33.0); MEAN CORPUSCULAR HGB CONC 30.1 g/dl (32.0-36.5); MEAN CORPUSCULAR VOLUME 108.7 fl (80.0-96.0); MONO # 0.7 10^3/uL (0.0-0.8); MONO % 10.5 % (0.0-5.0); NEUTROPHILS # 4.7 10^3/uL (1.5-8.5); NEUTROPHILS % 68.8 % (36.0-66.0); PLATELET COUNT, AUTOMATED 260 10^3/uL (150-450); RED BLOOD COUNT 3.09 10^6/uL (4.00-5.40); WHITE BLOOD COUNT 6.8 10^3/uL (4.0-10.0)
[2019-02-20 20:59] LABS: ABG BASE EXCESS 7.3 (-2.0-2.0); ABG HCO3 33.3 MEQ/L (22.0-26.0); ABG O2 SATURATION 94.5 % (95.0-99.0); ABG PARTIAL PRESSURE CO2 54.5 mmHg (35.0-45.0); ABG PARTIAL PRESSURE O2 71.2 mmHg (75.0-100.0); ABG pH (ARTERIAL) 7.404 UNITS (7.350-7.450)
[2019-02-20] MEDS ORDERED: FAMOTIDINE 20 MG TAB PO SCH (21:00)
[2019-02-20 21:16] LABS: BLOOD UREA NITROGEN 21 MG/DL (7-18); CALCIUM LEVEL 7.2 MG/DL (8.8-10.2); CARBON DIOXIDE LEVEL 28 MEQ/L (21-32); CHLORIDE LEVEL 109 MEQ/L (98-107); CK-MB VALUE MASS 1.1 NG/ML (<3.6); CPK CREATINE PHOSPHOKINASE 57 U/L (26-192); CREATININE FOR GFR 0.96 MG/DL (0.55-1.30); GLOMERULAR FILTRATION RATE 59.4 (>32); GLUCOSE, FASTING 80 MG/DL (70-100); MB/CK RELATIVE INDEX 1.93 (< OR =4); POTASSIUM SERUM 3.6 MEQ/L (3.5-5.1); SODIUM LEVEL 144 MEQ/L (136-145); TROPONIN I < 0.02 NG/ML (< 0.10)
[2019-02-20] MEDS ORDERED: CALC500T15 PO (21:23)
[2019-02-20] MEDS ORDERED: BREO1INH INH (21:23)
[2019-02-20 21:25] LABS: INFLUENZA A AMPLIFICATION NEGATIVE (NEGATIVE); INFLUENZA B AMPLIFICATION NEGATIVE (NEGATIVE)
[2019-02-20] MEDS ORDERED: AZITHROMYCIN INJ 500 MG, VIAL MATE ADAPTER 1 EACH in D5W 250 ML IV ONE (21:45)
[2019-02-20] MEDS ORDERED: cefTRIAXone SOD 1 GM in D5W MINI-BAG PLUS 50 ML IV ONE (21:45)
[2019-02-20] MEDS ORDERED: TUMS750C22 PO (21:53)
[2019-02-20] MEDS ORDERED: KAOP262S PO (21:53)
[2019-02-20] MEDS ORDERED: CYAN100050 PO (21:53)
[2019-02-20] MEDS ORDERED: IPRA0.00 IN (21:53)
[2019-02-20] MEDS ORDERED: CALC600T60 PO (21:53)
[2019-02-20] MEDS ORDERED: LOPE1CAP5 PO (21:53)
[2019-02-20] MEDS ORDERED: VENTAER INH (21:53)
[2019-02-20] MEDS ORDERED: FAMO1TAB11 PO (21:53)
[2019-02-20] MEDS ORDERED: METR0.7533 TOP (21:53)
[2019-02-20] MEDS ORDERED: ALBUTEROL 90 MCG/ACT 8GM HFA INHALER INH PRN (22:15)
[2019-02-20] MEDS ORDERED: PINK BISMUTH SUSP 524MG/30ML ORAL SYRINGE PO PRN (22:15)
--- NOTE | 2019-02-20 22:29 | HPEPDOC ---
General Date of Admission 02/20/19 Date of Service: Feb 20, 2019 Chief Complaint The patient is a 83-year-old female admitted with a reason for visit of SOB. Source: Patient Exam Limitations: No limitations Timing/Duration: Day(s) Severity: Mild, Moderate Associated Symptoms: Cough, Shortness of breath History of Present Illness Patient is 83 year old F with COPD , chronic respiratory failure with hypoxia, CAD s/p PCI, Diastolic CHF, moderate pulmonary hypertension, Pacemaker due to sick sinus syndrome, H/o breast cancer s/p bilateral mastectomy and bilateral breast implants, hypertension, hyperlipidemia, hypothyroid, h/o GIB and chronic iron deficiency anemia presented to the ED with SOB and cough for 7 days. Patient stated that for past week she developed increased shortness of breath associated with increased cough with greenish sputum production. Patient stated that she was afebrile, didn't have any chills. She also complains of orthopnea and increased lower extremity swelling. In emergency room patient was found to have no leukocytosis, chest x-ray showed Right lower lobe opacities. Differential diagnosis includes atelectasis and/or pneumonia. ProBNP around 400. Patient denied fever, chills, nausea, vomiting, palpitations, diarrhea or dysuria Home Medications Scheduled Acetaminophen (Tylenol Arthritis) 650 Mg Tab, 650 MG PO DAILY, (Reported) Amlodipine Besylate (Amlodipine Besylate) 5 Mg Tab, 5 MG PO DAILY, (Reported) Aspirin (Aspirin EC) 81 Mg Tabec, 81 MG PO DAILY, (Reported) Calcium Carbonate (Calcium) 600 Mg Tablet, 600 MG PO QHS, (Reported) Cyanocobalamin (Vitamin B-12) (Vitamin B-12) 1,000 Mcg Tablet, 1,000 MCG PO DAILY, (Reported) Famotidine (Famotidine) 20 Mg Tablet, 20 MG PO QHS, (Reported) Ferrous Sulfate, Dried (Slow Release Iron) 160 Mg Tablet.er, 325 MG PO Q2D, (Reported) Fluoxetine Hcl (Fluoxetine HCl) 20 Mg Cap, 20 MG PO DAILY, (Reported) Fluticasone/Vilanterol (Breo Ellipta 100-25 Mcg INH) 1 Each Blst.w.dev, 1 PUFF INH DAILY, (Reported) Furosemide (Furosemide) 20 Mg Tab, 20 MG PO DAILY, (Reported) Levothyroxine Sodium (Synthroid) 50 Mcg Tablet, 50 MCG PO DAILY, (Reported) Magnesium Chloride (Magnesium Chloride) 64 Mg Tablet.dr, 64 MG PO DAILY, (Reported) Metronidazole (Metronidazole 0.75% Gel) 45 Gm Gel..gram., 1 APLCT TOP DAILY, (Reported) FOR ROSACEA Multivitamins (Thera M Plus Tablet) 1 Tab Tab, 1 TAB PO DAILY, (Reported) Pantoprazole Sodium (Pantoprazole Sodium) 40 Mg Tab, 40 MG PO BID, (Reported) Potassium Chloride (Potassium Chloride) 20 Meq Packet, 20 MEQ PO DAILY, (Reported) Pravastatin Sodium (Pravastatin Sodium) 40 Mg Tab, 40 MG PO DAILY, (Reported) Tiotropium [place] (Spiriva) 18 Mcg Cap, 1 INHALATION INH DAILY, (Reported) Valsartan (Valsartan) 320 Mg Tab, 320 MG PO DAILY, (Reported) Scheduled PRN Albuterol Sulfate (Ventolin Hfa) 18 Gm Hfa.aer.ad, 2 PUFF INH Q4H PRN for SHORTNESS OF BREATH, (Reported) Bismuth Subsalicylate (Kaopectate) 262 Mg/15 Ml Oral.susp, 30 ML PO Q3H PRN for EPIGASTRIC DISCOMFORT, (Reported) Calcium Carbonate (Tums) 300 Mg Tab.chew, 1 TAB PO TID PRN for INDIGESTION, (Reported) Ipratropium/Albuterol Sulfate (Iprat-Albut 0.5-3(2.5) mg/3 ml) 3 Ml Ampul.neb, 1 INHALATION IN Q4H PRN for SHORTNESS OF BREATH, (Reported) Loperamide HCl (Loperamide) 2 Mg Capsule, 2 MG PO DAILY PRN for DIARRHEA, (Reported) Miscellaneous Medications Ascorbate Calcium (Calcium Ascorbate) 500 Mg Tablet, 500 MG PO, (Reported) Allergies Coded Allergies: ENVIROMENTAL (Verified Allergy, Unknown, 02/20/19) hydrocodone (Verified Adverse Reaction, Intermediate, hallucinations, confusion while on Vicodin, 02/20/19) Past Medical History Medical History COPD WITH CHRONIC RESPIRATORY FAILURE WITH HYPOXIA HYPERTENSION ARTHRITIS ELEVATED CHOL CHFPEF MODERATE PULMONARY HYPERTENSION OBESITY CAD GERD HX OF BREAST CA PACE MAKER DUE TO SICK SINUS SYNDROME BREAST IMPLANTS DEPRESSION HYPOTHYROIDISM DIVERTICULOSIS, POLYPS, DECREASED ANAL SPHINCTER TONE CHRONIC ANEMIA Surgical History Surgical History KEV MASECTOMY 2009 AAA REPAIR 08/2015 BACK SURGERY L ELBOW SURGERY FALLOPIAN TUBE REMOVAL R KNEE SURGERY EKV CATARACT REMOVAL PACEMAKER GALLBLADDER REMOVAL COLONOSCOPY PACEMAKER CHANGE 2019 Family History FATHER: , EMPHYSEMA MOTHER: from dementia Social History * Smoker: former Smoker Alcohol: Denies Drugs: denies A-FIB/CHADSVASC A-FIB History Current/History of A-Fib/PAF?: No Current PO Anticoag Therapy: No Review of Systems Constitutional: Denies: Chills Eyes: Denies: Pain ENT: Denies: Head Aches Skin: Denies: Rash Pulmonary: Reports: Dyspnea, Cough Cardiovascular: Reports: Orthopnea; Denies: Chest Pain Gastrointestinal: Denies: Nausea, Vomiting Genitourinary: Denies: Dysuria, Frequency Hematologic: Denies: Bruising Endocrine: Denies: Polydipsia Musculoskeletal: Denies: Neck Pain, Back Pain Neurological: Denies: Weakness, Numbness Psych: Reports: Mood Normal Physical Examination General Exam: Positive: Alert Eye Exam: Positive: PERRLA ENT Exam: Positive: Atraumatic Neck Exam: Positive: JVD; Negative: Supple Chest Exam: Positive: Wheezing, Diminished Heart Exam: Positive: Rate Normal Telemetry: Positive: No significant arrhythmia Abdomen Exam: Positive: Normal bowel sounds Extremity Exam: Negative: Clubbing, Cyanosis Skin Exam: Positive: Nl turgor and temperature Neuro Exam: Positive: Strength at 5/5 X4 ext, Cranial Nerves 3-12 NL Psych Exam: Positive: Mental status NL Vital Signs Vital Signs Date Time Temp Pulse Resp B/P (MAP) Pulse Ox O2 Delivery O2 Flow Rate FiO2 02/20/19 20:19 Nasal Cannula 3.0 02/20/19 20:10 02/20/19 19:30 97.4 71 18 86 Laboratory Data Labs 24H Laboratory Tests 2 02/20/19 20:33: Immature Granulocyte % (Auto) 0.6, Neutrophils (%) (Auto) 68.8H, Lymphocytes (%) (Auto) 18.0L, Monocytes (%) (Auto) 10.5H, Eosinophils (%) (Auto) 1.8, Basophils (%) (Auto) 0.3, Neutrophils # (Auto) 4.7, Lymphocytes # (Auto) 1.2L, Monocytes # (Auto) 0.7, Eosinophils # (Auto) 0.1, Basophils # (Auto) 0.0, Nucleated Red Blood Cells % (auto) 0.0, Anion Gap 7L, Glomerular Filtration Rate 59.4, Calcium Level 7.2L, Total Creatine Kinase 57, Creatine Kinase MB 1.1, Creatine Kinase MB Relative Index 1.93, Troponin I < 0.02, LQ-Azw-A-Type Natriuretic Peptide 406, Influenza Type A (RT-PCR) NEGATIVE, Influenza Type B (RT-PCR) NEGATIVE 02/20/19 20:34: Blood Gas Bicarbonate Standard 31.0H, Arterial Blood pH 7.404, Arterial Blood Partial Pressure CO2 54.5H, Arterial Blood Partial Pressure O2 71.2L, Arterial Blood Total CO2 35.0H, Arterial Blood HCO3 33.3H, Arterial Blood Base Excess 7.3H, Arterial Blood Oxygen Saturation 94.5L CBC/BMP Laboratory Tests 02/20/19 20:33 Microbiology Microbiology 02/20/19 Blood Culture, Received Pending Assessment/Plan Patient is 83 year old F with COPD , chronic respiratory failure with hypoxia, CAD s/p PCI, Diastolic CHF, moderate pulmonary hypertension, Pacemaker due to sick sinus syndrome, H/o breast cancer s/p bilateral mastectomy and bilateral breast implants, hypertension, hyperlipidemia, hypothyroid, h/o GIB and chronic iron deficiency anemia presented to the ED with SOB and cough for 7 days. Patient was diagnosed with community acquired pneumonia superimposed with acute diastolic CHF Problems (1) CAP (community acquired pneumonia) Status: Acute Problem Text: Azithromycin IV, ceftriaxone IV Sputum culture Respiratory panel Steroids IV DuoNeb [id number] Incentive spirometry (2) CHF (congestive heart failure) Status: Acute Problem Text: Acute on chronic diastolic CHF Most likely secondary to dietary indiscretion Lasix IV 40 mg twice a day I's and O's Cardiac diet (3) Acute on chronic respiratory failure Status: Acute Problem Text: Secondary to community acquired pneumonia superimposed with CHF exacerbation Increased oxygen requirements from her baseline Continue oxygen treatment Plan / VTE VTE Prophylaxis Ordered?: Yes TYLOR COTTO DO Feb 20, 2019 22:29
[2019-02-20] MEDS ORDERED: POTASSIUM CHLORIDE 10 MEQ SR TABLET PO ONE (22:30)
[2019-02-20 22:46] LABS: NT-PRO BNP 352 PG/ML (<450)
[2019-02-20 23:01] VITALS: BP 147/62
[2019-02-20] MEDS: PANTOPRAZOLE 40MG TAB (PROTONIX) PO SCH (23:44)
[2019-02-20] MEDS: cefTRIAXone SOD 1 GM in D5W MINI-BAG PLUS 50 ML IV SCH (23:45)
[2019-02-21] MEDS: IPRATROPIUM 0.5MG/ALBUTEROL 2.5MG INH SOL UD 3ML (DUONEB)(J7620) NEB SCH ×7 (01:24→23:45)
[2019-02-21] MEDS: FUROSEMIDE 40 MG/4 ML VIAL (J1940) IV SCH ×2 (01:40→12:21)
[2019-02-21] MEDS: AZITHROMYCIN INJ 500 MG, VIAL MATE ADAPTER 1 EACH in D5W 250 ML IV SCH (01:56)
[2019-02-21] MEDS: methylPREDNISolone INJ 125 MG/2 ML VIAL (J2930) IV SCH ×2 (04:19→12:11)
[2019-02-21] MEDS: LEVOTHYROXINE 50MCG TABLET (0.05MG) PO SCH (05:48)
[2019-02-21 06:00] VITALS: BP 121/59
--- NOTE | 2019-02-21 08:38 | ECGEPIP ---
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
[2019-02-21] MEDS: POTASSIUM CHL PWD 20 MEQ PACKET PO SCH (08:48)
[2019-02-21] MEDS: ASPIRIN 81 MG ENTERIC TAB PO SCH (08:48)
[2019-02-21 08:49] LABS: HEMATOCRIT 35.3 % (36.0-47.0); HEMOGLOBIN 11.1 g/dl (12.0-15.5); MEAN CORPUSCULAR HEMOGLOBIN 33.8 pg (27.0-33.0); MEAN CORPUSCULAR HGB CONC 31.4 g/dl (32.0-36.5); MEAN CORPUSCULAR VOLUME 107.6 fl (80.0-96.0); PLATELET COUNT, AUTOMATED 275 10^3/uL (150-450); RED BLOOD COUNT 3.28 10^6/uL (4.00-5.40); WHITE BLOOD COUNT 11.8 10^3/uL (4.0-10.0)
[2019-02-21] MEDS: VALSARTAN 80 MG TAB (DIOVAN) PO SCH (08:49)
[2019-02-21] MEDS: amLODIPine 5 MG TAB PO SCH (08:49)
[2019-02-21] MEDS: FLUoxetine 20 MG CAP PO SCH (08:49)
[2019-02-21] MEDS: PANTOPRAZOLE 40MG TAB (PROTONIX) PO SCH ×2 (08:49→20:51)
[2019-02-21] MEDS: PRAVASTATIN 20 MG TAB PO SCH (08:49)
[2019-02-21] MEDS: MAGNESIUM CHLORIDE 64 MG TABCR (SLO MAG) PO SCH (08:50)
[2019-02-21] MEDS: HEPARIN SOD (PORCINE) 5000 UNITS/ML VIAL SC SCH ×2 (08:50→20:51)
[2019-02-21] MEDS ORDERED: TIOTROPIUM INHALER/CAPSULE (SPIRIVA) INH SCH (09:00)
[2019-02-21 09:26] LABS: CALCIUM LEVEL 9.2 MG/DL (8.8-10.2); CREATININE FOR GFR 1.34 MG/DL (0.55-1.30); GLOMERULAR FILTRATION RATE 40.4 (>32); MAGNESIUM LEVEL 1.8 MG/DL (1.8-2.4); POTASSIUM SERUM 4.3 MEQ/L (3.5-5.1)
[2019-02-21] MEDS: ACETAMINOPHEN 650MG ER TAB (TYLENOL ARTHRITIS) PO SCH (10:10)
[2019-02-21] MEDS ORDERED: CEFD1CAP8 PO (10:56)
--- NOTE | 2019-02-21 13:31 | IPNPDOC ---
Date Seen The patient was seen on 02/21/19. Progress Note SUBJECTIVE: Patient was seen and examined today, lying comfortably in bed. She states her breathing is significantly improved from yesterday. She does report some shortness of breath when getting up to use the bathroom but does not feel short of breath at rest. She denies any additional complaints today. OBJECTIVE PHYSICAL EXAMINATION: VITAL SIGNS: Please see below. GENERAL: Alert, comfortable, in no acute distress HEENT: Normocephalic, atraumatic, PERRLA, EOMI, moist mucous membranes NECK: Supple, trachea midline, no lymphadenopathy, JVP 2 cm above the sternal angle CARDIOVASCULAR: Regular rate and rhythm, normal S1 and S2. No murmurs, rubs, or gallops RESPIRATORY: Diffuse expiratory wheezing throughout lung caldera. No rhonchi, or rales. ABDOMEN: Soft, nontender, nondistended, bowel sounds present, no masses or hepatosplenomegaly appreciated EXTREMITIES: 1+ pitting edema up to the mid calf. No cyanosis. Pulses 2+/4 in bilateral upper and lower extremities NEUROLOGIC: Alert and oriented 3 to person, place and time. Cranial nerves 2-12 grossly intact. No focal deficits appreciated PSYCHIATRIC: Mood and affect appropriate LABORATORY DATA, IMAGING STUDIES, MICROBIOLOGY: Please see below. ASSESSMENT AND PLAN: 83-year-old female with a history of CHF, COPD, hypertension, CAD, sick sinus syndrome/PE. Pacemaker, breast cancer/PE, bilateral mastectomy, who was admitted for community-acquired pneumonia and COPD exacerbation. #Community acquired pneumonia. Continue antibiotic coverage with azithromycin and ceftriaxone. Sputum culture pending, blood cultures pending, respiratory Negative. Continue Acapella use to help break up mucus Patient is back to her baseline oxygen requirement at 3 L via nasal cannula #COPD exacerbation 2/2 CAP Continue steroids and DuoNeb's. Treatment for pneumonia as above #Congestive heart failure. A new with IV Lasix for a goal of output of 1.5-2 L of fluid per day. Monitor I's and O's #Hypertension Continue home amlodipine and valsartan #Hypothyroidism Continue home Synthroid #Chronic anemia. -H/H stable #History of CAD, hyperlipidemia. -continue home aspirin and pravastatin #History of breast cancer. -s/p bilateral mastectomy #History of sick sinus syndrome s/p pacemaker #Mood disorder -continue home fluoxetine DVT prophylaxis: Heparin GI Prophylaxis: Protonix while on steroids DISPOSITION: likely d/c back to [facility] assisted living within 24-48 hrs ATTENDING NOTE I have personally evaluated and examined the patient. Discussed with residents/student regarding plan of care and agree with the above assessment and plan. VS, I&O, 24H, Fishbone Vital Signs/I&O Vital Signs Date Time Temp Pulse Resp B/P (MAP) Pulse Ox O2 Delivery O2 Flow Rate FiO2 02/21/19 09:00 3.0 02/21/19 08:49 121/59 02/21/19 08:20 70 18 02/21/19 06:00 97.4 95 Nasal Cannula I&O- Last 24 Hours up to 6 AM 02/21/19 06:00 Intake Total 665 ml Output Total 1100 ml Balance -435 ml Laboratory Data 24H LABS Laboratory Tests 2 02/20/19 20:33: Immature Granulocyte % (Auto) 0.6, Neutrophils (%) (Auto) 68.8H, Lymphocytes (%) (Auto) 18.0L, Monocytes (%) (Auto) 10.5H, Eosinophils (%) (Auto) 1.8, Basophils (%) (Auto) 0.3, Neutrophils # (Auto) 4.7, Lymphocytes # (Auto) 1.2L, Monocytes # (Auto) 0.7, Eosinophils # (Auto) 0.1, Basophils # (Auto) 0.0, Nucleated Red Blood Cells % (auto) 0.0, Anion Gap 7L, Glomerular Filtration Rate 59.4, Calcium Level 7.2L, Total Creatine Kinase 57, Creatine Kinase MB 1.1, Creatine Kinase MB Relative Index 1.93, Troponin I < 0.02, SL-Hjn-A-Type Natriuretic Peptide 406, Influenza Type A (RT-PCR) NEGATIVE, Influenza Type B (RT-PCR) NEGATIVE 02/20/19 20:34: Blood Gas Bicarbonate Standard 31.0H, Arterial Blood pH 7.404, Arterial Blood Partial Pressure CO2 54.5H, Arterial Blood Partial Pressure O2 71.2L, Arterial Blood Total CO2 35.0H, Arterial Blood HCO3 33.3H, Arterial Blood Base Excess 7.3H, Arterial Blood Oxygen Saturation 94.5L 02/20/19 23:37: 02/21/19 01:06: 02/21/19 08:08: Nucleated Red Blood Cells % (auto) 0.0, Anion Gap 12, Glomerular Filtration Rate 40.4, Calcium Level 9.2#, Magnesium Level 1.8 CBC/BMP Laboratory Tests 02/20/19 20:33 02/21/19 08:08 Microbiology Microbiology 02/21/19 Respiratory Virus Panel (PCR) (IZABELA) - Final, Complete 02/21/19 Gram Stain - Final, Resulted 02/21/19 Sputum Culture, Resulted Pending 02/20/19 Blood Culture, Received Pending 02/20/19 Blood Culture, Received Pending VICKEY RICHARD D.O. Feb 21, 2019 13:31 AISHWARYA ROLAND MD Feb 21, 2019 16:47
[2019-02-21 22:00] VITALS: BP 136/60
[2019-02-21] MEDS: cefTRIAXone SOD 1 GM in D5W MINI-BAG PLUS 50 ML IV SCH (22:06)
[2019-02-22] MEDS: FUROSEMIDE 40 MG/4 ML VIAL (J1940) IV SCH (00:32)
[2019-02-22] MEDS: AZITHROMYCIN INJ 500 MG, VIAL MATE ADAPTER 1 EACH in D5W 250 ML IV SCH (00:59)
[2019-02-22] MEDS: IPRATROPIUM 0.5MG/ALBUTEROL 2.5MG INH SOL UD 3ML (DUONEB)(J7620) NEB SCH ×3 (03:53→08:57)
[2019-02-22 06:00] VITALS: BP 124/56
[2019-02-22] MEDS: LEVOTHYROXINE 50MCG TABLET (0.05MG) PO SCH (06:29)
[2019-02-22] MEDS ORDERED: CEFD1CAP8 PO (07:23)
[2019-02-22 08:07] LABS: HEMOGLOBIN 11.3 g/dl (12.0-15.5); MEAN CORPUSCULAR HEMOGLOBIN 33.3 pg (27.0-33.0); MEAN CORPUSCULAR HGB CONC 31.4 g/dl (32.0-36.5); MEAN CORPUSCULAR VOLUME 106.2 fl (80.0-96.0); PLATELET COUNT, AUTOMATED 303 10^3/uL (150-450); RED BLOOD COUNT 3.39 10^6/uL (4.00-5.40); WHITE BLOOD COUNT 17.6 10^3/uL (4.0-10.0)
[2019-02-22 08:09] VITALS: BP 124/56
[2019-02-22] MEDS: PANTOPRAZOLE 40MG TAB (PROTONIX) PO SCH (08:09)
[2019-02-22] MEDS: amLODIPine 5 MG TAB PO SCH (08:09)
[2019-02-22] MEDS: ASPIRIN 81 MG ENTERIC TAB PO SCH (08:09)
[2019-02-22] MEDS: VALSARTAN 80 MG TAB (DIOVAN) PO SCH (08:09)
[2019-02-22] MEDS: ACETAMINOPHEN 650MG ER TAB (TYLENOL ARTHRITIS) PO SCH (08:09)
[2019-02-22] MEDS: MAGNESIUM CHLORIDE 64 MG TABCR (SLO MAG) PO SCH (08:10)
[2019-02-22] MEDS: PRAVASTATIN 20 MG TAB PO SCH (08:10)
[2019-02-22] MEDS: FLUoxetine 20 MG CAP PO SCH (08:10)
[2019-02-22] MEDS: HEPARIN SOD (PORCINE) 5000 UNITS/ML VIAL SC SCH (08:10)
[2019-02-22] MEDS: POTASSIUM CHL PWD 20 MEQ PACKET PO SCH ×2 (08:12→09:32)
[2019-02-22 08:47] LABS: CALCIUM LEVEL 9.2 MG/DL (8.8-10.2); CREATININE FOR GFR 1.21 MG/DL (0.55-1.30); GLOMERULAR FILTRATION RATE 45.5 (>32); POTASSIUM SERUM 4.5 MEQ/L (3.5-5.1)
[2019-02-22] MEDS ORDERED: methylPREDNISolone INJ 40 MG/1 ML VIAL (J2920) IV SCH (09:00)
--- NOTE | 2019-02-22 13:55 | DS.PDOC ---
Discharge Summary General Date of Admission Feb 20, 2019 at 22:00 Date of Discharge 02/22/2019 Attending Physician: AISHWARYA ROLAND MD Discharge Summary PROCEDURES PERFORMED DURING STAY: None. ADMITTING DIAGNOSES: 1. Community acquired pneumonia. 2. Congestive heart failure. 3. Acute on chronic respiratory failure 4. COPD 5. Pacemaker for sick sinus syndrome 6. Hx of CAD and hyperlipidemia 7.. Hypothyroidism. 8. Hypertension 9. History of breast cancer. 10. Chronic anemia. 11. Mood disorder DISCHARGE DIAGNOSES: 1. Community acquired pneumonia. 2. Congestive heart failure. 3. Acute on chronic respiratory failure 4. COPD 5. Pacemaker for sick sinus syndrome 6. Hx of CAD and hyperlipidemia 7.. Hypothyroidism. 8. Hypertension 9. History of breast cancer. 10. Chronic anemia. 11. Mood disorder COMPLICATIONS/CHIEF COMPLAINT: Community Aquired Pneumonia. HISTORY OF PRESENT ILLNESS: 83-year-old female with a history of COPD, chronic respiratory failure with hypoxia, CAD status post PCI, diastolic CHF, pulmonary hypertension, pacemaker due to sick sinus syndrome, breast cancer status post bilateral mastectomy, hypertension, hypothyroidism, hyperlipidemia, and chronic iron deficiency anemia who presented to the emergency room with 7 day history of progressively worsening shortness of breath and cough. She had also noticed increasing green sputum production over this time course. She denied any fevers, chills, or night sweats at home. HOSPITAL COURSE: The patient was admitted to the hospital for his community- acquired pneumonia and COPD exacerbation. She was started on antibiotic coverage with azithromycin and ceftriaxone. He is also started on IV steroids and his w nicole scheduled DuoNeb's. Patient was also treated for acute exacerbation of CHF with IV Lasix. On admission, the patient required higher levels of oxygen supplementation than her baseline, but by the second day of her admission, she was back down to her baseline home oxygen requirement. The patient's shortness of breath subjectively improved. She was switched to empiric oral antibiotics. On the discharge, patient was found stable for discharge back to [facility] assisted living. DISCHARGE MEDICATIONS: Please see below. ALLERGIES: Please see below. PHYSICAL EXAMINATION ON DISCHARGE: VITAL SIGNS: Please see below. GENERAL: Alert, comfortable, in no acute distress HEENT: Normocephalic, atraumatic, PERRLA, EOMI, moist mucous membranes NECK: Supple, trachea midline, no lymphadenopathy, JVP 2 cm above the sternal angle CARDIOVASCULAR: Regular rate and rhythm, normal S1 and S2. No murmurs, rubs, or gallops RESPIRATORY: Diffuse expiratory wheezing throughout lung caldera. No rhonchi, or rales. ABDOMEN: Soft, nontender, nondistended, bowel sounds present, no masses or hepatosplenomegaly appreciated EXTREMITIES: trace pitting edema up to the mid calf. No cyanosis. Pulses 2+/4 in bilateral upper and lower extremities SKIN: Oil Trough, warm, dry NEUROLOGIC: Alert and oriented 3 to person, place and time. Cranial nerves 2-12 grossly intact. No focal deficits appreciated PSYCHIATRIC: Mood and affect appropriate LABORATORY DATA: Please see below. IMAGING: CXR 02/20: 1. Mild cardiomegaly. 2. Right lower lobe opacities. Differential diagnosis includes atelectasis and/or pneumonia. Followup imaging to confirm resolution of this abnormality is recommended as clinically warranted. PROGNOSIS: Fair ACTIVITY: As tolerated. DIET: COPD diet, low sodium (less than 2 grams/day) DISCHARGE PLAN: Return to [facility] on oral antibiotics DISPOSITION: [facility]. DISCHARGE INSTRUCTIONS: 1. Follow-up with your PCP in 7-10 days 2. Complete a full course of antibiotics 3. If your symptoms return or your condition worsens, please call your PCP or return to the ED for further evaluation. ITEMS TO FOLLOWUP ON ON OUTPATIENT: 1. Community acquired pneumonia. 2. Congestive heart failure DISCHARGE CONDITION: Stable. TIME SPENT ON DISCHARGE: 35 minutes. Vital Signs/I&Os Vital Signs Date Time Temp Pulse Resp B/P (MAP) Pulse Ox O2 Delivery O2 Flow Rate FiO2 02/22/19 08:09 124/56 02/22/19 08:00 3.0 02/22/19 06:00 98.6 84 21 94 Nasal Cannula I&O- Last 24 Hours up to 6 AM 02/22/19 06:00 Intake Total 1445 ml Output Total 4950 ml Balance -3505 ml Laboratory Data Labs 24H Laboratory Tests 2 02/22/19 07:49: Nucleated Red Blood Cells % (auto) 0.0, Anion Gap 8, Glomerular Filtration Rate 45.5, Calcium Level 9.2 CBC/BMP Laboratory Tests 02/22/19 07:49 Microbiology Microbiology 02/21/19 Respiratory Virus Panel (PCR) (IZABELA) - Final, Complete 02/21/19 Gram Stain - Final, Resulted 02/21/19 Sputum Culture, Resulted Pending 02/20/19 Blood Culture - Preliminary, Resulted No growth after 24 hours . All specim... 02/20/19 Blood Culture - Preliminary, Resulted No growth after 24 hours . All specim... Discharge Medications Scheduled Acetaminophen (Tylenol Arthritis) 650 Mg Tab, 650 MG PO DAILY, (Reported) Amlodipine Besylate (Amlodipine Besylate) 5 Mg Tab, 5 MG PO DAILY, (Reported) Aspirin (Aspirin EC) 81 Mg Tabec, 81 MG PO DAILY, (Reported) Calcium Carbonate (Calcium) 600 Mg Tablet, 600 MG PO QHS, (Reported) Cefdinir (Cefdinir) 300 Mg Capsule, 300 MG PO BID Cyanocobalamin (Vitamin B-12) (Vitamin B-12) 1,000 Mcg Tablet, 1,000 MCG PO DAILY, (Reported) Famotidine (Famotidine) 20 Mg Tablet, 20 MG PO QHS, (Reported) Ferrous Sulfate, Dried (Slow Release Iron) 160 Mg Tablet.er, 325 MG PO Q2D, (Reported) Fluoxetine Hcl (Fluoxetine HCl) 20 Mg Cap, 20 MG PO DAILY, (Reported) Fluticasone/Vilanterol (Breo Ellipta 100-25 Mcg INH) 1 Each Blst.w.dev, 1 PUFF INH DAILY, (Reported) Furosemide (Furosemide) 20 Mg Tab, 20 MG PO DAILY, (Reported) Levothyroxine Sodium (Synthroid) 50 Mcg Tablet, 50 MCG PO DAILY, (Reported) Magnesium Chloride (Magnesium Chloride) 64 Mg Tablet.dr, 64 MG PO DAILY, (Reported) Metronidazole (Metronidazole 0.75% Gel) 45 Gm Gel..gram., 1 APLCT TOP DAILY, (Reported) FOR ROSACEA Multivitamins (Thera M Plus Tablet) 1 Tab Tab, 1 TAB PO DAILY, (Reported) Pantoprazole Sodium (Pantoprazole Sodium) 40 Mg Tab, 40 MG PO BID, (Reported) Potassium Chloride (Potassium Chloride) 20 Meq Packet, 20 MEQ PO DAILY, (Reported) Pravastatin Sodium (Pravastatin Sodium) 40 Mg Tab, 40 MG PO DAILY, (Reported) Tiotropium [place] (Spiriva) 18 Mcg Cap, 1 INHALATION INH DAILY, (Reported) Valsartan (Valsartan) 320 Mg Tab, 320 MG PO DAILY, (Reported) Scheduled PRN Albuterol Sulfate (Ventolin Hfa) 18 Gm Hfa.aer.ad, 2 PUFF INH Q4H PRN for SHORTNESS OF BREATH, (Reported) Bismuth Subsalicylate (Kaopectate) 262 Mg/15 Ml Oral.susp, 30 ML PO Q3H PRN for EPIGASTRIC DISCOMFORT, (Reported) Calcium Carbonate (Tums) 300 Mg Tab.chew, 1 TAB PO TID PRN for INDIGESTION, (Reported) Ipratropium/Albuterol Sulfate (Iprat-Albut 0.5-3(2.5) mg/3 ml) 3 Ml Ampul.neb, 1 INHALATION IN Q4H PRN for SHORTNESS OF BREATH, (Reported) Loperamide HCl (Loperamide) 2 Mg Capsule, 2 MG PO DAILY PRN for DIARRHEA, (Reported) Miscellaneous Medications Ascorbate Calcium (Calcium Ascorbate) 500 Mg Tablet, 500 MG PO, (Reported) Allergies Coded Allergies: ENVIROMENTAL (Verified Allergy, Unknown, 02/20/19) hydrocodone (Verified Adverse Reaction, Intermediate, hallucinations, confusion while on Vicodin, 02/20/19) ATTENDING NOTE I have personally evaluated and examined the patient. Discussed with resident/student regarding plan of care and agree with the above assessment and plan. VICKEY RICHARD D.O. Feb 22, 2019 13:55 AISHWARYA ROLAND MD Feb 22, 2019 14:29
[2019-02-23 14:23] LABS: BODY FLUID CULTURE Not indicated. (.); LEGIONELLA ANTIGEN URINE Negative (Negative); ORGANISM ID Not indicated. (.); SPECIMEN SOURCE Urine (.); URINE STREP PNEUMONIAE ANTIGEN Negative (Negative)
== END 2019-02-22 10:11 | DRG 193 ==
LOC: M ED 19:29 → M ED INP 22:00 → M MSPAV 23:01
PROVIDERS: ADMIT Internal Medicine; ATTEND Student in an Organized Health Care Education/Training Program
DX: J18.9 Pneumonia, unspecified organism (principal); I50.33 Acute on chronic diastolic (congestive) heart failure; J96.21 Acute and chronic respiratory failure with hypoxia; J44.0 Chronic obstructive pulmonary disease with (acute) lower respiratory infection; I25.10 Atherosclerotic heart disease of native coronary artery without angina pectoris; I27.20 Pulmonary hypertension, unspecified; I11.0 Hypertensive heart disease with heart failure; J30.9 Allergic rhinitis, unspecified; D50.9 Iron deficiency anemia, unspecified; I49.5 Sick sinus syndrome; E03.9 Hypothyroidism, unspecified; E78.5 Hyperlipidemia, unspecified; Z85.3 Personal history of malignant neoplasm of breast; Z90.13 Acquired absence of bilateral breasts and nipples; Z95.0 Presence of cardiac pacemaker; Z79.82 Long term (current) use of aspirin; Z79.899 Other long term (current) drug therapy; Z88.5 Allergy status to narcotic agent; E78.00 Pure hypercholesterolemia, unspecified; Z98.41 Cataract extraction status, right eye; Z98.42 Cataract extraction status, left eye; Z90.49 Acquired absence of other specified parts of digestive tract; F39 Unspecified mood [affective] disorder

== ENCOUNTER 2019-02-28 10:19 | Inpatient (IN) | payer MEDICARE, MEDICAID ==
[~2019-02-28] VITALS: Ht 152.4 cm; Wt 85.0 kg
[~2019-02-28 10:19] MED LIST changes: +BREO1INH INH; +CALC500T15 PO; +CALC600T60 PO; +CEFD1CAP8 PO; +FAMO1TAB11 PO; +FERROUS SULFATE 300MG/5ML UDC LIQUID GT SCH; +KAOP262S PO; +METR0.7533 TOP; +TUMS750C22 PO
[2019-02-28] MEDS ORDERED: IPRATROPIUM 0.5MG/ALBUTEROL 2.5MG INH SOL UD 3ML (DUONEB)(J7620) NEB ONE (10:45)
[2019-02-28] MEDS ORDERED: methylPREDNISolone INJ 125 MG/2 ML VIAL (J2930) IV ONE (10:45)
[2019-02-28] MEDS ORDERED: ALBUTEROL SULFATE 2.5 MG/0.5 ML INH NEB SOLN INH ONE (10:45)
[2019-02-28 11:00] LABS: ABG BASE EXCESS 7.8 (-2.0-2.0); ABG HCO3 32.7 MEQ/L (22.0-26.0); ABG O2 SATURATION 95.7 % (95.0-99.0); ABG PARTIAL PRESSURE CO2 47.2 mmHg (35.0-45.0); ABG PARTIAL PRESSURE O2 78.8 mmHg (75.0-100.0); ABG STANDARD HCO3 31.6 MEQ/L (22.0-26.0); ABG TOTAL CO2 34.2 MEQ/L (23.0-31.0); ABG pH (ARTERIAL) 7.459 UNITS (7.350-7.450)
[2019-02-28 11:16] LABS: BASO # 0.1 10^3/uL (0.0-0.2); BASO % 0.6 % (0.0-1.0); EOS # 0.2 10^3/uL (0.0-0.5); EOS % 1.5 % (0.0-3.0); HEMATOCRIT 35.8 % (36.0-47.0); HEMOGLOBIN 11.2 g/dl (12.0-15.5); LYMPH % 8.8 % (24.0-44.0); MEAN CORPUSCULAR HEMOGLOBIN 33.1 pg (27.0-33.0); MEAN CORPUSCULAR HGB CONC 31.3 g/dl (32.0-36.5); MEAN CORPUSCULAR VOLUME 105.9 fl (80.0-96.0); MONO % 9.2 % (0.0-5.0); NEUTROPHILS # 8.8 10^3/uL (1.5-8.5); NEUTROPHILS % 78.3 % (36.0-66.0); PLATELET COUNT, AUTOMATED 263 10^3/uL (150-450); RED BLOOD COUNT 3.38 10^6/uL (4.00-5.40); WHITE BLOOD COUNT 11.2 10^3/uL (4.0-10.0)
[2019-02-28 11:27] LABS: PROTHROMBIN TIME 12.9 SECONDS (11.8-14.0)
[2019-02-28 11:28] LABS: PARTIAL THROMBOPLASTIN TIME 26.2 SECONDS (25.0-38.4)
--- NOTE | 2019-02-28 11:56 | REP ---
Clinical: Chest pain . Comparison: 02/20/2019 . Findings: The mediastinum and cardiac silhouette are stable and within normal limits for portable technique. The lung caldera demonstrate chronic changes and subtle superimposed basilar atelectasis cannot be excluded. No focal consolidation. No obvious effusion. No pneumothorax. Skeletal structures are intact. Impression: Chronic stable changes. Cannot exclude basilar atelectasis. Electronically Signed by Demond Workman MD 02/28/2019 11:47 A
[2019-02-28 11:59] LABS: ALBUMIN 2.9 GM/DL (3.2-5.2); ALT/SGPT 16 U/L (12-78); BILIRUBIN,DIRECT < 0.1 MG/DL (0.0-0.2); BILIRUBIN,TOTAL 0.3 MG/DL (0.2-1.0); BLOOD UREA NITROGEN 23 MG/DL (7-18); CARBON DIOXIDE LEVEL 32 MEQ/L (21-32); CHLORIDE LEVEL 105 MEQ/L (98-107); CK-MB VALUE MASS < 1.0 NG/ML (<3.6); CPK CREATINE PHOSPHOKINASE 31 U/L (26-192); CREATININE FOR GFR 1.09 MG/DL (0.55-1.30); FREE T4 0.99 NG/DL (0.76-1.46); GLOMERULAR FILTRATION RATE 51.3 (>32); GLUCOSE, FASTING 84 MG/DL (70-100); LIPASE 58 U/L (73-393); MB/CK RELATIVE INDEX 3.23 (< OR =4); NT-PRO BNP 265 PG/ML (<450); POTASSIUM SERUM 3.8 MEQ/L (3.5-5.1); SODIUM LEVEL 144 MEQ/L (136-145); TOTAL PROTEIN 6.3 GM/DL (6.4-8.2); TROPONIN I < 0.02 NG/ML (< 0.10)
[2019-02-28] MEDS: IPRATROPIUM 0.5MG/ALBUTEROL 2.5MG INH SOL UD 3ML (DUONEB)(J7620) INH SCH ×3 (12:00→21:01)
[2019-02-28] MEDS ORDERED: AYR0.65D NARES (12:14)
[2019-02-28] MEDS ORDERED: BREO1INH3 INH (12:14)
[2019-02-28] MEDS ORDERED: PRED20TA PO (12:14)
[2019-02-28] MEDS ORDERED: CEFD1CAP8 PO (12:14)
[2019-02-28] MEDS ORDERED: PEPT262S PO (12:14)
[2019-02-28] MEDS ORDERED: MUCI600T31 PO (12:14)
[2019-02-28] MEDS ORDERED: ISOVUE-370 76% 100ML VIAL (Q9967) As Ordered ONE (12:16)
[2019-02-28] MEDS ORDERED: ALBUTEROL 90 MCG/ACT 8GM HFA INHALER INH PRN (12:45)
[2019-02-28] MEDS ORDERED: ACETAMINOPHEN TAB 650MG DOSE (2X325MG) PO PRN (12:45)
[2019-02-28] MEDS ORDERED: PINK BISMUTH SUSP 524MG/30ML ORAL SYRINGE PO PRN (12:45)
--- NOTE | 2019-02-28 12:45 | REP ---
Clinical: Shortness of breath. Technique: Axial contrast enhanced images from the thoracic inlet to the upper abdomen using 100 ml Isovue 370 intravenous contrast material with coronal and sagittal re-formations. Comparison: 10/23/2018 Findings: Satisfactory enhancement of the pulmonary vasculature is achieved and no filling defects are identified to suggest pulmonary embolus. Thoracic aorta demonstrates atherosclerotic changes without aneurysm or dissection. Lung caldera demonstrate moderate emphysematous changes and scattered age-related chronic interstitial changes along with mild bronchiectasis. Right middle lobe and lingular scarring is appreciated. There is a nodular area along the subpleural left lower lobe measuring 12 mm which appears increased when compared to 10/23/2018 and is otherwise nonspecific. No further consolidation, nodule or mass. No pleural effusion. No pneumothorax. Stable mediastinal and right hilar lymph nodes again noted. Mild cardiomegaly along with atherosclerotic changes to the coronary arteries noted. No pericardial effusion. Osseous structures demonstrate degenerative changes. Evidence for prior bilateral mammoplasty and abdominal aortic stenting. Impression: 1. No evidence for pulmonary embolus. 2. 12 mm nodular density in the deep left lower lobe warrants short-term follow-up examination. 3. No further acute consolidation or effusion. Electronically Signed by Demond Workman MD 02/28/2019 12:36 P
[2019-02-28] MEDS ORDERED: FERROUS SULFATE 300MG/5ML UDC LIQUID PO SCH (13:02)
--- NOTE | 2019-02-28 13:08 | HPEPDOC ---
General Date of Admission 02/28/19 Date of Service: Feb 28, 2019 Chief Complaint The patient is a 83-year-old female admitted with a reason for visit of COUGH. Source: Patient Exam Limitations: No limitations Timing/Duration: 24 hours Associated Symptoms: Shortness of breath, Weakness History of Present Illness Patient is 83 year old F with COPD , chronic respiratory failure with hypoxia, CAD s/p PCI, Diastolic CHF, moderate pulmonary hypertension, Pacemaker due to sick sinus syndrome, H/o breast cancer s/p bilateral mastectomy and bilateral breast implants, hypertension, hyperlipidemia, hypothyroid, h/o GIB and chronic iron deficiency anemia presented to the ED with SOB and cough with green sputum. Patient was discharged from hospital on February 22, she was treated for community-acquired pneumonia. She was recommended to take cefdinir by mouth after discharge. However, after discharge her symptoms came back. Patient stated that for past few days she developed increased shortness of breath associated with increased cough with greenish sputum production. In ER patient was found to have leukocytes count of 11.2, LA 1.5, BNP 265. Chest x-ray was done and didn't show acute pulmonary infiltrate Home Medications Scheduled Acetaminophen (Tylenol Arthritis) 650 Mg Tab, 650 MG PO DAILY, (Reported) Amlodipine Besylate (Amlodipine Besylate) 5 Mg Tab, 5 MG PO DAILY, (Reported) Ascorbate Calcium (Calcium Ascorbate) 500 Mg Tablet, 500 MG PO Q2D, (Reported) Aspirin (Aspirin EC) 81 Mg Tabec, 81 MG PO DAILY, (Reported) Calcium Carbonate (Calcium) 600 Mg Tablet, 600 MG PO QHS, (Reported) Cefdinir (Cefdinir) 300 Mg Capsule, 300 MG PO BID, (Reported) FOR 5 DAYS STARTING 02/24/19 Cyanocobalamin (Vitamin B-12) (Vitamin B-12) 1,000 Mcg Tablet, 1,000 MCG PO MARGOT LY, (Reported) Famotidine (Famotidine) 20 Mg Tablet, 20 MG PO QHS, (Reported) Ferrous Sulfate, Dried (Slow Release Iron) 160 Mg Tablet.er, 325 MG PO Q2D, (Reported) Fluoxetine Hcl (Fluoxetine HCl) 20 Mg Cap, 20 MG PO DAILY, (Reported) Fluticasone/Vilanterol (Breo Ellipta 200-25 Mcg INH) 1 Each Blst.w.dev, 1 PUFF INH DAILY, (Reported) HOLD WHILE ON PREDNISONE - RESTART 03/01/19 Furosemide (Furosemide) 20 Mg Tab, 20 MG PO DAILY, (Reported) Levothyroxine Sodium (Synthroid) 50 Mcg Tablet, 50 MCG PO DAILY, (Reported) Magnesium Chloride (Magnesium Chloride) 64 Mg Tablet.dr, 64 MG PO DAILY, (Reported) Metronidazole (Metronidazole 0.75% Gel) 45 Gm Gel..gram., 1 APLCT TOP DAILY, (Reported) FOR ROSACEA Multivitamins (Thera M Plus Tablet) 1 Tab Tab, 1 TAB PO DAILY, (Reported) Pantoprazole Sodium (Pantoprazole Sodium) 40 Mg Tab, 40 MG PO BID, (Reported) Potassium Chloride (Potassium Chloride) 20 Meq Packet, 20 MEQ PO DAILY, (Re ported) Pravastatin Sodium (Pravastatin Sodium) 40 Mg Tab, 40 MG PO DAILY, (Reported) Prednisone (Prednisone) 20 Mg Tablet, 40 MG PO DAILY, (Reported) FOR 5 DAYS STARTING 02/25/19 Tiotropium [place] (Spiriva) 18 Mcg Cap, 1 INHALATION INH DAILY, (Reported) Valsartan (Valsartan) 320 Mg Tab, 320 MG PO DAILY, (Reported) Scheduled PRN Albuterol Sulfate (Ventolin Hfa) 18 Gm Hfa.aer.ad, 2 PUFF INH Q4H PRN for SHORTNESS OF BREATH, (Reported) Bismuth Subsalicylate (Pepto-Bismol) 262 Mg/15 Ml Oral.susp, 30 ML PO Q3HP PRN for EPIGASTRIC DISCOMFORT, (Reported) Calcium Carbonate (Tums) 300 Mg Tab.chew, 300 MG PO TID PRN for INDIGESTION, (Reported) Guaifenesin (Mucinex) 600 Mg Tab.er.12h, 600 MG PO BID PRN for COUGH, (Reported) Ipratropium/Albuterol Sulfate (Iprat-Albut 0.5-3(2.5) mg/3 ml) 3 Ml Ampul.neb, 1 INHALATION INH Q4H PRN for SHORTNESS OF BREATH, (Reported) Loperamide HCl (Loperamide) 2 Mg Capsule, 2 MG PO DAILY PRN for DIARRHEA, (Reported) Sodium Chloride ([place] Saline) 0.65% Drops, 2 DROP NARES Q2H PRN for NASAL DRYNESS, (Reported) Allergies Coded Allergies: ENVIROMENTAL (Verified Allergy, Unknown, 12/22/19) hydrocodone (Verified Adverse Reaction, Intermediate, hallucinations, confusion while on Vicodin, 02/20/19) Past Medical History Medical History COPD WITH CHRONIC RESPIRATORY FAILURE WITH HYPOXIA HYPERTENSION ARTHRITIS ELEVATED CHOL CHFPEF MODERATE PULMONARY HYPERTENSION OBESITY CAD GERD HX OF BREAST CA PACE MAKER DUE TO SICK SINUS SYNDROME BREAST IMPLANTS DEPRESSION HYPOTHYROIDISM DIVERTICULOSIS, POLYPS, DECREASED ANAL SPHINCTER TONE CHRONIC ANEMIA Surgical History KEV MASECTOMY 2010 AAA REPAIR 08/2015 BACK SURGERY L ELBOW SURGERY FALLOPIAN TUBE REMOVAL R KNEE SURGERY KEV CATARACT REMOVAL PACEMAKER Social History * Smoker: Denies Alcohol: Denies Drugs: denies A-FIB/CHADSVASC A-FIB History Current/History of A-Fib/PAF?: No Current PO Anticoag Therapy: No Review of Systems Constitutional: Reports: Chills, Weakness Eyes: Denies: Pain, Vision change ENT: Denies: Head Aches Skin: Denies: Rash Pulmonary: Reports: Dyspnea, Cough Cardiovascular: Denies: Palpitations, Edema Gastrointestinal: Denies: Nausea, Vomiting Genitourinary: Denies: Dysuria, Frequency Hematologic: Denies: Bruising Endocrine: Denies: Polydipsia, Polyphagia Musculoskeletal: Denies: Neck Pain Neurological: Denies: Weakness Psych: Reports: Mood Normal Physical Examination General Exam: Positive: Alert Eye Exam: Positive: PERRLA ENT Exam: Positive: Atraumatic Neck Exam: Positive: Supple; Negative: JVD Chest Exam: Positive: Rhonchi, Wheezing Heart Exam: Positive: Rate Normal Telemetry: Positive: No significant arrhythmia Abdomen Exam: Positive: Normal bowel sounds Extremity Exam: Negative: Clubbing Skin Exam: Positive: Nl turgor and temperature Neuro Exam: Positive: Strength at 5/5 X4 ext, Cranial Nerves 3-12 NL Psych Exam: Positive: Mental status NL Vital Signs Vital Signs Date Time Temp Pulse Resp B/P (MAP) Pulse Ox O2 Delivery O2 Flow Rate FiO2 02/28/19 10:36 Nasal Cannula 3.0 02/28/19 10:36 02/28/19 10:20 98.2 74 19 93 Laboratory Data Labs 24H Laboratory Tests 2 02/28/19 10:53: Blood Gas Bicarbonate Standard 31.6H, Arterial Blood pH 7.459H, Arterial Blood Partial Pressure CO2 47.2H, Arterial Blood Partial Pressure O2 78.8, Arterial Blood Total CO2 34.2H, Arterial Blood HCO3 32.7H, Arterial Blood Base Excess 7.8H, Arterial Blood Oxygen Saturation 95.7 02/28/19 10:54: Immature Granulocyte % (Auto) 1.6, Neutrophils (%) (Auto) 78.3H, Lymphocytes (%) (Auto) 8.8L, Monocytes (%) (Auto) 9.2H, Eosinophils (%) (Auto) 1.5, Basophils (%) (Auto) 0.6, Neutrophils # (Auto) 8.8H, Lymphocytes # (Auto) 1.0L, Monocytes # (Auto) 1.0H, Eosinophils # (Auto) 0.2, Basophils # (Auto) 0.1, Nucleated Red Blood Cells % (auto) 0.0, Prothrombin Time 12.9, Prothromb Time International Ratio 1.00, Activated Partial Thromboplast Time 26.2, Anion Gap 7L, Glomerular Filtration Rate 51.3, Lactic Acid Level 1.5, Calcium Level 9.0, Total Bilirubin 0.3, Direct Bilirubin < 0.1, Aspartate Amino Transf (AST/SGOT) 14, Alanine Aminotransferase (ALT/SGPT) 16, Alkaline Phosphatase 67, Total Creatine Kinase 31, Creatine Kinase MB < 1.0, Creatine Kinase MB Relative Index 3.23, Troponin I < 0.02, RJ-Pyf-V-Type Natriuretic Peptide 265, Total Protein 6.3L, Albumin 2.9L, Albumin/Globulin Ratio 0.85L, Lipase 58L, Thyroid Stimulating Hormone (TSH) 1.820, Free Thyroxine 0.99 CBC/BMP Laboratory Tests 02/28/19 10:54 Microbiology Microbiology 02/28/19 Respiratory Virus Panel (PCR) (IZABELA), Received Pending 02/28/19 Blood Culture, Received Pending Assessment/Plan Patient is 83 year old F with COPD , chronic respiratory failure with hypoxia, CAD s/p PCI, Diastolic CHF, moderate pulmonary hypertension, Pacemaker due to sick sinus syndrome, H/o breast cancer s/p bilateral mastectomy and bilateral breast implants, hypertension, hyperlipidemia, hypothyroid, h/o GIB and chronic iron deficiency anemia presented to the ED with SOB and cough with green sputum. Patient was discharged from hospital on February 22, she was treated for community-acquired pneumonia. She was recommended to take cefdinir by mouth after discharge. However, after discharge her symptoms came back. Problems (1) Community acquired pneumonia Status: Acute Problem Text: Patient failed outpatient therapy with cefdinir Due to recent antibiotic therapy and steroid treatment patient will need broad coverage including pseudomonas aeruginosa Cefepime IV, levofloxacin IV Sputum culture Respiratory panel Steroids IV DuoNeb [id number] Incentive spirometry (2) CHF (congestive heart failure) Status: Acute Problem Text: Not in acute exacerbation Continue home meds Plan / VTE VTE Prophylaxis Ordered?: Yes TYLOR COTTO DO Feb 28, 2019 13:08
[2019-02-28 14:00] VITALS: BP 151/64
[2019-02-28] MEDS ORDERED: LevoFLOXacin IV 750 MG in IV 1 EA IV SCH (14:00)
[2019-02-28] MEDS ORDERED: PIPERACILLIN/TAZOBACTAM SOD 4.5 GM in D5W MINI-BAG PLUS 100 ML IV SCH (15:00)
[2019-02-28] MEDS: LevoFLOXacin IV 750 MG in IV 1 EA IV SCH (15:13)
[2019-02-28] MEDS: PRAVASTATIN 20 MG TAB PO SCH (15:14)
[2019-02-28] MEDS: PANTOPRAZOLE 40MG TAB (PROTONIX) PO SCH ×2 (15:14→20:56)
[2019-02-28] MEDS: VALSARTAN 80 MG TAB (DIOVAN) PO SCH (15:14)
[2019-02-28] MEDS: FLUoxetine 20 MG CAP PO SCH (15:14)
[2019-02-28] MEDS: MULTIVITAMINS/MINERALS THERAP 1 TAB PO SCH (15:14)
[2019-02-28] MEDS: LEVOTHYROXINE 50MCG TABLET (0.05MG) PO SCH (15:15)
[2019-02-28] MEDS: FUROSEMIDE 20 MG TAB PO SCH (15:15)
[2019-02-28] MEDS: FERROUS SULFATE 325MG TAB PO SCH (15:15)
[2019-02-28] MEDS: TIOTROPIUM INHALER/CAPSULE (SPIRIVA) INH SCH (15:15)
[2019-02-28] MEDS: amLODIPine 5 MG TAB PO SCH (15:15)
[2019-02-28] MEDS: MAGNESIUM CHLORIDE 64 MG TABCR (SLO MAG) PO SCH (15:16)
[2019-02-28] MEDS: POTASSIUM CHL PWD 20 MEQ PACKET PO SCH (15:16)
[2019-02-28] MEDS: HEPARIN SOD (PORCINE) 5000 UNITS/ML VIAL SC SCH ×2 (15:16→20:56)
[2019-02-28] MEDS: PIPERACILLIN/TAZOBACTAM SOD 3.375 GM in D5W MINI-BAG PLUS 100 ML IV SCH ×2 (17:01→22:00)
[2019-02-28] MEDS: methylPREDNISolone INJ 40 MG/1 ML VIAL (J2920) IV SCH (18:39)
--- NOTE | 2019-02-28 19:20 | ECGEPIP ---
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
[2019-02-28 21:08] VITALS: O2SAT 94
[2019-02-28 22:00] VITALS: BP 149/65
[2019-03-01] MEDS: IPRATROPIUM 0.5MG/ALBUTEROL 2.5MG INH SOL UD 3ML (DUONEB)(J7620) INH SCH ×6 (00:04→18:35)
[2019-03-01] MEDS: methylPREDNISolone INJ 40 MG/1 ML VIAL (J2920) IV SCH ×2 (03:15→09:54)
[2019-03-01] MEDS: PIPERACILLIN/TAZOBACTAM SOD 3.375 GM in D5W MINI-BAG PLUS 100 ML IV SCH ×5 (04:01→21:18)
[2019-03-01] MEDS: LEVOTHYROXINE 50MCG TABLET (0.05MG) PO SCH (05:44)
[2019-03-01 05:54] LABS: HEMATOCRIT 35.9 % (36.0-47.0); HEMOGLOBIN 10.9 g/dl (12.0-15.5); MEAN CORPUSCULAR HEMOGLOBIN 32.2 pg (27.0-33.0); MEAN CORPUSCULAR HGB CONC 30.4 g/dl (32.0-36.5); MEAN CORPUSCULAR VOLUME 106.2 fl (80.0-96.0); PLATELET COUNT, AUTOMATED 270 10^3/uL (150-450); RED BLOOD COUNT 3.38 10^6/uL (4.00-5.40); WHITE BLOOD COUNT 9.3 10^3/uL (4.0-10.0)
[2019-03-01 06:00] VITALS: BP 151/64
[2019-03-01 06:29] LABS: CALCIUM LEVEL 8.7 MG/DL (8.8-10.2); CREATININE FOR GFR 1.27 MG/DL (0.55-1.30); MAGNESIUM LEVEL 1.8 MG/DL (1.8-2.4); POTASSIUM SERUM 3.8 MEQ/L (3.5-5.1)
[2019-03-01] MEDS ORDERED: E-Z-PAQUE 96% w/w SUSP 176GM BTL As Ordered ONE (08:15)
[2019-03-01] MEDS ORDERED: BARIUM SULFATE 700 MG TABLET (E-Z-DISK) As Ordered ONE (08:15)
[2019-03-01] MEDS ORDERED: VARIBAR NECTAR 40% w/v 240ML SUSP BTL As Ordered ONE (08:15)
[2019-03-01] MEDS ORDERED: VARIBAR PUDDING 40% w/v 230ML TUBE As Ordered ONE (08:15)
[2019-03-01] MEDS: TIOTROPIUM INHALER/CAPSULE (SPIRIVA) INH SCH (08:30)
[2019-03-01] MEDS ORDERED: metroNIDAZOLE 70 GM VAGINAL GEL TOP SCH (09:00)
[2019-03-01] MEDS: MULTIVITAMINS/MINERALS THERAP 1 TAB PO SCH (09:51)
[2019-03-01] MEDS: PRAVASTATIN 20 MG TAB PO SCH (09:52)
[2019-03-01] MEDS: amLODIPine 5 MG TAB PO SCH (09:52)
[2019-03-01] MEDS: FUROSEMIDE 20 MG TAB PO SCH (09:52)
[2019-03-01] MEDS: FLUoxetine 20 MG CAP PO SCH (09:52)
[2019-03-01] MEDS: FERROUS SULFATE 325MG TAB PO SCH (09:52)
[2019-03-01] MEDS: PANTOPRAZOLE 40MG TAB (PROTONIX) PO SCH ×2 (09:52→21:18)
[2019-03-01] MEDS: HEPARIN SOD (PORCINE) 5000 UNITS/ML VIAL SC SCH ×2 (09:53→21:18)
--- NOTE | 2019-03-01 09:58 | REP ---
Examination Requested: Cookie Swallow Clinical: Dysphagia Note: Procedure was performed in conjunction with Mine Burger of the department of speech pathology. Findings: 5 ml aliquots of nectar, pudding, mixed fruit, soft food, honey and pill consistency barium was administered. Examination appeared normal and without laryngeal penetration or aspiration. Please refer to speech pathology report for more detailed evaluation. 0.6 minutes of fluoroscopy time was utilized for this procedure. Impression: 1. Relatively normal examination without evidence for laryngeal penetration or aspiration. Electronically Signed by Demond Workman MD 03/01/2019 09:50 A
[2019-03-01 14:00] VITALS: BP_SYST 147; BP_SYST 155; BP_DIAS 83; BP_DIAS 84
[2019-03-01] MEDS: POTASSIUM CHL PWD 20 MEQ PACKET PO SCH (14:15)
[2019-03-01] MEDS: MAGNESIUM CHLORIDE 64 MG TABCR (SLO MAG) PO SCH (14:15)
[2019-03-01] MEDS: VALSARTAN 80 MG TAB (DIOVAN) PO SCH (14:18)
--- NOTE | 2019-03-01 15:22 | IPNPDOC ---
Text Note Date of Service The patient was seen on 03/01/19. NOTE Subjective: Patient stated that her breathing markedly improved. Patient denied fever, chills, nausea, vomiting, chest pain, diarrhea or dysuria Objective:VITAL SIGNS: Please see below. GENERAL APPEARANCE: Obese female HEENT: Normocephalic, atraumatic. Mucous members moist and pink CARDIOVASCULAR: Regular rate and rhythm. No murmurs, rubs or gallops. Radial pulses are intact. There is no lower extremity edema LUNGS: Diminished lung sounds ABDOMEN: Abdomen is soft and nontender. MUSCULOSKELETAL: Range of motion is intact in all 4 extremities NEUROLOGICAL: Cranial nerves II-12 are grossly intact. Speech is not dysarthric Patient is 83 year old F with COPD , chronic respiratory failure with hypoxia, CAD s/p PCI, Diastolic CHF, moderate pulmonary hypertension, Pacemaker due to sick sinus syndrome, H/o breast cancer s/p bilateral mastectomy and bilateral breast implants, hypertension, hyperlipidemia, hypothyroid, h/o GIB and chronic iron deficiency anemia presented to the ED with SOB and cough with green sputum. Patient was discharged from hospital on February 22, she was treated for community-acquired pneumonia. She was recommended to take cefdinir by mouth after discharge. However, after discharge her symptoms came back. RSV positive Problems (1) Community acquired pneumonia Patient failed outpatient therapy with cefdinir. Patient was tested positive for RSV. Most likely also she has bacterial co- infection Due to recent antibiotic therapy and steroid treatment patient needs broad coverage including pseudomonas aeruginosa Cefepime IV, levofloxacin IV Sputum culture Respiratory panel positive for RSV Steroids PO DuoNeb [id number] Incentive spirometry (2) CHF (congestive heart failure) Not in acute exacerbation Continue home meds Lung nodule Incidental finding on the CT 12 mm nodular density in the deep left lower lobe Patient will need follow-up with CT in 3-6 months VS,Fishbone, I+O VS, Fishbone, I+O Laboratory Tests 03/01/19 05:21 Vital Signs Date Time Temp Pulse Resp B/P (MAP) Pulse Ox O2 Delivery O2 Flow Rate FiO2 03/01/19 14:18 124/51 03/01/19 08:30 18 03/01/19 06:00 97.3 70 96 Nasal Cannula 3.0 02/28/19 21:08 32 I&O- Last 24 Hours up to 6 AM 03/01/19 06:00 Intake Total 1250 ml Output Total 2400 ml Balance -1150 ml TYLOR COTTO DO Mar 01, 2019 15:22
[2019-03-01] MEDS: predniSONE 20 MG TAB PO SCH (18:04)
[2019-03-01] MEDS: guaiFENesin ER 600 MG TAB PO PRN (21:22)
[2019-03-01 22:00] VITALS: BP 141/67
[2019-03-02] MEDS: IPRATROPIUM 0.5MG/ALBUTEROL 2.5MG INH SOL UD 3ML (DUONEB)(J7620) INH SCH ×4 (00:21→20:07)
[2019-03-02] MEDS: PIPERACILLIN/TAZOBACTAM SOD 3.375 GM in D5W MINI-BAG PLUS 100 ML IV SCH ×4 (04:05→21:35)
[2019-03-02] MEDS: LEVOTHYROXINE 50MCG TABLET (0.05MG) PO SCH (05:38)
[2019-03-02 06:00] VITALS: BP 122/51
[2019-03-02] MEDS: TIOTROPIUM INHALER/CAPSULE (SPIRIVA) INH SCH (07:33)
[2019-03-02 08:43] LABS: BASO % 0.4 % (0.0-1.0); EOS # 0.1 10^3/uL (0.0-0.5); EOS % 0.5 % (0.0-3.0); HEMATOCRIT 35.2 % (36.0-47.0); HEMOGLOBIN 10.9 g/dl (12.0-15.5); LYMPH # 1.3 10^3/uL (1.5-5.0); LYMPH % 12.8 % (24.0-44.0); MEAN CORPUSCULAR HEMOGLOBIN 33.1 pg (27.0-33.0); MONO # 1.1 10^3/uL (0.0-0.8); MONO % 11.5 % (0.0-5.0); NEUTROPHILS % 72.3 % (36.0-66.0); PLATELET COUNT, AUTOMATED 248 10^3/uL (150-450); RED BLOOD COUNT 3.29 10^6/uL (4.00-5.40); WHITE BLOOD COUNT 9.7 10^3/uL (4.0-10.0)
[2019-03-02 09:04] LABS: CALCIUM LEVEL 8.8 MG/DL (8.8-10.2); CREATININE FOR GFR 1.26 MG/DL (0.55-1.30); GLOMERULAR FILTRATION RATE 43.4 (>32); MAGNESIUM LEVEL 2.1 MG/DL (1.8-2.4); POTASSIUM SERUM 3.8 MEQ/L (3.5-5.1)
[2019-03-02] MEDS: MAGNESIUM CHLORIDE 64 MG TABCR (SLO MAG) PO SCH (10:36)
[2019-03-02] MEDS: HEPARIN SOD (PORCINE) 5000 UNITS/ML VIAL SC SCH ×2 (10:36→21:35)
[2019-03-02] MEDS: VALSARTAN 80 MG TAB (DIOVAN) PO SCH (10:37)
[2019-03-02] MEDS: POTASSIUM CHL PWD 20 MEQ PACKET PO SCH (10:37)
[2019-03-02] MEDS: amLODIPine 5 MG TAB PO SCH (10:38)
[2019-03-02] MEDS: FLUoxetine 20 MG CAP PO SCH (10:38)
[2019-03-02] MEDS: PANTOPRAZOLE 40MG TAB (PROTONIX) PO SCH ×2 (10:38→21:34)
[2019-03-02] MEDS: MULTIVITAMINS/MINERALS THERAP 1 TAB PO SCH (10:38)
[2019-03-02] MEDS: PRAVASTATIN 20 MG TAB PO SCH (10:38)
[2019-03-02] MEDS: predniSONE 20 MG TAB PO SCH (10:38)
[2019-03-02] MEDS: FERROUS SULFATE 325MG TAB PO SCH (10:38)
[2019-03-02] MEDS: FUROSEMIDE 20 MG TAB PO SCH (10:38)
--- NOTE | 2019-03-02 11:46 | IPNPDOC ---
Text Note Date of Service The patient was seen on 03/02/19. NOTE Subjective: Patient stated that her breathing continously improving. Patient d enied fever, chills, nausea, vomiting, chest pain, diarrhea or dysuria Objective:VITAL SIGNS: Please see below. GENERAL APPEARANCE: Obese female HEENT: Normocephalic, atraumatic. Mucous members moist and pink CARDIOVASCULAR: Regular rate and rhythm. No murmurs, rubs or gallops. Radial pulses are intact. There is no lower extremity edema LUNGS: Diminished lung sounds ABDOMEN: Abdomen is soft and nontender. MUSCULOSKELETAL: Range of motion is intact in all 4 extremities NEUROLOGICAL: Cranial nerves II-12 are grossly intact. Speech is not dysarthric Patient is 83 year old F with COPD , chronic respiratory failure with hypoxia, CAD s/p PCI, Diastolic CHF, moderate pulmonary hypertension, Pacemaker due to sick sinus syndrome, H/o breast cancer s/p bilateral mastectomy and bilateral breast implants, hypertension, hyperlipidemia, hypothyroid, h/o GIB and chronic iron deficiency anemia presented to the ED with SOB and cough with green sputum. Patient was discharged from hospital on February 22, she was treated for community-acquired pneumonia. She was recommended to take cefdinir by mouth after discharge. However, after discharge her symptoms came back. RSV positive Problems (1) Community acquired pneumonia Patient failed outpatient therapy with cefdinir. Patient was tested positive for RSV. Most likely also she has bacterial co-infection Due to recent antibiotic therapy and steroid treatment patient needs broad coverage including pseudomonas aeruginosa Cefepime IV, levofloxacin IV Respiratory panel positive for RSV Steroids PO DuoNeb [id number] Incentive spirometry (2) CHF (congestive heart failure) Not in acute exacerbation Continue home meds Lung nodule Incidental finding on the CT 12 mm nodular density in the deep left lower lobe Patient will need follow-up with CT in 3-6 months VS,Fishbone, I+O VS, Fishbone, I+O Laboratory Tests 03/02/19 08:05 Vital Signs Date Time Temp Pulse Resp B/P (MAP) Pulse Ox O2 Delivery O2 Flow Rate FiO2 03/02/19 10:37 125/51 03/02/19 03:56 71 18 03/01/19 22:00 3.0 03/01/19 22:00 97.0 99 Nasal Cannula 02/28/19 21:08 32 I&O- Last 24 Hours up to 6 AM 03/02/19 05:59 Intake Total 1340 ml Output Total 0 ml Balance 1340 ml TYLOR COTTO DO Mar 02, 2019 11:46
[2019-03-02] MEDS: LevoFLOXacin IV 750 MG in IV 1 EA IV SCH (14:25)
[2019-03-02] MEDS: guaiFENesin ER 600 MG TAB PO PRN (21:56)
[2019-03-02 22:00] VITALS: BP 120/50
[2019-03-03] MEDS: PIPERACILLIN/TAZOBACTAM SOD 3.375 GM in D5W MINI-BAG PLUS 100 ML IV SCH ×2 (04:03→09:03)
[2019-03-03] MEDS: IPRATROPIUM 0.5MG/ALBUTEROL 2.5MG INH SOL UD 3ML (DUONEB)(J7620) INH SCH ×6 (04:36→23:08)
[2019-03-03] MEDS: LEVOTHYROXINE 50MCG TABLET (0.05MG) PO SCH (05:39)
[2019-03-03 06:00] VITALS: BP 122/50
[2019-03-03 06:27] LABS: BASO # 0.1 10^3/uL (0.0-0.2); BASO % 0.8 % (0.0-1.0); EOS % 0.5 % (0.0-3.0); HEMATOCRIT 35.8 % (36.0-47.0); HEMOGLOBIN 10.6 g/dl (12.0-15.5); LYMPH # 1.2 10^3/uL (1.5-5.0); LYMPH % 18.2 % (24.0-44.0); MEAN CORPUSCULAR HEMOGLOBIN 32.5 pg (27.0-33.0); MEAN CORPUSCULAR HGB CONC 29.6 g/dl (32.0-36.5); MEAN CORPUSCULAR VOLUME 109.8 fl (80.0-96.0); MONO # 0.9 10^3/uL (0.0-0.8); NEUTROPHILS # 4.2 10^3/uL (1.5-8.5); NEUTROPHILS % 64.1 % (36.0-66.0); PLATELET COUNT, AUTOMATED 160 10^3/uL (150-450); RED BLOOD COUNT 3.26 10^6/uL (4.00-5.40); WHITE BLOOD COUNT 6.5 10^3/uL (4.0-10.0)
[2019-03-03] MEDS: TIOTROPIUM INHALER/CAPSULE (SPIRIVA) INH SCH (07:45)
[2019-03-03] MEDS: PRAVASTATIN 20 MG TAB PO SCH (09:01)
[2019-03-03] MEDS: predniSONE 20 MG TAB PO SCH (09:02)
[2019-03-03] MEDS: FUROSEMIDE 20 MG TAB PO SCH (09:02)
[2019-03-03] MEDS: amLODIPine 5 MG TAB PO SCH (09:02)
[2019-03-03] MEDS: PANTOPRAZOLE 40MG TAB (PROTONIX) PO SCH ×2 (09:02→20:58)
[2019-03-03] MEDS: FERROUS SULFATE 325MG TAB PO SCH (09:02)
[2019-03-03] MEDS: FLUoxetine 20 MG CAP PO SCH (09:02)
[2019-03-03] MEDS: MULTIVITAMINS/MINERALS THERAP 1 TAB PO SCH (09:02)
[2019-03-03] MEDS: VALSARTAN 80 MG TAB (DIOVAN) PO SCH (09:02)
[2019-03-03] MEDS: HEPARIN SOD (PORCINE) 5000 UNITS/ML VIAL SC SCH ×2 (09:03→21:00)
[2019-03-03] MEDS: MAGNESIUM CHLORIDE 64 MG TABCR (SLO MAG) PO SCH (09:05)
[2019-03-03] MEDS: POTASSIUM CHL PWD 20 MEQ PACKET PO SCH (10:37)
[2019-03-03 14:00] VITALS: BP 139/56
--- NOTE | 2019-03-03 14:47 | IPNPDOC ---
Text Note Date of Service The patient was seen on 03/03/19. NOTE Subjective: Patient stated that her breathing continuously improving. Overnight patient developed irregular heartbeat with pause and irregular firing of pacemaker Patient denied fever, chills, nausea, vomiting, chest pain, diarrhea or dysuria Objective:VITAL SIGNS: Please see below. GENERAL APPEARANCE: Obese female HEENT: Normocephalic, atraumatic. Mucous members moist and pink CARDIOVASCULAR: Regular rate and rhythm. No murmurs, rubs or gallops. Radial pulses are intact. There is no lower extremity edema LUNGS: Diminished lung sounds ABDOMEN: Abdomen is soft and nontender. MUSCULOSKELETAL: Range of motion is intact in all 4 extremities NEUROLOGICAL: Cranial nerves II-12 are grossly intact. Speech is not dysarthric Patient is 83 year old F with COPD , chronic respiratory failure with hypoxia, CAD s/p PCI, Diastolic CHF, moderate pulmonary hypertension, Pacemaker due to sick sinus syndrome, H/o breast cancer s/p bilateral mastectomy and bilateral breast implants, hypertension, hyperlipidemia, hypothyroid, h/o GIB and chronic iron deficiency anemia presented to the ED with SOB and cough with green sputum. Patient was discharged from hospital on February 22, she was treated for community-acquired pneumonia. She was recommended to take cefdinir by mouth after discharge. However, after discharge her symptoms came back. RSV positive Problems (1) Community acquired pneumonia Patient failed outpatient therapy with cefdinir. Patient was tested positive for RSV. Most likely also she has bacterial co-infection Due to recent antibiotic therapy and steroid treatment patient needs broad coverage including pseudomonas aeruginosa c/w levofloxacin PO Respiratory panel positive for RSV c/w steroids PO DuoNeb [id number] Incentive spirometry (2) CHF (congestive heart failure) Not in acute exacerbation Continue home meds Lung nodule Incidental finding on the CT 12 mm nodular density in the deep left lower lobe Patient will need follow-up with CT in 3-6 months Irregular rhythm on telemetry Dr Kelley will do pacemaker interrogation today Shante NI I+O Shante NI I+O Laboratory Tests 03/03/19 05:31 Vital Signs Date Time Temp Pulse Resp B/P (MAP) Pulse Ox O2 Delivery O2 Flow Rate FiO2 03/03/19 14:00 99.0 70 20 139/56 (83) 96 Nasal Cannula 2.0 02/28/19 21:08 32 I&O- Last 24 Hours up to 6 AM 03/03/19 06:00 Intake Total 1580 ml Output Total 1050 ml Balance 530 ml TYLOR COTTO DO Mar 03, 2019 14:47
[2019-03-03 22:00] VITALS: BP 134/59
[2019-03-04] MEDS: IPRATROPIUM 0.5MG/ALBUTEROL 2.5MG INH SOL UD 3ML (DUONEB)(J7620) INH SCH ×3 (04:00→11:45)
[2019-03-04 05:40] LABS: BASO % 0.5 % (0.0-1.0); EOS % 0.5 % (0.0-3.0); HEMATOCRIT 35.4 % (36.0-47.0); HEMOGLOBIN 10.7 g/dl (12.0-15.5); LYMPH # 1.8 10^3/uL (1.5-5.0); LYMPH % 20.7 % (24.0-44.0); MEAN CORPUSCULAR HEMOGLOBIN 32.7 pg (27.0-33.0); MEAN CORPUSCULAR HGB CONC 30.2 g/dl (32.0-36.5); MEAN CORPUSCULAR VOLUME 108.3 fl (80.0-96.0); MONO # 0.8 10^3/uL (0.0-0.8); MONO % 9.4 % (0.0-5.0); NEUTROPHILS # 5.7 10^3/uL (1.5-8.5); NEUTROPHILS % 66.8 % (36.0-66.0); PLATELET COUNT, AUTOMATED 208 10^3/uL (150-450); RED BLOOD COUNT 3.27 10^6/uL (4.00-5.40); WHITE BLOOD COUNT 8.5 10^3/uL (4.0-10.0)
[2019-03-04] MEDS: LEVOTHYROXINE 50MCG TABLET (0.05MG) PO SCH (05:49)
[2019-03-04] MEDS ORDERED: LevoFLOXacin 750 MG TABLET PO SCH (06:00)
[2019-03-04] MEDS: TIOTROPIUM INHALER/CAPSULE (SPIRIVA) INH SCH (07:46)
[2019-03-04] MEDS: POTASSIUM CHL PWD 20 MEQ PACKET PO SCH (09:12)
[2019-03-04 09:13] VITALS: BP 132/60
[2019-03-04] MEDS: FERROUS SULFATE 325MG TAB PO SCH (09:13)
[2019-03-04] MEDS: PRAVASTATIN 20 MG TAB PO SCH (09:13)
[2019-03-04] MEDS: predniSONE 20 MG TAB PO SCH (09:13)
[2019-03-04] MEDS: HEPARIN SOD (PORCINE) 5000 UNITS/ML VIAL SC SCH (09:13)
[2019-03-04] MEDS: VALSARTAN 80 MG TAB (DIOVAN) PO SCH (09:13)
[2019-03-04] MEDS: FUROSEMIDE 20 MG TAB PO SCH (09:14)
[2019-03-04] MEDS: amLODIPine 5 MG TAB PO SCH (09:14)
[2019-03-04] MEDS: MULTIVITAMINS/MINERALS THERAP 1 TAB PO SCH (09:14)
[2019-03-04] MEDS: PANTOPRAZOLE 40MG TAB (PROTONIX) PO SCH (09:14)
[2019-03-04] MEDS: MAGNESIUM CHLORIDE 64 MG TABCR (SLO MAG) PO SCH (09:14)
[2019-03-04] MEDS: FLUoxetine 20 MG CAP PO SCH (09:14)
[2019-03-04] MEDS ORDERED: LEVA750T7 PO (11:43)
--- NOTE | 2019-03-04 18:38 | DS.PDOC ---
Discharge Summary General Date of Admission Feb 28, 2019 at 12:39 Date of Discharge 03/04/19 Discharge Summary PROCEDURES PERFORMED DURING STAY: None ADMITTING DIAGNOSES: Community acquired pneumonia CHF (congestive heart failure DISCHARGE DIAGNOSES: Community acquired pneumonia CHF (congestive heart failure COMPLICATIONS/CHIEF COMPLAINT: COUGH. HISTORY OF PRESENT ILLNESS: Patient is 83 year old F with COPD , chronic respiratory failure with hypoxia, CAD s/p PCI, Diastolic CHF, moderate pulmonary hypertension, Pacemaker due to sick sinus syndrome, H/o breast cancer s/p bilateral mastectomy and bilateral breast implants, hypertension, hyperlipidemia, hypothyroid, h/o GIB and chronic iron deficiency anemia presented to the ED with SOB and cough with green sputum. Patient was discharged from hospital on February 22, she was treated for community-acquired pneumonia. She was recommended to take cefdinir by mouth after discharge. However, after discharge her symptoms came back. Patient stated that for past few days she developed increased shortness of breath associated with increased cough with greenish sputum production. In ER patient was found to have leukocytes count of 11.2, LA 1.5, BNP 265. Chest x-ray was done and didn't show acute pulmonary infiltrate. Patient was tested positive for RSV HOSPITAL COURSE: Her hospital stay the following issue addressed (1) Community acquired pneumonia Secondary to RSV with bacterial co infection Patient failed outpatient therapy with cefdinir Due to recent antibiotic therapy and steroid treatment patient needed broad coverage including pseudomonas aeruginosa Cefepime IV, levofloxacin IV Steroids IV DuoNeb [id number] Incentive spirometry (2) CHF (congestive heart failure) Not in acute exacerbation Continue home meds Incidental finding on the CT 12 mm nodular density in the deep left lower lobe Patient will need follow-up with CT in 3-6 months Lung nodule DISCHARGE MEDICATIONS: Please see below. ALLERGIES: Please see below. PHYSICAL EXAMINATION ON DISCHARGE: VITAL SIGNS: Please see below. GENERAL APPEARANCE: Obese female HEENT: Normocephalic, atraumatic. Mucous members moist and pink CARDIOVASCULAR: Regular rate and rhythm. No murmurs, rubs or gallops. Radial pulses are intact. There is no lower extremity edema LUNGS: Diminished lung sounds ABDOMEN: Abdomen is soft and nontender. MUSCULOSKELETAL: Range of motion is intact in all 4 extremities NEUROLOGICAL: Cranial nerves II-12 are grossly intact. Speech is not dysarthric LABORATORY DATA: Please see below. IMAGING: See above PROGNOSIS: Favorable ACTIVITY: As tolerated DIET: Cardiac DISPOSITION: [facility]. DISCHARGE INSTRUCTIONS: Follow-up with PCP ITEMS TO FOLLOWUP ON ON OUTPATIENT: Repeat chest CT scan in 3-6 months DISCHARGE CONDITION: Stable TIME SPENT ON DISCHARGE: Greater than 15 minutes. Vital Signs/I&Os Vital Signs Date Time Temp Pulse Resp B/P (MAP) Pulse Ox O2 Delivery O2 Flow Rate FiO2 03/04/19 09:14 72 03/04/19 09:13 132/60 03/04/19 09:00 3.0 03/03/19 22:00 96.4 20 96 Nasal Cannula 02/28/19 21:08 32 I&O- Last 24 Hours up to 6 AM 03/04/19 06:00 Intake Total 1170 ml Output Total 1000 ml Balance 170 ml Laboratory Data Labs 24H Laboratory Tests 2 03/04/19 05:12: Immature Granulocyte % (Auto) 2.1, Neutrophils (%) (Auto) 66.8H, Lymphocytes (%) (Auto) 20.7L, Monocytes (%) (Auto) 9.4H, Eosinophils (%) (Auto) 0.5, Basophils (%) (Auto) 0.5, Neutrophils # (Auto) 5.7, Lymphocytes # (Auto) 1.8, Monocytes # (Auto) 0.8, Eosinophils # (Auto) 0.0, Basophils # (Auto) 0.0, Nucleated Red Blood Cells % (auto) 0.0, Magnesium Level 2.1 CBC/BMP Laboratory Tests 03/04/19 05:12 Microbiology Microbiology 02/28/19 Blood Culture - Preliminary, Resulted No Growth after 72 hours. All specime... 02/28/19 Respiratory Virus Panel (PCR) (IZABELA) - Final, Complete Respiratory Syncytial Virus 02/28/19 Blood Culture - Preliminary, Resulted No Growth after 72 hours. All specime... Discharge Medications Scheduled Acetaminophen (Tylenol Arthritis) 650 Mg Tab, 650 MG PO DAILY, (Reported) Amlodipine Besylate (Amlodipine Besylate) 5 Mg Tab, 5 MG PO DAILY, (Reported) Ascorbate Calcium (Calcium Ascorbate) 500 Mg Tablet, 500 MG PO Q2D, (Reported) Aspirin (Aspirin EC) 81 Mg Tabec, 81 MG PO DAILY, (Reported) Calcium Carbonate (Calcium) 600 Mg Tablet, 600 MG PO QHS, (Reported) Cefdinir (Cefdinir) 300 Mg Capsule, 300 MG PO BID, (Reported) FOR 5 DAYS STARTING 02/24/19 Cyanocobalamin (Vitamin B-12) (Vitamin B-12) 1,000 Mcg Tablet, 1,000 MCG PO DAILY, (Reported) Famotidine (Famotidine) 20 Mg Tablet, 20 MG PO QHS, (Reported) Ferrous Sulfate, Dried (Slow Release Iron) 160 Mg Tablet.er, 325 MG PO Q2D, (Reported) Fluoxetine Hcl (Fluoxetine HCl) 20 Mg Cap, 20 MG PO DAILY, (Reported) Fluticasone/Vilanterol (Breo Ellipta 200-25 Mcg INH) 1 Each Blst.w.dev, 1 PUFF INH DAILY, (Reported) HOLD WHILE ON PREDNISONE - RESTART 03/01/19 Furosemide (Furosemide) 20 Mg Tab, 20 MG PO DAILY, (Reported) Levofloxacin (Levaquin) 750 Mg Tablet, 750 MG PO Q48H Levothyroxine Sodium (Synthroid) 50 Mcg Tablet, 50 MCG PO DAILY, (Reported) Magnesium Chloride (Magnesium Chloride) 64 Mg Tablet.dr, 64 MG PO DAILY, (Reported) Metronidazole (Metronidazole 0.75% Gel) 45 Gm Gel..gram., 1 APLCT TOP DAILY, (Reported) FOR ROSACEA Multivitamins (Thera M Plus Tablet) 1 Tab Tab, 1 TAB PO DAILY, (Reported) Pantoprazole Sodium (Pantoprazole Sodium) 40 Mg Tab, 40 MG PO BID, (Reported) Potassium Chloride (Potassium Chloride) 20 Meq Packet, 20 MEQ PO DAILY, (Reporte d) Pravastatin Sodium (Pravastatin Sodium) 40 Mg Tab, 40 MG PO DAILY, (Reported) Prednisone (Prednisone) 20 Mg Tablet, 40 MG PO DAILY, (Reported) FOR 5 DAYS STARTING 02/25/19 Tiotropium [place] (Spiriva) 18 Mcg Cap, 1 INHALATION INH DAILY, (Reported) Valsartan (Valsartan) 320 Mg Tab, 320 MG PO DAILY, (Reported) Scheduled PRN Albuterol Sulfate (Ventolin Hfa) 18 Gm Hfa.aer.ad, 2 PUFF INH Q4H PRN for SHORTNESS OF BREATH, (Reported) Bismuth Subsalicylate (Pepto-Bismol) 262 Mg/15 Ml Oral.susp, 30 ML PO Q3HP PRN for EPIGASTRIC DISCOMFORT, (Reported) Calcium Carbonate (Tums) 300 Mg Tab.chew, 300 MG PO TID PRN for INDIGESTION, (Reported) Guaifenesin (Mucinex) 600 Mg Tab.er.12h, 600 MG PO BID PRN for COUGH, (Reported) Ipratropium/Albuterol Sulfate (Iprat-Albut 0.5-3(2.5) mg/3 ml) 3 Ml Ampul.neb, 1 INHALATION INH Q4H PRN for SHORTNESS OF BREATH, (Reported) Loperamide HCl (Loperamide) 2 Mg Capsule, 2 MG PO DAILY PRN for DIARRHEA, (Reported) Sodium Chloride ([place] Saline) 0.65% Drops, 2 DROP NARES Q2H PRN for NASAL DRYNESS, (Reported) Allergies Coded Allergies: ENVIROMENTAL (Verified Allergy, Unknown, 02/20/19) hydrocodone (Verified Adverse Reaction, Intermediate, hallucinations, confusion while on Vicodin, 02/20/19) TYLOR COTTO DO Mar 04, 2019 18:38
== END 2019-03-04 12:49 | DRG 194 ==
LOC: M ED 10:19 → M ED INP 12:39 → M MSPAV 14:13
PROVIDERS: ADMIT Internal Medicine; ATTEND Internal Medicine
DX: J12.1 Respiratory syncytial virus pneumonia (principal); J44.0 Chronic obstructive pulmonary disease with (acute) lower respiratory infection; J96.11 Chronic respiratory failure with hypoxia; I50.32 Chronic diastolic (congestive) heart failure; I11.0 Hypertensive heart disease with heart failure; E78.5 Hyperlipidemia, unspecified; I27.20 Pulmonary hypertension, unspecified; R91.1 Solitary pulmonary nodule; E66.9 Obesity, unspecified; J30.9 Allergic rhinitis, unspecified; I25.10 Atherosclerotic heart disease of native coronary artery without angina pectoris; K21.9 Gastro-esophageal reflux disease without esophagitis; I49.5 Sick sinus syndrome; F32.9 Major depressive disorder, single episode, unspecified; E03.9 Hypothyroidism, unspecified; D50.9 Iron deficiency anemia, unspecified; Z85.3 Personal history of malignant neoplasm of breast; Z90.13 Acquired absence of bilateral breasts and nipples; M19.90 Unspecified osteoarthritis, unspecified site; Z95.0 Presence of cardiac pacemaker; Z98.41 Cataract extraction status, right eye; Z98.42 Cataract extraction status, left eye; Z98.82 Breast implant status; Z79.82 Long term (current) use of aspirin; Z79.899 Other long term (current) drug therapy; Z88.5 Allergy status to narcotic agent

== ENCOUNTER → 2019-03-17 | Outpatient (CLI) | payer MEDICARE, MEDICAID ==
[~2019-03-17] MED LIST changes: +AYR0.65D NARES; -FERROUS SULFATE 300MG/5ML UDC LIQUID GT SCH; -FLUO20CA19 PO; +FLUO20CA22 PO; +LEVA750T7 PO; -MECL-68 PO; +MECL1TAB31 PO; +MUCI600T31 PO; -OMEP-172 PO; +OMEP1CAP73 PO; +PEPT262S PO
--- NOTE | 2019-03-18 01:33 | REP ---
Clinical: Impingement syndrome. Technique: Internal rotation, external rotation, and Y view of the left shoulder. Findings: Cortical irregularity and subtle inferior spurring at the acromioclavicular joint is appreciated along with broad-based spurring along the superolateral aspect of the humeral head. The subacromial space is normal. The glenoid rim appears normal. No periarticular calcifications or loose bodies are identified. No evidence for fracture or dislocation. Impression: Age-related osteopenia and arthritic degenerative changes. Electronically Signed by Demond Workman MD 03/18/2019 01:24 A
== END ==
LOC: M LRY 15:19
PROVIDERS: ATTEND Family Medicine
DX: M85.812 Other specified disorders of bone density and structure, left shoulder (principal); M75.42 Impingement syndrome of left shoulder
CPT/HCPCS: 73030; G0463

== ENCOUNTER → 2019-04-15 | Outpatient (REF) | payer MEDICARE, MEDICAID ==
[2019-04-15 10:06] LABS: ALBUMIN 2.9 GM/DL (3.2-5.2); BILIRUBIN,TOTAL 0.2 MG/DL (0.2-1.0); CALCIUM LEVEL 9.1 MG/DL (8.8-10.2); CREATININE FOR GFR 1.1 MG/DL (0.55-1.30); GLOMERULAR FILTRATION RATE 50.6 (>32); POTASSIUM SERUM 4.9 MEQ/L (3.5-5.1); TOTAL PROTEIN 6.4 GM/DL (6.4-8.2)
== END ==
PROVIDERS: ATTEND Physician Assistant
DX: Z01.818 Encounter for other preprocedural examination (principal)

== ENCOUNTER → 2019-04-20 | Outpatient (CLI) | payer MEDICARE, MEDICAID ==
[~2019-04-20] MED LIST changes: +ISOVUE-370 76% 100ML VIAL (Q9967) As Ordered ONE
--- NOTE | 2019-04-20 10:58 | REP ---
Clinical: Abdominal aortic aneurysm. Technique: Axial contrast enhanced images obtained in arterial phase using angiographic technique from the lung bases to the pubic symphysis on the with coronal and sagittal re-formations as well as MIP re-formations and volume rendered 3-D aortogram. Comparison: 06/16/2018. Findings: The patient is again noted to be status post aortobi-iliac stent placement originating below the level of the renal arteries which remains stable. Maximal AP diameter to the abdominal aneurysm again measures 3.5 cm and is unchanged. Contrast appropriately flows through the graft without evidence for endoleak and the excluded portion of the aortic aneurysm remains stable in appearance and size. Extensive atherosclerotic changes are noted throughout the aorta and branch vessels without further evidence for aneurysm, stenosis or occlusion by current examination. Appropriate enhancement to the celiac axis, superior mesenteric artery, bilateral renal arteries, iliac arteries and proximal lower extremity arteries at the level of the groin noted. Liver, spleen, pancreas, and bilateral adrenal glands are normal. Kidneys again demonstrate cortical age-related changes along with bilateral cysts measuring up to approximately 4 cm and the right kidney and 1.3 cm in the left kidney. The enteric system is without obstruction or acute inflammatory process. Diverticulosis noted without acute diverticulitis. Pelvis demonstrates normal bladder and partially calcified myomatous changes to the uterus. Small fat containing periumbilical hernia identified. No ascites. No free air. No adenopathy. Musculoskeletal structures demonstrate degenerative changes without acute abnormality. Impression: 1. Known infrarenal abdominal aorta aneurysm with prior aortobi-iliac stent placement appears stable and without evidence for endoleak or increased volume to the excluded aneurysm. Atherosclerotic changes noted. 2. Age-related renal changes along with bilateral renal cysts similar to prior examination. 3. Diverticulosis. 4. Myomatous changes to the uterus. Electronically Signed by Demond Workman MD 04/20/2019 10:50 A
== END ==
LOC: M RAD 10:03
PROVIDERS: ATTEND Physician Assistant
DX: I71.4 Abdominal aortic aneurysm, without rupture (principal)
CPT/HCPCS: 74174; Q9967

== ENCOUNTER → 2019-06-27 | Outpatient (REF) | payer MEDICARE, MEDICAID ==
[~2019-06-27] MED LIST changes: -ISOVUE-370 76% 100ML VIAL (Q9967) As Ordered ONE
[2019-06-27 17:34] LABS: BASO % 0.4 % (0.0-1.0); EOS # 0.2 10^3/uL (0.0-0.5); EOS % 2.3 % (0.0-3.0); HEMATOCRIT 35.3 % (36.0-47.0); HEMOGLOBIN 11.1 g/dl (12.0-15.5); LYMPH # 1.4 10^3/uL (1.5-5.0); LYMPH % 17.9 % (24.0-44.0); MEAN CORPUSCULAR HEMOGLOBIN 33.5 pg (27.0-33.0); MEAN CORPUSCULAR HGB CONC 31.4 g/dl (32.0-36.5); MEAN CORPUSCULAR VOLUME 106.6 fl (80.0-96.0); MONO # 0.7 10^3/uL (0.0-0.8); MONO % 8.7 % (0.0-5.0); NEUTROPHILS # 5.5 10^3/uL (1.5-8.5); NEUTROPHILS % 70.2 % (36.0-66.0); PLATELET COUNT, AUTOMATED 210 10^3/uL (150-450); RED BLOOD COUNT 3.31 10^6/uL (4.00-5.40); WHITE BLOOD COUNT 7.9 10^3/uL (4.0-10.0)
[2019-06-27 18:05] LABS: ALBUMIN 2.9 GM/DL (3.2-5.2); BILIRUBIN,TOTAL 0.5 MG/DL (0.2-1.0); CALCIUM LEVEL 8.6 MG/DL (8.8-10.2); CREATININE FOR GFR 1.2 MG/DL (0.55-1.30); GLOMERULAR FILTRATION RATE 45.8 (>32); POTASSIUM SERUM 4.7 MEQ/L (3.5-5.1); TOTAL PROTEIN 6.5 GM/DL (6.4-8.2)
== END ==
PROVIDERS: ATTEND Family Medicine
DX: D64.9 Anemia, unspecified (principal); Z85.3 Personal history of malignant neoplasm of breast

== ENCOUNTER → 2019-12-05 | Outpatient (REF) | payer MEDICARE, MEDICAID ==
[~2019-12-05] MED LIST changes: +ACET650T61 PO; -AMLO10TA5 PO; +AMLO1TAB24 PO; +AMLO1TAB25 PO; -AMLO5TAB6 PO; +ASPI-546 PO; -ASPI1TAB15 PO; +PANT40TA29 PO; -PANT40TA3 PO; -TYLE650T35 PO
== END ==
PROVIDERS: ATTEND Family Medicine
DX: E03.9 Hypothyroidism, unspecified (principal)

== ENCOUNTER → 2020-02-15 | Outpatient (REF) | payer MEDICARE, MEDICAID ==
[2020-02-16 09:24] LABS: INFLUENZA A AMPLIFICATION NEGATIVE (NEGATIVE); INFLUENZA B AMPLIFICATION NEGATIVE (NEGATIVE)
== END ==
PROVIDERS: ATTEND Internal Medicine
DX: Z20.828 Contact with and (suspected) exposure to other viral communicable diseases (principal)
CPT/HCPCS: 87502; U0003

== ENCOUNTER → 2020-02-20 | Outpatient (REF) | payer MEDICARE, MEDICAID | PROVIDERS: ATTEND Internal Medicine | DX: Z20.828 Contact with and (suspected) exposure to other viral communicable diseases (principal) ==

== ENCOUNTER → 2020-02-27 | Outpatient (REF) | payer MEDICARE, MEDICAID | PROVIDERS: ATTEND Internal Medicine | DX: Z20.828 Contact with and (suspected) exposure to other viral communicable diseases (principal) ==

== ENCOUNTER → 2020-03-05 | Outpatient (REF) | payer MEDICARE, MEDICAID | PROVIDERS: ATTEND Internal Medicine | DX: Z11.52 Encounter for screening for COVID-19 (principal) ==

== ENCOUNTER → 2020-03-12 | Outpatient (REF) | payer MEDICARE, MEDICAID | PROVIDERS: ATTEND Internal Medicine | DX: Z20.822 Contact with and (suspected) exposure to COVID-19 (principal) ==

== ENCOUNTER → 2020-03-19 | Outpatient (REF) | payer MEDICARE, MEDICAID | PROVIDERS: ATTEND Internal Medicine | DX: Z20.822 Contact with and (suspected) exposure to COVID-19 (principal) ==

== ENCOUNTER → 2020-03-19 | Outpatient (REF) | payer MEDICARE, MEDICAID ==
[2020-03-19 12:07] LABS: BASO % 0.3 % (0.0-1.0); EOS # 0.1 10^3/uL (0.0-0.5); HEMATOCRIT 38.5 % (36.0-47.0); HEMOGLOBIN 11.7 g/dl (12.0-15.5); LYMPH # 1.3 10^3/uL (1.5-5.0); LYMPH % 14.8 % (24.0-44.0); MEAN CORPUSCULAR HEMOGLOBIN 33.1 pg (27.0-33.0); MEAN CORPUSCULAR HGB CONC 30.4 g/dl (32.0-36.5); MEAN CORPUSCULAR VOLUME 108.8 fl (80.0-96.0); MONO # 0.6 10^3/uL (0.0-0.8); MONO % 7.2 % (0.0-5.0); NEUTROPHILS # 6.8 10^3/uL (1.5-8.5); NEUTROPHILS % 76.2 % (36.0-66.0); PLATELET COUNT, AUTOMATED 312 10^3/uL (150-450); RED BLOOD COUNT 3.54 10^6/uL (4.00-5.40); WHITE BLOOD COUNT 8.9 10^3/uL (4.0-10.0)
[2020-03-19 13:08] LABS: ALBUMIN 2.9 GM/DL (3.2-5.2); BILIRUBIN,TOTAL 0.6 MG/DL (0.2-1.0); CALCIUM LEVEL 8.9 MG/DL (8.8-10.2); CREATININE FOR GFR 1.56 MG/DL (0.55-1.30); GLOMERULAR FILTRATION RATE 33.7 (>32); POTASSIUM SERUM 4.1 MEQ/L (3.5-5.1); THYROID STIMULATING HORMONE 2.49 uIU/ML (0.358-3.740); TOTAL PROTEIN 6.7 GM/DL (6.4-8.2)
== END ==
PROVIDERS: ATTEND Family Medicine
DX: E03.9 Hypothyroidism, unspecified (principal); K21.9 Gastro-esophageal reflux disease without esophagitis; I10 Essential (primary) hypertension

== ENCOUNTER → 2020-03-26 | Outpatient (REF) | payer MEDICARE, MEDICAID | PROVIDERS: ATTEND Internal Medicine | DX: Z20.822 Contact with and (suspected) exposure to COVID-19 (principal) ==

== ENCOUNTER → 2020-04-02 | Outpatient (REF) | payer MEDICARE, MEDICAID | PROVIDERS: ATTEND Internal Medicine | DX: Z11.52 Encounter for screening for COVID-19 (principal) ==

== ENCOUNTER → 2020-04-04 | Outpatient (REF) | payer MEDICARE, MEDICAID ==
[2020-04-04 12:24] LABS: CALCIUM LEVEL 9.3 MG/DL (8.8-10.2); CREATININE FOR GFR 1.29 MG/DL (0.55-1.30); POTASSIUM SERUM 4.6 MEQ/L (3.5-5.1)
== END ==
PROVIDERS: ATTEND Family Medicine
DX: I10 Essential (primary) hypertension (principal)

== ENCOUNTER → 2020-04-09 | Outpatient (REF) | payer MEDICARE, MEDICAID | PROVIDERS: ATTEND Internal Medicine | DX: Z20.822 Contact with and (suspected) exposure to COVID-19 (principal) ==

== ENCOUNTER → 2020-04-10 | Outpatient (REF) | payer MEDICARE, MEDICAID ==
[2020-04-10 12:19] LABS: CALCIUM LEVEL 8.8 MG/DL (8.8-10.2); CREATININE FOR GFR 1.41 MG/DL (0.55-1.30); GLOMERULAR FILTRATION RATE 37.9 (>32); POTASSIUM SERUM 4.2 MEQ/L (3.5-5.1)
== END ==
PROVIDERS: ATTEND Physician Assistant
DX: I71.4 Abdominal aortic aneurysm, without rupture (principal)

== ENCOUNTER → 2020-04-16 | Outpatient (REF) | payer MEDICARE, MEDICAID | PROVIDERS: ATTEND Internal Medicine | DX: Z20.822 Contact with and (suspected) exposure to COVID-19 (principal) ==

== ENCOUNTER → 2020-04-23 | Outpatient (REF) | payer MEDICARE, MEDICAID | PROVIDERS: ATTEND Internal Medicine | DX: Z20.822 Contact with and (suspected) exposure to COVID-19 (principal) ==

== ENCOUNTER → 2020-04-24 | Outpatient (CLI) | payer MEDICARE, MEDICAID ==
[~2020-04-24] MED LIST changes: +ISOVUE-370 76% 100ML VIAL As Ordered ONE
--- NOTE | 2020-04-24 11:43 | REP ---
INDICATION: AAA COMPARISON: CT angiogram 04/20/2019. TECHNIQUE: CT angiogram of the abdomen and pelvis was performed with intravenous administration of 100 cc of Isovue 370, without oral contrast. 3D MIP reconstruction images performed. FINDINGS: Abdominal aorta: There is an infrarenal abdominal aortic aneurysm with aorto bi-iliac stents present. The stent limbs are patent without filling defects. Aneurysm is stable with maximum diameter a 3.5 cm. I do not see any CT evidence for an endoleak. There is atherosclerotic calcification of the aorta and iliac vessels. Lung bases: Show minor fibrotic and atelectatic changes in the lower lung zones. Portions of the breast implants from reconstruction postmastectomy again seen. The limited portions included in the field of view show patent envelopes. Liver: Normal Gallbladder: Is surgically absent. Spleen: Normal. Adrenals: Show stable nodule on the right side dating back several years consistent with benign finding. Pancreas: Normal. Kidneys: Multiple simple cysts are noted right more than left but unchanged. No hydronephrosis, stone solid mass. The largest on the right is about 4 cm on the left 1.2 cm. Small and large bowel: Unremarkable. Free fluid: None. Adenopathy: None. Appendix: Absent Pelvis: Heavy calcifications in the uterus suggesting a calcified fibroids. Appearance unchanged. No adnexal mass or pelvic free fluid. Pelvic portions of the left colon sigmoid with some diverticulosis but no diverticulitis. Small bowel loops intact no ventral or inguinal hernia. Osseous structures: Degenerative disc changes L3-4 through L5-S1 and some facet arthropathy without compression fracture spondylolysis. The sacrum, pelvis and hips show minor degenerative change without fracture or focal lesion. IMPRESSION: There is an aorto bi-iliac stent within a infrarenal abdominal aortic aneurysm. The aneurysm is unchanged with maximum AP diameter 3.5 cm in with no evidence of an endoleak or retroperitoneal bleed. Renal cysts, heavily calcified uterine fibroids and some degenerative changes in the spine again seen. No other significant or acute finding. <Electronically signed by Raj Estes > 04/24/20 [id number]
== END ==
LOC: M RAD 09:07
PROVIDERS: ATTEND Physician Assistant
DX: I71.4 Abdominal aortic aneurysm, without rupture (principal); N28.1 Cyst of kidney, acquired; K57.32 Diverticulitis of large intestine without perforation or abscess without bleeding; M51.36 Other intervertebral disc degeneration, lumbar region; D25.9 Leiomyoma of uterus, unspecified
CPT/HCPCS: 74174; Q9967

== ENCOUNTER 2020-05-21 14:41 | Inpatient (IN) | payer MEDICARE, MEDICAID ==
[~2020-05-21] VITALS: Ht 152.4 cm; Wt 92.2 kg
[~2020-05-21 14:41] MED LIST changes: -DICL1GEL3 TOP; -RITA5TAB PO
[2020-05-21 15:26] LABS: BASO # 0.1 10^3/uL (0.0-0.2); BASO % 0.3 % (0.0-1.0); EOS # 0.1 10^3/uL (0.0-0.5); EOS % 0.8 % (0.0-3.0); HEMATOCRIT 32.3 % (36.0-47.0); HEMOGLOBIN 10.2 g/dl (12.0-15.5); LYMPH # 1.1 10^3/uL (1.5-5.0); LYMPH % 6.8 % (24.0-44.0); MEAN CORPUSCULAR HEMOGLOBIN 33.8 pg (27.0-33.0); MEAN CORPUSCULAR HGB CONC 31.6 g/dl (32.0-36.5); NEUTROPHILS # 13.6 10^3/uL (1.5-8.5); NEUTROPHILS % 85.2 % (36.0-66.0); PLATELET COUNT, AUTOMATED 277 10^3/uL (150-450); RED BLOOD COUNT 3.02 10^6/uL (4.00-5.40); WHITE BLOOD COUNT 15.9 10^3/uL (4.0-10.0)
[2020-05-21 16:07] LABS: ALBUMIN 2.5 GM/DL (3.2-5.2); ALT/SGPT 22 U/L (12-78); BILIRUBIN,DIRECT 0.2 MG/DL (0.0-0.2); BILIRUBIN,TOTAL 0.3 MG/DL (0.2-1.0); CK-MB VALUE MASS 1.3 NG/ML (<3.6); CPK CREATINE PHOSPHOKINASE 100 U/L (26-192); TOTAL PROTEIN 6.6 GM/DL (6.4-8.2); TROPONIN I < 0.02 NG/ML (< 0.10)
--- NOTE | 2020-05-21 17:42 | ECGEPIP ---
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
[2020-05-21 18:04] LABS: RSV AMPLIFICATION NEGATIVE (NEGATIVE)
[2020-05-21] MEDS ORDERED: RITA5TAB PO (18:29)
[2020-05-21] MEDS ORDERED: DICL1GEL3 TOP (18:29)
[2020-05-21] MEDS ORDERED: CALCIUM CARBONATE 500 MG CHEW U/D PO ONE (18:45)
[2020-05-21] MEDS ORDERED: SODIUM CHLORIDE 0.65% NOSE DROPS 30ML BTL (BABY AYR) NS PRN (18:45)
[2020-05-21] MEDS ORDERED: PINK BISMUTH SUSP 524MG/30ML ORAL SYRINGE PO PRN (18:45)
[2020-05-21] MEDS ORDERED: ALBUTEROL 90 MCG/ACT 8GM HFA INHALER INH PRN (18:45)
--- NOTE | 2020-05-21 18:50 | HPEPDOC ---
[facility] Medical History & Physical Date of Admission May 21, 2020 Date of Service: May 21, 2020 History and Physical CHIEF COMPLAINT: rash HISTORY OF PRESENT ILLNESS: 85 yo F with a history of COPD, chronic respiratory failure with hypoxia, CAD status post PCI, diastolic CHF, pulmonary hypertension, pacemaker due to sick sinus syndrome breast cancer status post bilateral mastectomy and bilateral breast implants, hypertension, hyperlipidemia, hypothyroid, history of GI bleed and chronic iron deficiency anemia.Resident of [facility]. Presenting to [facility] ER with a complaint of a large pruritic rash that started 2 days ago on her abdomen extending to the belly button below and up to the breasts bilaterally around the torso into the back. Sent from PCP clinic today as though to be hypotensive, BPs are elevated in the ER. The rash is nontender but is pruritic without any weeping blood or wheals. Patient denies fevers, chills, chest pain, shortness of breath, nausea, vomiting or diarrhea. Patient is afebrile, but has a WBC on 16. Will be admitted to hospitalist service. PAST MEDICAL HISTORY COPD WITH CHRONIC RESPIRATORY FAILURE WITH HYPOXIA HYPERTENSION ARTHRITIS ELEVATED CHOL CHFpEF MODERATE PULMONARY HYPERTENSION OBESITY CAD GERD HX OF BREAST CA PACE MAKER DUE TO SICK SINUS SYNDROME BREAST IMPLANTS DEPRESSION HYPOTHYROIDISM DIVERTICULOSIS, POLYPS, DECREASED ANAL SPHINCTER TONE CHRONIC ANEMIA PAST SURGICAL HISTORY: KEV MASECTOMY 2010 AAA REPAIR 08/2015 BACK SURGERY L ELBOW SURGERY FALLOPIAN TUBE REMOVAL R KNEE SURGERY KEV CATARACT REMOVAL PACEMAKER SOCIAL HISTORY: Patient denies smoking Patient denies etoh use Patient denies illicit drug use FAMILY HISTORY: reviewed with patient, no relevant family hx reported ALLERGIES: Please see below. REVIEW OF SYSTEMS: 10 point review of systems completed, relevant findings noted in the [facility] HOME MEDICATIONS: Please see below. PHYSICAL EXAMINATION: VITAL SIGNS: please see below General: NAD, comfortable HEENT: PERRLA, EOMI, sclerae clear Neck: supple, normal ROM, no JVD Respiratory: lungs CTAB, no wheeze, no rales, no crackles CVS: RRR, normal S1, S2, no murmurs Abdo: soft, no masses, no hepatosplenomegaly, BS+, no rebound tenderness Skin: rash on abdomen across the epigastrium to the R and L flanks and up to the bilateral breasts and to the back. Erythematous. Non weeping. Non bleeding. Non tender to touch. Pruritic. No wheals. Extremities: no edema, pulses 2+ MSK: no joint deformities, normal ROM Neuro: no focal neuro deficits, moving all 4 extremities, CN2-12 intact. Strength 5/5 in all 4 extremities. No nystagmus. Psych: calm, cooperative, AAO x 3 LABORATORY DATA: See below. MICROBIOLOGY: Please see below. ASSESSMENT:85 yo F with a history of COPD, chronic respiratory failure with hypoxia, CAD status post PCI, diastolic CHF, pulmonary hypertension, pacemaker due to sick sinus syndrome breast cancer status post bilateral mastectomy and bilateral breast implants, hypertension, hyperlipidemia, hypothyroid, history of GI bleed and chronic iron deficiency anemia . PLAN: Rash likely 2/2 cellulitis - Rash extending across epigatrium, mid abdomen, across both breasts and to the back - afebrile, but has WBC 16, neutrophil predominance 85.2% - MRSA screen - start empiric vancomycin given WBC elevation - blood cultures were sent from ER - spoke to Dr. Qiu given hx of breast ca, possible marker for reccurence? eriseplas carcinomatosis? consult placed - consider dermatology consultation in AM for a skin biopsy - check CRP, ESR, procal #hx of breast ca - s/p bilateral mastectomies in 2009, and bilateral breast implants - has stopped follow up - consulted breast surgery given new onset diffuse breast and torso rash #COPD - resume spiriva, albuterol #HTN urgency - resume amlodipine, valsartan - 10 mg hydralazine IV once - admit to tele. #hx of sick sinus treatment - pacemaker #Hx of CAD - asa/statin #GERD - resume PPI #HFpEF - resume lasix PO #Hypothyroid - resume 50 mcg daily Code status: DNR/DNI. Dispo: pending clinical improvement. Vital Signs Vital Signs Date Time Temp Pulse Resp B/P (MAP) Pulse Ox O2 Delivery O2 Flow Rate FiO2 05/21/20 16:00 69 120/56 (77) 98 Nasal Cannula 2.0 05/21/20 15:45 20 05/21/20 14:42 96.4 Laboratory Data Labs 24H Laboratory Tests 2 05/21/20 15:15: Immature Granulocyte % (Auto) 0.9, Neutrophils (%) (Auto) 85.2H, Lymphocytes (%) (Auto) 6.8L, Monocytes (%) (Auto) 6.0, Eosinophils (%) (Auto) 0.8, Basophils (%) (Auto) 0.3, Neutrophils # (Auto) 13.6H, Lymphocytes # (Auto) 1.1L, Monocytes # (Auto) 1.0H, Eosinophils # (Auto) 0.1, Basophils # (Auto) 0.1, Nucleated Red Blood Cells % (auto) 0.0, Lactic Acid Level 1.8, Total Bilirubin 0.3, Direct Bilirubin 0.2, Aspartate Amino Transf (AST/SGOT) 18, Alanine Aminotransferase (ALT/SGPT) 22, Alkaline Phosphatase 104, Total Creatine Kinase 100, Creatine Kinase MB 1.3, Creatine Kinase MB Relative Index 1.30, Troponin I < 0.02, Total Protein 6.6, Albumin 2.5L, Albumin/Globulin Ratio 0.6L, Thyroid Stimulating Hormone (TSH) 2.940 05/21/20 15:25: POC Glucose (Misc Panel) 191H, POC Sodium (Misc Panel) 134L, POC Potassium (Misc Panel) 4.5, POC Chloride (Misc Panel) 98, POC Total CO2 (Misc Panel) 27.0, POC Blood Urea Nitrogen (Misc Panel 33H, POC Ionized Calcium (Misc Panel) 4.5, POC Creatinine (Misc Panel) 2.4H, POC Hematocrit (Misc Panel) 32.0L 05/21/20 17:18: Coronavirus (COVID-19)(PCR) NEGATIVE, Influenza Type A (RT-PCR) NEGATIVE, Influenza Type B (RT-PCR) NEGATIVE, Respiratory Syncytial Virus (PCR) NEGATIVE CBC/BMP Laboratory Tests 05/21/20 15:15 Microbiology Microbiology 05/21/20 Blood Culture, Received Pending 05/21/20 Blood Culture, Received Pending Home Medications Scheduled Acetaminophen (Tylenol Arthritis) 650 Mg Tab, 650 MG PO DAILY Amlodipine Besylate (Amlodipine Besylate) 5 Mg Tab, 5 MG PO DAILY Ascorbate Calcium (Calcium Ascorbate) 500 Mg Tablet, 500 MG PO Q2D Aspirin (Aspirin EC) 81 Mg Tabec, 81 MG PO DAILY Calcium Carbonate (Calcium) 600 Mg Tablet, 600 MG PO QHS Cyanocobalamin (Vitamin B-12) (Vitamin B-12) 1,000 Mcg Tablet, 1,000 MCG PO DAILY Famotidine (Famotidine) 20 Mg Tablet, 20 MG PO QHS Ferrous Sulfate, Dried (Slow Release Iron) 160 Mg Tablet.er, 325 MG PO Q2D Fluoxetine Hcl (Fluoxetine HCl) 20 Mg Cap, 20 MG PO DAILY Fluticasone/Vilanterol (Breo Ellipta 200-25 Mcg INH) 1 Each Blst.w.dev, 1 PUFF INH DAILY Furosemide (Furosemide) 20 Mg Tab, 20 MG PO DAILY Levothyroxine Sodium (Synthroid) 50 Mcg Tablet, 50 MCG PO DAILY Magnesium Chloride (Magnesium Chloride) 64 Mg Tablet.dr, 64 MG PO DAILY Methylphenidate HCl (Ritalin) 5 Mg Tablet, 2.5 MG PO DAILY Metronidazole (Metronidazole 0.75% Gel) 45 Gm Gel..gram., 1 APLCT TOP DAILY FOR ROSACEA Multivitamins (Thera M Plus Tablet) 1 Tab Tab, 1 TAB PO DAILY Pantoprazole Sodium (Pantoprazole Sodium) 40 Mg Tab, 40 MG PO BID Potassium Chloride (Potassium Chloride) 20 Meq Packet, 20 MEQ PO DAILY Pravastatin Sodium (Pravastatin Sodium) 40 Mg Tab, 40 MG PO DAILY Tiotropium [place] (Spiriva) 18 Mcg Cap, 1 INHALATION INH DAILY Valsartan (Valsartan) 320 Mg Tab, 320 MG PO DAILY Scheduled PRN Albuterol Sulfate (Ventolin Hfa) 18 Gm Hfa.aer.ad, 2 PUFF INH Q4H PRN for SHORTNESS OF BREATH Bismuth Subsalicylate (Pepto-Bismol) 262 Mg/15 Ml Oral.susp, 30 ML PO Q3HP PRN for EPIGASTRIC DISCOMFORT Calcium Carbonate (Tums) 300 Mg Tab.chew, 300 MG PO TID PRN for INDIGESTION Diclofenac Sodium (Diclofenac Sodium) 1% 100GM Gel..gram., 2 GM TOP TID PRN for PAIN LEFT SHOULDER Ipratropium/Albuterol Sulfate (Iprat-Albut 0.5-3(2.5) mg/3 ml) 3 Ml Ampul.neb, 1 VIAL INH Q8H PRN for SHORTNESS OF BREATH Loperamide HCl (Loperamide) 2 Mg Capsule, 2 MG PO DAILY PRN for DIARRHEA Sodium Chloride ([place] Saline) 0.65% Drops, 2 DROP NARES Q2H PRN for NASAL DRYNESS Allergies Coded Allergies: ENVIROMENTAL (Verified Allergy, Unknown, 02/20/19) hydrocodone (Verified Adverse Reaction, Intermediate, hallucinations, confusion while on Vicodin, 02/20/19) A-FIB/CHADSVASC A-FIB History Current/History of A-Fib/PAF?: No Current PO Anticoag Therapy: No MIQUEL ASHRAF MD May 21, 2020 18:50
[2020-05-21] MEDS ORDERED: hydrALAZINE 20MG/ML 1ML VIAL (J0360 PER 20MG) IV STA (19:04)
[2020-05-21] MEDS: amLODIPine 5 MG TAB PO SCH (19:05)
[2020-05-21] MEDS ORDERED: PILL CUTTER 1 EACH XX PRN (19:05)
[2020-05-21] MEDS ORDERED: MAALOX 30 ML SUSP *UDC PO PRN (19:10)
[2020-05-21] MEDS ORDERED: MOM 30ML SUSPENSION UDC PO PRN (19:10)
[2020-05-21] MEDS ORDERED: VANCOMYCIN HCL 1,000 MG, VIAL MATE ADAPTER 1 EACH in NS 250 ML IV SCH (20:00)
[2020-05-21 20:25] LABS: ERYTHROCYTE SEDIMENTATION RATE > 140 mm/hr (0-30)
[2020-05-21] MEDS ORDERED: VANCOMYCIN HCL 1,000 MG, VIAL MATE ADAPTER 1 EACH in NS 250 ML IV ONE (21:00)
[2020-05-21] MEDS: FAMOTIDINE 20 MG TAB PO SCH (21:04)
[2020-05-21] MEDS: DOCUSATE SODIUM 100MG CAPSULE PO SCH (21:04)
[2020-05-21] MEDS: PANTOPRAZOLE 40MG TAB (PROTONIX) PO SCH (21:04)
[2020-05-21 21:30] VITALS: BP 143/49
[2020-05-21] MEDS ORDERED: VANCOMYCIN HCL 750 MG, VIAL MATE ADAPTER 1 EACH in NS 250 ML IV ONE (22:00)
[2020-05-22] MEDS: ACETAMINOPHEN TAB 650MG DOSE (2X325MG) PO PRN ×2 (01:39→22:02)
[2020-05-22] MEDS: LEVOTHYROXINE 50MCG TABLET (0.05MG) PO SCH (05:29)
[2020-05-22 06:00] VITALS: BP 139/52
[2020-05-22 06:15] LABS: BASO % 0.3 % (0.0-1.0); EOS # 0.2 10^3/uL (0.0-0.5); EOS % 1.2 % (0.0-3.0); HEMATOCRIT 30.1 % (36.0-47.0); HEMOGLOBIN 9.4 g/dl (12.0-15.5); LYMPH # 1.4 10^3/uL (1.5-5.0); LYMPH % 10.8 % (24.0-44.0); MEAN CORPUSCULAR HEMOGLOBIN 33.5 pg (27.0-33.0); MEAN CORPUSCULAR HGB CONC 31.2 g/dl (32.0-36.5); MEAN CORPUSCULAR VOLUME 107.1 fl (80.0-96.0); MONO # 1.1 10^3/uL (0.0-0.8); MONO % 8.4 % (2.0-8.0); NEUTROPHILS # 9.9 10^3/uL (1.5-8.5); PLATELET COUNT, AUTOMATED 251 10^3/uL (150-450); RED BLOOD COUNT 2.81 10^6/uL (4.00-5.40); WHITE BLOOD COUNT 12.7 10^3/uL (4.0-10.0)
[2020-05-22 06:34] LABS: ALBUMIN 2.2 GM/DL (3.2-5.2); BILIRUBIN,TOTAL 0.3 MG/DL (0.2-1.0); CALCIUM LEVEL 8.1 MG/DL (8.8-10.2); CREATININE FOR GFR 1.55 MG/DL (0.55-1.30); MAGNESIUM LEVEL 2.2 MG/DL (1.8-2.4); POTASSIUM SERUM 4.1 MEQ/L (3.5-5.1)
[2020-05-22] MEDS: TIOTROPIUM INHALER/CAPSULE (SPIRIVA) INH SCH (07:29)
[2020-05-22] MEDS: SYMBICORT 80/4.5MCG INHALER 6GM INH SCH ×2 (07:29→20:07)
[2020-05-22 09:00] VITALS: BP 82/44
[2020-05-22] MEDS ORDERED: amLODIPine 5 MG TAB PO SCH (09:00)
[2020-05-22] MEDS: amLODIPine 5 MG TAB PO SCH (09:00)
[2020-05-22] MEDS ORDERED: VALSARTAN 80 MG TAB (DIOVAN) PO SCH (09:00)
[2020-05-22] MEDS: FUROSEMIDE 20 MG TAB PO SCH ×2 (09:00→09:53)
[2020-05-22] MEDS: metroNIDAZOLE 70 GM VAGINAL GEL TOP SCH (09:51)
[2020-05-22] MEDS: POTASSIUM CHL PWD 20 MEQ PACKET PO SCH (09:51)
[2020-05-22] MEDS: DOCUSATE SODIUM 100MG CAPSULE PO SCH ×2 (09:52→20:25)
[2020-05-22] MEDS: PRAVASTATIN 20 MG TAB PO SCH (09:52)
[2020-05-22] MEDS: ENOXAPARIN 40MG/0.4ML SYRINGE (J1650 PER 10MG) SC SCH (09:52)
[2020-05-22] MEDS: CYANOCOBALAMIN 500 MCG TAB PO SCH (09:52)
[2020-05-22] MEDS: ASPIRIN 81MG ENTERIC TABLET PO SCH (09:53)
[2020-05-22] MEDS: PANTOPRAZOLE 40MG TAB (PROTONIX) PO SCH ×2 (09:53→20:25)
[2020-05-22] MEDS: FLUoxetine 20 MG CAP PO SCH (09:53)
[2020-05-22] MEDS: MULTIVITAMINS/MINERALS THERAP 1 TAB PO SCH (09:53)
[2020-05-22] MEDS: METHYLPHENIDATE 5 MG TAB PO SCH (09:57)
[2020-05-22 14:00] VITALS: BP 99/58
--- NOTE | 2020-05-22 14:56 | IPNPDOC ---
Text Note Date of Service The patient was seen on 05/22/20. NOTE Subjective: Patient was seen and examined this morning at bedside. Tells me her rash feels like it's improving. Tells me a rash is not pruritic or painful. She has no other complaints at this time. There is no acute overnight events. Objective: VITAL SIGNS: please see below General: NAD, comfortable HEENT: PERRLA, EOMI, sclerae clear Neck: supple, normal ROM, no JVD Respiratory: lungs CTAB, no wheeze, no rales, no crackles CVS: RRR, normal S1, S2, no murmurs Abdo: soft, no masses, no hepatosplenomegaly, BS+ Skin: rash on abdomen across the epigastrium to the R and L flanks and up to the bilateral breasts and to the back. Erythematous. Non weeping. Non bleeding. Non tender to touch. none-Pruritic. No wheals, tells me she thinks it looks improved from yesterday - I didn't see it yesterday myself. Extremities: no edema, pulses 2+ MSK: no joint deformities, normal ROM Neuro: no focal neuro deficits Psych: calm, cooperative, AAO x 3 Assessment/plan: 85 yo F with a history of COPD, chronic respiratory failure with hypoxia, CAD status post PCI, diastolic CHF, pulmonary hypertension, pacemaker due to sick sinus syndrome breast cancer status post bilateral mastectomy and bilateral breast implants, hypertension, hyperlipidemia, hypothyroid, history of GI bleed and chronic iron deficiency anemia Rash possibly 2/2 cellulitis - Rash extending across epigatrium, mid abdomen, across both breasts and to the back. Improved vs yesterday. - afebrile, but has WBC 16 which is downtrending - MRSA screen positive, will transition to doxy at time of discharge - start empiric vancomycin given WBC elevation - blood cultures were sent from ER - Dr. Qiu consulted given hx of breast ca, possible marker for recurrence such as eriseplas carcinomatosis? consult placed - Discussed with Dr Lowe from dermatology. He can see her in the clinic on . No need for inpatient consult. Recommended triamcinolone 0.1 BID. - patient responding well to the vancomycin and rash is improving WBC is downtrending which is reassuring. - Procal elevated which supports infection also #hx of breast ca s/p bilateral mastectomies in 2009, and bilateral breast implants. has stopped follow up. consulted breast surgery given new onset diffuse breast and torso rash #COPD resume spiriva, albuterol #HTN urgency: now normotensive. Hold amlodipine, valsartan #hx of sick sinus treatment pacemaker #Hx of CAD asa/statin #GERD resume PPI #HFpEF resume lasix PO #Hypothyroid resume 50 mcg daily Code status: DNR/DNI. [facility], I+O VSShante I+O Laboratory Tests 05/21/20 15:15 05/22/20 05:45 Vital Signs Date Time Temp Pulse Resp B/P (MAP) Pulse Ox O2 Delivery O2 Flow Rate FiO2 05/22/20 14:00 97.8 73 17 99/58 (72) 92 Nasal Cannula 2.0 I&O- Last 24 Hours up to 6 AM 05/22/20 06:00 Intake Total 930 ml Output Total 350 ml Balance 580 ml ALEXANDRA CUETO MD May 22, 2020 14:56
[2020-05-22] MEDS: FAMOTIDINE 20 MG TAB PO SCH (20:25)
[2020-05-22] MEDS: TRIAMCINOLONE ACET 0.1% CREAM 80 GM TOP SCH (20:26)
[2020-05-22] MEDS: VANCOMYCIN HCL 1,000 MG, VIAL MATE ADAPTER 1 EACH in NS 250 ML IV SCH (20:26)
[2020-05-22 22:00] VITALS: BP 116/56
--- NOTE | 2020-05-22 22:11 | CR.PDOC ---
Breast Surgery Consultation Date of Consultation Date: May 22, 2020 (4 pm) History and Physical Menarche: 14 LMP : when she was 59 Menopause: 59 G : 5 P : 5 breast feeding : no oral contraceptives : no HRT tx: no Fam hx breast/ ovarian : yes (2 sisters) / no Personal Hx of breast CA : yes b/l 2009 Genetic testing done previously : unsure Hx of Chemo/ Rad : no Ms. Candi Wu is an 85 year-old woman, with Past Medical History of COPD, SSS with pacemaker, CAD s/p PCI, Diastolic CHF, pulmonary HTN, systemic HTN, HLD, hypothyroidism, AAA s/p repair w stents (not on anticoagulation), obesity (BMI 38.8), GERD, Hx of GI bleed, iron deficiency anemia, and Hx of b/l breast ca, who is currently DNR/DNI, was admitted to the hospital for evaluation of hypotension and diffuse rash over her abdomen, chest, and back. Breast surgery service was consulted by the Medical Team to evaluate relationship of the rash to possible breast Ca recurrence. Patient reports that she noted the rash starting on her abdomen 2 days ago. The rash has spread to the chest area, flank, and back. Extremities and face are spared. There is no itching or pain. Patient only states that the rash is warm. She denies any new soaps, laundry detergents, sick contacts, new foods or medications. Patient was found to have leukocytosis on admission and started on empiric abx. Her leukocytosis and ESR decreasing. Her blood pressure was also on the lower side this afternoon. Patient thinks that the rash is today less red after starting abx. Of note, patient has hx of b/l breast cancer treated in [place] in 2009 No records are available at this time. Patient does not remember what cancers she had but she remembers that she was on Tamoxifen for 5 years. She had bilateral mastectomy with saline implants reconstruction. Patient thinks that her lymph nodes were checked and were negative. Again no records are available. She did not have chemotherapy or radiation after. Patient followed with [facility] in [place]. She did not follow with [facility] in [place]. She does not her mammograms since she had mastectomy. She also cannot have MRI breast due to pacemaker. Of note, patient had CTA chest done 02/28/21 no axillary lymphadenopathy or mastectomy sites masses were seen on my review of the imaging. Official report stated presence of 12 mm modular density in deep left lower lobe which warranted short term follow up. Patient states that she does not feel any suspicious palpable masses at her mastectomy sites. She admits that she feels bilateral ridges at the lateral mastectomy sites which she was previously told are related to her implants. Patient does have significant family history of breast cancer diagnosed in both of her sisters dx in their 60s. She does not have a significant family history of ovarian cancer. PMHX: see HPI Surg hx: b/l mastectomy w recon 2010 AAA repair back surgery pacemaker HOME MEDICATIONS: Please see below. REVIEW OF SYSTEMS: GENERAL: new rash CARDIOVASCULAR: pacemaker, has sss, CHF MUSCULOSKELETAL: hx back surgery, arthritis SKIN: new rash ENDOCRINE: hypothyroidism PULMONARY: COPD, pulm HTN GASTROINTESTINAL: GERD, hx og GI bleed INFECTIOUS: leukocytosis now NUTRITION: obesity PHYSICAL EXAMINATION: VITALS SIGNS: Please see below. GENERAL APPEARANCE:Patient seen, laying in bed, awake, alert, and oriented. Comfortable, in no acute distress SKIN:diffuse rash in the abdomen b/l flank, back, some expansion of the rash to chest wall BREAST: b/l mastecomy sites, well healed, incisions are well approximated, b/l implants are in place, there are no palpable nodules on the chest wall skin, there are no palpable masses in the mastectomy sites tissues, there is no palpable axillary lymphadenopathy, there is some extension of the rash into the mastectomy areas CHEST WALL: Left upper chest wall pacemaker in place LUNGS: breathing comfortably on NC HEART: no tachycardia ABDOMEN: obese, nondistended, diffuse rash EXTREMITIES: moving spontaneously all 4 extremities, no rash over the extremities, no lymphedema LABORATORY DATA: Please see below. IMPRESSION: 85 y o lady with Hx of B/L breast ca s/p b/l mastectomy with recon in 2009, admitted for evaluation of diffuse trunk rash and hypotension. Cause of Rash is unclear at this time, possibly infections as the leukocytosis decreases with the abx and ERS decreases. It is possible that there is a connection between the rash and hx of breast cancer however at this time this is unlike. - will order b/l whole breast and b/l axillary us to assess the mastectomy sites and axillas, unable to get mammogram now as there is no mammogram in the hospital, unable to get MRI due to pacemaker -recommend continuation of abx as there seem to be an improvement -recommend dermatology consul to assess the rash -if rash does not improve/ resolve, punch biopsy should be considered Thank you for allowing me assist you in taking care of Ms. Constantino. I will follow her along with you. Vital Signs Vital Signs Date Time Temp Pulse Resp B/P (MAP) Pulse Ox O2 Delivery O2 Flow Rate FiO2 05/22/20 20:07 15 05/22/20 14:00 97.8 73 99/58 (72) 92 Nasal Cannula 2.0 I&Os I&O- Last 24 Hours up to 6 AM 05/22/20 06:00 Intake Total 930 ml Output Total 350 ml Balance 580 ml Laboratory Data Labs 24H Laboratory Tests 2 05/21/20 22:36: Methicillin-Resist S.aureus DNA PCR DETECTEDA 05/22/20 05:45: Immature Granulocyte % (Auto) 1.3, Neutrophils (%) (Auto) 78.0H, Lymphocytes (%) (Auto) 10.8L, Monocytes (%) (Auto) 8.4H, Eosinophils (%) (Auto) 1.2, Basophils (%) (Auto) 0.3, Neutrophils # (Auto) 9.9H, Lymphocytes # (Auto) 1.4L, Monocytes # (Auto) 1.1H, Eosinophils # (Auto) 0.2, Basophils # (Auto) 0.0, Nucleated Red Blood Cells % (auto) 0.0, Anion Gap 6L, Glomerular Filtration Rate 34.0, Calcium Level 8.1L, Magnesium Level 2.2, Total Bilirubin 0.3, Aspartate Amino Transf (AST/SGOT) 16, Alanine Aminotransferase (ALT/SGPT) 17, Alkaline Phosphatase 90, Total Protein 6.0L, Albumin 2.2L, Albumin/Globulin Ratio 0.6L 05/22/20 15:53: Erythrocyte Sedimentation Rate 127H CBC/BMP Laboratory Tests 05/22/20 05:45 Microbiology Microbiology 05/21/20 Blood Culture - Preliminary, Resulted No growth after 24 hours . All specim... 05/21/20 Blood Culture - Preliminary, Resulted No growth after 24 hours . All specim... Home Medications Scheduled Acetaminophen (Tylenol Arthritis) 650 Mg Tab, 650 MG PO DAILY, (Reported) Amlodipine Besylate (Amlodipine Besylate) 5 Mg Tab, 5 MG PO DAILY, (Reported) Ascorbate Calcium (Calcium Ascorbate) 500 Mg Tablet, 500 MG PO Q2D, (Reported) Aspirin (Aspirin EC) 81 Mg Tabec, 81 MG PO DAILY, (Reported) Calcium Carbonate (Calcium) 600 Mg Tablet, 600 MG PO QHS, (Reported) Cyanocobalamin (Vitamin B-12) (Vitamin B-12) 1,000 Mcg Tablet, 1,000 MCG PO DAILY, (Reported) Famotidine (Famotidine) 20 Mg Tablet, 20 MG PO QHS, (Reported) Ferrous Sulfate, Dried (Slow Release Iron) 160 Mg Tablet.er, 325 MG PO Q2D, (Reported) Fluoxetine Hcl (Fluoxetine HCl) 20 Mg Cap, 20 MG PO DAILY, (Reported) Fluticasone/Vilanterol (Breo Ellipta 200-25 Mcg INH) 1 Each Blst.w.dev, 1 PUFF INH DAILY, (Reported) Furosemide (Furosemide) 20 Mg Tab, 20 MG PO DAILY, (Reported) Levothyroxine Sodium (Synthroid) 50 Mcg Tablet, 50 MCG PO DAILY, (Reported) Magnesium Chloride (Magnesium Chloride) 64 Mg Tablet.dr, 64 MG PO DAILY, (Reported) Methylphenidate HCl (Ritalin) 5 Mg Tablet, 2.5 MG PO DAILY, (Reported) Metronidazole (Metronidazole 0.75% Gel) 45 Gm Gel..gram., 1 APLCT TOP DAILY, (Reported) FOR ROSACEA Multivitamins (Thera M Plus Tablet) 1 Tab Tab, 1 TAB PO DAILY, (Reported) Pantoprazole Sodium (Pantoprazole Sodium) 40 Mg Tab, 40 MG PO BID, (Reported) Potassium Chloride (Potassium Chloride) 20 Meq Packet, 20 MEQ PO DAILY, (Reported) Pravastatin Sodium (Pravastatin Sodium) 40 Mg Tab, 40 MG PO DAILY, (Reported) Tiotropium [place] (Spiriva) 18 Mcg Cap, 1 INHALATION INH DAILY, (Reported) Valsartan (Valsartan) 320 Mg Tab, 320 MG PO DAILY, (Reported) Scheduled PRN Albuterol Sulfate (Ventolin Hfa) 18 Gm Hfa.aer.ad, 2 PUFF INH Q4H PRN for SHORTNESS OF BREATH, (Reported) Bismuth Subsalicylate (Pepto-Bismol) 262 Mg/15 Ml Oral.susp, 30 ML PO Q3HP PRN for EPIGASTRIC DISCOMFORT, (Reported) Calcium Carbonate (Tums) 300 Mg Tab.chew, 300 MG PO TID PRN for INDIGESTION, (Reported) Diclofenac Sodium (Diclofenac Sodium) 1% 100GM Gel..gram., 2 GM TOP TID PRN for PAIN, (Reported) LEFT SHOULDER Ipratropium/Albuterol Sulfate (Iprat-Albut 0.5-3(2.5) mg/3 ml) 3 Ml Ampul.neb, 1 VIAL INH Q8H PRN for SHORTNESS OF BREATH, (Reported) Loperamide HCl (Loperamide) 2 Mg Capsule, 2 MG PO DAILY PRN for DIARRHEA, (Reported) Sodium Chloride ([place] Saline) 0.65% Drops, 2 DROP NARES Q2H PRN for NASAL DRYNESS, (Reported) Allergies Coded Allergies: ENVIROMENTAL (Verified Allergy, Unknown, 02/20/19) hydrocodone (Verified Adverse Reaction, Intermediate, hallucinations, confusion while on Vicodin, 02/20/19) ASHELY LEDEZMA DO May 22, 2020 21:30
[2020-05-23] MEDS: ACETAMINOPHEN TAB 650MG DOSE (2X325MG) PO PRN ×4 (02:31→20:03)
[2020-05-23] MEDS: LEVOTHYROXINE 50MCG TABLET (0.05MG) PO SCH (05:43)
[2020-05-23 06:00] VITALS: BP 133/64
[2020-05-23 07:05] LABS: BASO # 0.1 10^3/uL (0.0-0.2); BASO % 0.5 % (0.0-1.0); EOS # 0.3 10^3/uL (0.0-0.5); EOS % 3.2 % (0.0-3.0); HEMATOCRIT 31.5 % (36.0-47.0); HEMOGLOBIN 9.7 g/dl (12.0-15.5); LYMPH # 1.5 10^3/uL (1.5-5.0); LYMPH % 15.1 % (24.0-44.0); MEAN CORPUSCULAR HGB CONC 30.8 g/dl (32.0-36.5); MEAN CORPUSCULAR VOLUME 107.1 fl (80.0-96.0); MONO # 0.9 10^3/uL (0.0-0.8); MONO % 9.5 % (2.0-8.0); NEUTROPHILS # 6.7 10^3/uL (1.5-8.5); PLATELET COUNT, AUTOMATED 266 10^3/uL (150-450); RED BLOOD COUNT 2.94 10^6/uL (4.00-5.40); WHITE BLOOD COUNT 9.7 10^3/uL (4.0-10.0)
[2020-05-23 07:26] LABS: ALBUMIN 2.2 GM/DL (3.2-5.2); BILIRUBIN,TOTAL 0.3 MG/DL (0.2-1.0); CALCIUM LEVEL 8.5 MG/DL (8.8-10.2); CREATININE FOR GFR 1.04 MG/DL (0.55-1.30); GLOMERULAR FILTRATION RATE 53.9 (>32); MAGNESIUM LEVEL 2.2 MG/DL (1.8-2.4); POTASSIUM SERUM 4.4 MEQ/L (3.5-5.1); TOTAL PROTEIN 6.1 GM/DL (6.4-8.2)
[2020-05-23] MEDS: TIOTROPIUM INHALER/CAPSULE (SPIRIVA) INH SCH (07:26)
[2020-05-23] MEDS: SYMBICORT 80/4.5MCG INHALER 6GM INH SCH ×2 (07:26→21:01)
[2020-05-23] MEDS ORDERED: FERROUS SULFATE 325MG TAB PO SCH (09:00)
[2020-05-23] MEDS: PANTOPRAZOLE 40MG TAB (PROTONIX) PO SCH ×2 (10:14→20:02)
[2020-05-23] MEDS: METHYLPHENIDATE 5 MG TAB PO SCH (10:14)
[2020-05-23] MEDS: MULTIVITAMINS/MINERALS THERAP 1 TAB PO SCH (10:14)
[2020-05-23] MEDS: DOCUSATE SODIUM 100MG CAPSULE PO SCH ×2 (10:14→20:02)
[2020-05-23] MEDS: FLUoxetine 20 MG CAP PO SCH (10:14)
[2020-05-23] MEDS: POTASSIUM CHL PWD 20 MEQ PACKET PO SCH (10:15)
[2020-05-23] MEDS: PRAVASTATIN 20 MG TAB PO SCH (10:15)
[2020-05-23] MEDS: CYANOCOBALAMIN 500 MCG TAB PO SCH (10:15)
[2020-05-23] MEDS: FUROSEMIDE 20 MG TAB PO SCH (10:15)
[2020-05-23] MEDS: ASPIRIN 81MG ENTERIC TABLET PO SCH (10:15)
[2020-05-23] MEDS: metroNIDAZOLE 70 GM VAGINAL GEL TOP SCH (10:16)
[2020-05-23] MEDS: ENOXAPARIN 40MG/0.4ML SYRINGE (J1650 PER 10MG) SC SCH (10:16)
[2020-05-23] MEDS: TRIAMCINOLONE ACET 0.1% CREAM 80 GM TOP SCH ×2 (10:16→20:03)
[2020-05-23] MEDS ORDERED: DOXY-350 PO (10:47)
--- NOTE | 2020-05-23 13:33 | IPNPDOC ---
Text Note Date of Service The patient was seen on 05/23/20. NOTE Subjective: Patient was seen and examined this morning at bedside. Tells me her rash is about the same as yesterday. It still not painful or pruritic. She has no other complaints at this time. There is no acute overnight events. Objective: VITAL SIGNS: please see below General: NAD, comfortable HEENT: PERRLA, EOMI, sclerae clear Neck: supple, normal ROM, no JVD Respiratory: lungs CTAB, no wheeze, no rales, no crackles CVS: RRR, normal S1, S2, no murmurs Abdo: soft, no masses, no hepatosplenomegaly, BS+ Skin: rash on abdomen across the epigastrium to the R and L flanks and up to the bilateral breasts and to the back. Erythematous. Non weeping. Non bleeding. Non tender to touch. none-Pruritic. No wheals, tells me she thinks it looks about the same as yesterday Extremities: no edema, pulses 2+ MSK: no joint deformities, normal ROM Neuro: no focal neuro deficits Psych: calm, cooperative, AAO x 3 Assessment/plan: 85 yo F with a history of COPD, chronic respiratory failure with hypoxia, CAD status post PCI, diastolic CHF, pulmonary hypertension, pacemaker due to sick sinus syndrome breast cancer status post bilateral mastectomy and bilateral breast implants, hypertension, hyperlipidemia, hypothyroid, history of GI bleed and chronic iron deficiency anemia. Patient was treated with IV vancomycin for suspected cellulitis over her chest although the appearance is not typical of cellulitis but appears to be responding well her leukocytosis has resolved and her rash is improving. The plan is for patient to be seen by dermatology at time of discharge. Discharged to [facility] May 24. Rash possibly 2/2 cellulitis - Rash extending across epigatrium, mid abdomen, across both breasts and to the back. Seems to be improving slowly - afebrile, her leukocytosis has resolved with IV vancomycin this is reassuring - MRSA screen positive, will transition to doxy at time of discharge - blood cultures were sent from ER are negative to date - Dr. Qiu consulted given hx of breast ca, possible marker for recurrence such as eriseplas carcinomatosis? consult placed recommending ultrasound of breasts. MRI cannot be done due to pacemaker. Mammogram not done in the inpatient setting. - Discussed with Dr Lowe from dermatology. He can see her in the clinic on afternoon. No need for inpatient consult. Recommended triamcinolone 0.1 BID. - patient responding well to the vancomycin and rash is improving - Procal elevated which supports infection also #hx of breast ca s/p bilateral mastectomies in 2009, and bilateral breast implants. has stopped follow up. consulted breast surgery given new onset diffuse breast and torso rash #COPD resume spiriva, albuterol #HTN urgency: now normotensive. Hold amlodipine, valsartan #hx of sick sinus treatment pacemaker #Hx of CAD asa/statin #GERD resume PPI #HFpEF resume lasix PO #Hypothyroid resume 50 mcg daily Code status: DNR/DNI. [facility] VSShante, I+O VSShante I+O Laboratory Tests 05/23/20 06:47 Vital Signs Date Time Temp Pulse Resp B/P (MAP) Pulse Ox O2 Delivery O2 Flow Rate FiO2 05/23/20 06:00 97.6 69 18 133/64 (87) 93 Nasal Cannula 2.0 I&O- Last 24 Hours up to 6 AM 05/23/20 06:00 Intake Total 850 ml Output Total 1800 ml Balance -950 ml ALEXANDRA CUETO MD May 23, 2020 13:33
[2020-05-23 14:00] VITALS: BP 146/98
--- NOTE | 2020-05-23 15:09 | REP ---
INDICATION: hx of b/l breast cancer. COMPARISON: None. TECHNIQUE: Real-time sonographic evaluation of axillary regions performed bilaterally. FINDINGS: No suspicious adenopathy is seen in the axillary regions bilaterally. There is a fatty replaced lymph node in left axilla with no cortical thickening, the short axis dimension is approximately 11 mm. IMPRESSION: No evidence of suspicious axillary adenopathy bilaterally. <Electronically signed by Fabian Sherwood > 05/23/20 [id number]
--- NOTE | 2020-05-23 15:22 | REP ---
INDICATION: HX BL BREAST CA. Patient is status post bilateral mastectomy and bilateral augmentation implants. Bilateral whole breast sonography. COMPARISON: Comparison is made with imaging from chest CT study dated February 28, 2019.. TECHNIQUE: Bilateral whole breast ultrasound. FINDINGS: Bilateral whole breast sonography is performed. Implant margins are smooth. No defect is seen. No mass or cyst is observed. Left-sided pacemaker noted. IMPRESSION: BI-RADS category 2 benign findings. Implant margins are smooth. No suspicious abnormality. <Electronically signed by William Silveira > 05/23/20 [id number]
[2020-05-23] MEDS: VANCOMYCIN HCL 1,000 MG, VIAL MATE ADAPTER 1 EACH in NS 250 ML IV SCH (20:02)
[2020-05-23] MEDS: FAMOTIDINE 20 MG TAB PO SCH (20:02)
--- NOTE | 2020-05-23 21:22 | IPNPDOC ---
Subjective General Date Seen: May 23, 2020 (6 pm) Subject Chief Complaint/History Patient is feeling well today, Rash is improving on abx. Leukocytosis resolved. US of whole breast and b/l axilla w/o suspicious changes Current Medications Current Medications Current Medications Medications (Trade) Dose Ordered Sig/Danielito Route PRN Reason Start Time Stop Time Status Last Admin Dose Admin Acetaminophen (Tylenol Tab) 650 mg Q4H PRN PO PAIN OR FEVER 05/21/20 19:10 05/23/20 20:03 Al Hydrox/Mg Hydrox/Simethicone (Mylanta) 30 ml DAILY PRN PO DYSPEPSIA 05/21/20 19:10 Albuterol Sulfate (Proventil, Ventolin Hfa) 2 puff Q4HP PRN INH SHORTNESS OF BREATH 05/21/20 18:45 05/22/20 00:49 Amlodipine Besylate (Norvasc) 5 mg DAILY PO 05/21/20 19:05 05/22/20 14:48 DC Amlodipine Besylate (Norvasc) 5 mg DAILY PO 05/22/20 09:00 05/21/20 19:06 DC Aspirin (Ecotrin) 81 mg DAILY PO 05/22/20 09:00 05/23/20 10:15 Bismuth Subsalicylate (Pepto Bismol) 30 ml Q3HP PRN PO EPIGASTRIC DISCOMFORT 05/21/20 18:45 Budesonide/ Formoterol Fumarate (Symbicort 80/ 4.5mcg) 2 puff RBID INH 05/22/20 08:00 05/23/20 21:01 Cyanocobalamin (Vitamin B12) 1,000 mcg DAILY PO 05/22/20 09:00 05/23/20 10:15 Docusate Sodium (Colace) 100 mg BID PO 05/21/20 21:00 05/23/20 20:02 Enoxaparin Sodium (Lovenox) 40 mg DAILY SC 05/22/20 09:00 05/23/20 10:16 Famotidine (Pepcid) 20 mg QHS PO 05/21/20 21:00 05/23/20 20:02 Ferrous Sulfate (Ferrous Sulfate) 325 mg Q2D PO 05/23/20 09:00 05/23/20 10:14 Fluoxetine HCl (PROzac) 20 mg DAILY PO 05/22/20 09:00 05/23/20 10:14 Furosemide (Lasix) 20 mg DAILY PO 05/22/20 09:00 05/23/20 10:15 Home Med (Med Rec Complete!) ASDIRECTED XX 05/21/20 18:30 05/21/20 18:36 DC Hydralazine HCl (Apresoline) 10 mg STAT STAT IV 05/21/20 19:04 05/21/20 19:10 DC Levothyroxine Sodium (Synthroid) 50 mcg DAILY@0600 PO 05/22/20 06:00 05/23/20 05:43 Magnesium Hydroxide (Milk Of Magnesia) 30 ml DAILY PRN PO CONSTIPATION 05/21/20 19:10 Methylphenidate HCl (Ritalin) 2.5 mg DAILY PO 05/22/20 09:00 05/23/20 10:14 Metronidazole (Metrogel Vaginal) APPLY TO FACIAL AREAS... DAILY TOP 05/22/20 09:00 05/29/20 08:59 05/23/20 10:16 Multivitamins (Theragram-M) 1 tab DAILY PO 05/22/20 09:00 05/23/20 10:14 Pantoprazole Sodium (Protonix) 40 mg BID PO 05/21/20 21:00 05/23/20 20:02 Potassium Chloride (K-Brittany 20 Meq Powder Packet) 20 meq DAILY PO 05/22/20 09:00 05/23/20 10:15 Pravastatin Sodium (Pravachol) 40 mg DAILY PO 05/22/20 09:00 05/23/20 10:15 Sodium Chloride (Baby [place] Saline) 2 drop Q2HP PRN NS NASAL DRYNESS 05/21/20 18:45 Tiotropium [place] (Spiriva Handihaler) 1 inhalation DAILY@0800 INH 05/22/20 08:00 05/23/20 07:26 Triamcinolone Acetonide (Kenalog 0.1% Cream) Apply to affected areas... BID TOP 05/22/20 21:00 05/23/20 20:03 Valsartan (Diovan) 320 mg DAILY PO 05/22/20 09:00 05/22/20 14:48 DC Vancomycin HCl 1000 mg/IV Miscellaneous Supplies 1 each/ Sodium Chloride 270 ml @ 270 mls/hr Q24H IV 05/21/20 20:00 Cancel Vancomycin HCl 1000 mg/IV Miscellaneous Supplies 1 each/ Sodium Chloride 270 ml @ 270 mls/hr Q24H IV 05/22/20 20:00 05/23/20 20:02 Allergies Coded Allergies: ENVIROMENTAL (Verified Allergy, Unknown, 02/20/19) hydrocodone (Verified Adverse Reaction, Intermediate, hallucinations, confusion while on Vicodin, 02/20/19) Objective Physical Examination Examination GENERAL APPEARANCE: alert and oriented SKIN: diffuse abdominal, chest, back rash is director center today BREAST: b/l mastectomy sites also with some rash, no palp masses at the mastectomy sites or in the axilla LUNGS:breathing comfortably HEART: no tachycardia ABDOMEN: obese, nondistended EXTREMITIES no swelling Vital Signs Vital Signs Date Time Temp Pulse Resp B/P (MAP) Pulse Ox O2 Delivery O2 Flow Rate FiO2 05/23/20 21:01 13 05/23/20 14:00 97.4 86 146/98 (114) 94 Nasal Cannula 2.0 I&Os I&O- Last 24 Hours up to 6 AM 05/23/20 06:00 Intake Total 850 ml Output Total 1800 ml Balance -950 ml Laboratory Data Labs 24H Laboratory Tests 2 05/23/20 06:47: Immature Granulocyte % (Auto) 2.7, Neutrophils (%) (Auto) 69.0H, Lymphocytes (%) (Auto) 15.1L, Monocytes (%) (Auto) 9.5H, Eosinophils (%) (Auto) 3.2H, Basophils (%) (Auto) 0.5, Neutrophils # (Auto) 6.7, Lymphocytes # (Auto) 1.5, Monocytes # (Auto) 0.9H, Eosinophils # (Auto) 0.3, Basophils # (Auto) 0.1, Nucleated Red Blood Cells % (auto) 0.0, Anion Gap 6L, Glomerular Filtration Rate 53.9, Calcium Level 8.5L, Magnesium Level 2.2, Total Bilirubin 0.3, Aspartate Amino Transf (AST/SGOT) 14, Alanine Aminotransferase (ALT/SGPT) 19, Alkaline Phosphatase 87, Total Protein 6.1L, Albumin 2.2L, Albumin/Globulin Ratio 0.6L 05/23/20 18:52: Vancomycin Level Trough 13.8 CBC/BMP Laboratory Tests 05/23/20 06:47 Microbiology Microbiology 05/21/20 Blood Culture - Preliminary, Resulted No Growth after 48 hours. All Specime... 05/21/20 Blood Culture - Preliminary, Resulted No Growth after 48 hours. All Specime... Imaging Studies b/l whole breast and b/l axillary US w/o any suspicious lesions Impression 85 y o lady with Hx of B/L breast ca s/p b/l mastectomy with recon in 2009, admitted for evaluation of diffuse trunk rash and hypotension. Cause of Rash is unclear at this time, possibly infections as the leukocytosis resolved with the abx and ERS decreases. It is possible that there is a connection between the rash and hx of breast cancer however at this time this is unlikely. - US of the b/l whole breast and axillas reviewed with the patient, no suspicious lesions - continue abx as the leukocytosis resolved and the rash is improving, management per medicine team - awaiting dermatology input regarding the rash - if rash persists w/o improvement, punch bx can be considered Plan / VTE VTE Prophylaxis Ordered?: Yes ASHELY LEDEZMA DO May 23, 2020 21:17
[2020-05-23 22:00] VITALS: BP 129/3
[2020-05-24 06:00] VITALS: BP 152/71
[2020-05-24] MEDS: ACETAMINOPHEN TAB 650MG DOSE (2X325MG) PO PRN (06:22)
[2020-05-24] MEDS: LEVOTHYROXINE 50MCG TABLET (0.05MG) PO SCH (06:22)
[2020-05-24 06:34] LABS: BASO # 0.1 10^3/uL (0.0-0.2); BASO % 0.8 % (0.0-1.0); EOS # 0.3 10^3/uL (0.0-0.5); EOS % 3.2 % (0.0-3.0); HEMATOCRIT 33.7 % (36.0-47.0); HEMOGLOBIN 10.5 g/dl (12.0-15.5); LYMPH # 1.4 10^3/uL (1.5-5.0); LYMPH % 13.1 % (24.0-44.0); MEAN CORPUSCULAR HGB CONC 31.2 g/dl (32.0-36.5); MONO # 0.9 10^3/uL (0.0-0.8); NEUTROPHILS # 7.4 10^3/uL (1.5-8.5); NEUTROPHILS % 70.2 % (36.0-66.0); PLATELET COUNT, AUTOMATED 331 10^3/uL (150-450); RED BLOOD COUNT 3.18 10^6/uL (4.00-5.40); WHITE BLOOD COUNT 10.6 10^3/uL (4.0-10.0)
[2020-05-24 06:49] LABS: ALBUMIN 2.4 GM/DL (3.2-5.2); BILIRUBIN,TOTAL 0.2 MG/DL (0.2-1.0); CALCIUM LEVEL 9.2 MG/DL (8.8-10.2); CREATININE FOR GFR 1.12 MG/DL (0.55-1.30); GLOMERULAR FILTRATION RATE 49.5 (>32); MAGNESIUM LEVEL 1.9 MG/DL (1.8-2.4); POTASSIUM SERUM 4.6 MEQ/L (3.5-5.1); TOTAL PROTEIN 6.5 GM/DL (6.4-8.2)
[2020-05-24] MEDS: TIOTROPIUM INHALER/CAPSULE (SPIRIVA) INH SCH (07:23)
[2020-05-24] MEDS: SYMBICORT 80/4.5MCG INHALER 6GM INH SCH (07:23)
[2020-05-24] MEDS: DOCUSATE SODIUM 100MG CAPSULE PO SCH (09:20)
[2020-05-24] MEDS: CYANOCOBALAMIN 500 MCG TAB PO SCH (09:21)
[2020-05-24] MEDS: ENOXAPARIN 40MG/0.4ML SYRINGE (J1650 PER 10MG) SC SCH (09:21)
[2020-05-24] MEDS: METHYLPHENIDATE 5 MG TAB PO SCH (09:21)
[2020-05-24] MEDS: POTASSIUM CHL PWD 20 MEQ PACKET PO SCH (09:21)
[2020-05-24] MEDS: FLUoxetine 20 MG CAP PO SCH (09:21)
[2020-05-24] MEDS: PRAVASTATIN 20 MG TAB PO SCH (09:21)
[2020-05-24] MEDS: FUROSEMIDE 20 MG TAB PO SCH (09:21)
[2020-05-24] MEDS: PANTOPRAZOLE 40MG TAB (PROTONIX) PO SCH (09:21)
[2020-05-24] MEDS: MULTIVITAMINS/MINERALS THERAP 1 TAB PO SCH (09:21)
[2020-05-24] MEDS: ASPIRIN 81MG ENTERIC TABLET PO SCH (09:21)
[2020-05-24] MEDS: metroNIDAZOLE 70 GM VAGINAL GEL TOP SCH (09:22)
[2020-05-24] MEDS: TRIAMCINOLONE ACET 0.1% CREAM 80 GM TOP SCH (09:22)
--- NOTE | 2020-05-24 09:56 | DS.PDOC ---
Discharge Summary General Date of Admission May 22, 2020 at 14:41 Date of Discharge 05/24/20 Discharge Summary PROCEDURES PERFORMED DURING STAY: [None]. ADMITTING/DISCHARGE DIAGNOSES: Rash on body suspected to be cellulitis COMPLICATIONS/CHIEF COMPLAINT: Elevated White Blood Cell Count,Skin Infection. HISTORY OF PRESENT ILLNESS: From admitting H&P: 85 yo F with a history of COPD, chronic respiratory failure with hypoxia, CAD status post PCI, diastolic CHF, pulmonary hypertension, pacemaker due to sick sinus syndrome breast cancer status post bilateral mastectomy and bilateral breast implants, hypertension, hyperlipidemia, hypothyroid, history of GI bleed and chronic iron deficiency anemia.Resident of [facility]. Presenting to [facility] ER with a complaint of a large pruritic rash that started 2 days ago on her abdomen extending to the belly button below and up to the breasts bilaterally around the torso into the back. Sent from PCP clinic today as though to be hypotensive, BPs are elevated in the ER. The rash is nontender but is pruritic without any weeping blood or wheals. Patient denies fevers, chills, chest pain, shortness of breath, nausea, vomiting or diarrhea. Patient is afebrile, but has a WBC on 16. Will be admitted to hospitalist service. HOSPITAL COURSE: 85 yo F with a history of COPD, chronic respiratory failure with hypoxia, CAD status post PCI, diastolic CHF, pulmonary hypertension, pacemaker due to sick sinus syndrome breast cancer status post bilateral mastectomy and bilateral breast implants, hypertension, hyperlipidemia, hypothyroid, history of GI bleed and chronic iron deficiency anemia. Patient was treated with IV vancomycin for suspected cellulitis over her chest although the appearance is not typical of cellulitis but appears to be responding well her leukocytosis has resolved and her rash is improving she will be transitioned to oral doxycycline at time of discharge. The plan is for patient to be seen by dermatology Dr dangelo at time of discharge this will be either arranged for today or early next week pending on transportation and scheduling availability. Dr. Qiu consulted given hx of breast ca, possible marker for recurrence ultrasound breast was ordered and there are no suspicious patterns. Discharged to [facility] May 24. DISCHARGE MEDICATIONS: Please see below. ALLERGIES: Please see below. PHYSICAL EXAMINATION ON DISCHARGE: VITAL SIGNS: Please see below. General: NAD, comfortable HEENT: PERRLA, EOMI, sclerae clear Neck: supple, normal ROM, no JVD Respiratory: lungs CTAB, no wheeze, no rales, no crackles CVS: RRR, normal S1, S2, no murmurs Abdo: soft, no masses, no hepatosplenomegaly, BS+ Skin: rash on abdomen across the epigastrium to the R and L flanks and up to the bilateral breasts and to the back. Erythematous. Non weeping. Non bleeding. Non tender to touch. none-Pruritic. No wheals. Today and they have discharged her rash looks significantly better and the erythema is much less pronounced almost fading away Extremities: no edema, pulses 2+ MSK: no joint deformities, normal ROM Neuro: no focal neuro deficits Psych: calm, cooperative, AAO x 3 LABORATORY DATA: Please see below. IMAGING: See chart PROGNOSIS: Fair ACTIVITY: [As tolerated]. DIET: 2 g sodium diet DISPOSITION: [facility] assisted [facility] DISCHARGE INSTRUCTIONS: Please follow up with your primary care physician within 1 week from discharge. If you do not have one, please follow up with us to schedule an appointment. Please keep all of your follow up appointments. Please call central to book your appointments with hospital specialists. Please take all your medications as prescribed. Please call/come to Clinic or go to the Emergency Department if - Temp >101, intractable Nausea/Vomiting, Diarrhea, Mouth sores, Headaches, Altered mental status, Seizures, sudden onset of swelling, bleeding, shortness of breath or chest pain. ITEMS TO FOLLOWUP ON ON OUTPATIENT: Follow-up with PCP within 5 days of discharge Follow-up with dermatology in the clinic as scheduled DISCHARGE CONDITION: [Stable]. TIME SPENT ON DISCHARGE: 35 minutes. Vital Signs/I&Os Vital Signs Date Time Temp Pulse Resp B/P (MAP) Pulse Ox O2 Delivery O2 Flow Rate FiO2 05/24/20 06:00 98.1 75 20 152/71 (98) 94 Nasal Cannula 2.0 I&O- Last 24 Hours up to 6 AM 05/24/20 06:00 Intake Total 1690 ml Output Total 1900 ml Balance -210 ml Laboratory Data Labs 24H Laboratory Tests 2 05/23/20 18:52: Vancomycin Level Trough 13.8 05/24/20 05:37: Immature Granulocyte % (Auto) 4.7H, Neutrophils (%) (Auto) 70.2H, Lymphocytes (%) (Auto) 13.1L, Monocytes (%) (Auto) 8.0, Eosinophils (%) (Auto) 3.2H, Ba sophils (%) (Auto) 0.8, Neutrophils # (Auto) 7.4, Lymphocytes # (Auto) 1.4L, Monocytes # (Auto) 0.9H, Eosinophils # (Auto) 0.3, Basophils # (Auto) 0.1, Nucleated Red Blood Cells % (auto) 0.2H, Anion Gap 7L, Glomerular Filtration Rate 49.5, Calcium Level 9.2, Magnesium Level 1.9, Total Bilirubin 0.2, Aspartate Amino Transf (AST/SGOT) 19, Alanine Aminotransferase (ALT/SGPT) 22, Alkaline Phosphatase 93, Total Protein 6.5, Albumin 2.4L, Albumin/Globulin Ratio 0.6L CBC/BMP Laboratory Tests 05/24/20 05:37 Microbiology Microbiology 05/21/20 Blood Culture - Preliminary, Resulted No Growth after 48 hours. All Specime... 05/21/20 Blood Culture - Preliminary, Resulted No Growth after 48 hours. All Specime... Discharge Medications Scheduled Acetaminophen (Tylenol Arthritis) 650 Mg Tab, 650 MG PO DAILY, (Reported) Ascorbate Calcium (Calcium Ascorbate) 500 Mg Tablet, 500 MG PO Q2D, (Reported) Aspirin (Aspirin EC) 81 Mg Tabec, 81 MG PO DAILY, (Reported) Calcium Carbonate (Calcium) 600 Mg Tablet, 600 MG PO QHS, (Reported) Cyanocobalamin (Vitamin B-12) (Vitamin B-12) 1,000 Mcg Tablet, 1,000 MCG PO DAILY, (Reported) Doxycycline Monohydrate (Doxycycline) 100 Mg Capsule, 100 MG PO BID Famotidine (Famotidine) 20 Mg Tablet, 20 MG PO QHS, (Reported) Ferrous Sulfate, Dried (Slow Release Iron) 160 Mg Tablet.er, 325 MG PO Q2D, (Reported) Fluoxetine Hcl (Fluoxetine HCl) 20 Mg Cap, 20 MG PO DAILY, (Reported) Fluticasone/Vilanterol (Breo Ellipta 200-25 Mcg INH) 1 Each Blst.w.dev, 1 PUFF INH DAILY, (Reported) Furosemide (Furosemide) 20 Mg Tab, 20 MG PO DAILY, (Reported) Levothyroxine Sodium (Synthroid) 50 Mcg Tablet, 50 MCG PO DAILY, (Reported) Magnesium Chloride (Magnesium Chloride) 64 Mg Tablet.dr, 64 MG PO DAILY, (Reported) Methylphenidate HCl (Ritalin) 5 Mg Tablet, 2.5 MG PO DAILY, (Reported) Metronidazole (Metronidazole 0.75% Gel) 45 Gm Gel..gram., 1 APLCT TOP DAILY, (Reported) FOR ROSACEA Multivitamins (Thera M Plus Tablet) 1 Tab Tab, 1 TAB PO DAILY, (Reported) Pantoprazole Sodium (Pantoprazole Sodium) 40 Mg Tab, 40 MG PO BID, (Reported) Potassium Chloride (Potassium Chloride) 20 Meq Packet, 20 MEQ PO DAILY, (Reported) Pravastatin Sodium (Pravastatin Sodium) 40 Mg Tab, 40 MG PO DAILY, (Reported) Tiotropium [place] (Spiriva) 18 Mcg Cap, 1 INHALATION INH DAILY, (Reported) Valsartan (Valsartan) 320 Mg Tab, 320 MG PO DAILY, (Reported) Scheduled PRN Albuterol Sulfate (Ventolin Hfa) 18 Gm Hfa.aer.ad, 2 PUFF INH Q4H PRN for SHORTNESS OF BREATH, (Reported) Bismuth Subsalicylate (Pepto-Bismol) 262 Mg/15 Ml Oral.susp, 30 ML PO Q3HP PRN for EPIGASTRIC DISCOMFORT, (Reported) Calcium Carbonate (Tums) 300 Mg Tab.chew, 300 MG PO TID PRN for INDIGESTION, (Reported) Diclofenac Sodium (Diclofenac Sodium) 1% 100GM Gel..gram., 2 GM TOP TID PRN for PAIN, (Reported) LEFT SHOULDER Ipratropium/Albuterol Sulfate (Iprat-Albut 0.5-3(2.5) mg/3 ml) 3 Ml Ampul.neb, 1 VIAL INH Q8H PRN for SHORTNESS OF BREATH, (Reported) Loperamide HCl (Loperamide) 2 Mg Capsule, 2 MG PO DAILY PRN for DIARRHEA, (Reported) Sodium Chloride ([place]ett Saline) 0.65% Drops, 2 DROP NARES Q2H PRN for NASAL DRYNESS, (Reported) Allergies Coded Allergies: ENVIROMENTAL (Verified Allergy, Unknown, 02/20/19) hydrocodone (Verified Adverse Reaction, Intermediate, hallucinations, confusion while on Vicodin, 02/20/19) ALEXANDRA CUETO MD May 24, 2020 09:56
== END 2020-05-24 10:33 | disposition home health service (06) | DRG 603 ==
LOC: M ED 14:41 → M ED INP 19:09 → ENRESERV 20:39 → M MSPAV 21:21 → OBSVTOIN 05-22 14:41
PROVIDERS: ADMIT Family Medicine; ATTEND Family Medicine
DX: L03.313 Cellulitis of chest wall (principal); J96.11 Chronic respiratory failure with hypoxia; I50.32 Chronic diastolic (congestive) heart failure; J44.9 Chronic obstructive pulmonary disease, unspecified; I25.10 Atherosclerotic heart disease of native coronary artery without angina pectoris; I27.20 Pulmonary hypertension, unspecified; L03.312 Cellulitis of back [any part except buttock and flank]; L03.311 Cellulitis of abdominal wall; I49.5 Sick sinus syndrome; I11.0 Hypertensive heart disease with heart failure; E78.5 Hyperlipidemia, unspecified; Z66 Do not resuscitate; E03.9 Hypothyroidism, unspecified; I16.0 Hypertensive urgency; D50.9 Iron deficiency anemia, unspecified; E66.9 Obesity, unspecified; K21.9 Gastro-esophageal reflux disease without esophagitis; F32.9 Major depressive disorder, single episode, unspecified; K57.90 Diverticulosis of intestine, part unspecified, without perforation or abscess without bleeding; Z86.010 Personal history of colon polyps; Z98.41 Cataract extraction status, right eye; Z98.42 Cataract extraction status, left eye; Z85.3 Personal history of malignant neoplasm of breast; Z90.13 Acquired absence of bilateral breasts and nipples; Z98.82 Breast implant status; Z95.0 Presence of cardiac pacemaker; Z79.82 Long term (current) use of aspirin; Z88.5 Allergy status to narcotic agent; Z20.822 Contact with and (suspected) exposure to COVID-19; Z95.5 Presence of coronary angioplasty implant and graft

== ENCOUNTER → 2020-05-21 | Outpatient (REF) | payer MEDICARE, MEDICAID ==
[~2020-05-21] MED LIST changes: +ASPI-569 PO; -ASPI81TAEC PO; +DICL1GEL3 TOP; -ISOVUE-370 76% 100ML VIAL As Ordered ONE; +RITA5TAB PO
== END ==
LOC: M SFHCLERA 13:33
PROVIDERS: ATTEND Nurse Practitioner Family
DX: R21 Rash and other nonspecific skin eruption (principal)

== ENCOUNTER → 2020-05-24 | Outpatient (REF) | payer MEDICARE, MEDICAID ==
[~2020-05-24] MED LIST changes: +DICL1GEL3 TOP; +DOXY-350 PO; +RITA5TAB PO
== END ==
LOC: M LAB REF 16:30
PROVIDERS: ATTEND Dermatology
DX: R21 Rash and other nonspecific skin eruption (principal)
CPT/HCPCS: 11104; 88305; G0463

== ENCOUNTER → 2020-06-14 | Outpatient (CLI) | payer MEDICARE, MEDICAID ==
[2020-06-14 15:05] LABS: CALCIUM LEVEL 9.5 MG/DL (8.8-10.2); CREATININE FOR GFR 1.27 MG/DL (0.55-1.30); GLOMERULAR FILTRATION RATE 42.8 (>32); POTASSIUM SERUM 4.8 MEQ/L (3.5-5.1)
== END ==
LOC: M LAB 09:56
PROVIDERS: ATTEND Physician Assistant
DX: I11.0 Hypertensive heart disease with heart failure (principal); I50.9 Heart failure, unspecified

== ENCOUNTER → 2020-06-14 | Outpatient (CLI) | payer MEDICARE, MEDICAID ==
[2020-06-14 11:36] LABS: BASO % 0.5 % (0.0-1.0); EOS # 0.2 10^3/uL (0.0-0.5); EOS % 2.4 % (0.0-3.0); HEMATOCRIT 37.3 % (36.0-47.0); HEMOGLOBIN 11.3 g/dl (12.0-15.5); LYMPH # 1.3 10^3/uL (1.5-5.0); LYMPH % 16.6 % (24.0-44.0); MEAN CORPUSCULAR HEMOGLOBIN 32.7 pg (27.0-33.0); MEAN CORPUSCULAR HGB CONC 30.3 g/dl (32.0-36.5); MEAN CORPUSCULAR VOLUME 107.8 fl (80.0-96.0); MONO # 0.6 10^3/uL (0.0-0.8); MONO % 8.4 % (2.0-8.0); NEUTROPHILS # 5.5 10^3/uL (1.5-8.5); NEUTROPHILS % 71.7 % (36.0-66.0); PLATELET COUNT, AUTOMATED 297 10^3/uL (150-450); RED BLOOD COUNT 3.46 10^6/uL (4.00-5.40); WHITE BLOOD COUNT 7.6 10^3/uL (4.0-10.0)
[2020-06-14 12:02] LABS: ERYTHROCYTE SEDIMENTATION RATE 74 mm/hr (0-30)
[2020-06-14 15:06] LABS: C REACTIVE PROTEIN QUANTITATIV 0.88 MG/DL (0.00-0.30); RHEUMATOID FACTOR QUANT < 10.0 IU/ML (<15.0)
--- NOTE | 2020-06-15 06:42 | REP ---
INDICATION: ELEVATED ERYTHROCYTE SEDIMENTATION RATE *LABS 1ST* COMPARISON: 02/28/2019 TECHNIQUE: PA and lateral. FINDINGS: The mediastinum and cardiac silhouette are stable with mild cardiomegaly and pacemaker again noted. The lung caldera demonstrate chronic interstitial changes. Subtle superimposed lower lobe opacities cannot be excluded. The skeletal structures are intact and normal. IMPRESSION: Chronic changes. Cannot exclude subtle superimposed lower lobe opacities. <Electronically signed by Demond Workman > 06/15/20 [id number]
[2020-06-15 23:06] LABS: ANA (HEP2) Positive (.)
== END ==
LOC: M LAB 09:52
PROVIDERS: ATTEND Family Medicine
DX: R70.0 Elevated erythrocyte sedimentation rate (principal); D72.829 Elevated white blood cell count, unspecified; I11.0 Hypertensive heart disease with heart failure; I50.9 Heart failure, unspecified; Z95.0 Presence of cardiac pacemaker

== ENCOUNTER → 2020-07-18 | Outpatient (REF) | payer MEDICARE, MEDICAID ==
[2020-07-18 11:10] LABS: BASO % 0.2 % (0.0-1.0); EOS # 0.1 10^3/uL (0.0-0.5); EOS % 1.2 % (0.0-3.0); HEMOGLOBIN 10.2 g/dl (12.0-15.5); LYMPH # 1.1 10^3/uL (1.5-5.0); LYMPH % 9.3 % (24.0-44.0); MEAN CORPUSCULAR HEMOGLOBIN 32.5 pg (27.0-33.0); MEAN CORPUSCULAR VOLUME 108.3 fl (80.0-96.0); MONO # 0.8 10^3/uL (0.0-0.8); MONO % 6.6 % (2.0-8.0); NEUTROPHILS # 9.9 10^3/uL (1.5-8.5); NEUTROPHILS % 81.8 % (36.0-66.0); PLATELET COUNT, AUTOMATED 278 10^3/uL (150-450); RED BLOOD COUNT 3.14 10^6/uL (4.00-5.40); WHITE BLOOD COUNT 12.1 10^3/uL (4.0-10.0)
[2020-07-18 11:50] LABS: ALBUMIN 2.5 GM/DL (3.2-5.2); BILIRUBIN,TOTAL 0.3 MG/DL (0.2-1.0); CALCIUM LEVEL 8.7 MG/DL (8.8-10.2); CREATININE FOR GFR 1.16 MG/DL (0.55-1.30); FREE T4 1.56 NG/DL (0.76-1.46); GLOMERULAR FILTRATION RATE 47.5 (>32); POTASSIUM SERUM 4.5 MEQ/L (3.5-5.1); THYROID STIMULATING HORMONE 1.88 uIU/ML (0.358-3.740); TOTAL 25(OH) VITAMIN D 24.2 NG/ML (30.0-100.0); TOTAL PROTEIN 6.4 GM/DL (6.4-8.2)
[2020-07-18 11:53] LABS: ERYTHROCYTE SEDIMENTATION RATE 106 mm/hr (0-30)
== END ==
PROVIDERS: ATTEND Family Medicine
DX: R53.83 Other fatigue (principal); Z79.899 Other long term (current) drug therapy

== ENCOUNTER → 2020-07-26 | Outpatient (CLI) | payer MEDICARE, MEDICAID ==
[~2020-07-26] MED LIST changes: +BETA0.0543 TOP; +LEVOTAB10 PO
--- NOTE | 2020-07-26 12:28 | REP ---
INDICATION: N63.0 KEV BREAST U/S,EVAL PALPABLE KEV NODULE. The patient reports somewhat lumpy areas in the lateral aspect of each breast. The patient is status post bilateral mastectomy and augmentation implant surgery. COMPARISON: Comparison sonography May 23, 2020.. TECHNIQUE: Bilateral targeted sonography lateral aspect of each breast. FINDINGS: There is no evidence of implant disruption. The anterior implant margins in the area of the patient's symptoms show slight undulation bilaterally. No soft tissue mass or cyst is seen. No Magalys implant effusion is observed. No acoustic shadowing is seen. IMPRESSION: BI-RADS category 2 benign findings. Clinical follow-up is advised. <Electronically signed by William Silveira > 07/26/20 [id number]
== END ==
LOC: M WHC 09:56
PROVIDERS: ATTEND Surgery
DX: N64.59 Other signs and symptoms in breast (principal)

== ENCOUNTER → 2020-08-10 | Outpatient (CLI) | payer MEDICARE, MEDICAID ==
[~2020-08-10] MED LIST changes: -BETA0.0543 TOP; -LEVOTAB10 PO
--- NOTE | 2020-08-12 08:11 | REP ---
INDICATION: J47.1 BTONCHIECTASIS COMPARISON: 02/28/2019 TECHNIQUE: Axial noncontrast images from the thoracic inlet to the upper abdomen with coronal and sagittal reformations. This CT examination was performed using the following dose reduction techniques: Automated exposure control, adjustment of mA and/or kv according to the patient's size, and use of iterative reconstruction technique. FINDINGS: Moderate diffuse bilateral COPD/emphysematous changes with scattered chronic fibroatelectatic changes are noted along with mild bronchiectasis. No acute consolidation, obvious significant nodule, or mass. No effusion. No pneumothorax. Previously identified nodular density along the periphery of the left lower lobe has resolved and likely represented focal area of atelectasis. No axillary, hilar, or mediastinal adenopathy. Extensive atherosclerotic changes to the thoracic aorta and coronary arteries noted without aortic aneurysm or cardiomegaly. No pericardial effusion. Pacemaker identified. Bilateral mammoplasty noted. Osseous structures demonstrate degenerative appearing changes. Limited upper abdomen demonstrates stable bilateral adrenal gland with small right adrenal adenoma and stable 4.1 cm right renal cyst. IMPRESSION: 1. Moderate COPD/emphysematous changes with scattered scarring and bronchiectasis. 2. No acute mediastinal or pleuroparenchymal process appreciated. <Electronically signed by Demond Workman > 08/12/20 [id number]
== END ==
LOC: M RAD 10:29
PROVIDERS: ATTEND Family Medicine
DX: J47.1 Bronchiectasis with (acute) exacerbation (principal)

== ENCOUNTER → 2020-08-23 | Outpatient (CLI) | payer MEDICARE, MEDICAID ==
[~2020-08-23] MED LIST changes: +LIDOCAINE 1% MDV 20ML VIAL As Ordered ONE
[2020-08-23 08:42] LABS: BASO # 0.1 10^3/uL (0.0-0.2); BASO % 0.5 % (0.0-1.0); EOS # 0.2 10^3/uL (0.0-0.5); EOS % 1.6 % (0.0-3.0); HEMATOCRIT 36.1 % (36.0-47.0); HEMOGLOBIN 11.1 g/dl (12.0-15.5); LYMPH # 2.2 10^3/uL (1.5-5.0); LYMPH % 14.6 % (24.0-44.0); MEAN CORPUSCULAR HEMOGLOBIN 32.2 pg (27.0-33.0); MEAN CORPUSCULAR HGB CONC 30.7 g/dl (32.0-36.5); MEAN CORPUSCULAR VOLUME 104.6 fl (80.0-96.0); MONO % 6.5 % (2.0-8.0); NEUTROPHILS # 11.2 10^3/uL (1.5-8.5); NEUTROPHILS % 74.9 % (36.0-66.0); PLATELET COUNT, AUTOMATED 407 10^3/uL (150-450); RED BLOOD COUNT 3.45 10^6/uL (4.00-5.40)
[2020-08-23 10:00] VITALS: BP 104/51
--- NOTE | 2020-08-23 16:11 | REP ---
INDICATION: ANEMIA. COMPARISON: None. TECHNIQUE: The procedure was performed under the direct supervision of Dr. Sherwood. The risks and benefits of the procedure were explained to the patient and informed consent obtained. The left iliac bone was localized using CT guidance. The skin was prepped and draped in a sterile fashion. 1% lidocaine was used as a local anesthetic. Using CT guidance an 11 gauge bone biopsy system was inserted and 10 cc of marrow fluid was withdrawn. One core sample was then obtained. Patient tolerated the procedure well and there were no immediate complications. After the appropriate amount to monitor convalescence the patient was discharged from the department. FINDINGS: None IMPRESSION: CT-guided left iliac bone marrow biopsy. <Electronically signed by Reza Hughes > 08/23/20 [id number] <Electronically signed by Fabian Sherwood > 08/23/20 [id number]
== END ==
LOC: M IRPRO 08:13
PROVIDERS: ATTEND Internal Medicine Hematology & Oncology
DX: D72.829 Elevated white blood cell count, unspecified (principal); D63.0 Anemia in neoplastic disease
CPT/HCPCS: 36415; 38222; 77012; 85025; 88300; 88305; 88311; 88313; G0463

== ENCOUNTER → 2020-08-30 | Outpatient (REF) | payer MEDICARE, MEDICAID ==
[~2020-08-30] MED LIST changes: -LIDOCAINE 1% MDV 20ML VIAL As Ordered ONE
[2020-08-30 10:51] LABS: BASO % 0.3 % (0.0-1.0); EOS # 0.2 10^3/uL (0.0-0.5); EOS % 1.6 % (0.0-3.0); HEMOGLOBIN 10.8 g/dl (12.0-15.5); LYMPH # 1.7 10^3/uL (1.5-5.0); LYMPH % 12.9 % (24.0-44.0); MEAN CORPUSCULAR HEMOGLOBIN 31.2 pg (27.0-33.0); MONO # 0.9 10^3/uL (0.0-0.8); MONO % 6.5 % (2.0-8.0); NEUTROPHILS # 10.5 10^3/uL (1.5-8.5); NEUTROPHILS % 77.9 % (36.0-66.0); PLATELET COUNT, AUTOMATED 421 10^3/uL (150-450); RED BLOOD COUNT 3.46 10^6/uL (4.00-5.40); WHITE BLOOD COUNT 13.5 10^3/uL (4.0-10.0)
[2020-08-30 11:21] LABS: ALBUMIN 2.5 GM/DL (3.2-5.2); BILIRUBIN,TOTAL 0.3 MG/DL (0.2-1.0); CALCIUM LEVEL 8.8 MG/DL (8.8-10.2); CREATININE FOR GFR 1.18 MG/DL (0.55-1.30); GLOMERULAR FILTRATION RATE 46.6 (>32); POTASSIUM SERUM 4.8 MEQ/L (3.5-5.1); THYROID STIMULATING HORMONE 1.52 uIU/ML (0.358-3.740); TOTAL PROTEIN 7.2 GM/DL (6.4-8.2)
== END ==
LOC: EEVIPCON
PROVIDERS: ATTEND Family Medicine
DX: K21.9 Gastro-esophageal reflux disease without esophagitis (principal); I10 Essential (primary) hypertension; E03.9 Hypothyroidism, unspecified

== ENCOUNTER → 2020-09-07 | Outpatient (REF) | payer MEDICARE, MEDICAID ==
[~2020-09-07] MED LIST changes: +BETA0.0543 TOP; +LEVOTAB10 PO
== END ==
PROVIDERS: ATTEND Family Medicine
DX: D75.89 Other specified diseases of blood and blood-forming organs (principal)

== ENCOUNTER → 2020-12-17 | Outpatient (REF) | payer MEDICARE, MEDICAID ==
[2020-12-17 10:38] LABS: BASO % 0.4 % (0.0-1.0); EOS # 0.2 10^3/uL (0.0-0.5); EOS % 2.4 % (0.0-3.0); HEMATOCRIT 37.4 % (36.0-47.0); HEMOGLOBIN 11.2 g/dl (12.0-15.5); LYMPH # 1.5 10^3/uL (1.5-5.0); MEAN CORPUSCULAR HEMOGLOBIN 31.8 pg (27.0-33.0); MEAN CORPUSCULAR HGB CONC 29.9 g/dl (32.0-36.5); MEAN CORPUSCULAR VOLUME 106.3 fl (80.0-96.0); MONO # 0.6 10^3/uL (0.0-0.8); MONO % 7.2 % (2.0-8.0); NEUTROPHILS # 5.3 10^3/uL (1.5-8.5); NEUTROPHILS % 69.6 % (36.0-66.0); PLATELET COUNT, AUTOMATED 280 10^3/uL (150-450); RED BLOOD COUNT 3.52 10^6/uL (4.00-5.40); WHITE BLOOD COUNT 7.6 10^3/uL (4.0-10.0)
[2020-12-17 11:07] LABS: ALBUMIN 2.7 GM/DL (3.2-5.2); ALT/SGPT 15 U/L (12-78); BILIRUBIN,TOTAL 0.3 MG/DL (0.2-1.0); BLOOD UREA NITROGEN 25 MG/DL (7-18); CALCIUM LEVEL 8.9 MG/DL (8.8-10.2); CARBON DIOXIDE LEVEL 32 MEQ/L (21-32); CHLORIDE LEVEL 103 MEQ/L (98-107); CREATININE FOR GFR 1.28 MG/DL (0.55-1.30); GLOMERULAR FILTRATION RATE 42.4 (>32); GLUCOSE, FASTING 150 MG/DL (70-100); POTASSIUM SERUM 4.2 MEQ/L (3.5-5.1); SODIUM LEVEL 140 MEQ/L (136-145); TOTAL PROTEIN 7.2 GM/DL (6.4-8.2)
[2020-12-18 11:05] LABS: ALBUMIN 3.36 GM/DL (3.29-5.55); ALBUMIN % 46.7 % (55.8-66.1); ALPHA-1-GLOBULIN % 4.8 % (2.9-4.9); ALPHA-1-GLOBULINS 0.35 GM/DL (0.17-0.41); ALPHA-2-GLOBULINS % 13.9 % (7.1-11.8); BETA-1-GLOBULINS 0.35 GM/DL (0.28-0.60); BETA-1-GLOBULINS % 4.8 % (4.7-7.2); BETA-2-GLOBULINS 0.48 GM/DL (0.19-0.55); BETA-2-GLOBULINS % 6.7 % (3.2-6.5); GAMMA GLOBULIN % 23.1 % (11.1-18.8); GAMMA GLOBULINS 1.66 GM/DL (0.65-1.58)
== END ==
PROVIDERS: ATTEND Internal Medicine Hematology & Oncology
DX: D72.829 Elevated white blood cell count, unspecified (principal); D75.89 Other specified diseases of blood and blood-forming organs

== ENCOUNTER → 2021-02-18 | Outpatient (REF) | payer MEDICARE, MEDICAID ==
[2021-02-18 12:06] LABS: VITAMIN B12 LEVEL > 2000 PG/ML
== END ==
PROVIDERS: ATTEND Student in an Organized Health Care Education/Training Program
DX: R41.3 Other amnesia (principal)

== ENCOUNTER → 2021-05-30 | Outpatient (CLI) | payer MEDICARE, MEDICAID ==
[~2021-05-30] MED LIST changes: -CEFD1CAP8 PO; +CEFD300C41 PO; +MAGN64TASA PO
== END ==
LOC: M PLAIMG 14:45
PROVIDERS: ATTEND Family Medicine
DX: I50.32 Chronic diastolic (congestive) heart failure (principal)

== ENCOUNTER → 2021-06-05 | Outpatient (CLI) | payer MEDICARE, MEDICAID ==
[~2021-06-05] MED LIST changes: +TUDO1AER2 INH; -TUDO1AER3 INH
[2021-06-05 14:01] LABS: CALCIUM LEVEL 9.4 MG/DL (8.8-10.2); CREATININE FOR GFR 1.45 MG/DL (0.55-1.30); GLOMERULAR FILTRATION RATE 36.6 (>32); POTASSIUM SERUM 4.8 MEQ/L (3.5-5.1)
== END ==
LOC: M PLALAB 11:46
PROVIDERS: ATTEND Family Medicine
DX: I50.32 Chronic diastolic (congestive) heart failure (principal)

== ENCOUNTER → 2021-06-24 | Outpatient (REF) | payer MEDICARE, MEDICAID ==
[2021-06-24 12:30] LABS: CALCIUM LEVEL 9.7 MG/DL (8.8-10.2); CREATININE FOR GFR 1.42 MG/DL (0.55-1.30); GLOMERULAR FILTRATION RATE 37.5 (>32); POTASSIUM SERUM 4.1 MEQ/L (3.5-5.1)
== END ==
PROVIDERS: ATTEND Student in an Organized Health Care Education/Training Program
DX: I50.32 Chronic diastolic (congestive) heart failure (principal)

== ENCOUNTER → 2021-07-01 | Outpatient (REF) | payer MEDICARE, MEDICAID ==
[2021-07-01 10:42] LABS: BASO # 0.1 10^3/uL (0.0-0.2); BASO % 0.5 % (0.0-1.0); EOS # 0.2 10^3/uL (0.0-0.5); EOS % 2.2 % (0.0-3.0); HEMOGLOBIN 10.5 g/dl (12.0-15.5); LYMPH # 1.4 10^3/uL (1.5-5.0); LYMPH % 14.6 % (24.0-44.0); MEAN CORPUSCULAR HEMOGLOBIN 32.4 pg (27.0-33.0); MONO # 0.5 10^3/uL (0.0-0.8); MONO % 5.3 % (2.0-8.0); NEUTROPHILS # 7.5 10^3/uL (1.5-8.5); NEUTROPHILS % 76.8 % (36.0-66.0); PLATELET COUNT, AUTOMATED 283 10^3/uL (150-450); RED BLOOD COUNT 3.24 10^6/uL (4.00-5.40); WHITE BLOOD COUNT 9.8 10^3/uL (4.0-10.0)
[2021-07-01 11:16] LABS: ALBUMIN 2.8 GM/DL (3.2-5.2); BILIRUBIN,TOTAL 0.3 MG/DL (0.2-1.0); CALCIUM LEVEL 9.2 MG/DL (8.8-10.2); CREATININE FOR GFR 1.52 MG/DL (0.55-1.30); GLOMERULAR FILTRATION RATE 34.7 (>32); POTASSIUM SERUM 4.6 MEQ/L (3.5-5.1); TOTAL PROTEIN 6.9 GM/DL (6.4-8.2)
[2021-07-01 11:44] LABS: ERYTHROCYTE SEDIMENTATION RATE 71 mm/hr (0-30)
[2021-07-03 16:13] LABS: BETA-2 GLYCOPROTEIN I ABY IGA <9 (0-25); BETA-2 GLYCOPROTEIN I ABY IGG <9 (0-20); BETA-2 GLYCOPROTEIN I ABY IGM <9 (0-32); FREE KAPPA LIGHT CHAINS SERUM 78.9 mg/L (3.3-19.4); FREE LAMBDA LIGHT CHAINS SERUM 48.8 mg/L (5.7-26.3); KAPPA/LAMBDA RATIO SERUM 1.62 (0.26-1.65)
== END ==
PROVIDERS: ATTEND Internal Medicine Medical Oncology
DX: D75.89 Other specified diseases of blood and blood-forming organs (principal)

== ENCOUNTER → 2021-12-17 | Outpatient (REF) | payer MEDICARE, MEDICAID ==
[~2021-12-17] MED LIST changes: +CLOB5CR TOP; +KETO2CR; +LASI40TA9 PO; +POTA-150 PO; -POTA10TA17 PO
== END ==
PROVIDERS: ATTEND Student in an Organized Health Care Education/Training Program
DX: Z20.822 Contact with and (suspected) exposure to COVID-19 (principal)

== ENCOUNTER → 2022-02-03 | Outpatient (REF) | payer MEDICARE, MEDICAID ==
[~2022-02-03] MED LIST changes: +ASCO500C3 PO; -DOXY-350 PO; +DOXY-444 PO; +METR0.7526 TOP; -METR0.7533 TOP; -PURE500C5 PO
[2022-02-03 11:26] LABS: BASO % 0.6 % (0.0-1.0); EOS # 0.2 10^3/uL (0.0-0.5); EOS % 2.4 % (0.0-3.0); HEMATOCRIT 36.6 % (36.0-47.0); HEMOGLOBIN 10.9 g/dl (12.0-15.5); LYMPH # 1.4 10^3/uL (1.5-5.0); LYMPH % 19.1 % (24.0-44.0); MEAN CORPUSCULAR HEMOGLOBIN 33.3 pg (27.0-33.0); MEAN CORPUSCULAR HGB CONC 29.8 g/dl (32.0-36.5); MEAN CORPUSCULAR VOLUME 111.9 fl (80.0-96.0); MONO # 0.5 10^3/uL (0.0-0.8); NEUTROPHILS # 5.1 10^3/uL (1.5-8.5); NEUTROPHILS % 70.3 % (36.0-66.0); PLATELET COUNT, AUTOMATED 260 10^3/uL (150-450); RED BLOOD COUNT 3.27 10^6/uL (4.00-5.40); WHITE BLOOD COUNT 7.2 10^3/uL (4.0-10.0)
[2022-02-03 11:49] LABS: INR 0.96
[2022-02-03 11:50] LABS: PARTIAL THROMBOPLASTIN TIME 31.8 SECONDS (24.8-34.2)
[2022-02-03 12:02] LABS: ALBUMIN 2.8 G/DL (3.2-5.2); ALKALINE PHOSPHATASE 69 U/L (46-116); ALT/SGPT 15 U/L (7.0-40); AST/SGOT 17 U/L (<34); BILIRUBIN,TOTAL 0.2 MG/DL (0.3-1.2); BLOOD UREA NITROGEN 35 MG/DL (9-23); CALCIUM LEVEL 8.4 MG/DL (8.3-10.6); CARBON DIOXIDE LEVEL 30 MMOL/L (20-31); CHLORIDE LEVEL 100 MMOL/L (98-107); CREATININE FOR GFR 1.41 MG/DL (0.55-1.30); GLOMERULAR FILTRATION RATE 37.8 (>32); GLUCOSE, FASTING 200 MG/DL (74-106); POTASSIUM SERUM 4.4 MMOL/L (3.5-5.1); SODIUM LEVEL 139 MMOL/L (136-145); TOTAL PROTEIN 6.5 G/DL (5.7-8.2); TOTAL PROTEIN 6.5 GM/DL (6.4-8.2)
[2022-02-03 12:53] LABS: ERYTHROCYTE SEDIMENTATION RATE 60 mm/hr (0-30)
[2022-02-05 07:08] LABS: BETA 2 MICROGLOBULIN 4.6 mg/L (0.6-2.4); FREE KAPPA LIGHT CHAINS SERUM 74.2 mg/L (3.3-19.4); FREE LAMBDA LIGHT CHAINS SERUM 40.2 mg/L (5.7-26.3); KAPPA/LAMBDA RATIO SERUM 1.85 (0.26-1.65)
== END ==
PROVIDERS: ATTEND Nurse Practitioner
DX: E87.6 Hypokalemia (principal); Z85.3 Personal history of malignant neoplasm of breast; G89.29 Other chronic pain; I73.9 Peripheral vascular disease, unspecified

== ENCOUNTER 2022-02-16 09:52 | Emergency (ER) | payer MEDICARE, MEDICAID ==
[~2022-02-16] VITALS: Ht 165.1 cm; Wt 81.8 kg
[2022-02-16 10:57] LABS: BASO % 0.4 % (0.0-1.0); EOS # 0.2 10^3/uL (0.0-0.5); EOS % 2.5 % (0.0-3.0); HEMATOCRIT 35.9 % (36.0-47.0); LYMPH # 1.4 10^3/uL (1.5-5.0); LYMPH % 17.2 % (24.0-44.0); MEAN CORPUSCULAR HEMOGLOBIN 33.2 pg (27.0-33.0); MEAN CORPUSCULAR HGB CONC 30.6 g/dl (32.0-36.5); MEAN CORPUSCULAR VOLUME 108.5 fl (80.0-96.0); MONO # 0.7 10^3/uL (0.0-0.8); MONO % 7.9 % (2.0-8.0); NEUTROPHILS % 71.6 % (36.0-66.0); PLATELET COUNT, AUTOMATED 262 10^3/uL (150-450); RED BLOOD COUNT 3.31 10^6/uL (4.00-5.40); WHITE BLOOD COUNT 8.3 10^3/uL (4.0-10.0)
[2022-02-16 11:04] LABS: CK-MB VALUE MASS < 1.0 NG/ML (<3.6)
[2022-02-16 11:05] LABS: BILIRUBIN,DIRECT < 0.1 MG/DL (<0.4)
[2022-02-16 11:08] LABS: THYROID STIMULATING HORMONE 3.281 uIU/ML (0.55-4.78)
[2022-02-16 11:11] LABS: ALBUMIN 2.9 G/DL (3.2-5.2); ALKALINE PHOSPHATASE 70 U/L (46-116); ALT/SGPT 13 U/L (7.0-40); AST/SGOT 20 U/L (<34); BILIRUBIN,TOTAL 0.2 MG/DL (0.3-1.2); BLOOD UREA NITROGEN 37 MG/DL (9-23); CALCIUM LEVEL 8.9 MG/DL (8.3-10.6); CARBON DIOXIDE LEVEL 27 MMOL/L (20-31); CHLORIDE LEVEL 100 MMOL/L (98-107); CPK CREATINE PHOSPHOKINASE 70 U/L (34-145); CREATININE FOR GFR 1.39 MG/DL (0.55-1.30); GLOMERULAR FILTRATION RATE 38.5 (>32); GLUCOSE, FASTING 181 MG/DL (74-106); MB/CK RELATIVE INDEX 1.42 (< OR =4); POTASSIUM SERUM 4.5 MMOL/L (3.5-5.1); SODIUM LEVEL 137 MMOL/L (136-145); TOTAL PROTEIN 6.8 G/DL (5.7-8.2)
[2022-02-16] MEDS ORDERED: ISOVUE-370 76% 100ML VIAL As Ordered ONE (13:34)
[2022-02-16] MEDS ORDERED: methylPREDNISolone 125MG 2ML VIAL IV ONE (14:30)
[2022-02-16] MEDS ORDERED: PRED20TA PO (14:39)
[2022-02-16 14:57] VITALS: BP 152/68
== END 2022-02-16 15:14 | disposition home or self-care (01) ==
LOC: M ED 09:52
DX: J96.11 Chronic respiratory failure with hypoxia (principal); I25.2 Old myocardial infarction; I25.10 Atherosclerotic heart disease of native coronary artery without angina pectoris; E03.9 Hypothyroidism, unspecified; E78.5 Hyperlipidemia, unspecified; J44.9 Chronic obstructive pulmonary disease, unspecified; M51.34 Other intervertebral disc degeneration, thoracic region; M85.9 Disorder of bone density and structure, unspecified; K76.0 Fatty (change of) liver, not elsewhere classified; Z85.3 Personal history of malignant neoplasm of breast; J30.2 Other seasonal allergic rhinitis; Z88.5 Allergy status to narcotic agent; Z95.0 Presence of cardiac pacemaker; Z79.51 Long term (current) use of inhaled steroids; Z79.82 Long term (current) use of aspirin; Z79.890 Hormone replacement therapy; Z79.899 Other long term (current) drug therapy
CPT/HCPCS: 70450; 71045; 71275; 80048; 80076; 82550; 82553; 83880; 84443; 84484; 85025; 87040; 87486; 87581; 87633; 87798; 93005; 93041; 94760; 96374; 99285; J2930; Q9967

== ENCOUNTER 2022-02-28 12:37 | Emergency (ER) | payer MEDICARE, MEDICAID ==
[2022-02-28] MEDS ORDERED: ACETAMINOPHEN 325 MG TAB PO ONE (12:50)
[2022-02-28 14:31] VITALS: BP 147/78
== END 2022-02-28 14:37 | disposition home or self-care (01) ==
LOC: M ED 12:37
DX: S76.012A Strain of muscle, fascia and tendon of left hip, initial encounter (principal); S70.02XA Contusion of left hip, initial encounter; W01.0XXA Fall on same level from slipping, tripping and stumbling without subsequent striking against object, initial encounter; Y92.009 Unspecified place in unspecified non-institutional (private) residence as the place of occurrence of the external cause; I25.2 Old myocardial infarction; I50.9 Heart failure, unspecified; E03.9 Hypothyroidism, unspecified; G47.33 Obstructive sleep apnea (adult) (pediatric); J21.9 Acute bronchiolitis, unspecified; Z85.3 Personal history of malignant neoplasm of breast; J30.2 Other seasonal allergic rhinitis; Z88.5 Allergy status to narcotic agent; Z79.51 Long term (current) use of inhaled steroids; Z79.890 Hormone replacement therapy; Z79.82 Long term (current) use of aspirin; Z79.899 Other long term (current) drug therapy

== ENCOUNTER → 2022-03-10 | Outpatient (REF) | payer MEDICARE, MEDICAID | PROVIDERS: ATTEND Student in an Organized Health Care Education/Training Program | DX: Z20.822 Contact with and (suspected) exposure to COVID-19 (principal) ==

== ENCOUNTER → 2022-03-24 | Outpatient (REF) | payer MEDICARE, MEDICAID ==
[2022-03-24 12:46] LABS: BASO # 0.1 10^3/uL (0.0-0.2); BASO % 0.5 % (0.0-1.0); EOS # 0.1 10^3/uL (0.0-0.5); EOS % 1.4 % (0.0-3.0); HEMATOCRIT 35.6 % (36.0-47.0); HEMOGLOBIN 10.8 g/dl (12.0-15.5); LYMPH # 1.1 10^3/uL (1.5-5.0); MEAN CORPUSCULAR HGB CONC 30.3 g/dl (32.0-36.5); MEAN CORPUSCULAR VOLUME 111.9 fl (80.0-96.0); MONO # 0.7 10^3/uL (0.0-0.8); MONO % 7.1 % (2.0-8.0); NEUTROPHILS # 7.3 10^3/uL (1.5-8.5); NEUTROPHILS % 77.9 % (36.0-66.0); PLATELET COUNT, AUTOMATED 195 10^3/uL (150-450); RED BLOOD COUNT 3.18 10^6/uL (4.00-5.40); WHITE BLOOD COUNT 9.4 10^3/uL (4.0-10.0)
[2022-03-24 12:56] LABS: CALCIUM LEVEL 8.5 MG/DL (8.3-10.6); CREATININE FOR GFR 1.71 MG/DL (0.55-1.30); GLOMERULAR FILTRATION RATE 30.2 (>32); POTASSIUM SERUM 5.2 MMOL/L (3.5-5.1)
== END ==
PROVIDERS: ATTEND Student in an Organized Health Care Education/Training Program
DX: N18.4 Chronic kidney disease, stage 4 (severe) (principal)

== ENCOUNTER 2022-07-06 10:05 | Emergency (ER) | payer MEDICARE, MEDICAID ==
[~2022-07-06] VITALS: Ht 154.9 cm; Wt 100.0 kg
[2022-07-06] MEDS ORDERED: ALBUTEROL SULFATE 2.5MG/0.5ML INH NEB SOLN INH ONE (10:50)
[2022-07-06] MEDS ORDERED: IPRATROPIUM 0.5MG/ALBUTEROL 2.5MG INH SOL UD 3ML (DUONEB) NEB ONE (10:50)
[2022-07-06 10:56] VITALS: O2SAT 94
[2022-07-06 11:15] LABS: VENOUS BASE EXCESS 0.8 (-2.0-2.0); VENOUS HCO3 26.8 MMOL/L (23.0-27.0); VENOUS O2 SATURATION 98.7 % (60.0-80.0); VENOUS PARTIAL PRESSURE CO2 48.9 mmHg (38.0-50.0); VENOUS PARTIAL PRESSURE O2 158.5 mmHg (30.0-50.0); VENOUS PH 7.357 UNITS (7.330-7.430); VENOUS STANDARD HCO3 25.2 MMOL/L; VENOUS TOTAL CO2 28.3 MMOL/L (24.0-28.0)
[2022-07-06 11:20] LABS: BASO % 0.3 % (0.0-1.0); EOS # 0.1 10^3/uL (0.0-0.5); EOS % 1.7 % (0.0-3.0); HEMATOCRIT 36.2 % (36.0-47.0); HEMOGLOBIN 11.1 g/dl (12.0-15.5); LYMPH # 2.1 10^3/uL (1.5-5.0); LYMPH % 26.5 % (24.0-44.0); MEAN CORPUSCULAR HEMOGLOBIN 33.3 pg (27.0-33.0); MEAN CORPUSCULAR HGB CONC 30.7 g/dl (32.0-36.5); MEAN CORPUSCULAR VOLUME 108.7 fl (80.0-96.0); MONO # 0.7 10^3/uL (0.0-0.8); MONO % 8.7 % (2.0-8.0); NEUTROPHILS # 4.9 10^3/uL (1.5-8.5); NEUTROPHILS % 62.5 % (36.0-66.0); PLATELET COUNT, AUTOMATED 210 10^3/uL (150-450); RED BLOOD COUNT 3.33 10^6/uL (4.00-5.40); WHITE BLOOD COUNT 7.9 10^3/uL (4.0-10.0)
[2022-07-06 11:30] LABS: INR 0.86; PROTHROMBIN TIME 11.9 SECONDS (12.5-14.5)
[2022-07-06 11:46] LABS: CK-MB VALUE MASS < 1.0 NG/ML (<3.6)
[2022-07-06 11:48] LABS: CPK CREATINE PHOSPHOKINASE 54 U/L (34-145); MB/CK RELATIVE INDEX 1.85 (< OR =4)
[2022-07-06 11:49] LABS: ALBUMIN 2.6 G/DL (3.2-5.2); ALKALINE PHOSPHATASE 70 U/L (46-116); ALT/SGPT 39 U/L (7.0-40); AST/SGOT 32 U/L (<34); BILIRUBIN,DIRECT < 0.1 MG/DL (<0.4); BILIRUBIN,TOTAL 0.2 MG/DL (0.3-1.2); BLOOD UREA NITROGEN 27 MG/DL (9-23); CARBON DIOXIDE LEVEL 27 MMOL/L (20-31); CHLORIDE LEVEL 103 MMOL/L (98-107); CREATININE FOR GFR 1.51 MG/DL (0.55-1.30); GLOMERULAR FILTRATION RATE 34.9 (>32); GLUCOSE, FASTING 211 MG/DL (74-106); POTASSIUM SERUM 4.5 MMOL/L (3.5-5.1); SODIUM LEVEL 138 MMOL/L (136-145); TOTAL PROTEIN 6.2 G/DL (5.7-8.2)
[2022-07-06 11:51] LABS: THYROID STIMULATING HORMONE 2.066 uIU/ML (0.55-4.78)
[2022-07-06 12:25] LABS: CK-MB VALUE MASS < 1.0 NG/ML (<3.6)
[2022-07-06 12:42] LABS: CPK CREATINE PHOSPHOKINASE 87 U/L (34-145); MB/CK RELATIVE INDEX 1.14 (< OR =4)
[2022-07-06] MEDS ORDERED: PRED10TA2 PO (14:14)
[2022-07-06 14:39] VITALS: BP 148/64
== END 2022-07-06 14:48 | disposition home or self-care (01) ==
LOC: M ED 10:05 → EDBD 10:05 → EDSEX 10:05 → M ED 14:48
DX: J44.1 Chronic obstructive pulmonary disease with (acute) exacerbation (principal); I10 Essential (primary) hypertension; E78.5 Hyperlipidemia, unspecified; K21.9 Gastro-esophageal reflux disease without esophagitis; E03.9 Hypothyroidism, unspecified; G47.33 Obstructive sleep apnea (adult) (pediatric); F17.200 Nicotine dependence, unspecified, uncomplicated; I50.20 Unspecified systolic (congestive) heart failure; Z88.5 Allergy status to narcotic agent; Z79.52 Long term (current) use of systemic steroids; Z79.82 Long term (current) use of aspirin; Z79.899 Other long term (current) drug therapy; Z79.51 Long term (current) use of inhaled steroids
CPT/HCPCS: 71045; 80048; 80076; 82550; 82553; 82803; 83605; 83880; 84443; 84484; 85025; 85610; 87040; 87486; 87581; 87633; 87798; 93005; 93041; 94640; 94760; 96374; 99285; J1100

== ENCOUNTER → 2022-08-27 | Outpatient (CLI) | payer MEDICARE, MEDICAID ==
[~2022-08-27] MED LIST changes: +CYAN-1 PO; -CYAN100050 PO; -K-TA10TA PO; +POTA-164 PO
== END ==
LOC: M WUC 14:31
PROVIDERS: ATTEND Physician Assistant
DX: S90.02XA Contusion of left ankle, initial encounter (principal); S70.02XA Contusion of left hip, initial encounter; S80.02XA Contusion of left knee, initial encounter; W18.30XA Fall on same level, unspecified, initial encounter; Y92.009 Unspecified place in unspecified non-institutional (private) residence as the place of occurrence of the external cause

== ENCOUNTER → 2022-09-09 | Outpatient (REF) | payer MEDICARE, MEDICAID ==
[2022-09-09 18:44] LABS: APPEARANCE, URINE CLOUDY (CLEAR); BACTERIA, URINE AUTO 1+ (NEGATIVE); BILIRUBIN, URINE AUTO NEGATIVE (NEGATIVE); BLOOD, URINE BLOOD NEGATIVE (NEGATIVE); COLOR, URINE YELLOW (YELLOW); GLUCOSE, URINE (UA) AUTO NEGATIVE (NEGATIVE); KETONE, URINE AUTO NEGATIVE (NEGATIVE); LEUKOCYTE ESTERASE, URINE AUTO 2+ (NEGATIVE); MUCUS, URINE SMALL (NEGATIVE); NITRITE, URINE AUTO NEGATIVE (NEGATIVE); PROTEIN, URINE AUTO NEGATIVE (NEGATIVE); RBC, URINE AUTO 0 /HPF (0-3); SPECIFIC GRAVITY URINE AUTO 1.014 (1.002-1.035); SQUAMOUS EPITHELIAL CELL UR AU 3 /HPF (0-6); UROBILINOGEN, URINE AUTO 0.2 mg/dL (0.0-2.0); WBC, URINE AUTO 30 /HPF (0-3)
== END ==
LOC: M LAB REF 17:08
PROVIDERS: ATTEND Physician Assistant
DX: R41.82 Altered mental status, unspecified (principal)

== ENCOUNTER → 2022-10-16 | Outpatient (REF) | payer MEDICARE, MEDICAID ==
[~2022-10-16] MED LIST changes: +DICL100G10 TOP; -DICL1GEL3 TOP
[2022-10-17 11:38] LABS: APPEARANCE, URINE HAZY (CLEAR); BACTERIA, URINE AUTO 1+ (NEGATIVE); BILIRUBIN, URINE AUTO NEGATIVE (NEGATIVE); BLOOD, URINE BLOOD NEGATIVE (NEGATIVE); COLOR, URINE YELLOW (YELLOW); GLUCOSE, URINE (UA) AUTO 1+ mg/dL (NEGATIVE); KETONE, URINE AUTO NEGATIVE (NEGATIVE); LEUKOCYTE ESTERASE, URINE AUTO NEGATIVE (NEGATIVE); MUCUS, URINE SMALL (NEGATIVE); NITRITE, URINE AUTO NEGATIVE (NEGATIVE); PROTEIN, URINE AUTO NEGATIVE (NEGATIVE); RBC, URINE AUTO 0 /HPF (0-3); SPECIFIC GRAVITY URINE AUTO 1.009 (1.002-1.035); SQUAMOUS EPITHELIAL CELL UR AU 4 /HPF (0-6); UROBILINOGEN, URINE AUTO 0.2 mg/dL (0.0-2.0); WBC, URINE AUTO 4 /HPF (0-3)
== END ==
PROVIDERS: ATTEND Nurse Practitioner Adult Health
DX: R41.82 Altered mental status, unspecified (principal)

== ENCOUNTER → 2022-11-10 | Outpatient (REF) ==
[~2022-11-10] MED LIST changes: +MECL-209 PO; -MECL1TAB31 PO
== END ==
PROVIDERS: ATTEND Nurse Practitioner Family
DX: N39.0 Urinary tract infection, site not specified (principal); Z16.12 Extended spectrum beta lactamase (ESBL) resistance

== ENCOUNTER → 2022-11-14 | Outpatient (REF) ==
[2022-11-14 10:28] LABS: CHOLESTEROL RISK RATIO 2.19 (<5); MAGNESIUM LEVEL 1.4 MG/DL (1.8-2.4)
[2022-11-14 10:31] LABS: TOTAL 25(OH) VITAMIN D 30.6 NG/ML (20.0-100.0)
[2022-11-15 10:05] LABS: PTH INTACT 95.3 PG/ML (18.5-88.0)
== END ==
PROVIDERS: ATTEND Nurse Practitioner Family
DX: E78.5 Hyperlipidemia, unspecified (principal)

== ENCOUNTER → 2022-11-17 | Outpatient (REF) ==
[2022-11-17 16:26] LABS: HEMATOCRIT 38.6 % (36.0-47.0); HEMOGLOBIN 11.6 g/dl (12.0-15.5); MEAN CORPUSCULAR HEMOGLOBIN 34.3 pg (27.0-33.0); MEAN CORPUSCULAR HGB CONC 30.1 g/dl (32.0-36.5); PLATELET COUNT, AUTOMATED 243 10^3/uL (150-450); RED BLOOD COUNT 3.38 10^6/uL (4.00-5.40)
[2022-11-17 16:30] LABS: MEAN CORPUSCULAR VOLUME 114.2 fl (80.0-96.0)
[2022-11-17 16:39] LABS: CALCIUM LEVEL 8.8 MG/DL (8.3-10.6); CREATININE FOR GFR 2.23 MG/DL (0.55-1.30); GLOMERULAR FILTRATION RATE 22.2 (>32); POTASSIUM SERUM 5.6 MMOL/L (3.5-5.1)
== END ==
PROVIDERS: ATTEND Nurse Practitioner Family
DX: J44.9 Chronic obstructive pulmonary disease, unspecified (principal)

== ENCOUNTER → 2022-11-18 | Outpatient (REF) | payer MEDICARE, MEDICAID | PROVIDERS: ATTEND Internal Medicine | DX: J44.9 Chronic obstructive pulmonary disease, unspecified (principal); Z95.0 Presence of cardiac pacemaker ==

== ENCOUNTER → 2022-11-18 | Outpatient (REF) | PROVIDERS: ATTEND Nurse Practitioner Family | DX: N39.0 Urinary tract infection, site not specified (principal); Z16.12 Extended spectrum beta lactamase (ESBL) resistance; Z53.8 Procedure and treatment not carried out for other reasons ==

== ENCOUNTER → 2022-11-19 | Outpatient (REF) | payer MEDICARE, MEDICAID ==
[~2022-11-19] MED LIST changes: +ARTIDRO4 OU; +B-12100010 PO; +B-121TAB3 PO; +BACI1CAP PO; -CEFD300C41 PO; +CEFD300C42 PO; +CETI10CA13 PO; +ELID1CRE11 TOP; +FERR325T18 PO; +FLUO40CA PO; +FURO40TA2 PO; +INCR1INH; +INSUDET SC; +MAGN400T2 PO; +TRIAMCINOLONE TOP
[2022-11-19 11:12] LABS: BASO % 0.3 % (0.0-1.0); HEMATOCRIT 35.2 % (36.0-47.0); HEMOGLOBIN 10.7 g/dl (12.0-15.5); LYMPH # 0.9 10^3/uL (1.5-5.0); LYMPH % 7.7 % (24.0-44.0); MEAN CORPUSCULAR HEMOGLOBIN 34.5 pg (27.0-33.0); MEAN CORPUSCULAR HGB CONC 30.4 g/dl (32.0-36.5); MEAN CORPUSCULAR VOLUME 113.5 fl (80.0-96.0); MONO # 0.9 10^3/uL (0.0-0.8); MONO % 8.1 % (2.0-8.0); NEUTROPHILS # 9.4 10^3/uL (1.5-8.5); NEUTROPHILS % 82.2 % (36.0-66.0); PLATELET COUNT, AUTOMATED 245 10^3/uL (150-450); WHITE BLOOD COUNT 11.4 10^3/uL (4.0-10.0)
[2022-11-19 11:59] LABS: CALCIUM LEVEL 9.1 MG/DL (8.3-10.6); CREATININE FOR GFR 2.03 MG/DL (0.55-1.30); GLOMERULAR FILTRATION RATE 24.8 (>32); POTASSIUM SERUM 5.2 MMOL/L (3.5-5.1)
== END ==
LOC: EEVIPCON
PROVIDERS: ATTEND Nurse Practitioner Family
DX: N17.9 Acute kidney failure, unspecified (principal)

== ENCOUNTER 2022-11-30 14:04 | Inpatient (IN) | payer MEDICARE, MEDICAID ==
[~2022-11-30] VITALS: Ht 154.9 cm; Wt 89.7 kg
[~2022-11-30 14:04] MED LIST changes: -ARTIDRO4 OU; -B-12100010 PO; -B-121TAB3 PO; -BACI1CAP PO; -CETI10CA13 PO; -ELID1CRE11 TOP; -FERR325T18 PO; -FLUO40CA PO; -FURO40TA2 PO; -INCR1INH; -INSUDET SC; -MAGN400T2 PO; -TRIAMCINOLONE TOP
[2022-11-30] MEDS ORDERED: NS 1,000 ML IV ONE (14:20)
[2022-11-30 15:17] LABS: BASO % 0.1 % (0.0-1.0); EOS % 0.1 % (0.0-3.0); HEMATOCRIT 35.8 % (36.0-47.0); HEMOGLOBIN 10.8 g/dl (12.0-15.5); LYMPH % 6.2 % (24.0-44.0); MEAN CORPUSCULAR HEMOGLOBIN 33.9 pg (27.0-33.0); MEAN CORPUSCULAR HGB CONC 30.2 g/dl (32.0-36.5); MEAN CORPUSCULAR VOLUME 112.2 fl (80.0-96.0); MONO # 0.9 10^3/uL (0.0-0.8); MONO % 5.2 % (2.0-8.0); NEUTROPHILS # 14.2 10^3/uL (1.5-8.5); NEUTROPHILS % 87.7 % (36.0-66.0); PLATELET COUNT, AUTOMATED 234 10^3/uL (150-450); RED BLOOD COUNT 3.19 10^6/uL (4.00-5.40); WHITE BLOOD COUNT 16.3 10^3/uL (4.0-10.0)
[2022-11-30] MEDS ORDERED: BACI1CAP PO (15:21)
[2022-11-30] MEDS ORDERED: VENTAER INH (15:21)
[2022-11-30] MEDS ORDERED: SPIR1CAP INH (15:23)
[2022-11-30] MEDS ORDERED: INCR1INH (15:25)
[2022-11-30] MEDS ORDERED: CETI10CA13 PO (15:25)
[2022-11-30] MEDS ORDERED: B-12100010 PO (15:25)
[2022-11-30] MEDS ORDERED: VITA500C24 PO (15:25)
[2022-11-30 15:26] LABS: BLOOD UREA NITROGEN 38 MG/DL (9-23); CALCIUM LEVEL 8.3 MG/DL (8.3-10.6); CARBON DIOXIDE LEVEL 32 MMOL/L (20-31); CHLORIDE LEVEL 104 MMOL/L (98-107); CREATININE FOR GFR 1.69 MG/DL (0.55-1.30); GLOMERULAR FILTRATION RATE 30.6 (>32); GLUCOSE, FASTING 180 MG/DL (74-106); POTASSIUM SERUM 3.9 MMOL/L (3.5-5.1); SODIUM LEVEL 140 MMOL/L (136-145)
[2022-11-30 18:54] LABS: APPEARANCE, URINE HAZY (CLEAR); BACTERIA, URINE AUTO NEGATIVE (NEGATIVE); BILIRUBIN, URINE AUTO NEGATIVE (NEGATIVE); BLOOD, URINE BLOOD NEGATIVE (NEGATIVE); COLOR, URINE YELLOW (YELLOW); GLUCOSE, URINE (UA) AUTO NEGATIVE (NEGATIVE); KETONE, URINE AUTO NEGATIVE (NEGATIVE); LEUKOCYTE ESTERASE, URINE AUTO TRACE (NEGATIVE); MUCUS, URINE SMALL (NEGATIVE); NITRITE, URINE AUTO NEGATIVE (NEGATIVE); PROTEIN, URINE AUTO 1+ mg/dL (NEGATIVE); RBC, URINE AUTO 6 /HPF (0-3); SPECIFIC GRAVITY URINE AUTO 1.017 (1.002-1.035); SQUAMOUS EPITHELIAL CELL UR AU 0 /HPF (0-6); UROBILINOGEN, URINE AUTO 0.2 mg/dL (0.0-2.0); WBC, URINE AUTO 33 /HPF (0-3)
[2022-11-30] MEDS ORDERED: MEROPENEM INJ 2 GM in NS 100 ML IV SCH (19:10)
[2022-11-30 19:51] LABS: PROCALCITONIN 1.03 ng/ml
[2022-11-30] MEDS: FORMOTEROL FUMARATE 20 MCG/2 ML INHALATION SOLUTION (PERFOROMIST) INH SCH (20:00)
[2022-11-30] MEDS: BUDESONIDE 0.5 MG/2 ML INHALATION SUSPENSION INH SCH (20:19)
[2022-11-30] MEDS ORDERED: B-121TAB3 PO (20:21)
[2022-11-30] MEDS ORDERED: ARTIDRO4 OU (20:21)
[2022-11-30] MEDS ORDERED: FLUO40CA PO (20:21)
[2022-11-30] MEDS ORDERED: PRED20TA PO (20:21)
[2022-11-30] MEDS ORDERED: FERR325T18 PO (20:21)
[2022-11-30] MEDS ORDERED: TRIAMCINOLONE TOP (20:24)
[2022-11-30] MEDS ORDERED: ELID1CRE11 TOP (20:24)
[2022-11-30] MEDS ORDERED: HOME MED LIST COMPLETE! XX SCH (20:25)
[2022-11-30 20:27] LABS: THYROID STIMULATING HORMONE 1.647 uIU/ML (0.55-4.78)
[2022-11-30 20:28] LABS: FOLATE > 24.00 NG/ML (>5.4)
[2022-11-30 20:36] LABS: ABG BASE EXCESS 0.9 (-2.0-2.0); ABG HCO3 27.6 MMOL/L (22.0-26.0); ABG O2 SATURATION 95.5 % (95.0-99.0); ABG PARTIAL PRESSURE CO2 54.2 mmHg (35.0-45.0); ABG PARTIAL PRESSURE O2 85.1 mmHg (75.0-100.0); ABG STANDARD HCO3 25.2 MMOL/L. (22.0-26.0); ABG TOTAL CO2 29.3 MMOL/L (23.0-31.0); ABG pH (ARTERIAL) 7.325 UNITS (7.350-7.450)
[2022-11-30 20:37] LABS: VITAMIN B12 LEVEL > 2000 PG/ML (211-911)
[2022-11-30] MEDS ORDERED: methylPREDNISolone 125MG 2ML VIAL IV ONE (21:00)
[2022-11-30] MEDS ORDERED: POLYVINYL ALCOHOL OPHTH SOLN 15ML (LIQUITEARS) OU PRN (21:20)
[2022-11-30 22:00] VITALS: O2SAT 97
[2022-11-30 22:01] VITALS: O2SAT 97
[2022-11-30] MEDS: AZITHROMYCIN INJ 500 MG, VIAL MATE ADAPTER 1 EACH in NS 250 ML IV SCH (22:08)
[2022-11-30 22:42] VITALS: BP 149/67; TEMP 97; O2SAT 90
[2022-11-30 23:00] VITALS: O2SAT 89
[2022-11-30] MEDS: NS 1,000 ML IV SCH (23:42)
[2022-11-30] MEDS: MEROPENEM INJ 1 GM in IV 1 EA IV SCH (23:54)
[2022-12-01] VITALS (14 sets, daily range): BP systolic 124–158; BP diastolic 54–82; TEMP 96.7–98; O2SAT 81–99
[2022-12-01] MEDS ORDERED: VANCOMYCIN HCL 1,000 MG, VIAL MATE ADAPTER 1 EACH in D5W 250 ML IV ONE ×3
[2022-12-01] MEDS: VANCOMYCIN HCL 1,000 MG, VIAL MATE ADAPTER 1 EACH in D5W 250 ML IV SCH (00:42)
[2022-12-01] MEDS: IPRATROPIUM 0.5MG/ALBUTEROL 2.5MG INH SOL UD 3ML (DUONEB) NEB SCH ×4 (01:14→19:52)
[2022-12-01 05:16] LABS: HEMATOCRIT 35.2 % (36.0-47.0); HEMOGLOBIN 10.6 g/dl (12.0-15.5); MEAN CORPUSCULAR HEMOGLOBIN 34.5 pg (27.0-33.0); MEAN CORPUSCULAR HGB CONC 30.1 g/dl (32.0-36.5); MEAN CORPUSCULAR VOLUME 114.7 fl (80.0-96.0); PLATELET COUNT, AUTOMATED 220 10^3/uL (150-450); RED BLOOD COUNT 3.07 10^6/uL (4.00-5.40); WHITE BLOOD COUNT 13.1 10^3/uL (4.0-10.0)
[2022-12-01 05:47] LABS: CALCIUM LEVEL 8.1 MG/DL (8.3-10.6); CREATININE FOR GFR 1.34 MG/DL (0.55-1.30); POTASSIUM SERUM 4.4 MMOL/L (3.5-5.1)
[2022-12-01] MEDS: LEVOTHYROXINE 50MCG TABLET (0.05MG) PO SCH (06:00)
[2022-12-01] MEDS: methylPREDNISolone 40MG 1ML VIAL IV SCH ×2 (06:43→17:51)
[2022-12-01] MEDS: HEPARIN SOD (PORCINE) 5000UNITS/ML 1ML VIAL/SYRINGE SC SCH ×3 (06:44→23:17)
[2022-12-01 07:29] LABS: VANCOMYCIN RANDOM 29.9 UG/ML
[2022-12-01] MEDS: TIOTROPIUM INHALER/CAPSULE (SPIRIVA) INH SCH ×2 (07:30→08:00)
[2022-12-01] MEDS: BUDESONIDE 0.5 MG/2 ML INHALATION SUSPENSION INH SCH ×2 (07:30→19:52)
[2022-12-01] MEDS: FORMOTEROL FUMARATE 20 MCG/2 ML INHALATION SOLUTION (PERFOROMIST) INH SCH ×2 (07:30→19:52)
[2022-12-01] MEDS: ADVAIR HFA 115/21MCG INHALER INH SCH ×2 (07:30→19:52)
[2022-12-01] MEDS: NS 1,000 ML IV SCH (08:30)
[2022-12-01] MEDS ORDERED: predniSONE 20 MG TAB PO SCH (09:00)
[2022-12-01] MEDS: LACTOBACILLUS ACIDOPHILUS CAP (BACID) PO SCH (09:00)
[2022-12-01] MEDS ORDERED: MAGNESIUM GLUCONATE 500 MG TAB PO SCH (09:00)
[2022-12-01] MEDS: FERROUS SULFATE 325MG TAB PO SCH (09:00)
[2022-12-01] MEDS ORDERED: PRAVASTATIN 20 MG TAB PO SCH (09:00)
[2022-12-01] MEDS: FLUoxetine 20MG CAP PO SCH (09:00)
[2022-12-01] MEDS: ASPIRIN 81MG ENTERIC TABLET PO SCH (09:00)
[2022-12-01] MEDS: PANTOPRAZOLE 40MG VIAL IV SCH (09:03)
[2022-12-01] MEDS: MEROPENEM INJ 1 GM in IV 1 EA IV SCH ×2 (09:03→23:17)
[2022-12-01] MEDS ORDERED: DEXTROSE 50% 50ML SYRINGE IV PRN (12:50)
[2022-12-01] MEDS ORDERED: GLUCAGON INJ 1MG VIAL SC PRN (12:50)
[2022-12-01] MEDS ORDERED: GLUCOSE 4GM CHEW TABLET PO PRN (12:50)
[2022-12-01] MEDS: INSULIN LISPRO (NovoLOG) PER UNIT SC SCH ×3 (13:43→20:21)
[2022-12-01] MEDS: AZITHROMYCIN INJ 500 MG, VIAL MATE ADAPTER 1 EACH in NS 250 ML IV SCH (21:00)
[2022-12-02] VITALS (24 sets, daily range): BP systolic 120–158; BP diastolic 58–70; TEMP 96.5–97.2; O2SAT 85–97
[2022-12-02] MEDS: VANCOMYCIN HCL 1,000 MG, VIAL MATE ADAPTER 1 EACH in D5W 250 ML IV SCH ×2 (00:13→23:11)
[2022-12-02] MEDS: IPRATROPIUM 0.5MG/ALBUTEROL 2.5MG INH SOL UD 3ML (DUONEB) NEB SCH ×2 (01:29→07:07)
[2022-12-02] MEDS: methylPREDNISolone 40MG 1ML VIAL IV SCH ×2 (05:41→17:57)
[2022-12-02] MEDS: LEVOTHYROXINE 50MCG TABLET (0.05MG) PO SCH (05:41)
[2022-12-02] MEDS: HEPARIN SOD (PORCINE) 5000UNITS/ML 1ML VIAL/SYRINGE SC SCH ×3 (05:41→21:37)
[2022-12-02 06:03] LABS: HEMATOCRIT 33.4 % (36.0-47.0); HEMOGLOBIN 10.2 g/dl (12.0-15.5); LYMPH # 0.3 10^3/uL (1.5-5.0); LYMPH % 2.8 % (24.0-44.0); MEAN CORPUSCULAR HEMOGLOBIN 34.2 pg (27.0-33.0); MEAN CORPUSCULAR HGB CONC 30.5 g/dl (32.0-36.5); MEAN CORPUSCULAR VOLUME 112.1 fl (80.0-96.0); MONO # 0.4 10^3/uL (0.0-0.8); MONO % 3.5 % (2.0-8.0); NEUTROPHILS % 92.8 % (36.0-66.0); PLATELET COUNT, AUTOMATED 231 10^3/uL (150-450); RED BLOOD COUNT 2.98 10^6/uL (4.00-5.40); WHITE BLOOD COUNT 10.8 10^3/uL (4.0-10.0)
[2022-12-02 06:30] LABS: C REACTIVE PROTEIN QUANTITATIV 10.9 MG/DL (<1.0)
[2022-12-02 06:32] LABS: CALCIUM LEVEL 8.1 MG/DL (8.3-10.6); CREATININE FOR GFR 1.18 MG/DL (0.55-1.30); GLOMERULAR FILTRATION RATE 46.3 (>32); MAGNESIUM LEVEL 2.1 MG/DL (1.8-2.4); POTASSIUM SERUM 4.5 MMOL/L (3.5-5.1)
[2022-12-02 06:37] LABS: PROCALCITONIN 0.42 ng/ml
[2022-12-02] MEDS: TIOTROPIUM INHALER/CAPSULE (SPIRIVA) INH SCH (07:07)
[2022-12-02] MEDS: BUDESONIDE 0.5 MG/2 ML INHALATION SUSPENSION INH SCH ×2 (07:07→19:08)
[2022-12-02] MEDS: ADVAIR HFA 115/21MCG INHALER INH SCH (07:08)
[2022-12-02] MEDS: FORMOTEROL FUMARATE 20 MCG/2 ML INHALATION SOLUTION (PERFOROMIST) INH SCH ×2 (07:08→19:08)
[2022-12-02] MEDS ORDERED: LEVALBUTEROL 1.25MG 0.5ML CONCENTRATE NEB NEB PRN (07:25)
[2022-12-02] MEDS: LEVALBUTEROL 1.25MG 0.5ML CONCENTRATE NEB NEB SCH ×4 (08:00→19:08)
[2022-12-02] MEDS: ASPIRIN 81MG ENTERIC TABLET PO SCH (09:36)
[2022-12-02] MEDS: LACTOBACILLUS ACIDOPHILUS CAP (BACID) PO SCH (09:36)
[2022-12-02] MEDS: MEROPENEM INJ 1 GM in IV 1 EA IV SCH (09:36)
[2022-12-02] MEDS: PANTOPRAZOLE 40MG VIAL IV SCH (09:36)
[2022-12-02] MEDS: FERROUS SULFATE 325MG TAB PO SCH (09:36)
[2022-12-02] MEDS: FLUoxetine 20MG CAP PO SCH (09:36)
[2022-12-02] MEDS: INSULIN LISPRO (NovoLOG) PER UNIT SC SCH ×4 (09:36→21:00)
[2022-12-02] MEDS ORDERED: FUROSEMIDE 20MG/2ML VIAL IV ONE (13:50)
[2022-12-02] MEDS: cefTRIAXone SOD 1 GM in D5W MINI-BAG PLUS 50 ML IV SCH (20:14)
[2022-12-02] MEDS: AZITHROMYCIN INJ 500 MG, VIAL MATE ADAPTER 1 EACH in NS 250 ML IV SCH (21:36)
[2022-12-03] VITALS (20 sets, daily range): BP systolic 117–169; BP diastolic 60–74; TEMP 96.7–98.5; O2SAT 75–99
[2022-12-03] MEDS: LEVOTHYROXINE 50MCG TABLET (0.05MG) PO SCH (05:38)
[2022-12-03] MEDS: HEPARIN SOD (PORCINE) 5000UNITS/ML 1ML VIAL/SYRINGE SC SCH ×3 (05:40→21:17)
[2022-12-03] MEDS: methylPREDNISolone 40MG 1ML VIAL IV SCH ×2 (05:40→18:10)
[2022-12-03 05:44] LABS: HEMATOCRIT 33.6 % (36.0-47.0); HEMOGLOBIN 10.2 g/dl (12.0-15.5); MEAN CORPUSCULAR HGB CONC 30.4 g/dl (32.0-36.5); PLATELET COUNT, AUTOMATED 252 10^3/uL (150-450); WHITE BLOOD COUNT 10.1 10^3/uL (4.0-10.0)
[2022-12-03 06:06] LABS: ALBUMIN 2.1 G/DL (3.2-5.2); BILIRUBIN,TOTAL 0.2 MG/DL (0.3-1.2); CALCIUM LEVEL 8.1 MG/DL (8.3-10.6); CREATININE FOR GFR 1.21 MG/DL (0.55-1.30); POTASSIUM SERUM 4.6 MMOL/L (3.5-5.1); TOTAL PROTEIN 5.1 G/DL (5.7-8.2)
[2022-12-03] MEDS: BUDESONIDE 0.5 MG/2 ML INHALATION SUSPENSION INH SCH ×2 (07:43→20:32)
[2022-12-03] MEDS: FORMOTEROL FUMARATE 20 MCG/2 ML INHALATION SOLUTION (PERFOROMIST) INH SCH ×2 (07:43→20:32)
[2022-12-03] MEDS: LEVALBUTEROL 1.25MG 0.5ML CONCENTRATE NEB NEB SCH ×4 (07:43→20:32)
[2022-12-03] MEDS: INSULIN LISPRO (NovoLOG) PER UNIT SC SCH ×4 (07:50→21:00)
[2022-12-03] MEDS: FUROSEMIDE 20MG/2ML VIAL IV SCH ×2 (08:37→18:09)
[2022-12-03] MEDS: LACTOBACILLUS ACIDOPHILUS CAP (BACID) PO SCH (08:38)
[2022-12-03] MEDS: FERROUS SULFATE 325MG TAB PO SCH (08:38)
[2022-12-03] MEDS: PANTOPRAZOLE 40MG VIAL IV SCH (08:38)
[2022-12-03] MEDS: FLUoxetine 20MG CAP PO SCH (08:38)
[2022-12-03] MEDS: ASPIRIN 81MG ENTERIC TABLET PO SCH (08:38)
[2022-12-03] MEDS: cefTRIAXone SOD 1 GM in D5W MINI-BAG PLUS 50 ML IV SCH (21:16)
[2022-12-03] MEDS: DOXYCYCLINE HYCLATE 100MG TABLET PO SCH (22:23)
[2022-12-04] VITALS (16 sets, daily range): BP systolic 138–190; BP diastolic 73–82; TEMP 96.8–97.9; O2SAT 83–98
[2022-12-04] MEDS: methylPREDNISolone 40MG 1ML VIAL IV SCH (05:36)
[2022-12-04] MEDS: HEPARIN SOD (PORCINE) 5000UNITS/ML 1ML VIAL/SYRINGE SC SCH ×3 (05:36→21:12)
[2022-12-04] MEDS: LEVOTHYROXINE 50MCG TABLET (0.05MG) PO SCH (05:36)
[2022-12-04 05:40] LABS: HEMATOCRIT 35.2 % (36.0-47.0); HEMOGLOBIN 10.7 g/dl (12.0-15.5); MEAN CORPUSCULAR HEMOGLOBIN 33.5 pg (27.0-33.0); MEAN CORPUSCULAR HGB CONC 30.4 g/dl (32.0-36.5); MEAN CORPUSCULAR VOLUME 110.3 fl (80.0-96.0); PLATELET COUNT, AUTOMATED 239 10^3/uL (150-450); RED BLOOD COUNT 3.19 10^6/uL (4.00-5.40); WHITE BLOOD COUNT 8.2 10^3/uL (4.0-10.0)
[2022-12-04 06:04] LABS: ALBUMIN 2.3 G/DL (3.2-5.2); BILIRUBIN,TOTAL 0.3 MG/DL (0.3-1.2); CALCIUM LEVEL 8.6 MG/DL (8.3-10.6); CREATININE FOR GFR 1.14 MG/DL (0.55-1.30); GLOMERULAR FILTRATION RATE 48.2 (>32); POTASSIUM SERUM 4.6 MMOL/L (3.5-5.1); TOTAL PROTEIN 5.3 G/DL (5.7-8.2)
[2022-12-04] MEDS: INSULIN LISPRO (NovoLOG) PER UNIT SC SCH ×4 (08:26→20:40)
[2022-12-04] MEDS: FORMOTEROL FUMARATE 20 MCG/2 ML INHALATION SOLUTION (PERFOROMIST) INH SCH ×2 (09:03→23:27)
[2022-12-04] MEDS: LEVALBUTEROL 1.25MG 0.5ML CONCENTRATE NEB NEB SCH ×4 (09:03→23:27)
[2022-12-04] MEDS: BUDESONIDE 0.5 MG/2 ML INHALATION SUSPENSION INH SCH ×2 (09:03→23:27)
[2022-12-04] MEDS: PANTOPRAZOLE 40MG VIAL IV SCH (09:57)
[2022-12-04] MEDS: FUROSEMIDE 20MG/2ML VIAL IV SCH ×3 (09:58→21:13)
[2022-12-04] MEDS: ASPIRIN 81MG ENTERIC TABLET PO SCH (09:58)
[2022-12-04] MEDS: FLUoxetine 20MG CAP PO SCH (10:00)
[2022-12-04] MEDS: LACTOBACILLUS ACIDOPHILUS CAP (BACID) PO SCH (10:00)
[2022-12-04] MEDS: DOXYCYCLINE HYCLATE 100MG TABLET PO SCH ×2 (10:01→21:13)
[2022-12-04] MEDS: FERROUS SULFATE 325MG TAB PO SCH (10:01)
[2022-12-04] MEDS: **hydrALAZINE HCL** 25 MG TAB PO PRN (12:45)
[2022-12-04 14:08] LABS: BODY FLUID CULTURE Not indicated. (.); LEGIONELLA ANTIGEN URINE Negative (Negative); ORGANISM ID Not indicated. (.); SPECIMEN SOURCE Urine (.); URINE STREP PNEUMONIAE ANTIGEN Negative (Negative)
[2022-12-04] MEDS: methylPREDNISolone 125MG 2ML VIAL IV SCH ×2 (17:31→21:12)
[2022-12-04] MEDS: ACETAMINOPHEN TAB 650MG DOSE (2X325MG) PO PRN (21:13)
[2022-12-04] MEDS: CEPHALEXIN 500 MG CAP PO SCH (21:13)
[2022-12-05 01:40] VITALS: BP 124/74; TEMP 97.9; O2SAT 94
[2022-12-05 05:20] VITALS: BP 130/82; TEMP 98.1; O2SAT 92
[2022-12-05] MEDS: HEPARIN SOD (PORCINE) 5000UNITS/ML 1ML VIAL/SYRINGE SC SCH ×3 (05:52→21:52)
[2022-12-05] MEDS: LEVOTHYROXINE 50MCG TABLET (0.05MG) PO SCH (05:53)
[2022-12-05 06:55] LABS: HEMOGLOBIN 11.7 g/dl (12.0-15.5); MEAN CORPUSCULAR HEMOGLOBIN 33.5 pg (27.0-33.0); MEAN CORPUSCULAR HGB CONC 30.8 g/dl (32.0-36.5); MEAN CORPUSCULAR VOLUME 108.9 fl (80.0-96.0); PLATELET COUNT, AUTOMATED 257 10^3/uL (150-450); RED BLOOD COUNT 3.49 10^6/uL (4.00-5.40); WHITE BLOOD COUNT 7.9 10^3/uL (4.0-10.0)
[2022-12-05 07:12] LABS: ALBUMIN 2.5 G/DL (3.2-5.2); BILIRUBIN,TOTAL 0.5 MG/DL (0.3-1.2); CALCIUM LEVEL 8.8 MG/DL (8.3-10.6); CREATININE FOR GFR 1.13 MG/DL (0.55-1.30); GLOMERULAR FILTRATION RATE 48.7 (>32); POTASSIUM SERUM 4.5 MMOL/L (3.5-5.1); TOTAL PROTEIN 5.6 G/DL (5.7-8.2)
[2022-12-05] MEDS: FORMOTEROL FUMARATE 20 MCG/2 ML INHALATION SOLUTION (PERFOROMIST) INH SCH ×2 (07:24→19:17)
[2022-12-05] MEDS: BUDESONIDE 0.5 MG/2 ML INHALATION SUSPENSION INH SCH ×2 (07:24→19:16)
[2022-12-05] MEDS: LEVALBUTEROL 1.25MG 0.5ML CONCENTRATE NEB NEB SCH ×4 (07:25→19:16)
[2022-12-05] MEDS: methylPREDNISolone 125MG 2ML VIAL IV SCH ×3 (07:52→16:08)
[2022-12-05] MEDS: INSULIN LISPRO (NovoLOG) PER UNIT SC SCH ×4 (07:53→21:52)
[2022-12-05] MEDS: ASPIRIN 81MG ENTERIC TABLET PO SCH (08:13)
[2022-12-05] MEDS: FLUoxetine 20MG CAP PO SCH (08:13)
[2022-12-05] MEDS: PANTOPRAZOLE 40MG VIAL IV SCH (08:13)
[2022-12-05] MEDS: FERROUS SULFATE 325MG TAB PO SCH (08:13)
[2022-12-05] MEDS: FUROSEMIDE 40MG/4ML VIAL IV SCH ×2 (08:13→16:10)
[2022-12-05] MEDS: LACTOBACILLUS ACIDOPHILUS CAP (BACID) PO SCH (08:13)
[2022-12-05] MEDS: CEPHALEXIN 500 MG CAP PO SCH ×4 (08:13→21:52)
[2022-12-05 11:28] VITALS: BP 163/73; TEMP 97.9; O2SAT 96
[2022-12-05 14:00] VITALS: BP 119/56; TEMP 97.7; O2SAT 95
[2022-12-05 18:00] VITALS: BP 148/72; TEMP 97.7; O2SAT 95
[2022-12-05 22:00] VITALS: BP 168/72; TEMP 97.3; O2SAT 95
[2022-12-06] VITALS (7 sets, daily range): BP systolic 137–197; BP diastolic 58–76; TEMP 97.4–98.1; O2SAT 88–94
[2022-12-06] MEDS: methylPREDNISolone 125MG 2ML VIAL IV SCH ×2 (00:04→12:38)
[2022-12-06] MEDS: LEVOTHYROXINE 50MCG TABLET (0.05MG) PO SCH (05:22)
[2022-12-06] MEDS: **hydrALAZINE HCL** 25 MG TAB PO PRN (05:24)
[2022-12-06] MEDS: HEPARIN SOD (PORCINE) 5000UNITS/ML 1ML VIAL/SYRINGE SC SCH ×3 (05:25→21:20)
[2022-12-06 06:25] LABS: HEMATOCRIT 36.3 % (36.0-47.0); HEMOGLOBIN 11.3 g/dl (12.0-15.5); MEAN CORPUSCULAR HEMOGLOBIN 33.5 pg (27.0-33.0); MEAN CORPUSCULAR HGB CONC 31.1 g/dl (32.0-36.5); MEAN CORPUSCULAR VOLUME 107.7 fl (80.0-96.0); PLATELET COUNT, AUTOMATED 227 10^3/uL (150-450); RED BLOOD COUNT 3.37 10^6/uL (4.00-5.40); WHITE BLOOD COUNT 8.8 10^3/uL (4.0-10.0)
[2022-12-06 07:02] LABS: ALBUMIN 2.4 G/DL (3.2-5.2); ALKALINE PHOSPHATASE 70 U/L (46-116); ALT/SGPT 17 U/L (7.0-40); AST/SGOT 13 U/L (<34); BILIRUBIN,TOTAL 0.5 MG/DL (0.3-1.2); BLOOD UREA NITROGEN 28 MG/DL (9-23); CALCIUM LEVEL 8.9 MG/DL (8.3-10.6); CARBON DIOXIDE LEVEL > 40.0 MMOL/L (20-31); CHLORIDE LEVEL 92 MMOL/L (98-107); GLOMERULAR FILTRATION RATE 50.3 (>32); GLUCOSE, FASTING 215 MG/DL (74-106); SODIUM LEVEL 137 MMOL/L (136-145); TOTAL PROTEIN 5.2 G/DL (5.7-8.2)
[2022-12-06] MEDS: BUDESONIDE 0.5 MG/2 ML INHALATION SUSPENSION INH SCH ×2 (08:27→19:26)
[2022-12-06] MEDS: FORMOTEROL FUMARATE 20 MCG/2 ML INHALATION SOLUTION (PERFOROMIST) INH SCH ×2 (08:27→19:26)
[2022-12-06] MEDS: LEVALBUTEROL 1.25MG 0.5ML CONCENTRATE NEB NEB SCH ×4 (08:27→19:26)
[2022-12-06] MEDS: FLUoxetine 20MG CAP PO SCH (09:33)
[2022-12-06] MEDS: FUROSEMIDE 40 MG TAB PO SCH (09:34)
[2022-12-06] MEDS: CEPHALEXIN 500 MG CAP PO SCH ×4 (09:35→21:20)
[2022-12-06] MEDS: FERROUS SULFATE 325MG TAB PO SCH (09:35)
[2022-12-06] MEDS: ASPIRIN 81MG ENTERIC TABLET PO SCH (09:35)
[2022-12-06] MEDS: LACTOBACILLUS ACIDOPHILUS CAP (BACID) PO SCH (09:36)
[2022-12-06] MEDS: PANTOPRAZOLE 40MG VIAL IV SCH (09:37)
[2022-12-06] MEDS: INSULIN LISPRO (NovoLOG) PER UNIT SC SCH ×4 (09:38→21:19)
[2022-12-07] MEDS: methylPREDNISolone 125MG 2ML VIAL IV SCH ×2 (00:13→12:45)
[2022-12-07 05:32] VITALS: BP 171/79
[2022-12-07] MEDS: LEVOTHYROXINE 50MCG TABLET (0.05MG) PO SCH (05:32)
[2022-12-07] MEDS: HEPARIN SOD (PORCINE) 5000UNITS/ML 1ML VIAL/SYRINGE SC SCH ×3 (05:32→21:34)
[2022-12-07] MEDS: **hydrALAZINE HCL** 25 MG TAB PO PRN (05:32)
[2022-12-07 06:00] VITALS: BP 171/79; TEMP 98.1; O2SAT 93
[2022-12-07 06:09] LABS: HEMATOCRIT 40.1 % (36.0-47.0); HEMOGLOBIN 12.4 g/dl (12.0-15.5); MEAN CORPUSCULAR HEMOGLOBIN 33.2 pg (27.0-33.0); MEAN CORPUSCULAR HGB CONC 30.9 g/dl (32.0-36.5); MEAN CORPUSCULAR VOLUME 107.5 fl (80.0-96.0); PLATELET COUNT, AUTOMATED 240 10^3/uL (150-450); RED BLOOD COUNT 3.73 10^6/uL (4.00-5.40); WHITE BLOOD COUNT 11.8 10^3/uL (4.0-10.0)
[2022-12-07 06:41] LABS: ALBUMIN 2.6 G/DL (3.2-5.2); ALKALINE PHOSPHATASE 84 U/L (46-116); ALT/SGPT 26 U/L (7.0-40); AST/SGOT 19 U/L (<34); BILIRUBIN,TOTAL 0.6 MG/DL (0.3-1.2); BLOOD UREA NITROGEN 28 MG/DL (9-23); CARBON DIOXIDE LEVEL > 40.0 MMOL/L (20-31); CHLORIDE LEVEL 93 MMOL/L (98-107); CREATININE FOR GFR 1.15 MG/DL (0.55-1.30); GLOMERULAR FILTRATION RATE 47.7 (>32); GLUCOSE, FASTING 229 MG/DL (74-106); POTASSIUM SERUM 4.1 MMOL/L (3.5-5.1); SODIUM LEVEL 139 MMOL/L (136-145); TOTAL PROTEIN 5.8 G/DL (5.7-8.2)
[2022-12-07] MEDS: FORMOTEROL FUMARATE 20 MCG/2 ML INHALATION SOLUTION (PERFOROMIST) INH SCH ×2 (07:10→19:32)
[2022-12-07] MEDS: LEVALBUTEROL 1.25MG 0.5ML CONCENTRATE NEB NEB SCH ×4 (07:11→19:33)
[2022-12-07] MEDS: BUDESONIDE 0.5 MG/2 ML INHALATION SUSPENSION INH SCH ×2 (07:11→19:33)
[2022-12-07] MEDS: INSULIN LISPRO (NovoLOG) PER UNIT SC SCH ×4 (07:59→21:00)
[2022-12-07] MEDS: ASPIRIN 81MG ENTERIC TABLET PO SCH (08:00)
[2022-12-07] MEDS: PANTOPRAZOLE 40MG TAB (PROTONIX) PO SCH (08:00)
[2022-12-07] MEDS: CEPHALEXIN 500 MG CAP PO SCH ×4 (08:00→21:33)
[2022-12-07] MEDS: LACTOBACILLUS ACIDOPHILUS CAP (BACID) PO SCH (08:00)
[2022-12-07] MEDS: FUROSEMIDE 40 MG TAB PO SCH (08:00)
[2022-12-07] MEDS: FLUoxetine 20MG CAP PO SCH (08:01)
[2022-12-07] MEDS: FERROUS SULFATE 325MG TAB PO SCH (08:01)
[2022-12-07 14:00] VITALS: BP 146/64; TEMP 98.1; O2SAT 94
[2022-12-07] MEDS ORDERED: CEPHALEXIN 500 MG CAP PO SCH (17:00)
[2022-12-07 19:35] VITALS: O2SAT 95
[2022-12-07 21:30] VITALS: BP 138/56; TEMP 98.2; O2SAT 92
[2022-12-07] MEDS: LEVEMIR (INSULIN DETEMIR) 1 UNITS/0.01ML SC SCH (21:33)
[2022-12-07] MEDS ORDERED: guaiFENesin DM LIQ 10ML UD PO PRN (21:35)
[2022-12-08] MEDS: methylPREDNISolone 125MG 2ML VIAL IV SCH (00:02)
[2022-12-08 06:00] VITALS: BP 140/68; TEMP 97.7; O2SAT 92
[2022-12-08] MEDS: LEVOTHYROXINE 50MCG TABLET (0.05MG) PO SCH (06:14)
[2022-12-08] MEDS: HEPARIN SOD (PORCINE) 5000UNITS/ML 1ML VIAL/SYRINGE SC SCH ×3 (06:14→21:21)
[2022-12-08 06:24] LABS: HEMATOCRIT 36.5 % (36.0-47.0); HEMOGLOBIN 11.5 g/dl (12.0-15.5); MEAN CORPUSCULAR HGB CONC 31.5 g/dl (32.0-36.5); PLATELET COUNT, AUTOMATED 208 10^3/uL (150-450); RED BLOOD COUNT 3.38 10^6/uL (4.00-5.40); WHITE BLOOD COUNT 10.3 10^3/uL (4.0-10.0)
[2022-12-08 06:41] LABS: ALBUMIN 2.4 G/DL (3.2-5.2); ALKALINE PHOSPHATASE 74 U/L (46-116); ALT/SGPT 24 U/L (7.0-40); AST/SGOT 16 U/L (<34); BILIRUBIN,TOTAL 0.6 MG/DL (0.3-1.2); BLOOD UREA NITROGEN 27 MG/DL (9-23); CALCIUM LEVEL 8.9 MG/DL (8.3-10.6); CARBON DIOXIDE LEVEL > 40.0 MMOL/L (20-31); CHLORIDE LEVEL 93 MMOL/L (98-107); CREATININE FOR GFR 1.08 MG/DL (0.55-1.30); GLOMERULAR FILTRATION RATE 51.3 (>32); GLUCOSE, FASTING 199 MG/DL (74-106); SODIUM LEVEL 139 MMOL/L (136-145); TOTAL PROTEIN 5.2 G/DL (5.7-8.2)
[2022-12-08] MEDS: FORMOTEROL FUMARATE 20 MCG/2 ML INHALATION SOLUTION (PERFOROMIST) INH SCH ×2 (07:13→20:12)
[2022-12-08] MEDS: LEVALBUTEROL 1.25MG 0.5ML CONCENTRATE NEB NEB SCH ×4 (07:13→19:58)
[2022-12-08] MEDS: BUDESONIDE 0.5 MG/2 ML INHALATION SUSPENSION INH SCH ×2 (07:13→19:58)
[2022-12-08] MEDS: FERROUS SULFATE 325MG TAB PO SCH (08:08)
[2022-12-08] MEDS: CEPHALEXIN 500 MG CAP PO SCH ×4 (08:08→21:20)
[2022-12-08] MEDS: FLUoxetine 20MG CAP PO SCH (08:08)
[2022-12-08] MEDS: FUROSEMIDE 40 MG TAB PO SCH (08:08)
[2022-12-08] MEDS: ASPIRIN 81MG ENTERIC TABLET PO SCH (08:08)
[2022-12-08] MEDS: predniSONE 20 MG TAB PO SCH (08:08)
[2022-12-08] MEDS: LACTOBACILLUS ACIDOPHILUS CAP (BACID) PO SCH (08:09)
[2022-12-08] MEDS: PANTOPRAZOLE 40MG TAB (PROTONIX) PO SCH (08:09)
[2022-12-08] MEDS: INSULIN LISPRO (NovoLOG) PER UNIT SC SCH ×4 (08:09→21:00)
[2022-12-08] MEDS ORDERED: LEVEMIR (INSULIN DETEMIR) 1 UNITS/0.01ML SC SCH (09:00)
[2022-12-08 14:00] VITALS: BP 148/65; TEMP 97.1; O2SAT 95
[2022-12-08 21:10] VITALS: BP 136/54; TEMP 97.7; O2SAT 92
[2022-12-08] MEDS: LEVEMIR (INSULIN DETEMIR) 1 UNITS/0.01ML SC SCH (21:21)
[2022-12-09 05:40] VITALS: BP 118/74; TEMP 97.9; O2SAT 94
[2022-12-09] MEDS: LEVOTHYROXINE 50MCG TABLET (0.05MG) PO SCH (05:46)
[2022-12-09] MEDS: HEPARIN SOD (PORCINE) 5000UNITS/ML 1ML VIAL/SYRINGE SC SCH ×3 (05:47→20:47)
[2022-12-09 06:25] LABS: HEMATOCRIT 36.7 % (36.0-47.0); HEMOGLOBIN 11.2 g/dl (12.0-15.5); MEAN CORPUSCULAR HGB CONC 30.5 g/dl (32.0-36.5); MEAN CORPUSCULAR VOLUME 108.3 fl (80.0-96.0); PLATELET COUNT, AUTOMATED 192 10^3/uL (150-450); RED BLOOD COUNT 3.39 10^6/uL (4.00-5.40); WHITE BLOOD COUNT 10.6 10^3/uL (4.0-10.0)
[2022-12-09 06:45] LABS: ALKALINE PHOSPHATASE 85 U/L (46-116); ALT/SGPT 24 U/L (7.0-40); AST/SGOT 17 U/L (<34); BILIRUBIN,TOTAL 0.4 MG/DL (0.3-1.2); BLOOD UREA NITROGEN 28 MG/DL (9-23); CALCIUM LEVEL 8.6 MG/DL (8.3-10.6); CARBON DIOXIDE LEVEL > 40.0 MMOL/L (20-31); CHLORIDE LEVEL 93 MMOL/L (98-107); CREATININE FOR GFR 1.05 MG/DL (0.55-1.30); GLUCOSE, FASTING 158 MG/DL (74-106); POTASSIUM SERUM 3.1 MMOL/L (3.5-5.1); SODIUM LEVEL 139 MMOL/L (136-145); TOTAL PROTEIN 4.8 G/DL (5.7-8.2)
[2022-12-09] MEDS: LEVALBUTEROL 1.25MG 0.5ML CONCENTRATE NEB NEB SCH ×4 (07:22→19:31)
[2022-12-09] MEDS: BUDESONIDE 0.5 MG/2 ML INHALATION SUSPENSION INH SCH ×2 (07:23→19:31)
[2022-12-09] MEDS: FORMOTEROL FUMARATE 20 MCG/2 ML INHALATION SOLUTION (PERFOROMIST) INH SCH ×2 (07:23→19:31)
[2022-12-09] MEDS ORDERED: POTASSIUM CHLORIDE 10MEQ SR TABLET PO ONE ×2 (08:00→09:15)
[2022-12-09] MEDS ORDERED: KCL 10MEQ/100ML SWI (KRUN) 10 MEQ in IV 1 EA IV SCH (08:00)
[2022-12-09] MEDS: LEVEMIR (INSULIN DETEMIR) 1 UNITS/0.01ML SC SCH ×2 (08:06→20:48)
[2022-12-09] MEDS: predniSONE 20 MG TAB PO SCH (08:07)
[2022-12-09] MEDS: INSULIN LISPRO (NovoLOG) PER UNIT SC SCH ×4 (08:07→20:49)
[2022-12-09] MEDS: FLUoxetine 20MG CAP PO SCH (08:07)
[2022-12-09] MEDS: FERROUS SULFATE 325MG TAB PO SCH (08:07)
[2022-12-09] MEDS: ASPIRIN 81MG ENTERIC TABLET PO SCH (08:07)
[2022-12-09] MEDS: PANTOPRAZOLE 40MG TAB (PROTONIX) PO SCH (08:07)
[2022-12-09] MEDS: FUROSEMIDE 40 MG TAB PO SCH (08:07)
[2022-12-09] MEDS: LACTOBACILLUS ACIDOPHILUS CAP (BACID) PO SCH (08:07)
[2022-12-09 11:53] LABS: BLOOD UREA NITROGEN 30 MG/DL (9-23); CALCIUM LEVEL 8.5 MG/DL (8.3-10.6); CARBON DIOXIDE LEVEL > 40.0 MMOL/L (20-31); CHLORIDE LEVEL 94 MMOL/L (98-107); GLOMERULAR FILTRATION RATE 50.3 (>32); GLUCOSE, FASTING 262 MG/DL (74-106); MAGNESIUM LEVEL 1.6 MG/DL (1.8-2.4); POTASSIUM SERUM 4.6 MMOL/L (3.5-5.1); SODIUM LEVEL 140 MMOL/L (136-145)
[2022-12-09 14:00] VITALS: BP 122/60; TEMP 97; O2SAT 94
[2022-12-09 15:21] LABS: ALBUMIN 2.2 G/DL (3.2-5.2)
[2022-12-09 19:43] VITALS: BP 144/68; TEMP 96.6; O2SAT 99
[2022-12-09] MEDS: MAGNESIUM OXIDE 400MG TAB (MAG-OX) PO SCH (20:47)
[2022-12-10 05:40] VITALS: BP 142/62; TEMP 97.7; O2SAT 96
[2022-12-10 05:52] LABS: HEMATOCRIT 36.9 % (36.0-47.0); HEMOGLOBIN 11.1 g/dl (12.0-15.5); MEAN CORPUSCULAR HGB CONC 30.1 g/dl (32.0-36.5); MEAN CORPUSCULAR VOLUME 109.8 fl (80.0-96.0); PLATELET COUNT, AUTOMATED 167 10^3/uL (150-450); RED BLOOD COUNT 3.36 10^6/uL (4.00-5.40); WHITE BLOOD COUNT 11.6 10^3/uL (4.0-10.0)
[2022-12-10] MEDS: HEPARIN SOD (PORCINE) 5000UNITS/ML 1ML VIAL/SYRINGE SC SCH ×3 (05:53→20:44)
[2022-12-10] MEDS: LEVOTHYROXINE 50MCG TABLET (0.05MG) PO SCH (05:53)
[2022-12-10 06:20] LABS: ALBUMIN 2.2 G/DL (3.2-5.2); ALKALINE PHOSPHATASE 69 U/L (46-116); ALT/SGPT 38 U/L (7.0-40); AST/SGOT 24 U/L (<34); BILIRUBIN,TOTAL 0.5 MG/DL (0.3-1.2); BLOOD UREA NITROGEN 29 MG/DL (9-23); CALCIUM LEVEL 8.6 MG/DL (8.3-10.6); CARBON DIOXIDE LEVEL > 40.0 MMOL/L (20-31); CHLORIDE LEVEL 96 MMOL/L (98-107); CREATININE FOR GFR 1.19 MG/DL (0.55-1.30); GLOMERULAR FILTRATION RATE 45.9 (>32); GLUCOSE, FASTING 86 MG/DL (74-106); MAGNESIUM LEVEL 1.7 MG/DL (1.8-2.4); POTASSIUM SERUM 4.4 MMOL/L (3.5-5.1); SODIUM LEVEL 140 MMOL/L (136-145)
[2022-12-10] MEDS ORDERED: FURO40TA2 PO (06:30)
[2022-12-10] MEDS ORDERED: MAGN400T2 PO (06:31)
[2022-12-10] MEDS ORDERED: INSUDET SC ×2 (06:38)
[2022-12-10] MEDS: LEVALBUTEROL 1.25MG 0.5ML CONCENTRATE NEB NEB SCH (06:57)
[2022-12-10] MEDS: BUDESONIDE 0.5 MG/2 ML INHALATION SUSPENSION INH SCH ×2 (06:57→19:26)
[2022-12-10] MEDS: FORMOTEROL FUMARATE 20 MCG/2 ML INHALATION SOLUTION (PERFOROMIST) INH SCH ×2 (06:58→19:26)
[2022-12-10] MEDS: INSULIN LISPRO (NovoLOG) PER UNIT SC SCH ×4 (07:30→20:45)
[2022-12-10 07:58] LABS: HEMOGLOBIN A1c 6.9 % (4.0-6.0)
[2022-12-10] MEDS: FERROUS SULFATE 325MG TAB PO SCH (08:00)
[2022-12-10] MEDS: FUROSEMIDE 40 MG TAB PO SCH (08:00)
[2022-12-10] MEDS: MAGNESIUM OXIDE 400MG TAB (MAG-OX) PO SCH ×2 (08:00→20:45)
[2022-12-10] MEDS: PANTOPRAZOLE 40MG TAB (PROTONIX) PO SCH (08:00)
[2022-12-10] MEDS: FLUoxetine 20MG CAP PO SCH (08:01)
[2022-12-10] MEDS: LACTOBACILLUS ACIDOPHILUS CAP (BACID) PO SCH (08:01)
[2022-12-10] MEDS: ASPIRIN 81MG ENTERIC TABLET PO SCH (08:01)
[2022-12-10] MEDS: LEVEMIR (INSULIN DETEMIR) 1 UNITS/0.01ML SC SCH ×2 (08:01→20:44)
[2022-12-10] MEDS ORDERED: ONDANSETRON 4MG TAB PO ONE (09:35)
[2022-12-10 09:54] VITALS: BP 104/66; TEMP 97.7; O2SAT 94
[2022-12-10 12:03] VITALS: BP 108/68; TEMP 97.5; O2SAT 95
[2022-12-10 14:00] VITALS: BP 110/60; TEMP 97.5; O2SAT 89
[2022-12-10 20:00] VITALS: BP 141/63; TEMP 97.7; O2SAT 93
[2022-12-10] MEDS: ACETAMINOPHEN TAB 650MG DOSE (2X325MG) PO PRN (20:45)
[2022-12-11] MEDS: LEVOTHYROXINE 50MCG TABLET (0.05MG) PO SCH (05:28)
[2022-12-11] MEDS: HEPARIN SOD (PORCINE) 5000UNITS/ML 1ML VIAL/SYRINGE SC SCH (05:28)
[2022-12-11 06:00] VITALS: BP 156/70; TEMP 97.5; O2SAT 90
[2022-12-11] MEDS: BUDESONIDE 0.5 MG/2 ML INHALATION SUSPENSION INH SCH (07:46)
[2022-12-11] MEDS: FORMOTEROL FUMARATE 20 MCG/2 ML INHALATION SOLUTION (PERFOROMIST) INH SCH (07:46)
[2022-12-11] MEDS: INSULIN LISPRO (NovoLOG) PER UNIT SC SCH (08:08)
[2022-12-11] MEDS: LEVEMIR (INSULIN DETEMIR) 1 UNITS/0.01ML SC SCH (08:08)
[2022-12-11] MEDS: MAGNESIUM OXIDE 400MG TAB (MAG-OX) PO SCH (08:08)
[2022-12-11] MEDS: FERROUS SULFATE 325MG TAB PO SCH (08:08)
[2022-12-11] MEDS: FUROSEMIDE 40 MG TAB PO SCH (08:09)
[2022-12-11] MEDS: PANTOPRAZOLE 40MG TAB (PROTONIX) PO SCH (08:09)
[2022-12-11] MEDS: ASPIRIN 81MG ENTERIC TABLET PO SCH (08:09)
[2022-12-11] MEDS: LACTOBACILLUS ACIDOPHILUS CAP (BACID) PO SCH (08:09)
[2022-12-11] MEDS: FLUoxetine 20MG CAP PO SCH (08:09)
== END 2022-12-11 10:32 | DRG 871 ==
LOC: M ED 14:04 → EDBD 14:04 → EDSEX 14:04 → M ED INP 19:04 → M PCU 22:21 → M MSPAV 12-04 18:53
PROVIDERS: ADMIT Internal Medicine; ATTEND Student in an Organized Health Care Education/Training Program
DX: A41.9 Sepsis, unspecified organism (principal); J18.9 Pneumonia, unspecified organism; I50.33 Acute on chronic diastolic (congestive) heart failure; J96.21 Acute and chronic respiratory failure with hypoxia; G93.41 Metabolic encephalopathy; N17.9 Acute kidney failure, unspecified; J44.1 Chronic obstructive pulmonary disease with (acute) exacerbation; J44.0 Chronic obstructive pulmonary disease with (acute) lower respiratory infection; B37.49 Other urogenital candidiasis; N18.9 Chronic kidney disease, unspecified; I25.10 Atherosclerotic heart disease of native coronary artery without angina pectoris; F32.A Depression, unspecified; E03.9 Hypothyroidism, unspecified; F03.90 Unspecified dementia, unspecified severity, without behavioral disturbance, psychotic disturbance, mood disturbance, and anxiety; I49.5 Sick sinus syndrome; Z66 Do not resuscitate; D47.2 Monoclonal gammopathy; K21.9 Gastro-esophageal reflux disease without esophagitis; I80.8 Phlebitis and thrombophlebitis of other sites; Z88.5 Allergy status to narcotic agent; D63.1 Anemia in chronic kidney disease; E87.6 Hypokalemia; E83.42 Hypomagnesemia; Z95.0 Presence of cardiac pacemaker; Z99.81 Dependence on supplemental oxygen; Z79.82 Long term (current) use of aspirin; Z79.890 Hormone replacement therapy; Z79.899 Other long term (current) drug therapy; Z90.49 Acquired absence of other specified parts of digestive tract

== ENCOUNTER → 2022-12-08 | Outpatient (REF) | payer MEDICARE, MEDICAID ==
[~2022-12-08] MED LIST changes: +ARTIDRO4 OU; +B-12100010 PO; +B-121TAB3 PO; +BACI1CAP PO; +CETI10CA13 PO; +ELID1CRE11 TOP; +FERR325T18 PO; +FLUO40CA PO; +FURO40TA2 PO; +INCR1INH; +INSUDET SC; +MAGN400T2 PO; +TRIAMCINOLONE TOP
== END ==
PROVIDERS: ATTEND Nurse Practitioner Family
DX: N39.0 Urinary tract infection, site not specified (principal); Z16.12 Extended spectrum beta lactamase (ESBL) resistance; Z53.8 Procedure and treatment not carried out for other reasons

== ENCOUNTER → 2022-12-15 | Outpatient (REF) | payer MEDICARE, MEDICAID ==
[2022-12-15 11:26] LABS: BASO % 0.1 % (0.0-1.0); EOS # 0.1 10^3/uL (0.0-0.5); EOS % 0.4 % (0.0-3.0); HEMATOCRIT 38.7 % (36.0-47.0); HEMOGLOBIN 11.6 g/dl (12.0-15.5); LYMPH # 0.7 10^3/uL (1.5-5.0); LYMPH % 5.1 % (24.0-44.0); MEAN CORPUSCULAR HEMOGLOBIN 33.5 pg (27.0-33.0); MEAN CORPUSCULAR VOLUME 111.8 fl (80.0-96.0); MONO # 0.8 10^3/uL (0.0-0.8); MONO % 5.5 % (2.0-8.0); NEUTROPHILS # 12.2 10^3/uL (1.5-8.5); NEUTROPHILS % 87.9 % (36.0-66.0); PLATELET COUNT, AUTOMATED 244 10^3/uL (150-450); RED BLOOD COUNT 3.46 10^6/uL (4.00-5.40); WHITE BLOOD COUNT 13.9 10^3/uL (4.0-10.0)
[2022-12-15 11:50] LABS: ALBUMIN 2.5 G/DL (3.2-5.2); CALCIUM LEVEL 8.6 MG/DL (8.3-10.6); CREATININE FOR GFR 1.33 MG/DL (0.55-1.30); GLOMERULAR FILTRATION RATE 40.4 (>32); PHOSPHORUS LEVEL 2.9 MG/DL (2.4-5.1); POTASSIUM SERUM 4.6 MMOL/L (3.5-5.1)
== END ==
PROVIDERS: ATTEND Nurse Practitioner Family
DX: N39.0 Urinary tract infection, site not specified (principal); Z16.12 Extended spectrum beta lactamase (ESBL) resistance

== ENCOUNTER → 2022-12-19 | Outpatient (REF) | payer MEDICARE, MEDICAID | PROVIDERS: ATTEND Nurse Practitioner Family | DX: N39.0 Urinary tract infection, site not specified (principal) ==

== ENCOUNTER → 2022-12-22 | Outpatient (REF) | payer MEDICARE, MEDICAID | PROVIDERS: ATTEND Nurse Practitioner Family | DX: N39.0 Urinary tract infection, site not specified (principal); Z53.8 Procedure and treatment not carried out for other reasons ==

== ENCOUNTER → 2022-12-23 | Outpatient (REF) | payer MEDICARE, MEDICAID ==
[2022-12-23 16:03] LABS: HEMOGLOBIN 10.6 g/dl (12.0-15.5); MEAN CORPUSCULAR HEMOGLOBIN 33.4 pg (27.0-33.0); MEAN CORPUSCULAR HGB CONC 30.3 g/dl (32.0-36.5); MEAN CORPUSCULAR VOLUME 110.4 fl (80.0-96.0); PLATELET COUNT, AUTOMATED 209 10^3/uL (150-450); RED BLOOD COUNT 3.17 10^6/uL (4.00-5.40); WHITE BLOOD COUNT 10.9 10^3/uL (4.0-10.0)
[2022-12-23 16:29] LABS: CALCIUM LEVEL 8.4 MG/DL (8.3-10.6); CREATININE FOR GFR 1.3 MG/DL (0.55-1.30); GLOMERULAR FILTRATION RATE 41.4 (>32); POTASSIUM SERUM 3.9 MMOL/L (3.5-5.1)
== END ==
PROVIDERS: ATTEND Internal Medicine
DX: N39.0 Urinary tract infection, site not specified (principal)

== ENCOUNTER → 2022-12-24 | Outpatient (REF) | payer MEDICARE, MEDICAID ==
[2022-12-24 11:41] LABS: HEMATOCRIT 36.6 % (36.0-47.0); HEMOGLOBIN 11.1 g/dl (12.0-15.5); MEAN CORPUSCULAR HEMOGLOBIN 33.5 pg (27.0-33.0); MEAN CORPUSCULAR HGB CONC 30.3 g/dl (32.0-36.5); MEAN CORPUSCULAR VOLUME 110.6 fl (80.0-96.0); PLATELET COUNT, AUTOMATED 212 10^3/uL (150-450); RED BLOOD COUNT 3.31 10^6/uL (4.00-5.40); WHITE BLOOD COUNT 10.7 10^3/uL (4.0-10.0)
== END ==
PROVIDERS: ATTEND Internal Medicine
DX: D64.9 Anemia, unspecified (principal)

== ENCOUNTER → 2022-12-26 | Outpatient (REF) | payer MEDICARE, MEDICAID ==
[2022-12-26 09:54] LABS: BASO % 0.3 % (0.0-1.0); EOS # 0.1 10^3/uL (0.0-0.5); EOS % 0.8 % (0.0-3.0); HEMATOCRIT 34.8 % (36.0-47.0); HEMOGLOBIN 10.6 g/dl (12.0-15.5); LYMPH # 1.1 10^3/uL (1.5-5.0); LYMPH % 11.5 % (24.0-44.0); MEAN CORPUSCULAR HEMOGLOBIN 33.3 pg (27.0-33.0); MEAN CORPUSCULAR HGB CONC 30.5 g/dl (32.0-36.5); MEAN CORPUSCULAR VOLUME 109.4 fl (80.0-96.0); MONO # 0.7 10^3/uL (0.0-0.8); MONO % 7.9 % (2.0-8.0); NEUTROPHILS # 7.2 10^3/uL (1.5-8.5); NEUTROPHILS % 78.2 % (36.0-66.0); PLATELET COUNT, AUTOMATED 229 10^3/uL (150-450); RED BLOOD COUNT 3.18 10^6/uL (4.00-5.40); WHITE BLOOD COUNT 9.2 10^3/uL (4.0-10.0)
[2022-12-26 10:21] LABS: ALBUMIN 2.3 G/DL (3.2-5.2); BILIRUBIN,TOTAL 0.5 MG/DL (0.3-1.2); CALCIUM LEVEL 8.7 MG/DL (8.3-10.6); CREATININE FOR GFR 1.31 MG/DL (0.55-1.30); GLOMERULAR FILTRATION RATE 41.1 (>32); POTASSIUM SERUM 4.4 MMOL/L (3.5-5.1); TOTAL PROTEIN 5.1 G/DL (5.7-8.2)
== END ==
PROVIDERS: ATTEND Nurse Practitioner Family
DX: N39.0 Urinary tract infection, site not specified (principal)

== ENCOUNTER → 2022-12-29 | Outpatient (REF) | payer MEDICARE, MEDICAID ==
[2022-12-29 15:57] LABS: BASO % 0.3 % (0.0-1.0); EOS % 0.2 % (0.0-3.0); HEMATOCRIT 36.8 % (36.0-47.0); HEMOGLOBIN 11.1 g/dl (12.0-15.5); LYMPH # 0.8 10^3/uL (1.5-5.0); LYMPH % 7.5 % (24.0-44.0); MEAN CORPUSCULAR HEMOGLOBIN 33.3 pg (27.0-33.0); MEAN CORPUSCULAR HGB CONC 30.2 g/dl (32.0-36.5); MEAN CORPUSCULAR VOLUME 110.5 fl (80.0-96.0); MONO # 0.5 10^3/uL (0.0-0.8); MONO % 4.2 % (2.0-8.0); NEUTROPHILS # 9.5 10^3/uL (1.5-8.5); NEUTROPHILS % 85.9 % (36.0-66.0); PLATELET COUNT, AUTOMATED 286 10^3/uL (150-450); RED BLOOD COUNT 3.33 10^6/uL (4.00-5.40)
[2022-12-29 16:33] LABS: ALBUMIN 2.6 G/DL (3.2-5.2); BILIRUBIN,TOTAL 0.3 MG/DL (0.3-1.2); CREATININE FOR GFR 1.77 MG/DL (0.55-1.30); POTASSIUM SERUM 4.4 MMOL/L (3.5-5.1); TOTAL PROTEIN 5.9 G/DL (5.7-8.2)
== END ==
PROVIDERS: ATTEND Nurse Practitioner Family
DX: N39.0 Urinary tract infection, site not specified (principal)

== ENCOUNTER → 2023-01-02 | Outpatient (REF) | payer MEDICARE, MEDICAID | PROVIDERS: ATTEND Nurse Practitioner Family | DX: N39.0 Urinary tract infection, site not specified (principal) ==

== ENCOUNTER → 2023-01-12 | Outpatient (REF) | payer MEDICARE, MEDICAID ==
[~2023-01-12] MED LIST changes: +ACET1TAB55 PO; +ALBU2.5V10 INH; +DESI13CR2 TOP; +DULC10SU2 PR; +ENEMENE PR; +ERTA1INJ2 IM; +GLUC1KIT IM; +INCR1INH INH; +INSU100I48 SQ; +LACT237L59 PO; +MAGN400T35 PO; +NOVOINJ3 SC; +TRUL0.5I SC
[2023-01-12 11:36] LABS: BASO % 0.3 % (0.0-1.0); EOS % 0.3 % (0.0-3.0); HEMATOCRIT 36.1 % (36.0-47.0); LYMPH # 1.7 10^3/uL (1.5-5.0); LYMPH % 14.6 % (24.0-44.0); MEAN CORPUSCULAR HEMOGLOBIN 33.5 pg (27.0-33.0); MEAN CORPUSCULAR HGB CONC 30.5 g/dl (32.0-36.5); MEAN CORPUSCULAR VOLUME 110.1 fl (80.0-96.0); NEUTROPHILS % 75.7 % (36.0-66.0); PLATELET COUNT, AUTOMATED 249 10^3/uL (150-450); RED BLOOD COUNT 3.28 10^6/uL (4.00-5.40); WHITE BLOOD COUNT 11.9 10^3/uL (4.0-10.0)
[2023-01-12 12:09] LABS: ALBUMIN 2.5 G/DL (3.2-5.2); BILIRUBIN,TOTAL 0.4 MG/DL (0.3-1.2); CALCIUM LEVEL 8.9 MG/DL (8.3-10.6); CREATININE FOR GFR 1.46 MG/DL (0.55-1.30); GLOMERULAR FILTRATION RATE 36.2 (>32); MAGNESIUM LEVEL 1.9 MG/DL (1.8-2.4); POTASSIUM SERUM 3.3 MMOL/L (3.5-5.1); TOTAL PROTEIN 5.3 G/DL (5.7-8.2)
== END ==
PROVIDERS: ATTEND Nurse Practitioner Family
DX: N18.9 Chronic kidney disease, unspecified (principal)

== ENCOUNTER → 2023-01-15 | Outpatient (REF) | payer MEDICARE, MEDICAID | PROVIDERS: ATTEND Internal Medicine | DX: N18.9 Chronic kidney disease, unspecified (principal); Z53.8 Procedure and treatment not carried out for other reasons ==

== ENCOUNTER → 2023-01-16 | Outpatient (REF) | payer MEDICARE, MEDICAID | PROVIDERS: ATTEND Internal Medicine | DX: E87.6 Hypokalemia (principal); Z53.8 Procedure and treatment not carried out for other reasons ==

== ENCOUNTER → 2023-01-19 | Outpatient (REF) | PROVIDERS: ATTEND Nurse Practitioner Family | DX: N18.9 Chronic kidney disease, unspecified (principal); Z53.8 Procedure and treatment not carried out for other reasons ==

== ENCOUNTER → 2023-02-16 | Outpatient (REF) | payer MEDICARE, MEDICAID ==
[~2023-02-16] MED LIST changes: -BIOT50004 PO; +BIOT5CAP8 PO; +CEFD1CAP9 PO; -CEFD300C42 PO
== END ==
PROVIDERS: ATTEND Internal Medicine
DX: E83.42 Hypomagnesemia (principal)

== ENCOUNTER → 2023-03-23 | Outpatient (REF) | payer MEDICARE, MEDICAID | PROVIDERS: ATTEND Internal Medicine | DX: E83.42 Hypomagnesemia (principal) ==

== ENCOUNTER → 2023-04-02 | Outpatient (REF) | payer MEDICARE, MEDICAID | PROVIDERS: ATTEND Internal Medicine | DX: I50.9 Heart failure, unspecified (principal); J90 Pleural effusion, not elsewhere classified; Z95.0 Presence of cardiac pacemaker ==

== ENCOUNTER → 2023-04-02 | Outpatient (REF) | payer MEDICARE, MEDICAID ==
[2023-04-02 17:38] LABS: MEAN CORPUSCULAR HEMOGLOBIN 33.5 pg (27.0-33.0); MEAN CORPUSCULAR HGB CONC 30.6 g/dl (32.0-36.5); MEAN CORPUSCULAR VOLUME 109.8 fl (80.0-96.0); PLATELET COUNT, AUTOMATED 278 10^3/uL (150-450); RED BLOOD COUNT 3.28 10^6/uL (4.00-5.40)
[2023-04-02 17:43] LABS: APPEARANCE, URINE HAZY (CLEAR); BACTERIA, URINE AUTO 1+ (NEGATIVE); BILIRUBIN, URINE AUTO NEGATIVE (NEGATIVE); BLOOD, URINE BLOOD 1+ (NEGATIVE); COLOR, URINE YELLOW (YELLOW); GLUCOSE, URINE (UA) AUTO NEGATIVE (NEGATIVE); KETONE, URINE AUTO NEGATIVE (NEGATIVE); LEUKOCYTE ESTERASE, URINE AUTO TRACE (NEGATIVE); MUCUS, URINE SMALL (NEGATIVE); NITRITE, URINE AUTO NEGATIVE (NEGATIVE); PROTEIN, URINE AUTO NEGATIVE (NEGATIVE); RBC, URINE AUTO 13 /HPF (0-3); SPECIFIC GRAVITY URINE AUTO 1.011 (1.002-1.035); SQUAMOUS EPITHELIAL CELL UR AU 1 /HPF (0-6); UROBILINOGEN, URINE AUTO 0.2 mg/dL (0.0-2.0); WBC, URINE AUTO 29 /HPF (0-3)
[2023-04-02 18:03] LABS: ALBUMIN 2.4 G/DL (3.2-5.2); BILIRUBIN,TOTAL 0.3 MG/DL (0.3-1.2); CALCIUM LEVEL 8.6 MG/DL (8.3-10.6); CREATININE FOR GFR 1.16 MG/DL (0.55-1.30); GLOMERULAR FILTRATION RATE 47.2 (>32); POTASSIUM SERUM 3.7 MMOL/L (3.5-5.1); TOTAL PROTEIN 5.6 G/DL (5.7-8.2)
== END ==
PROVIDERS: ATTEND Physician Assistant
DX: N39.0 Urinary tract infection, site not specified (principal); I50.9 Heart failure, unspecified; J90 Pleural effusion, not elsewhere classified; Z95.0 Presence of cardiac pacemaker

== ENCOUNTER → 2023-04-06 | Outpatient (REF) | payer MEDICARE, MEDICAID ==
[2023-04-06 11:31] LABS: ALBUMIN 2.4 G/DL (3.2-5.2); ALKALINE PHOSPHATASE 64 U/L (46-116); ALT/SGPT < 9 U/L (7.0-40); AST/SGOT 17 U/L (<34); BILIRUBIN,TOTAL 0.3 MG/DL (0.3-1.2); BLOOD UREA NITROGEN 10 MG/DL (9-23); CALCIUM LEVEL 8.9 MG/DL (8.3-10.6); CARBON DIOXIDE LEVEL > 40.0 MMOL/L (20-31); CHLORIDE LEVEL 95 MMOL/L (98-107); CREATININE FOR GFR 0.97 MG/DL (0.55-1.30); GLUCOSE, FASTING 104 MG/DL (74-106); POTASSIUM SERUM 3.4 MMOL/L (3.5-5.1); SODIUM LEVEL 140 MMOL/L (136-145)
== END ==
PROVIDERS: ATTEND Internal Medicine
DX: I50.9 Heart failure, unspecified (principal)

== ENCOUNTER → 2023-04-20 | Outpatient (REF) | payer MEDICARE, MEDICAID ==
[2023-04-20 10:54] LABS: HEMATOCRIT 36.7 % (36.0-47.0); HEMOGLOBIN 10.9 g/dl (12.0-15.5); MEAN CORPUSCULAR HEMOGLOBIN 32.2 pg (27.0-33.0); MEAN CORPUSCULAR HGB CONC 29.7 g/dl (32.0-36.5); MEAN CORPUSCULAR VOLUME 108.6 fl (80.0-96.0); PLATELET COUNT, AUTOMATED 241 10^3/uL (150-450); RED BLOOD COUNT 3.38 10^6/uL (4.00-5.40); WHITE BLOOD COUNT 10.8 10^3/uL (4.0-10.0)
[2023-04-20 11:14] LABS: CREATININE FOR GFR 1.03 MG/DL (0.55-1.30); GLOMERULAR FILTRATION RATE 54.1 (>32); POTASSIUM SERUM 3.3 MMOL/L (3.5-5.1)
== END ==
PROVIDERS: ATTEND Internal Medicine
DX: R41.82 Altered mental status, unspecified (principal)

== ENCOUNTER → 2023-04-22 | Outpatient (REF) | payer MEDICARE, MEDICAID | PROVIDERS: ATTEND Internal Medicine | DX: N18.9 Chronic kidney disease, unspecified (principal) ==

== ENCOUNTER → 2023-04-27 | Outpatient (CLI) | payer MEDICARE, MEDICAID | LOC: M RAD 09:46 | PROVIDERS: ATTEND Nurse Practitioner Family | DX: R91.1 Solitary pulmonary nodule (principal) ==

== ENCOUNTER → 2023-05-20 | Outpatient (REF) | payer MEDICARE, MEDICAID ==
[2023-05-20 12:31] LABS: HEMOGLOBIN A1c 5.7 % (4.0-6.0)
== END ==
PROVIDERS: ATTEND Internal Medicine
DX: E83.42 Hypomagnesemia (principal); Z79.899 Other long term (current) drug therapy

== ENCOUNTER → 2023-06-15 | Outpatient (REF) | payer MEDICARE, MEDICAID ==
[2023-06-15 11:54] LABS: HEMOGLOBIN A1c 5.3 % (4.0-6.0)
[2023-06-15 12:19] LABS: CHOLESTEROL RISK RATIO 2.25 (<5); HDL CHOLESTEROL 60.3 MG/DL (>40); LDL CHOLESTEROL 59.9 MG/DL (<100); MAGNESIUM LEVEL 1.7 MG/DL (1.8-2.4); NON-HDL-C 75.7 MG/DL; PTH INTACT 65.4 PG/ML (18.5-88.0)
[2023-06-15 12:20] LABS: THYROID STIMULATING HORMONE 3.369 uIU/ML (0.55-4.78)
[2023-06-15 12:21] LABS: TOTAL 25(OH) VITAMIN D 43.8 NG/ML (20.0-100.0)
== END ==
PROVIDERS: ATTEND Internal Medicine
DX: N18.9 Chronic kidney disease, unspecified (principal); Z79.899 Other long term (current) drug therapy

== ENCOUNTER → 2023-07-11 | Outpatient (REF) | payer MEDICARE, MEDICAID ==
[~2023-07-11] MED LIST changes: +DOXY-440 PO; -DOXY-444 PO
[2023-07-12 08:31] LABS: APPEARANCE, URINE CLOUDY (CLEAR); BACTERIA, URINE AUTO 1+ (NEGATIVE); BILIRUBIN, URINE AUTO NEGATIVE (NEGATIVE); BLOOD, URINE BLOOD NEGATIVE (NEGATIVE); COLOR, URINE YELLOW (YELLOW); GLUCOSE, URINE (UA) AUTO NEGATIVE (NEGATIVE); KETONE, URINE AUTO NEGATIVE (NEGATIVE); LEUKOCYTE ESTERASE, URINE AUTO NEGATIVE (NEGATIVE); MUCUS, URINE SMALL (NEGATIVE); NITRITE, URINE AUTO POSITIVE (NEGATIVE); PROTEIN, URINE AUTO 1+ mg/dL (NEGATIVE); RBC, URINE AUTO 1 /HPF (0-3); SPECIFIC GRAVITY URINE AUTO 1.013 (1.002-1.035); SQUAMOUS EPITHELIAL CELL UR AU 20 /HPF (0-6); UROBILINOGEN, URINE AUTO 0.2 mg/dL (0.0-2.0); WBC, URINE AUTO 5 /HPF (0-3)
== END ==
PROVIDERS: ATTEND Internal Medicine
DX: R41.0 Disorientation, unspecified (principal); R10.9 Unspecified abdominal pain

== ENCOUNTER → 2023-07-13 | Outpatient (REF) | payer MEDICARE, MEDICAID ==
[2023-07-13 11:13] LABS: HEMATOCRIT 39.6 % (36.0-47.0); HEMOGLOBIN 11.9 g/dl (12.0-15.5); MEAN CORPUSCULAR HEMOGLOBIN 32.1 pg (27.0-33.0); MEAN CORPUSCULAR HGB CONC 30.1 g/dl (32.0-36.5); MEAN CORPUSCULAR VOLUME 106.7 fl (80.0-96.0); PLATELET COUNT, AUTOMATED 312 10^3/uL (150-450); RED BLOOD COUNT 3.71 10^6/uL (4.00-5.40); WHITE BLOOD COUNT 10.8 10^3/uL (4.0-10.0)
[2023-07-13 11:40] LABS: CALCIUM LEVEL 9.1 MG/DL (8.3-10.6); CREATININE FOR GFR 1.22 MG/DL (0.55-1.30); GLOMERULAR FILTRATION RATE 44.5 (>32); POTASSIUM SERUM 4.1 MMOL/L (3.5-5.1)
== END ==
PROVIDERS: ATTEND Internal Medicine
DX: R41.0 Disorientation, unspecified (principal)

== ENCOUNTER → 2023-07-20 | Outpatient (REF) | payer MEDICARE, MEDICAID | PROVIDERS: ATTEND Internal Medicine | DX: E83.42 Hypomagnesemia (principal) ==

== ENCOUNTER → 2023-07-21 | Outpatient (CLI) | payer MEDICARE, MEDICAID | LOC: M SLEEP 20:00 | PROVIDERS: ATTEND Internal Medicine Pulmonary Disease | DX: G47.33 Obstructive sleep apnea (adult) (pediatric) (principal); J44.9 Chronic obstructive pulmonary disease, unspecified; Z95.0 Presence of cardiac pacemaker ==

== ENCOUNTER → 2023-08-17 | Outpatient (REF) | payer MEDICARE, MEDICAID ==
[~2023-08-17] MED LIST changes: +FLUO-365 PO; -FLUO20CA22 PO
== END ==
PROVIDERS: ATTEND Physician Assistant
DX: E83.42 Hypomagnesemia (principal)

== ENCOUNTER → 2023-09-16 | Outpatient (REF) | payer MEDICARE, MEDICAID | PROVIDERS: ATTEND Physician Assistant | DX: E83.42 Hypomagnesemia (principal) ==

== ENCOUNTER → 2023-10-21 | Outpatient (REF) | payer MEDICARE, MEDICAID | PROVIDERS: ATTEND Internal Medicine | DX: E83.42 Hypomagnesemia (principal) ==

== ENCOUNTER → 2023-10-26 | Outpatient (CLI) | payer MEDICARE, MEDICAID | LOC: M PLAIMG 10:26 | PROVIDERS: ATTEND Internal Medicine Pulmonary Disease | DX: R91.8 Other nonspecific abnormal finding of lung field (principal) ==

== ENCOUNTER → 2023-10-30 | Outpatient (REF) | payer MEDICARE, MEDICAID ==
[2023-10-30 07:07] LABS: HEMOGLOBIN 11.9 g/dl (12.0-15.5); MEAN CORPUSCULAR HEMOGLOBIN 33.2 pg (27.0-33.0); MEAN CORPUSCULAR HGB CONC 31.3 g/dl (32.0-36.5); MEAN CORPUSCULAR VOLUME 106.1 fl (80.0-96.0); PLATELET COUNT, AUTOMATED 246 10^3/uL (150-450); RED BLOOD COUNT 3.58 10^6/uL (4.00-5.40); WHITE BLOOD COUNT 8.6 10^3/uL (4.0-10.0)
[2023-10-30 07:32] LABS: CALCIUM LEVEL 8.7 MG/DL (8.3-10.6); CREATININE FOR GFR 1.08 MG/DL (0.55-1.30); GLOMERULAR FILTRATION RATE 51.2 (>32); POTASSIUM SERUM 4.3 MMOL/L (3.5-5.1)
== END ==
PROVIDERS: ATTEND Internal Medicine
DX: J18.8 Other pneumonia, unspecified organism (principal)

== ENCOUNTER → 2023-11-18 | Outpatient (REF) | payer MEDICARE, MEDICAID | PROVIDERS: ATTEND Internal Medicine | DX: N18.9 Chronic kidney disease, unspecified (principal) ==

== ENCOUNTER → 2023-12-04 | Outpatient (CLI) | payer MEDICARE, MEDICAID | LOC: M SLEEP 20:00 | PROVIDERS: ATTEND Internal Medicine Pulmonary Disease | DX: G47.33 Obstructive sleep apnea (adult) (pediatric) (principal) ==

== ENCOUNTER → 2023-12-23 | Outpatient (REF) | payer MEDICARE, MEDICAID ==
[2023-12-23 10:36] LABS: CHOLESTEROL RISK RATIO 3.45 (<5); LDL CHOLESTEROL 131.2 MG/DL (<100); MAGNESIUM LEVEL 2.2 MG/DL (1.8-2.4)
[2023-12-23 10:38] LABS: THYROID STIMULATING HORMONE 4.351 uIU/ML (0.55-4.78); TOTAL 25(OH) VITAMIN D 36.9 NG/ML (20.0-100.0)
[2023-12-23 11:05] LABS: PTH INTACT 64.3 PG/ML (18.5-88.0)
== END ==
PROVIDERS: ATTEND Internal Medicine
DX: N18.9 Chronic kidney disease, unspecified (principal); Z79.899 Other long term (current) drug therapy

== ENCOUNTER → 2024-01-18 | Outpatient (REF) | payer MEDICARE, MEDICAID ==
[2024-01-18 13:07] LABS: HEMATOCRIT 37.5 % (36.0-47.0); HEMOGLOBIN 11.6 g/dl (12.0-15.5); MEAN CORPUSCULAR HEMOGLOBIN 33.4 pg (27.0-33.0); MEAN CORPUSCULAR HGB CONC 30.9 g/dl (32.0-36.5); MEAN CORPUSCULAR VOLUME 108.1 fl (80.0-96.0); PLATELET COUNT, AUTOMATED 228 10^3/uL (150-450); RED BLOOD COUNT 3.47 10^6/uL (4.00-5.40); WHITE BLOOD COUNT 8.7 10^3/uL (4.0-10.0)
[2024-01-18 13:38] LABS: CREATININE FOR GFR 1.12 MG/DL (0.55-1.30); GLOMERULAR FILTRATION RATE 49.1 (>32); POTASSIUM SERUM 4.1 MMOL/L (3.5-5.1)
== END ==
PROVIDERS: ATTEND Internal Medicine
DX: I50.9 Heart failure, unspecified (principal)

== ENCOUNTER → 2024-01-18 | Outpatient (REF) | payer MEDICARE, MEDICAID | PROVIDERS: ATTEND Nurse Practitioner Adult Health | DX: I50.9 Heart failure, unspecified (principal) ==

== ENCOUNTER → 2024-01-20 | Outpatient (REF) | payer MEDICARE, MEDICAID | PROVIDERS: ATTEND Internal Medicine | DX: N18.9 Chronic kidney disease, unspecified (principal) ==

== ENCOUNTER → 2024-01-22 | Outpatient (REF) | payer MEDICARE, MEDICAID ==
[2024-01-22 09:20] LABS: CALCIUM LEVEL 9.4 MG/DL (8.3-10.6); CREATININE FOR GFR 1.38 MG/DL (0.55-1.30); GLOMERULAR FILTRATION RATE 38.6 (>32); POTASSIUM SERUM 3.3 MMOL/L (3.5-5.1)
== END ==
PROVIDERS: ATTEND Internal Medicine
DX: N18.9 Chronic kidney disease, unspecified (principal)

== ENCOUNTER → 2024-01-27 | Outpatient (REF) | payer MEDICARE, MEDICAID ==
[2024-01-27 09:49] LABS: CALCIUM LEVEL 9.6 MG/DL (8.3-10.6); CREATININE FOR GFR 1.13 MG/DL (0.55-1.30); GLOMERULAR FILTRATION RATE 48.6 (>32); POTASSIUM SERUM 3.9 MMOL/L (3.5-5.1)
== END ==
PROVIDERS: ATTEND Internal Medicine
DX: N18.9 Chronic kidney disease, unspecified (principal)

== ENCOUNTER → 2024-02-17 | Outpatient (REF) | payer MEDICARE, MEDICAID | PROVIDERS: ATTEND Internal Medicine | DX: E83.42 Hypomagnesemia (principal) ==

== ENCOUNTER 2024-03-02 14:37 | Inpatient (IN) | payer MEDICARE, MEDICAID ==
[~2024-03-02] VITALS: Ht 154.9 cm; Wt 77.4 kg
[2024-03-02 15:49] LABS: BASO % 0.4 % (0.0-1.0); EOS # 0.2 10^3/uL (0.0-0.5); EOS % 1.9 % (0.0-3.0); HEMATOCRIT 36.4 % (36.0-47.0); HEMOGLOBIN 11.1 g/dl (12.0-15.5); LYMPH # 1.1 10^3/uL (1.5-5.0); LYMPH % 13.7 % (24.0-44.0); MEAN CORPUSCULAR HEMOGLOBIN 33.2 pg (27.0-33.0); MEAN CORPUSCULAR HGB CONC 30.5 g/dl (32.0-36.5); MONO # 0.6 10^3/uL (0.0-0.8); MONO % 7.5 % (2.0-8.0); NEUTROPHILS # 6.1 10^3/uL (1.5-8.5); NEUTROPHILS % 76.3 % (36.0-66.0); PLATELET COUNT, AUTOMATED 223 10^3/uL (150-450); RED BLOOD COUNT 3.34 10^6/uL (4.00-5.40)
[2024-03-02] MEDS: dexAMETHasone 20MG/5ML VIAL IV ONE (15:52)
[2024-03-02] MEDS: IPRATROPIUM 0.5MG/ALBUTEROL 2.5MG INH SOL UD 3ML (DUONEB) NEB SCH ×2 (16:10→19:09)
[2024-03-02 16:15] LABS: ABG BASE EXCESS 12.6 (-2.0-2.0); ABG HCO3 39.8 MMOL/L (22.0-26.0); ABG O2 SATURATION 92.7 % (95.0-99.0); ABG PARTIAL PRESSURE O2 65.4 mmHg (75.0-100.0); ABG STANDARD HCO3 36.3 MMOL/L. (22.0-26.0); ABG TOTAL CO2 41.8 MMOL/L (23.0-31.0); ABG pH (ARTERIAL) 7.406 UNITS (7.350-7.450)
[2024-03-02 16:18] LABS: ABG PARTIAL PRESSURE CO2 64.9 mmHg (35.0-45.0)
[2024-03-02 16:23] LABS: BLOOD UREA NITROGEN 31 MG/DL (9-23); CARBON DIOXIDE LEVEL > 40.0 MMOL/L (20-31); CHLORIDE LEVEL 99 MMOL/L (98-107); CREATININE FOR GFR 1.15 MG/DL (0.55-1.30); GLOMERULAR FILTRATION RATE 47.6 (>32); GLUCOSE, FASTING 124 MG/DL (74-106); POTASSIUM SERUM 4.2 MMOL/L (3.5-5.1); SODIUM LEVEL 142 MMOL/L (136-145)
[2024-03-02] MEDS ORDERED: ACET-907 PO (16:23)
[2024-03-02] MEDS ORDERED: FLUO1TAB3 PO (16:23)
[2024-03-02] MEDS ORDERED: TRUL10IN SC (16:23)
[2024-03-02] MEDS ORDERED: PRED5TA PO (16:23)
[2024-03-02] MEDS ORDERED: HOME MED LIST COMPLETE! XX SCH (16:45)
[2024-03-02] MEDS ORDERED: IPRATROPIUM 0.5MG/ALBUTEROL 2.5MG INH SOL UD 3ML (DUONEB) NEB PRN (18:10)
[2024-03-02] MEDS ORDERED: ACETAMINOPHEN 325 MG TAB PO PRN (18:15)
[2024-03-02] MEDS ORDERED: BISACODYL 10MG SUPP PR PRN (18:15)
[2024-03-02] MEDS ORDERED: FLEET ENEMA PR PRN (18:15)
[2024-03-02] MEDS: FUROSEMIDE 40MG/4ML VIAL IV ONE (18:19)
[2024-03-02] MEDS ORDERED: ISOVUE-370 76% 100ML VIAL As Ordered ONE (18:25)
[2024-03-02 18:26] LABS: PROCALCITONIN 0.09 ng/ml
[2024-03-02 18:34] LABS: THYROID STIMULATING HORMONE 1.922 uIU/ML (0.55-4.78)
[2024-03-02 18:54] LABS: ALBUMIN 2.8 G/DL (3.2-5.2); ALKALINE PHOSPHATASE 72 U/L (35-104); ALT/SGPT 15 U/L (7.0-40); AST/SGOT 18 U/L (<34); BILIRUBIN,DIRECT < 0.1 MG/DL (<0.4); BILIRUBIN,TOTAL 0.3 MG/DL (0.3-1.2); TOTAL PROTEIN 6.7 G/DL (5.7-8.2)
[2024-03-02] MEDS: MAGNESIUM OXIDE 400MG TAB (MAG-OX) PO SCH (20:54)
[2024-03-02] MEDS: AZITHROMYCIN 250MG TABLET PO ONE (20:54)
[2024-03-02] MEDS: methylPREDNISolone 40MG 1ML VIAL IV SCH (20:54)
[2024-03-02] MEDS: cefTRIAXone SOD 1 GM in DEXTROSE 5% (D5W) ADV/MINI-BAG 50 ML IV ONE (20:54)
[2024-03-02] MEDS: POLYVINYL ALCOHOL OPHTH SOLN 15ML (LIQUITEARS) OU SCH (21:00)
[2024-03-02 22:39] LABS: ABG BASE EXCESS 8.4 (-2.0-2.0); ABG HCO3 34.4 MMOL/L (22.0-26.0); ABG O2 SATURATION 92.7 % (95.0-99.0); ABG STANDARD HCO3 32.1 MMOL/L. (22.0-26.0); ABG TOTAL CO2 36.1 MMOL/L (23.0-31.0); ABG pH (ARTERIAL) 7.422 UNITS (7.350-7.450)
[2024-03-03 06:53] LABS: ABG BASE EXCESS 12.6 (-2.0-2.0); ABG HCO3 39.3 MMOL/L (22.0-26.0); ABG O2 SATURATION 95.9 % (95.0-99.0); ABG PARTIAL PRESSURE CO2 60.5 mmHg (35.0-45.0); ABG PARTIAL PRESSURE O2 85.6 mmHg (75.0-100.0); ABG STANDARD HCO3 36.3 MMOL/L. (22.0-26.0); ABG TOTAL CO2 41.1 MMOL/L (23.0-31.0)
[2024-03-03] MEDS: TIOTROPIUM INHALER/CAPSULE (SPIRIVA) INH SCH (07:25)
[2024-03-03 08:12] LABS: HEMATOCRIT 35.9 % (36.0-47.0); HEMOGLOBIN 11.3 g/dl (12.0-15.5); MEAN CORPUSCULAR HGB CONC 31.5 g/dl (32.0-36.5); PLATELET COUNT, AUTOMATED 225 10^3/uL (150-450); RED BLOOD COUNT 3.42 10^6/uL (4.00-5.40); WHITE BLOOD COUNT 6.7 10^3/uL (4.0-10.0)
[2024-03-03 08:40] LABS: CALCIUM LEVEL 9.3 MG/DL (8.3-10.6); CREATININE FOR GFR 1.06 MG/DL (0.55-1.30); GLOMERULAR FILTRATION RATE 52.3 (>32); POTASSIUM SERUM 4.2 MMOL/L (3.5-5.1)
[2024-03-03] MEDS: AZITHROMYCIN 250MG TABLET PO SCH (08:55)
[2024-03-03] MEDS: FLUoxetine 10 MG CAP PO SCH (08:55)
[2024-03-03] MEDS: ACETAMINOPHEN 325 MG TAB PO SCH (08:56)
[2024-03-03] MEDS: CYANOCOBALAMIN 500 MCG TAB PO SCH (08:56)
[2024-03-03] MEDS: PANTOPRAZOLE 40MG TAB (PROTONIX) PO SCH (08:56)
[2024-03-03] MEDS: ASPIRIN 81MG ENTERIC TABLET PO SCH (08:56)
[2024-03-03] MEDS: FERROUS SULFATE 325MG TAB PO SCH (08:57)
[2024-03-03] MEDS: HEPARIN SOD (PORCINE) 5000UNITS/ML 1ML VIAL/SYRINGE SC SCH (09:00)
[2024-03-03] MEDS: LEVOTHYROXINE 50MCG TABLET (0.05MG) PO SCH (09:41)
[2024-03-03 11:01] LABS: KETONE, URINE AUTO RFX TRACE mg/dL (NEGATIVE); LEUKOCYTE ESTERASE UR AUTO RFX NEGATIVE (NEGATIVE); MUCUS, URINE RFX LARGE (NEGATIVE); NITRITE, URINE AUTO RFX NEGATIVE (NEGATIVE); RBC, URINE AUTO RFX 0 /HPF (0-3); SQUAM EPITHELIAL CELL UR AURFX 0 /HPF (0-6); WBC, URINE AUTO RFX 2 /HPF (0-3)
[2024-03-03] MEDS: amLODIPine 5 MG TAB PO ONE (12:38)
[2024-03-03 15:07] VITALS: BP 136/99; TEMP 96.5; O2SAT 94
[2024-03-03 15:41] VITALS: BP 150/63; TEMP 97.8; O2SAT 95
[2024-03-03 16:12] LABS: ABG BASE EXCESS 7.7 (-2.0-2.0); ABG O2 SATURATION 92.4 % (95.0-99.0); ABG PARTIAL PRESSURE CO2 55.8 mmHg (35.0-45.0); ABG PARTIAL PRESSURE O2 69.6 mmHg (75.0-100.0); ABG STANDARD HCO3 31.4 MMOL/L. (22.0-26.0); ABG TOTAL CO2 35.7 MMOL/L (23.0-31.0); ABG pH (ARTERIAL) 7.403 UNITS (7.350-7.450)
[2024-03-03] MEDS: cefTRIAXone SOD 1 GM in DEXTROSE 5% (D5W) ADV/MINI-BAG 50 ML IV SCH (18:04)
[2024-03-03 20:00] VITALS: BP 161/70; TEMP 97.4; O2SAT 96
[2024-03-03 23:49] VITALS: BP 189/79; TEMP 97.4; O2SAT 95
[2024-03-03 23:55] VITALS: BP 178/74
[2024-03-04] VITALS (8 sets, daily range): BP systolic 144–188; BP diastolic 63–92; TEMP 97.2–99.7; O2SAT 94–97
[2024-03-04] MEDS: **hydrALAZINE HCL** 25 MG TAB PO ONE (04:10)
[2024-03-04 08:52] LABS: BASO % 0.1 % (0.0-1.0); EOS % 0.1 % (0.0-3.0); HEMATOCRIT 36.9 % (36.0-47.0); HEMOGLOBIN 11.5 g/dl (12.0-15.5); LYMPH # 1.1 10^3/uL (1.5-5.0); LYMPH % 11.7 % (24.0-44.0); MEAN CORPUSCULAR HEMOGLOBIN 33.2 pg (27.0-33.0); MEAN CORPUSCULAR HGB CONC 31.2 g/dl (32.0-36.5); MEAN CORPUSCULAR VOLUME 106.6 fl (80.0-96.0); MONO # 0.5 10^3/uL (0.0-0.8); MONO % 5.4 % (2.0-8.0); NEUTROPHILS # 7.4 10^3/uL (1.5-8.5); NEUTROPHILS % 82.5 % (36.0-66.0); PLATELET COUNT, AUTOMATED 251 10^3/uL (150-450); RED BLOOD COUNT 3.46 10^6/uL (4.00-5.40); WHITE BLOOD COUNT 8.9 10^3/uL (4.0-10.0)
[2024-03-04] MEDS ORDERED: amLODIPine 5 MG TAB PO SCH (09:00)
[2024-03-04 09:29] LABS: BLOOD UREA NITROGEN 38 MG/DL (9-23); CALCIUM LEVEL 9.4 MG/DL (8.3-10.6); CARBON DIOXIDE LEVEL > 40.0 MMOL/L (20-31); CHLORIDE LEVEL 95 MMOL/L (98-107); CREATININE FOR GFR 1.03 MG/DL (0.55-1.30); GLOMERULAR FILTRATION RATE 54.1 (>32); GLUCOSE, FASTING 111 MG/DL (74-106); POTASSIUM SERUM 4.3 MMOL/L (3.5-5.1); SODIUM LEVEL 140 MMOL/L (136-145)
[2024-03-04 10:19] LABS: CPK CREATINE PHOSPHOKINASE 86 U/L (34-145)
[2024-03-04 10:24] LABS: CK-MB VALUE MASS < 1.0 NG/ML (<3.6); MB/CK RELATIVE INDEX 1.16 (< OR =4)
[2024-03-04] MEDS: FUROSEMIDE 40MG/4ML VIAL IV ONE (11:53)
[2024-03-05] VITALS (7 sets, daily range): BP systolic 143–170; BP diastolic 63–72; TEMP 97.4–98.2; O2SAT 94–97
[2024-03-05 08:21] LABS: BASO % 0.1 % (0.0-1.0); HEMATOCRIT 37.2 % (36.0-47.0); HEMOGLOBIN 11.7 g/dl (12.0-15.5); LYMPH # 0.9 10^3/uL (1.5-5.0); LYMPH % 10.7 % (24.0-44.0); MEAN CORPUSCULAR HEMOGLOBIN 33.2 pg (27.0-33.0); MEAN CORPUSCULAR HGB CONC 31.5 g/dl (32.0-36.5); MEAN CORPUSCULAR VOLUME 105.7 fl (80.0-96.0); MONO # 0.5 10^3/uL (0.0-0.8); MONO % 5.8 % (2.0-8.0); NEUTROPHILS # 7.2 10^3/uL (1.5-8.5); NEUTROPHILS % 82.7 % (36.0-66.0); PLATELET COUNT, AUTOMATED 278 10^3/uL (150-450); RED BLOOD COUNT 3.52 10^6/uL (4.00-5.40); WHITE BLOOD COUNT 8.7 10^3/uL (4.0-10.0)
[2024-03-05 08:46] LABS: CREATININE FOR GFR 0.96 MG/DL (0.55-1.30); GLOMERULAR FILTRATION RATE 58.7 (>32); POTASSIUM SERUM 4.4 MMOL/L (3.5-5.1)
[2024-03-05] MEDS: FUROSEMIDE 40 MG TAB PO SCH (09:02)
[2024-03-05 18:44] LABS: URINE STREP PNEUMONIAE ANTIGEN NOT DETECTED (NOT DETECT)
[2024-03-06] VITALS (7 sets, daily range): BP systolic 142–177; BP diastolic 62–78; TEMP 96.5–98.3; O2SAT 94–98
[2024-03-06 07:04] LABS: BASO % 0.2 % (0.0-1.0); EOS # 0.1 10^3/uL (0.0-0.5); HEMATOCRIT 36.6 % (36.0-47.0); HEMOGLOBIN 11.5 g/dl (12.0-15.5); LYMPH # 1.6 10^3/uL (1.5-5.0); LYMPH % 18.2 % (24.0-44.0); MEAN CORPUSCULAR HEMOGLOBIN 33.4 pg (27.0-33.0); MEAN CORPUSCULAR HGB CONC 31.4 g/dl (32.0-36.5); MEAN CORPUSCULAR VOLUME 106.4 fl (80.0-96.0); MONO # 0.9 10^3/uL (0.0-0.8); MONO % 10.2 % (2.0-8.0); NEUTROPHILS # 6.2 10^3/uL (1.5-8.5); NEUTROPHILS % 69.7 % (36.0-66.0); PLATELET COUNT, AUTOMATED 246 10^3/uL (150-450); RED BLOOD COUNT 3.44 10^6/uL (4.00-5.40); WHITE BLOOD COUNT 8.9 10^3/uL (4.0-10.0)
[2024-03-06 07:33] LABS: BLOOD UREA NITROGEN 34 MG/DL (9-23); CALCIUM LEVEL 8.9 MG/DL (8.3-10.6); CARBON DIOXIDE LEVEL > 40.0 MMOL/L (20-31); CHLORIDE LEVEL 100 MMOL/L (98-107); CREATININE FOR GFR 1.03 MG/DL (0.55-1.30); GLOMERULAR FILTRATION RATE 54.1 (>32); GLUCOSE, FASTING 89 MG/DL (74-106); POTASSIUM SERUM 4.1 MMOL/L (3.5-5.1); SODIUM LEVEL 143 MMOL/L (136-145)
[2024-03-06] MEDS: predniSONE 20 MG TAB PO SCH (09:00)
[2024-03-06] MEDS: ONDANSETRON 4MG 2ML VIAL IV PRN (10:42)
[2024-03-07 03:28] VITALS: BP 140/63; TEMP 97.3; O2SAT 95
[2024-03-07 07:49] VITALS: BP 144/63; TEMP 97.7; O2SAT 96
[2024-03-07 07:49] LABS: BASO % 0.4 % (0.0-1.0); EOS # 0.2 10^3/uL (0.0-0.5); EOS % 2.2 % (0.0-3.0); HEMOGLOBIN 11.5 g/dl (12.0-15.5); LYMPH # 1.7 10^3/uL (1.5-5.0); LYMPH % 19.6 % (24.0-44.0); MEAN CORPUSCULAR HEMOGLOBIN 33.2 pg (27.0-33.0); MEAN CORPUSCULAR HGB CONC 31.1 g/dl (32.0-36.5); MEAN CORPUSCULAR VOLUME 106.9 fl (80.0-96.0); MONO # 0.8 10^3/uL (0.0-0.8); MONO % 9.4 % (2.0-8.0); NEUTROPHILS # 5.7 10^3/uL (1.5-8.5); NEUTROPHILS % 67.6 % (36.0-66.0); PLATELET COUNT, AUTOMATED 230 10^3/uL (150-450); RED BLOOD COUNT 3.46 10^6/uL (4.00-5.40); WHITE BLOOD COUNT 8.5 10^3/uL (4.0-10.0)
[2024-03-07 08:18] LABS: CALCIUM LEVEL 9.1 MG/DL (8.3-10.6); CREATININE FOR GFR 1.21 MG/DL (0.55-1.30); GLOMERULAR FILTRATION RATE 44.8 (>32); POTASSIUM SERUM 4.4 MMOL/L (3.5-5.1)
[2024-03-07 09:30] VITALS: BP 144/63
[2024-03-07] MEDS ORDERED: DIGOXIN INJ 0.5 MG/2 ML AMP IV ONE (09:35)
[2024-03-07 10:16] LABS: ABG BASE EXCESS 4.2 (-2.0-2.0); ABG HCO3 30.7 MMOL/L (22.0-26.0); ABG O2 SATURATION 96.8 % (95.0-99.0); ABG PARTIAL PRESSURE CO2 54.5 mmHg (35.0-45.0); ABG PARTIAL PRESSURE O2 90.5 mmHg (75.0-100.0); ABG STANDARD HCO3 28.2 MMOL/L. (22.0-26.0); ABG TOTAL CO2 32.4 MMOL/L (23.0-31.0); ABG pH (ARTERIAL) 7.369 UNITS (7.350-7.450)
[2024-03-07] MEDS ORDERED: AMLO1TAB25 PO (11:00)
== END 2024-03-07 12:00 | DRG 70 ==
LOC: M ED 14:37 → EEVIPCON 17:45 → M ED INP 17:45 → M PCU 03-03 14:53
PROVIDERS: ADMIT Internal Medicine; ATTEND Internal Medicine
DX: G93.41 Metabolic encephalopathy (principal); J96.22 Acute and chronic respiratory failure with hypercapnia; J96.21 Acute and chronic respiratory failure with hypoxia; J44.1 Chronic obstructive pulmonary disease with (acute) exacerbation; J93.12 Secondary spontaneous pneumothorax; J44.0 Chronic obstructive pulmonary disease with (acute) lower respiratory infection; N18.9 Chronic kidney disease, unspecified; I27.29 Other secondary pulmonary hypertension; J20.8 Acute bronchitis due to other specified organisms; F39 Unspecified mood [affective] disorder; E03.9 Hypothyroidism, unspecified; E78.5 Hyperlipidemia, unspecified; J43.9 Emphysema, unspecified; D63.8 Anemia in other chronic diseases classified elsewhere; I49.5 Sick sinus syndrome; I16.0 Hypertensive urgency; E83.42 Hypomagnesemia; K59.09 Other constipation; K21.9 Gastro-esophageal reflux disease without esophagitis; Z66 Do not resuscitate; Z99.81 Dependence on supplemental oxygen; Z79.82 Long term (current) use of aspirin; Z79.890 Hormone replacement therapy; Z79.899 Other long term (current) drug therapy; Z88.5 Allergy status to narcotic agent; Z87.891 Personal history of nicotine dependence; Z15.01 Genetic susceptibility to malignant neoplasm of breast; Z90.13 Acquired absence of bilateral breasts and nipples; Z95.0 Presence of cardiac pacemaker; Z98.82 Breast implant status; Z87.440 Personal history of urinary (tract) infections

== ENCOUNTER → 2024-03-23 | Outpatient (REF) | payer MEDICARE, MEDICAID ==
[~2024-03-23] MED LIST changes: +ACET-907 PO; +FLUO1TAB3 PO; +PRED5TA PO; +TRUL10IN SC
== END ==
PROVIDERS: ATTEND Internal Medicine
DX: E83.42 Hypomagnesemia (principal)

== ENCOUNTER → 2024-04-18 | Outpatient (REF) | payer MEDICARE, MEDICAID | PROVIDERS: ATTEND Internal Medicine | DX: I10 Essential (primary) hypertension (principal); Z53.8 Procedure and treatment not carried out for other reasons ==

== ENCOUNTER → 2024-04-19 | Outpatient (REF) | payer MEDICARE, MEDICAID ==
[2024-04-19 14:01] LABS: BASO % 0.4 % (0.0-1.0); EOS # 0.1 10^3/uL (0.0-0.5); EOS % 1.2 % (0.0-3.0); HEMATOCRIT 38.7 % (36.0-47.0); LYMPH # 1.2 10^3/uL (1.5-5.0); LYMPH % 11.4 % (24.0-44.0); MEAN CORPUSCULAR HEMOGLOBIN 33.7 pg (27.0-33.0); MEAN CORPUSCULAR VOLUME 108.7 fl (80.0-96.0); MONO # 0.7 10^3/uL (0.0-0.8); MONO % 6.4 % (2.0-8.0); NEUTROPHILS # 8.5 10^3/uL (1.5-8.5); NEUTROPHILS % 79.6 % (36.0-66.0); PLATELET COUNT, AUTOMATED 252 10^3/uL (150-450); RED BLOOD COUNT 3.56 10^6/uL (4.00-5.40); WHITE BLOOD COUNT 10.7 10^3/uL (4.0-10.0)
[2024-04-19 14:37] LABS: CALCIUM LEVEL 8.9 MG/DL (8.3-10.6); CREATININE FOR GFR 1.01 MG/DL (0.55-1.30); GLOMERULAR FILTRATION RATE 55.2 (>32); MAGNESIUM LEVEL 1.8 MG/DL (1.8-2.4); POTASSIUM SERUM 3.5 MMOL/L (3.5-5.1)
== END ==
PROVIDERS: ATTEND Internal Medicine
DX: I50.9 Heart failure, unspecified (principal)

== ENCOUNTER → 2024-04-20 | Outpatient (REF) | payer MEDICARE, MEDICAID ==
[2024-04-20 19:59] LABS: APPEARANCE, URINE MANUAL CLEAR (CLEAR); COLOR, URINE MANUAL LT YELLOW (YELLOW)
[2024-04-20 20:01] LABS: BILIRUBIN, URINE MANUAL NEGATIVE (NEGATIVE); BLOOD URINE MANUAL NEGATIVE (NEGATIVE); GLUCOSE, URINE (UA) MANUAL NEGATIVE (NEGATIVE); KETONE, URINE MANUAL NEGATIVE (NEGATIVE); LEUKOCYTE ESTERASE, URINE MAN NEGATIVE (NEGATIVE); NITRITE, URINE MANUAL NEGATIVE (NEGATIVE); PROTEIN, URINE MANUAL NEGATIVE (NEGATIVE); UROBILINOGEN, URINE MANUAL NORMAL (NORMAL)
== END ==
LOC: EEVIPCON 11:20
PROVIDERS: ATTEND Nurse Practitioner Family
DX: R25.1 Tremor, unspecified (principal); D72.829 Elevated white blood cell count, unspecified; Z79.899 Other long term (current) drug therapy

== ENCOUNTER → 2024-05-16 | Outpatient (REF) | payer MEDICARE, MEDICAID ==
[2024-05-16 17:54] LABS: HEMATOCRIT 42.4 % (36.0-47.0); HEMOGLOBIN 13.4 g/dl (12.0-15.5); MEAN CORPUSCULAR HEMOGLOBIN 33.8 pg (27.0-33.0); MEAN CORPUSCULAR HGB CONC 31.6 g/dl (32.0-36.5); MEAN CORPUSCULAR VOLUME 106.8 fl (80.0-96.0); PLATELET COUNT, AUTOMATED 252 10^3/uL (150-450); RED BLOOD COUNT 3.97 10^6/uL (4.00-5.40); WHITE BLOOD COUNT 12.6 10^3/uL (4.0-10.0)
[2024-05-16 18:05] LABS: CALCIUM LEVEL 9.2 MG/DL (8.3-10.6); CREATININE FOR GFR 1.19 MG/DL (0.55-1.30); GLOMERULAR FILTRATION RATE 45.7 (>32); POTASSIUM SERUM 4.9 MMOL/L (3.5-5.1)
[2024-05-17 14:05] LABS: APPEARANCE, URINE HAZY (CLEAR); BACTERIA, URINE AUTO NEGATIVE (NEGATIVE); BILIRUBIN, URINE AUTO NEGATIVE (NEGATIVE); BLOOD, URINE BLOOD NEGATIVE (NEGATIVE); COLOR, URINE YELLOW (YELLOW); GLUCOSE, URINE (UA) AUTO NEGATIVE (NEGATIVE); KETONE, URINE AUTO NEGATIVE (NEGATIVE); LEUKOCYTE ESTERASE, URINE AUTO TRACE (NEGATIVE); NITRITE, URINE AUTO NEGATIVE (NEGATIVE); PROTEIN, URINE AUTO 1+ mg/dL (NEGATIVE); RBC, URINE AUTO 1 /HPF (0-3); SPECIFIC GRAVITY URINE AUTO 1.012 (1.002-1.035); SQUAMOUS EPITHELIAL CELL UR AU 1 /HPF (0-6); UROBILINOGEN, URINE AUTO 0.2 mg/dL (0.0-2.0); WBC, URINE AUTO 9 /HPF (0-3)
== END ==
PROVIDERS: ATTEND Internal Medicine
DX: R41.0 Disorientation, unspecified (principal)

== ENCOUNTER → 2024-05-18 | Outpatient (REF) | payer MEDICARE, MEDICAID | PROVIDERS: ATTEND Internal Medicine | DX: E83.42 Hypomagnesemia (principal) ==

== ENCOUNTER → 2024-05-19 | Outpatient (CLI) | payer MEDICARE, MEDICAID | LOC: M PLAIMG 10:14 | PROVIDERS: ATTEND Internal Medicine | DX: R91.8 Other nonspecific abnormal finding of lung field (principal) ==

== ENCOUNTER → 2024-05-23 | Outpatient (REF) | payer MEDICARE, MEDICAID ==
[2024-05-23 15:45] LABS: HEMATOCRIT 44.1 % (36.0-47.0); HEMOGLOBIN 13.7 g/dl (12.0-15.5); MEAN CORPUSCULAR HEMOGLOBIN 33.1 pg (27.0-33.0); MEAN CORPUSCULAR HGB CONC 31.1 g/dl (32.0-36.5); MEAN CORPUSCULAR VOLUME 106.5 fl (80.0-96.0); PLATELET COUNT, AUTOMATED 298 10^3/uL (150-450); RED BLOOD COUNT 4.14 10^6/uL (4.00-5.40); WHITE BLOOD COUNT 10.8 10^3/uL (4.0-10.0)
[2024-05-23 16:09] LABS: CALCIUM LEVEL 9.2 MG/DL (8.3-10.6); CREATININE FOR GFR 1.46 MG/DL (0.55-1.30); GLOMERULAR FILTRATION RATE 36.1 (>32); POTASSIUM SERUM 4.9 MMOL/L (3.5-5.1)
== END ==
PROVIDERS: ATTEND Physician Assistant
DX: N18.9 Chronic kidney disease, unspecified (principal); I50.9 Heart failure, unspecified

== ENCOUNTER → 2024-05-24 | Outpatient (REF) | payer MEDICARE, MEDICAID ==
[2024-05-24 15:19] LABS: HEMATOCRIT 42.2 % (36.0-47.0); HEMOGLOBIN 13.4 g/dl (12.0-15.5); MEAN CORPUSCULAR HGB CONC 31.8 g/dl (32.0-36.5); MEAN CORPUSCULAR VOLUME 107.1 fl (80.0-96.0); PLATELET COUNT, AUTOMATED 288 10^3/uL (150-450); RED BLOOD COUNT 3.94 10^6/uL (4.00-5.40); WHITE BLOOD COUNT 9.8 10^3/uL (4.0-10.0)
[2024-05-24 16:02] LABS: BLOOD UREA NITROGEN 34 MG/DL (9-23); CALCIUM LEVEL 8.9 MG/DL (8.3-10.6); CARBON DIOXIDE LEVEL 33 MMOL/L (20-31); CHLORIDE LEVEL 96 MMOL/L (98-107); CREATININE FOR GFR 1.22 MG/DL (0.55-1.30); GLOMERULAR FILTRATION RATE 44.4 (>32); POTASSIUM SERUM 4.5 MMOL/L (3.5-5.1); SODIUM LEVEL 140 MMOL/L (136-145)
== END ==
PROVIDERS: ATTEND Nurse Practitioner Family
DX: I50.9 Heart failure, unspecified (principal)

== ENCOUNTER → 2024-05-27 | Outpatient (REF) | payer MEDICARE, MEDICAID ==
[2024-05-27 07:48] LABS: HEMATOCRIT 42.3 % (36.0-47.0); HEMOGLOBIN 13.8 g/dl (12.0-15.5); MEAN CORPUSCULAR HEMOGLOBIN 33.7 pg (27.0-33.0); MEAN CORPUSCULAR HGB CONC 32.6 g/dl (32.0-36.5); MEAN CORPUSCULAR VOLUME 103.4 fl (80.0-96.0); PLATELET COUNT, AUTOMATED 295 10^3/uL (150-450); RED BLOOD COUNT 4.09 10^6/uL (4.00-5.40); WHITE BLOOD COUNT 10.6 10^3/uL (4.0-10.0)
[2024-05-27 08:21] LABS: CALCIUM LEVEL 8.9 MG/DL (8.3-10.6); CREATININE FOR GFR 1.28 MG/DL (0.55-1.30); POTASSIUM SERUM 3.2 MMOL/L (3.5-5.1)
== END ==
PROVIDERS: ATTEND Internal Medicine
DX: E87.5 Hyperkalemia (principal)

== ENCOUNTER → 2024-05-30 | Outpatient (REF) | payer MEDICARE, MEDICAID ==
[2024-05-30 10:09] LABS: HEMATOCRIT 41.9 % (36.0-47.0); HEMOGLOBIN 13.3 g/dl (12.0-15.5); MEAN CORPUSCULAR HEMOGLOBIN 33.8 pg (27.0-33.0); MEAN CORPUSCULAR HGB CONC 31.7 g/dl (32.0-36.5); MEAN CORPUSCULAR VOLUME 106.6 fl (80.0-96.0); PLATELET COUNT, AUTOMATED 326 10^3/uL (150-450); RED BLOOD COUNT 3.93 10^6/uL (4.00-5.40)
[2024-05-30 10:52] LABS: CALCIUM LEVEL 8.9 MG/DL (8.3-10.6); CREATININE FOR GFR 1.28 MG/DL (0.55-1.30); POTASSIUM SERUM 2.8 MMOL/L (3.5-5.1)
== END ==
PROVIDERS: ATTEND Internal Medicine
DX: E87.6 Hypokalemia (principal)

== ENCOUNTER → 2024-05-31 | Outpatient (REF) | payer MEDICARE, MEDICAID ==
[2024-05-31 15:05] LABS: CREATININE FOR GFR 1.3 MG/DL (0.55-1.30); GLOMERULAR FILTRATION RATE 41.2 (>32); POTASSIUM SERUM 4.6 MMOL/L (3.5-5.1)
== END ==
PROVIDERS: ATTEND Internal Medicine
DX: E87.6 Hypokalemia (principal)

== ENCOUNTER → 2024-06-06 | Outpatient (REF) | payer MEDICARE, MEDICAID ==
[2024-06-06 18:03] LABS: CALCIUM LEVEL 9.4 MG/DL (8.3-10.6); CREATININE FOR GFR 1.47 MG/DL (0.55-1.30); GLOMERULAR FILTRATION RATE 34.3 (>32); POTASSIUM SERUM 5.9 MMOL/L (3.5-5.1)
== END ==
PROVIDERS: ATTEND Internal Medicine
DX: E87.6 Hypokalemia (principal)

== ENCOUNTER → 2024-06-13 | Outpatient (REF) | payer MEDICARE, MEDICAID ==
[2024-06-13 09:26] LABS: CALCIUM LEVEL 9.1 MG/DL (8.3-10.6); CREATININE FOR GFR 1.11 MG/DL (0.55-1.30); GLOMERULAR FILTRATION RATE 48.1 (>32); POTASSIUM SERUM 4.1 MMOL/L (3.5-5.1)
== END ==
PROVIDERS: ATTEND Internal Medicine
DX: E87.6 Hypokalemia (principal)

== ENCOUNTER → 2024-06-17 | Outpatient (REF) | payer MEDICARE, MEDICAID ==
[2024-06-17 08:18] LABS: HEMATOCRIT 39.7 % (36.0-47.0); HEMOGLOBIN 12.6 g/dl (12.0-15.5); MEAN CORPUSCULAR HEMOGLOBIN 33.5 pg (27.0-33.0); MEAN CORPUSCULAR HGB CONC 31.7 g/dl (32.0-36.5); MEAN CORPUSCULAR VOLUME 105.6 fl (80.0-96.0); PLATELET COUNT, AUTOMATED 271 10^3/uL (150-450); RED BLOOD COUNT 3.76 10^6/uL (4.00-5.40); WHITE BLOOD COUNT 8.6 10^3/uL (4.0-10.0)
[2024-06-17 08:51] LABS: CALCIUM LEVEL 9.1 MG/DL (8.3-10.6); CREATININE FOR GFR 0.93 MG/DL (0.55-1.30); GLOMERULAR FILTRATION RATE 59.5 (>32); POTASSIUM SERUM 3.8 MMOL/L (3.5-5.1)
== END ==
PROVIDERS: ATTEND Internal Medicine
DX: J44.9 Chronic obstructive pulmonary disease, unspecified (principal)

== ENCOUNTER → 2024-06-20 | Outpatient (REF) | payer MEDICARE, MEDICAID ==
[2024-06-20 11:53] LABS: CHOLESTEROL RISK RATIO 3.62 (<5); HDL CHOLESTEROL 65.4 MG/DL (>40); LDL CHOLESTEROL 142.6 MG/DL (<100); MAGNESIUM LEVEL 2.1 MG/DL (1.8-2.4); NON-HDL-C 171.6 MG/DL; PHOSPHORUS LEVEL 3.3 MG/DL (2.4-5.1); PTH INTACT 56.1 PG/ML (18.5-88.0)
[2024-06-20 11:54] LABS: THYROID STIMULATING HORMONE 2.433 uIU/ML (0.55-4.78)
== END ==
PROVIDERS: ATTEND Internal Medicine
DX: N18.9 Chronic kidney disease, unspecified (principal); Z79.899 Other long term (current) drug therapy

== ENCOUNTER → 2024-07-18 | Outpatient (REF) | payer MEDICARE, MEDICAID ==
[~2024-07-18] MED LIST changes: -GLUC1KIT IM; +GLUC1VIA14 IM
== END ==
PROVIDERS: ATTEND Internal Medicine
DX: E83.42 Hypomagnesemia (principal)

== ENCOUNTER → 2024-09-21 | Outpatient (REF) | payer MEDICARE, MEDICAID ==
[~2024-09-21] MED LIST changes: -PRAV40TA2 PO; +PRAV40TA85 PO
== END ==
PROVIDERS: ATTEND Internal Medicine
DX: E83.42 Hypomagnesemia (principal)

== ENCOUNTER → 2024-10-17 | Outpatient (REF) | payer MEDICARE, MEDICAID | PROVIDERS: ATTEND Nurse Practitioner Family | DX: E83.42 Hypomagnesemia (principal) ==

== ENCOUNTER → 2024-11-21 | Outpatient (REF) | payer MEDICARE, MEDICAID | PROVIDERS: ATTEND Internal Medicine | DX: D64.9 Anemia, unspecified (principal) ==

== ENCOUNTER → 2024-12-21 | Outpatient (REF) | payer MEDICARE, MEDICAID ==
[2024-12-21 12:41] LABS: MAGNESIUM LEVEL 2.2 MG/DL (1.8-2.4)
== END ==
PROVIDERS: ATTEND Internal Medicine
DX: E03.9 Hypothyroidism, unspecified (principal)

== ENCOUNTER → 2025-01-11 | Outpatient (REF) | payer MEDICARE, MEDICAID ==
[2025-01-11 17:23] LABS: APPEARANCE, URINE CLOUDY (CLEAR); BACTERIA, URINE AUTO 2+ (NEGATIVE); BILIRUBIN, URINE AUTO NEGATIVE (NEGATIVE); BLOOD, URINE BLOOD NEGATIVE (NEGATIVE); GLUCOSE, URINE (UA) AUTO NEGATIVE (NEGATIVE); KETONE, URINE AUTO NEGATIVE (NEGATIVE); LEUKOCYTE ESTERASE, URINE AUTO 1+ (NEGATIVE); MUCUS, URINE SMALL (NEGATIVE); NITRITE, URINE AUTO NEGATIVE (NEGATIVE); PROTEIN, URINE AUTO 2+ mg/dL (NEGATIVE); RBC, URINE AUTO 1 /HPF (0-3); SPECIFIC GRAVITY URINE AUTO 1.014 (1.002-1.035); SQUAMOUS EPITHELIAL CELL UR AU 6 /HPF (0-6); UROBILINOGEN, URINE AUTO 0.2 mg/dL (0.0-2.0); WBC, URINE AUTO 43 /HPF (0-3)
== END ==
PROVIDERS: ATTEND Internal Medicine
DX: R41.0 Disorientation, unspecified (principal)

== ENCOUNTER → 2025-01-18 | Outpatient (REF) | payer MEDICARE, MEDICAID | PROVIDERS: ATTEND Internal Medicine | DX: E83.42 Hypomagnesemia (principal) ==

== ENCOUNTER → 2025-02-15 | Outpatient (REF) | payer MEDICARE, MEDICAID ==
[2025-02-15 13:25] LABS: CALCIUM LEVEL 8.8 MG/DL (8.3-10.6); CARBON DIOXIDE LEVEL 32.0 MMOL/L (20-31); CHLORIDE LEVEL 101.0 MMOL/L (98-107); CREATININE FOR GFR 1.51 MG/DL (0.55-1.30); GLOMERULAR FILTRATION RATE 33.3 (>32); POTASSIUM SERUM 4.6 MMOL/L (3.5-5.1); SODIUM LEVEL 142.0 MMOL/L (136-145)
[2025-02-15 14:53] LABS: MAGNESIUM LEVEL 2.6 MG/DL (1.8-2.4)
== END ==
PROVIDERS: ATTEND Internal Medicine
DX: E83.42 Hypomagnesemia (principal)

== ENCOUNTER → 2025-02-20 | Outpatient (REF) | payer MEDICARE, MEDICAID | PROVIDERS: ATTEND Nurse Practitioner Family | DX: E83.42 Hypomagnesemia (principal) ==

== ENCOUNTER → 2025-02-22 | Outpatient (REF) | payer MEDICARE, MEDICAID | PROVIDERS: ATTEND Internal Medicine | DX: Z79.899 Other long term (current) drug therapy (principal) ==

== ENCOUNTER → 2025-02-24 | Outpatient (REF) | payer MEDICARE, MEDICAID | PROVIDERS: ATTEND Nurse Practitioner Family | DX: R05.9 Cough, unspecified (principal) ==